=== PATIENT | female | born 1970 | race Caucasian/White ===

== ENCOUNTER 2016-08-25 15:19 | Inpatient (IN) ==
--- NOTE | 2016-08-25 16:01 | Emergency Department Note ---
Disposition Clinical Impression: Right hip pain Tear of acetabular labrum Qualifiers: Encounter type: initial encounter Laterality: right Qualified Code(s): S73.191A - Other sprain of right hip, initial encounter Hypertension Qualifiers: Hypertension type: essential hypertension Qualified Code(s): I10 - Essential ( primary) hypertension Disposition: Admitted As Inpatient Referrals: Chinmay Esqueda DO [Non-Partnered Physician] - Forms: ED Satisfaction Letter Time of Disposition: 18:59 Extremity Problem HPI - General Chief complaint: ED Extremity Problem,Nontraumatic Stated complaint: R hip injury, increased pain Time Seen by Provider: 08/25/16 15:54 Source: patient Mode of arrival: wheelchair Limitations: no limitations Nursing Notes Reviewed: Yes Vital Signs Reviewed: Yes - History of Present Illness HPI Narrative: 46-year-old who was getting out of the car and twisted her right hip. She has severe pain has progressed is unable to walk. She was seen here had x-rays which showed no acute findings. Patient is a renal dialysis patient. Pt Subjective Complaint: extremity pain Onset (ago): day(s) Consistency: constant (Several) Injury Location: right Pain Scale: 10 Quality: aching Radiation: none Improves with: nothing Worsens with: range of motion, weight bearing Associated symptoms: Reports: denies other symptoms - Related Data Home Medications Medication Instructions Recorded Confirmed Paroxetine [Paxil] 30 mg PO DAILY 07/19/16 07/20/16 Acetaminophen [Tylenol] 500 mg PO Q6HR PRN 07/20/16 07/20/16 Amlodipine [Norvasc] 5 mg PO BID 07/20/16 07/20/16 Previous Rx's Medication Instructions Recorded Amoxicillin/Clavulanate [Augmentin] 500 mg PO BIDWM #10 tablet 07/24/16 Budesonide/Formoterol 80/4.5 2 puff IH BIDR #30 inhaler 07/24/16 [Symbicort 80/4.5] GuaiFENesin ER [Mucinex] 600 mg PO BID #20 tbbp.12hr 07/24/16 Losartan [Cozaar] 100 mg PO DAILY #30 tablet 07/24/16 PredniSONE 10 mg PO DAILY #21 tablet 07/24/16 HYDROcodone/Acet 5/325 mg [Seeley 1 tab PO Q6H PRN #12 tab 08/23/16 5-325 mg] Allergies Allergy/AdvReac Type Severity Reaction Status Date / Time latex Allergy Hives Verified 07/19/16 21:44 moxifloxacin [From Avelox] Allergy Difficulty Verified 07/19/16 21:44 Breathing Constitutional: Denies: fever, chills, weakness, weight change Eyes: Denies: eye pain, eye discharge, vision change ENT ED: Denies: ear pain, throat pain, dental pain, hearing loss, epistaxis, congestion, dysphagia Cardiovascular: Denies: chest pain, palpitations, dyspnea on exertion, edema, syncope Respiratory: Denies: cough, dyspnea, wheezes, hemoptysis, stridor Gastrointestinal: Denies: abdominal pain, nausea, vomiting, diarrhea, constipation, hematemesis, melena, hematochezia Genitourinary: Denies: dysuria, frequency, hematuria, discharge Musculoskeletal: Reports: arthralgia. Denies: back pain, neck pain, myalgia Integumentary: Denies: rash, abrasion, lesions Neurological: Denies: headache, weakness, numbness, paresthesias, confusion, abnormal gait, vertigo Psychiatric: Denies: anxiety, depression, suicidal thoughts, homicidal thoughts , auditory hallucinations, visual hallucinations Endocrine: Denies: fatigue Hematological/Lymphatic: Denies: easy bleeding, easy bruising Allergic/Immunologic: Denies: facial swelling, urticaria Past Medical History - Past Medical History Medical history: Reports: dialysis, hypertension, renal disease Psychiatric history: Reports: anxiety, depression - Social History Smoking Status: Never smoker Smokeless Tobacco Status: No Alcohol use: Reports: none Drug use: Reports: none Physical Exam - General Limitations: no limitations General appearance: alert - Head Head exam: atraumatic, normocephalic, normal inspection - Eye Eye exam: Present: normal appearance, PERRL, EOMI - ENT ENT exam: normal exam - Neck Neck exam: Present: normal inspection, full ROM, trachea midline - Chest Chest inspection: Present: normal inspection, symmetric chest wall rise - Respiratory Respiratory exam: Present: normal lung sounds bilaterally - Cardiovascular Cardiovascular exam: Present: regular rate, normal rhythm, normal heart sounds - Abdominal Exam Abdominal exam: Present: soft - Expanded Lower Extremity Exam Hip/Pelvis exam: Present: tenderness (Laterally) Course - Consultations Consultation #1: Discussed with , the patient lives by herself and is normally ambulatory is not able to ambulate and has severe pain he would like her admitted to the hospital for MRI of her hip along with orthopedic consultation Time: 18:57 Time: 18:58 Vital Signs Temperature 98.0 F 08/25/16 15:21 Pulse Rate 61 08/25/16 15:21 Respiratory Rate 16 08/25/16 15:21 Blood Pressure 164/94 08/25/16 15:21 O2 Sat by Pulse Oximetry 97 08/25/16 15:21 Temperature 98.0 F 08/25/16 15:21 Pulse Rate 89 08/25/16 18:35 Respiratory Rate 16 08/25/16 18:35 Blood Pressure 178/106 08/25/16 18:35 O2 Sat by Pulse Oximetry 91 L 08/25/16 18:38 Oxygen Delivery Oxygen Delivery Room Air
[2016-08-25] MEDS ORDERED: *HR* HYDROmorphone 2 MG/ML SYRINGE IM ONE (17:11)
[2016-08-25] MEDS ORDERED: Ondansetron ODT 4 MG TAB.RAPDIS SL ONE (17:11)
--- NOTE | 2016-08-25 22:28 | Internal Med History&Physical ---
Date of Encounter: 08/25/16 Time of Encounter: 20:30 Assessment and Plan (1) Right hip pain Current visit: Yes Status: Acute X-rays negative for fracture. Patient has persisting pain - will obtain MRI of the right hip, the exclude hairline fracture versus muscular injury. If there is any evidence of fracture, will consider orthopedic consultation. If no fracture, consider PT, OT (2) Hypertension Current visit: Yes Status: Chronic Continue home antihypertensive medications. Qualifiers: Hypertension type: essential hypertension Qualified Code(s): I10 - Essential (primary) hypertension (3) End stage renal disease Current visit: No Status: Chronic On hemodialysis Thursday and Thursday. Consult Dr Esqueda (4) Chronic respiratory failure Current visit: Yes Status: Chronic Apparently she had post pneumonia resp failure and uses home oxygen - continue Qualifiers: Respiratory failure complication: hypoxia Qualified Code(s): J96.11 - Chronic respiratory failure with hypoxia (5) DVT prophylaxis Current visit: No Status: Acute Heparin Internal Medicine - H&P: HPI Chief complaint: Right hip pain Admitted From: Home Plans for Post Hospital Care: Home History of present illness: Ms. Darby is a 46 year old female with past medical history significant for dry answers noticed on hemodialysis M/ W/ F, hypertension, CAD, hypothyroidism and is expected to go for hyperthyroidism. She apparently Was getting out of the car earlier today and she felt pain and pop at the right hip. Apparently it was already painful, 10/10 in severity and was difficult to weight-bear and move. Pain is achy and nonradiating; better with rest. She denies chest pain, shortness of breath, cough, fever, abdominal pain, dysuria, hematuria, moderate problems. She was evaluated in the emergency department and the hip x-ray was negative for fracture. The ER provider discussed with foreign language instructor Dr. Esqueda, who recommends further w/u and admission. She reports that she was recently treated for pneumonia and using oxygen intermittently Past Med Surg Social Fam HX - Past Medical History Medical history: dialysis, hypertension, renal disease Psychiatric history: anxiety, depression - Social History Smoking Status: Never smoker Smokeless Tobacco Status: No Alcohol use: none Drug use: none - Family History Mother Living Status: Still Living Hx Family Cardiac Disorders: Yes (CAD) Hx Family Cancer: Yes (skin cancer) Hx Family Endocrine Disorder: Yes (DM) Father Adopted: [place]: Edwin Portillo Age: 65 Family Member Ethnicity: Non- Living Status: Still Living Hx Family Respiratory Disorders: Yes (MVA) Hx Family Cancer: No Hx Family GI Disorders: No Hx Family Genitourinary Disorders: No Hx Family Endocrine Disorder: No Hx Family Musculoskeletal Disorders: No Hx Family Neuromuscular Disorders: No Hx Family Neurologic Disorders: No Hx Family HEENT Disorders: No Hx Family Autoimmune Disorders: No Hx Family Reproductive Disorders: No Hx Family Psychosocial Disorders: Yes (depression) Hx Family Medical Disorders: No Internal Medicine - H&P: Meds Paroxetine [Paxil] 30 mg PO DAILY 07/19/16 [History] Acetaminophen [Tylenol] 500 mg PO Q6HR PRN 07/20/16 [History] Budesonide/Formoterol 80/4.5 [Symbicort 80/4.5] 2 puff IH BIDR #30 inhaler [Rx] Losartan [Cozaar] 100 mg PO DAILY #30 tablet 07/24/16 [Rx] Loperamide HCl [Imodium A-D] 2 mg PO 8XD PRN 08/25/16 [History] Tramadol HCl [Ultram] 50 - 100 mg PO Q6H PRN 08/25/16 [History] Allergies latex Allergy (Verified 07/19/16 21:44) Hives moxifloxacin [From Avelox] Allergy (Verified 07/19/16 21:44) Difficulty Breathing All Systems PM: A 10-system review of systems was performed and is negative for pertinent findings except as documented above in the HPI. - Constitutional Vitals: Temp Pulse Resp BP Pulse Ox 98.0 F 80 18 181/94 92 L 08/25/16 21:29 08/25/16 21:29 08/25/16 21:29 08/25/16 21:29 08/25/16 21:29 Exam: General: Not in acute distress at the time of my evaluation HEENT: Oral mucosa is moist. No scleral icterus Neck: No obvious neck swellings Lungs: Clear to auscultation Cardiac: Regular rate and rhythm. No significant murmurs Abdomen: Soft, non tender. Bowel sounds present Genitourinary: No crespo catheter Neurological: Alert and oriented. No gross localizing deficits Psych: Not aggressive or agitated Extremities: There is some tenderness over the lateral aspect of the right upper thigh. No tenderness over the right hip. Passive movements at the right hip present. Theres is right arm A-V fistula. Skin: No generalized rash Internal Med - H&P Results - Labs CBC & Chem 7: 08/25/16 22:53 08/25/16 22:53 - Impressions ITS Impressions Pelvis CT 08/25/16 15:56 IMPRESSION: No acute radiographic abnormality. Sacroiliitis. D/ / Napoleon Mcdonnell MD / Napoleon Mcdonnell MD Interpreting Provider: Napoleon Mcdonnell MD
[2016-08-25] MEDS ORDERED: traMADol 50 MG TABLET PO PRN (22:30)
[2016-08-25] MEDS ORDERED: Ondansetron 4 MG/2 ML VIAL IVP PRN (22:35)
[2016-08-25] MEDS ORDERED: *HR* HYDROmorphone (PF) 1 MG/ML SYRINGE IVP PRN (22:35)
[2016-08-25] MEDS ORDERED: Naloxone 0.4 MG/ML INJ IVP PRN (22:35)
[2016-08-25] MEDS: Budesonide/Formoterol 80/4.5 MDI IH SCH (22:55)
[2016-08-25 23:03] LABS: Basophils % 0.4 %; Eosinophils # 0.2 K/mcL (0.0-0.6); Eosinophils % 3.6 %; Hemoglobin 11.6 g/dL (11.5-15.4); Immature Granulocytes % 0.2 % (0-4); Lymphocytes # 1.2 K/mcL (0.6-4.6); Lymphocytes % 25.9 %; Mean Corpuscular HGB Conc 32.2 g/dL (31.6-35.5); Mean Corpuscular Hemoglobin 29.7 pg (28.0-33.3); Mean Corpuscular Volume 92.1 fL (83.0-100.0); Mean Platelet Volume 10.2 fL (9.4-12.4); Monocytes # 0.4 K/mcL (0.0-1.3); Monocytes % 9.2 %; Neutrophils # 2.7 K/mcL (1.6-8.9); Platelet Count 163 K/mcL (140-400); Red Blood Count 3.91 M/mcL (3.82-4.97); Red Cell Distribution Width 14.8 % (11.5-14.5); Segmented Neutrophils % 60.7 %
[2016-08-25 23:12] LABS: Calcium 10.2 mg/dL (8.6-10.8); Potassium 3.9 mEq/L (3.5-4.5)
[2016-08-26] MEDS: *HR* OxyCODONE Immed Rel 5 MG TABLET PO PRN ×3 (00:05→13:07)
[2016-08-26] MEDS: *HR* Heparin 5,000 UNIT/ML VIAL SQ SCH ×2 (06:17→18:34)
[2016-08-26] MEDS: Budesonide/Formoterol 80/4.5 MDI IH SCH ×2 (08:53→22:22)
--- NOTE | 2016-08-26 11:31 | Nephrology Consult Note ---
Date of Encounter: 08/26/16 Time of Encounter: 11:05 Assessment and Plan (1) End stage renal disease Current Visit: No Status: Chronic Right hip pain continues. Awaiting MRI, xray of right hip negative. HD tomorrow , keeping MWF schedule. History of Present Illness - Reason for Consult end stage renal disease - History of Present Illness Ms. Darby is a 46 year old female with ESRD who dialyzes at [facility] on MWF , last dialysis yesterday. Other PMH recent pneumonia with home oxygen use, HTN , CAD, hypothyroidism, anxiety and depression. Ms. Darby presented back to ER with right hip pain after getting out of car twisting and heard pop and pain . Had xray earlier and was negative for fracture. Today at cosult she states pain still prevalent, awaiting MRI. Past Med Surg Social Fam HX - Past Medical History Medical history: dialysis, hypertension, renal disease Psychiatric history: anxiety, depression - Social History Smoking Status: Never smoker Smokeless Tobacco Status: No Alcohol use: none Drug use: none - Family History Mother Living Status: Still Living Hx Family Cardiac Disorders: Yes (CAD) Hx Family Cancer: Yes (skin cancer) Hx Family Endocrine Disorder: Yes (DM) Father Adopted: [place]: Edwin Portillo Age: 65 Family Member Ethnicity: Non- Living Status: Still Living Hx Family Respiratory Disorders: Yes (MVA) Hx Family Cancer: No Hx Family GI Disorders: No Hx Family Genitourinary Disorders: No Hx Family Endocrine Disorder: No Hx Family Musculoskeletal Disorders: No Hx Family Neuromuscular Disorders: No Hx Family Neurologic Disorders: No Hx Family HEENT Disorders: No Hx Family Autoimmune Disorders: No Hx Family Reproductive Disorders: No Hx Family Psychosocial Disorders: Yes (depression) Hx Family Medical Disorders: No Medications and Allergies Paroxetine [Paxil] 30 mg PO DAILY 07/19/16 [History] Acetaminophen [Tylenol] 500 mg PO Q6HR PRN 07/20/16 [History] Budesonide/Formoterol 80/4.5 [Symbicort 80/4.5] 2 puff IH BIDR #30 inhaler [Rx] Losartan [Cozaar] 100 mg PO DAILY #30 tablet 07/24/16 [Rx] Loperamide HCl [Imodium A-D] 2 mg PO 8XD PRN 08/25/16 [History] Tramadol HCl [Ultram] 50 - 100 mg PO Q6H PRN 08/25/16 [History] Allergies latex Allergy (Verified 07/19/16 21:44) Hives moxifloxacin [From Avelox] Allergy (Verified 07/19/16 21:44) Difficulty Breathing Review of Systems All Systems: reviewed and no additional remarkable complaints except as stated Exam - Vital Signs Vital signs: Initial Vital Signs Temp Pulse Resp BP Pulse Ox 98.0 F 61 16 164/94 97 08/25/16 15:21 08/25/16 15:21 08/25/16 15:21 08/25/16 15:21 08/25/16 15:21 Vital Signs - Last 8 Hours Temp Pulse Resp BP Pulse Ox 08/26/16 10:53 98.4 F 71 16 138/85 98 08/26/16 08:53 16 98 08/26/16 08:10 100 08/26/16 07:08 97.9 F 75 17 155/94 100 08/26/16 03:56 98.3 F 75 18 129/78 100 Intake and Output 08/25/16 08/26/16 08/26/16 23:59 07:59 15:59 Intake Total 240 / 240 Balance 240 / 240 Intake: Oral 240 / 240 Other: Meal Breakfast Percent of Meal Consumed 100% Weight 56.7 kg 57 kg Patient Weight 08/26/16 23:59 Weight 57 kg - General Appearance General appearance: well-developed, well-nourished, appears started age EENT: mucous membranes moist Neck: no JVD Respiratory: clear Cardiology: no edema, regular rate, regular rhythm Gastrointestinal: normoactive bowel sounds, no tenderness Integumentary: warm and dry Neurologic: alert and oriented x3 Psychiatric: mood/affect appropriate, cooperative Results - Lab Results 08/25/16 22:53 08/25/16 22:53 Most recent lab results Calcium 10.2 mg/dL (8.6-10.8) 08/25/16 22:53 Consult Discharge Plan - Plan Referrals: Angela Bob, REFINING EQUIPMENT OPERATOR [Primary Care Provider] -
[2016-08-26] MEDS ORDERED: *HR* OxyCODONE Immed Rel 5 MG TABLET PO PRN (15:08)
--- NOTE | 2016-08-26 15:10 | Internal Med Progress Note ---
Date of Encounter: 08/26/16 Time of Encounter: 15:08 - Assessment and plan (1) Right hip pain Current Visit: Yes Status: Acute Assessment and plan: CT hip did not show any fracture, possible sacroiliitis control pain oxycodone, and tramadol Orthopedic surgery consult MRI can 't be done due to history of artificial bladder sphincter at [facility] Records to be obtained ( might take a couple of days they said as it was done 20 years ago) do not bear weight hold PT (2) Mitral valve prolapse Current Visit: Yes Status: Acute Assessment and plan: stable (3) Hypertension Current Visit: Yes Status: Chronic Qualifiers: Hypertension type: essential hypertension Qualified Code(s): I10 - Essential (primary) hypertension (4) Benign hypertension with ESRD (end-stage renal disease) Current Visit: No Status: Acute Assessment and plan: on HD m (5) Secondary hyperparathyroidism (of renal origin) Current Visit: No Status: Acute Assessment and plan: start Calcium and calcitriol high risk of fractures and falling - Time Spent With Patient Greater than 35 minutes - Subjective Interval history: severe right hip pain , heard a "pop" the other day. Denies CP or SOB, no fever , no sick contacts, no abdominal pain - Constitutional Vitals: Temp Pulse Resp BP Pulse Ox 98.4 F 71 16 138/85 98 08/26/16 10:53 08/26/16 10:53 08/26/16 10:53 08/26/16 10:53 08/26/16 10:53 General appearance: Present: A&O X 3 - Head Head exam: Present: atraumatic, normocephalic - Eye Eye exam: Present: PERRL, conjuntiva pink, sclera anicteric Pupils: Present: PERRL - Neck Neck exam general surgery: Present: supple, trachea midline. Absent: lymphadenopathy - Respiratory Respiratory exam: Present: decreased breath sounds, CTAB. Absent: accessory muscle use, rales, rhonchi, wheezes - Cardiovascular Cardiovascular exam: Present: RRR, +S1, +S2. Absent: diastolic murmur, gallop, rubs, systolic murmur - GI/Abdominal GI/Abdominal exam: Present: normal bowel sounds, soft, no peritoneal signs. Absent: distended, tenderness - Extremities Exam Extremities exam: Present: warm, radial pulses palpable and symetrical. Absent : calf tenderness, cyanotic, pedal edema Additional comments: RIght upper extremity fistula right hip decreased rOM/weakness due to pain. no tenderness - Neurological Exam Neurological exam: Present: CN II-XII intact, oriented X3, no focal deficits. Absent: pronater drift, facial droop, speech deficit - Skin Skin exam: Present: dry, intact Internal Medicine: Result - Labs CBC & Chem 7: 08/25/16 22:53 08/25/16 22:53 Labs: Short CBC 08/25/16 Range/Units 22:53 WBC 4.5 (4.3-11.1) K/mcL Hgb 11.6 (11.5-15.4) g/dL Hct 36.0 (35.3-44.9) % Plt Count 163 (140-400) K/mcL Neutrophils # 2.7 (1.6-8.9) K/mcL BMP 08/25/16 22:53 Sodium 139 Potassium 3.9 Chloride 93 L Carbon Dioxide 31 H BUN 17 Creatinine 5.55 H Glucose 116 H Calcium 10.2 Consult Discharge Plan - Plan Referrals: Angela Bob, CARBURETOR REBUILDER [Primary Care Provider] -
--- NOTE | 2016-08-26 17:41 | Orthopedic Consult Note ---
Date of Encounter: 08/26/16 Time of Encounter: 17:39 History of Present Illness Chief complaint: Right hip pain HPI: Ms. Darby is a 46 year old female who developed acute onset of right hip pain about 5 days ago. Patient states that she was getting out of a vehicle when she felt pain with an acute pop occur in the right hip. This occurred shortly with difficulty in ambulation but approximately every 2 hours ago the patient developed acute progressive unrelenting pain that precluded her from weightbearing on the leg. Patient states she has had some right knee pain. No history of previous right hip pain. For complete history and physical data please refer to the complete portion of the medical record. Of note is that the patient has a history of end-stage renal disease and is on Thursday dialysis. Examination reveals a pleasant 46-year-old woman in no acute distress well lying in a hospital bed. Patient does have tenderness to palpation over the right groin does have pain with attempts at internal or external rotation of the hip as well as hip flexion. I reviewed multiple imaging studies. I reviewed a knee x-ray from 08-15-16 that revealed revealed advanced arthritic changes especially involving the patellofemoral joint. There is marked osteopenia. The next x-rays I reviewed her of her pelvis and right femur from 08-15-16. The pelvic x-ray does reveal the patient has bilateral hip osteoarthritis and marked osteopenia. The right femoral neck show some irregularities especially along the superior subcapital region. The right femoral x-rays show both hip and knee arthritis with a marked femoral bow. I reviewed the recently completed CT of her pelvis from this does reveal marked bilateral femoral neck and overall osteopenia, irregularities in the right femoral neck, osteoarthritis of both hips, bilateral hip sacroiliac changes with the right side showing "vacuum phenomena" . In addition there is a bladder neck "object" with some density nearing bone. Additionally there is an anterior soft tissue structure that appears to be connected by tubing to the bladder neck object. This appears to have some metal objects probably related to tubing connectors in the control unit in her soft tissue. I also reviewed a CT of her pelvis from 05-17-12, this does not show any gross hip findings. Most concerning is a KUB from 03-12-16. Does not reveal any femoral neck anomalies. There are arthritic changes in her hip. Impression: I have a high index of suspicion that the patient does have a nondisplaced right femoral neck fracture. The ideal way to diagnosis would be an MRI of the hip, however, with the unknown metal in her urinary sphincter control unit and MRI is risky. Apparently there have been attempts to obtain the information regarding this unit which was put in many years ago and information may not be available for a while. The other option would be to proceed with a bone scan, I think that the process has been going on long enough that the bone scan should be positive if a fracture is present. Scuffs with the patient that I would recommend we have a more definitive fracture diagnosis before proceeding with any form of treatment. If a fracture is present this would be a surgical fracture with 2 options. The first would be to proceed with stabilization utilizing hip screws. I do not think this is a good option in light of the patient's poor bone quality with limited healing capacity and the difficulty in evaluating healing with plain x-rays. I think the second option, a cemented hemiarthroplasty of the hip, would be a more appropriate treatment for her. This would eliminate any need for fracture healing and provide her with a stable hip that she could begin weightbearing ambulation immediately. We discussed this a more involved surgical procedure but I feel that this is most appropriate if a fracture is present. We will go ahead and order the bone scan, if this is positive and the patient requires surgery would probably schedule for the end of the week after dialysis on Thursday. Thank you very much for allowing me to see care for Mrs. Darby. Sincerely, Montez Woody,DO Past Med Surg Social Fam HX - Past Medical History Medical history: dialysis, hypertension, renal disease Psychiatric history: anxiety, depression - Social History Smoking Status: Never smoker Smokeless Tobacco Status: No Alcohol use: none Drug use: none - Family History Mother Living Status: Still Living Hx Family Cardiac Disorders: Yes (CAD) Hx Family Cancer: Yes (skin cancer) Hx Family Endocrine Disorder: Yes (DM) Father Adopted: [place]: Edwin Portillo Age: 65 Family Member Ethnicity: Non- Living Status: Still Living Hx Family Respiratory Disorders: Yes (MVA) Hx Family Cancer: No Hx Family GI Disorders: No Hx Family Genitourinary Disorders: No Hx Family Endocrine Disorder: No Hx Family Musculoskeletal Disorders: No Hx Family Neuromuscular Disorders: No Hx Family Neurologic Disorders: No Hx Family HEENT Disorders: No Hx Family Autoimmune Disorders: No Hx Family Reproductive Disorders: No Hx Family Psychosocial Disorders: Yes (depression) Hx Family Medical Disorders: No Medications and Allergies Paroxetine [Paxil] 30 mg PO DAILY 07/19/16 [History] Acetaminophen [Tylenol] 500 mg PO Q6HR PRN 07/20/16 [History] Budesonide/Formoterol 80/4.5 [Symbicort 80/4.5] 2 puff IH BIDR #30 inhaler [Rx] Losartan [Cozaar] 100 mg PO DAILY #30 tablet 07/24/16 [Rx] Loperamide HCl [Imodium A-D] 2 mg PO 8XD PRN 08/25/16 [History] Tramadol HCl [Ultram] 50 - 100 mg PO Q6H PRN 08/25/16 [History] Allergies latex Allergy (Verified 07/19/16 21:44) Hives moxifloxacin [From Avelox] Allergy (Verified 07/19/16 21:44) Difficulty Breathing All Systems Reviewed: A 10-system review of systems was performed and is negative for pertinent findings except as documented above in the HPI. Physical Exam - Constitutional Vitals: Temp Pulse Resp BP Pulse Ox 98.2 F 74 18 115/75 94 L 08/26/16 15:35 08/26/16 15:35 08/26/16 15:35 08/26/16 15:35 08/26/16 15:35 Results - Labs Result Diagrams: 08/25/16 22:53 08/25/16 22:53 Labs: Abnormal lab results RDW 14.8 % (11.5-14.5) H 08/25/16 22:53 Chloride 93 mEq/L (98-109) L 08/25/16 22:53 Carbon Dioxide 31 mEq/L (19-29) H 08/25/16 22:53 Creatinine 5.55 mg/dL (0.57-1.11) H 08/25/16 22:53 Est GFR ( Amer) 10 (> 60) L 08/25/16 22:53 Est GFR (Non-Af Amer) 8 (> 60) L 08/25/16 22:53 BUN/Creatinine Ratio 3 (6-26) L 08/25/16 22:53 Glucose 116 mg/dL (70-99) H 08/25/16 22:53 H & H 08/25/16 Range/Units 22:53 Hgb 11.6 (11.5-15.4) g/dL Hct 36.0 (35.3-44.9) % All other labs normal. Consult Discharge Plan - Plan Referrals: Angela Bob CNP [Primary Care Provider] -
[2016-08-26] MEDS: *HR* HYDROmorphone (PF) 1 MG/ML SYRINGE IVP PRN (20:47)
[2016-08-27] MEDS: *HR* Heparin 5,000 UNIT/ML VIAL SQ SCH ×2 (05:05→20:31)
[2016-08-27 09:32] LABS: Basophils % 0.3 %; Eosinophils # 0.2 K/mcL (0.0-0.6); Eosinophils % 7.2 %; Hematocrit 34.7 % (35.3-44.9); Hemoglobin 10.8 g/dL (11.5-15.4); Lymphocytes # 0.8 K/mcL (0.6-4.6); Lymphocytes % 26.7 %; Mean Corpuscular HGB Conc 31.1 g/dL (31.6-35.5); Mean Corpuscular Hemoglobin 29.8 pg (28.0-33.3); Mean Corpuscular Volume 95.6 fL (83.0-100.0); Mean Platelet Volume 10.7 fL (9.4-12.4); Monocytes # 0.3 K/mcL (0.0-1.3); Monocytes % 9.9 %; Neutrophils # 1.6 K/mcL (1.6-8.9); Platelet Count 140 K/mcL (140-400); Red Blood Count 3.63 M/mcL (3.82-4.97); Red Cell Distribution Width 14.6 % (11.5-14.5); Segmented Neutrophils % 55.9 %
[2016-08-27 09:47] LABS: Albumin 3.3 g/dL (3.5-5.0); Bilirubin,Total 0.5 mg/dL (0.2-1.2); Calcium 10.3 mg/dL (8.6-10.8); Globulin 3.2 g/dL (2.4-3.5); Potassium 4.7 mEq/L (3.5-4.5); Total Protein 6.5 g/dL (6.0-8.3)
--- NOTE | 2016-08-27 09:53 | Nephrology Progress Note ---
Date of Encounter: 08/27/16 Time of Encounter: 09:40 - Assessment and Plan (1) End stage renal disease Current Visit: No Status: Chronic Bone scan findings consistent with incomplete fracture of right femoral head/ neck junction. Tentative surgery Thursday following HD. Will have HD today, keeping MWF schedule, orders given. Subjective Interval history: Sitting up in bed, states feeling better. States bone scan completed this AM. Objective - Vital Signs Vital signs: Vital Signs Temp Pulse Resp BP Pulse Ox 08/27/16 09:33 92 L 08/27/16 07:00 98.3 F 84 16 174/96 92 L 08/27/16 04:13 98.3 F 85 16 137/88 98 08/27/16 01:06 98 F 72 18 144/77 99 08/26/16 22:25 16 99 08/26/16 21:17 98.7 F 79 16 112/72 94 L 08/26/16 15:35 98.2 F 74 18 115/75 94 L 08/26/16 10:53 98.4 F 71 16 138/85 98 Intake and Output 08/26/16 08/27/16 08/27/16 23:59 07:59 15:59 Intake Total 240 / 240 Balance 240 / 240 Intake: Oral 240 / 240 Other: Meal Breakfast Percent of Meal Consumed 25% # Voids 1 - General Appearance General appearance: Present: well-developed, well-nourished, appears started age EENT: Present: mucous membranes moist Neck: Present: no JVD Respiratory: Present: clear Cardiology: Present: no edema, regular rate, regular rhythm Gastrointestinal: Present: normoactive bowel sounds, no tenderness Integumentary: Present: warm and dry Neurologic: Present: alert and oriented x3 Psychiatric: Present: mood/affect appropriate, cooperative - Lab 08/27/16 08:37 08/25/16 22:53 Most recent lab results Calcium 10.2 mg/dL (8.6-10.8) 08/25/16 22:53 Consult Discharge Plan - Plan Referrals: Angela Bob, [employer] [Primary Care Provider] -
[2016-08-27 10:30] LABS: Hepatitis B Surface Antigen Nonreactive (Nonreactive)
[2016-08-27 10:31] LABS: Hepatitis B Surface Antibody 41.73 mIU/mL
[2016-08-27] MEDS: Budesonide/Formoterol 80/4.5 MDI IH SCH ×2 (10:56→21:34)
[2016-08-27] MEDS: *HR* HYDROmorphone (PF) 1 MG/ML SYRINGE IVP PRN ×2 (12:19→20:31)
--- NOTE | 2016-08-27 12:22 | Internal Med Progress Note ---
Date of Encounter: 08/27/16 Time of Encounter: 12:19 - Assessment and plan (1) Right hip pain Current Visit: Yes Status: Acute Assessment and plan: Bone scan shows a right femoral head and neck junction incomplete fracture Nonweightbearing CT hip did not show any fracture, possible sacroiliitis control pain oxycodone, and Dilaudid Orthopedic surgery consulted, possible surgical procedure by the end of this week MRI could not be done due to history of artificial bladder sphincter at [place] Records to be obtained ( might take a couple of days they said as it was done 20 years ago) hold PT (2) Mitral valve prolapse Current Visit: Yes Status: Acute Assessment and plan: stable (3) Hypertension Current Visit: Yes Status: Chronic Qualifiers: Hypertension type: essential hypertension Qualified Code(s): I10 - Essential (primary) hypertension (4) Benign hypertension with ESRD (end-stage renal disease) Current Visit: No Status: Acute Assessment and plan: on HD m M W F (5) Secondary hyperparathyroidism (of renal origin) Current Visit: No Status: Acute Assessment and plan: Continue Calcium and calcitriol high risk of fractures and falling (6) Leukopenia Current Visit: Yes Status: Acute Assessment and plan: Unclear etiology Qualifiers: Neutropenia type: unspecified Qualified Code(s): D70.9 - Neutropenia, unspecified - Subjective Interval history: severe right hip pain 8 out of 10 in intensity when she moves , heard a "pop" the other day. Denies CP or SOB, no fever, no sick contacts, no abdominal pain - Constitutional Vitals: Temp Pulse Resp BP Pulse Ox 98.2 F 71 16 157/90 97 08/27/16 10:30 08/27/16 10:30 08/27/16 10:56 08/27/16 10:30 08/27/16 10:56 General appearance: Present: A&O X 3 - Head Head exam: Present: atraumatic, normocephalic - Eye Eye exam: Present: PERRL, conjuntiva pink, sclera anicteric Pupils: Present: PERRL - Neck Neck exam general surgery: Present: supple, trachea midline. Absent: lymphadenopathy - Respiratory Respiratory exam: Present: CTAB. Absent: accessory muscle use, rales, rhonchi, wheezes - Cardiovascular Cardiovascular exam: Present: RRR, +S1, +S2, systolic murmur (Systolic murmur radiating to the left axilla 2 out of 6). Absent: diastolic murmur, gallop, rubs - GI/Abdominal GI/Abdominal exam: Present: normal bowel sounds, soft, no peritoneal signs. Absent: distended, tenderness - Extremities Exam Extremities exam: Present: warm, radial pulses palpable and symetrical. Absent : calf tenderness, cyanotic, pedal edema Additional comments: Right upper extremity AV fistula with good thrill Right lower extremity with severe pain upon movement, pain is localized in the right hip - Neurological Exam Neurological exam: Present: CN II-XII intact, oriented X3, no focal deficits. Absent: pronater drift, facial droop, speech deficit - Skin Skin exam: Present: dry, intact Internal Medicine: Result - Labs CBC & Chem 7: 08/27/16 08:37 08/27/16 08:37 Labs: Short CBC 08/27/16 Range/Units 08:37 WBC 2.9 L (4.3-11.1) K/mcL Hgb 10.8 L (11.5-15.4) g/dL Hct 34.7 L (35.3-44.9) % Plt Count 140 (140-400) K/mcL Neutrophils # 1.6 (1.6-8.9) K/mcL BMP 08/27/16 08:37 Sodium 138 Potassium 4.7 H Chloride 94 L Carbon Dioxide 29 BUN 30 H D Creatinine 8.74 H D Glucose 75 Calcium 10.3 Liver Function 08/27/16 Range/Units 08:37 Total Bilirubin 0.5 (0.2-1.2) mg/dL AST 20 (5-34) Units/L ALT 12 (0-55) Units/L Alkaline Phosphatase 477 H (38-126) Units/L Albumin 3.3 L (3.5-5.0) g/dL - Impressions Impressions Bone/Joint Nuclear Medicine 08/26/16 18:03 IMPRESSION: In correlation with the recent CT examination, findings are consistent with an incomplete fracture at the right femoral head-neck junction, likely insufficiency in origin. Nonweightbearing is suggested. Abnormal femoral uptake with bowing deformities. Mild uptake at the sacroiliac joints. In correlation with the CT scan, the findings are most consistent with bony and resorptive changes related to secondary hyperparathyroidism. D/ / 08/27/2016 09:21:01 Regis Noonan MD / Jessica Rae Interpreting Provider: Regis Noonan MD Consult Discharge Plan - Plan Referrals: Angela Bob, [employer] [Primary Care Provider] - 09/02/16 9:30 am (Please follow up as schedule...)
[2016-08-27] MEDS ORDERED: 0.9 % Sodium Chloride 250 ML IV PRN (12:40)
[2016-08-27] MEDS ORDERED: 0.9 % Sodium Chloride 2,000 ML ONE (18:49)
--- NOTE | 2016-08-27 20:30 | Orthopedics Progress Note ---
Date of Encounter: 08/27/16 Time of Encounter: 20:26 Subjective Principal diagnosis: Right hip pain Interval history: Patient is seen in follow-up regarding her right hip. She persists in having significant right hip pain in the groin area. Vital signs are stable. She is afebrile. Hip exam remains unchanged. I have reviewed the bone scan. This does show some mild increased uptake in the region of the head and neck. In addition there appears to be some increased uptake in both of her sacroiliac joints as well as in both of her femurs. Most of these changes are consistent with some arthritis at the SI joints as well as some insufficiency changes due to her significant osteoporotic bone. The right femoral neck findings are certainly suggestive of fracture. This does not appear to be complete on the x-ray will be CT. This however is not a insufficiency fracture as the patient has had some degree of trauma. I do suspect that this is more of a pathologic type fracture due to significant osteoporosis present. Recommendation: I had a long discussion with the patient that I think her options are either to try a nonoperative course with strict nonweightbearing using a walker and observing the fracture was sequential x-rays. She is aware that if the fracture does not heal or displaces surgery may be indicated. She also understands that the weightbearing time is unknown pending x-rays. The other option will be proceed with a hemiarthroplasty of the hip. Patient understands that this is a rather significant surgery in light of her young age as well as the actual extent of the surgery itself. She currently is leaning towards surgery, we will make a final decision tomorrow. If surgery is anticipated like to proceed with it on Thursday after hemodialysis. Objective Vital signs: Vital Signs Temp Pulse Resp BP Pulse Ox 08/27/16 19:43 18 142/99 08/27/16 19:10 142/99 08/27/16 18:55 142/89 08/27/16 18:40 136/88 08/27/16 18:25 132/90 08/27/16 18:10 128/92 08/27/16 17:55 123/83 08/27/16 17:40 114/75 08/27/16 17:25 123/83 08/27/16 17:10 144/91 08/27/16 16:55 154/89 08/27/16 16:40 154/101 08/27/16 16:25 169/106 08/27/16 16:10 98.0 F 20 164/101 08/27/16 15:46 98.0 F 74 16 158/98 99 Intake and Output 08/27/16 08/27/16 08/27/16 07:59 15:59 23:59 Intake Total 600 / 600 Output Total 2600 / 2600 Balance -1999 / -1999 Intake: Intake, Rinseback and 600 / 600 Flushes Output: Total Dialysis Output 2600 / 2600 Other: Hemodialysis Net Fluid 2000 Removed (mL) - Labs CBC & BMP: 08/27/16 08:37 08/27/16 08:37 Labs: Abnormal lab results WBC 2.9 K/mcL (4.3-11.1) L 08/27/16 08:37 RBC 3.63 M/mcL (3.82-4.97) L 08/27/16 08:37 Hgb 10.8 g/dL (11.5-15.4) L 08/27/16 08:37 Hct 34.7 % (35.3-44.9) L 08/27/16 08:37 MCHC 31.1 g/dL (31.6-35.5) L 08/27/16 08:37 RDW 14.6 % (11.5-14.5) H 08/27/16 08:37 Potassium 4.7 mEq/L (3.5-4.5) H 08/27/16 08:37 Chloride 94 mEq/L (98-109) L 08/27/16 08:37 BUN 30 mg/dL (7-20) H D 08/27/16 08:37 Creatinine 8.74 mg/dL (0.57-1.11) H D 08/27/16 08:37 Est GFR ( Amer) 6 (> 60) L 08/27/16 08:37 Est GFR (Non-Af Amer) 5 (> 60) L 08/27/16 08:37 BUN/Creatinine Ratio 3 (6-26) L 08/27/16 08:37 Alkaline Phosphatase 477 Units/L (38-126) H 08/27/16 08:37 Albumin 3.3 g/dL (3.5-5.0) L 08/27/16 08:37 Albumin/Globulin Ratio 1.0 (1.1-2.2) L 08/27/16 08:37 Consult Discharge Plan - Plan Referrals: Angela Bob CNP [Primary Care Provider] - 09/02/16 9:30 am (Please follow up as schedule...)
[2016-08-28] MEDS: *HR* HYDROmorphone (PF) 1 MG/ML SYRINGE IVP PRN ×4 (01:58→20:29)
[2016-08-28 05:38] LABS: Basophils % 0.5 %; Eosinophils # 0.3 K/mcL (0.0-0.6); Eosinophils % 6.5 %; Hematocrit 34.1 % (35.3-44.9); Hemoglobin 10.8 g/dL (11.5-15.4); Immature Granulocytes % 0.2 % (0-4); Lymphocytes % 24.9 %; Mean Corpuscular HGB Conc 31.7 g/dL (31.6-35.5); Mean Corpuscular Hemoglobin 30.3 pg (28.0-33.3); Mean Corpuscular Volume 95.5 fL (83.0-100.0); Mean Platelet Volume 10.4 fL (9.4-12.4); Monocytes # 0.5 K/mcL (0.0-1.3); Monocytes % 11.2 %; Neutrophils # 2.4 K/mcL (1.6-8.9); Platelet Count 137 K/mcL (140-400); Red Blood Count 3.57 M/mcL (3.82-4.97); Red Cell Distribution Width 14.5 % (11.5-14.5); Segmented Neutrophils % 56.7 %
[2016-08-28 06:03] LABS: Calcium 10.1 mg/dL (8.6-10.8); Potassium 5.1 mEq/L (3.5-4.5)
[2016-08-28] MEDS: *HR* Heparin 5,000 UNIT/ML VIAL SQ SCH (06:59)
[2016-08-28] MEDS: Budesonide/Formoterol 80/4.5 MDI IH SCH ×2 (07:54→20:30)
--- NOTE | 2016-08-28 10:53 | Internal Med Progress Note ---
Date of Encounter: 08/28/16 Time of Encounter: 10:51 - Assessment and plan (1) Right hip pain Current Visit: Yes Status: Acute Assessment and plan: Bone scan shows a right femoral head and neck junction incomplete fracture Nonweightbearing CT hip did not show any fracture, possible sacroiliitis control pain oxycodone, and Dilaudid Orthopedic surgery consulted (Dr Woody , possible hemiarthroplasty in the morning MRI could not be done due to history of artificial bladder sphincter at [place] Records to be obtained ( might take a couple of days they said as it was done 20 years ago) hold PT (2) Mitral valve prolapse Current Visit: Yes Status: Acute Assessment and plan: stable, mild prolapse of anterior mitral valve leaflet Possible mild to moderate aortic regurgitation (3) Hypertension Current Visit: Yes Status: Chronic Qualifiers: Hypertension type: essential hypertension Qualified Code(s): I10 - Essential (primary) hypertension (4) Benign hypertension with ESRD (end-stage renal disease) Current Visit: No Status: Acute Assessment and plan: on HD m (5) Secondary hyperparathyroidism (of renal origin) Current Visit: No Status: Acute Assessment and plan: Continue Calcium and calcitriol high risk of fractures and falling (6) Leukopenia Current Visit: Yes Status: Acute Assessment and plan: Unclear etiology Qualifiers: Neutropenia type: unspecified Qualified Code(s): D70.9 - Neutropenia, unspecified - Time Spent With Patient Greater than 35 minutes - Subjective Interval history: No complaints at the moment other than right hip pain 6 out of 10 in intensity when she moves , heard a "pop" the other day. Denies CP or SOB, no fever, no sick contacts, no abdominal pain - Constitutional Vitals: Temp Pulse Resp BP Pulse Ox 97.7 F 64 16 150/91 93 L 08/28/16 07:24 08/28/16 07:24 08/28/16 07:55 08/28/16 07:24 08/28/16 07:55 General appearance: Present: A&O X 3 - Head Head exam: Present: atraumatic, normocephalic - Eye Eye exam: Present: PERRL, conjuntiva pink, sclera anicteric Pupils: Present: PERRL - Neck Neck exam general surgery: Present: supple, trachea midline. Absent: lymphadenopathy - Respiratory Respiratory exam: Present: CTAB. Absent: accessory muscle use, rales, rhonchi, wheezes - Cardiovascular Cardiovascular exam: Present: RRR, +S1, +S2, systolic murmur (Systolic murmur radiating to the left axilla 2 out of 6). Absent: diastolic murmur, gallop, rubs - GI/Abdominal GI/Abdominal exam: Present: normal bowel sounds, soft, no peritoneal signs. Absent: distended, tenderness - Extremities Exam Extremities exam: Present: warm, radial pulses palpable and symetrical. Absent : calf tenderness, cyanotic, pedal edema Additional comments: Right upper extremity AV fistula with good thrill Right lower extremity with severe pain upon movement, pain is localized in the right hip - Neurological Exam Neurological exam: Present: CN II-XII intact, oriented X3, no focal deficits. Absent: pronater drift, facial droop, speech deficit - Skin Skin exam: Present: dry, intact Internal Medicine: Result - Labs CBC & Chem 7: 08/28/16 05:03 08/28/16 05:03 Labs: Short CBC 08/28/16 Range/Units 05:03 WBC 4.2 L (4.3-11.1) K/mcL Hgb 10.8 L (11.5-15.4) g/dL Hct 34.1 L (35.3-44.9) % Plt Count 137 L (140-400) K/mcL Neutrophils # 2.4 (1.6-8.9) K/mcL BMP 08/28/16 05:03 Sodium 137 Potassium 5.1 H Chloride 95 L Carbon Dioxide 31 H BUN 15 D Creatinine 5.03 H Glucose 95 Calcium 10.1 Consult Discharge Plan - Plan Referrals: Angela Bob CNP [Primary Care Provider] - 09/02/16 9:30 am (Please follow up as schedule...)
--- NOTE | 2016-08-28 11:47 | Nephrology Progress Note ---
Date of Encounter: 08/28/16 Time of Encounter: 11:15 - Assessment and Plan (1) End stage renal disease Current Visit: No Status: Chronic Bone scan findings consistent with incomplete fracture of right femoral head/ neck junction. Tentative surgery Thursday following HD. Subjective Principal diagnosis: Right hip pain Interval history: Laying in bed, states feeling better, pain under good control. States having surgery tomorrow after HD. Objective - Vital Signs Vital signs: Vital Signs Temp Pulse Resp BP Pulse Ox 08/28/16 11:27 98.2 F 67 16 120/71 100 08/28/16 07:55 16 93 L 08/28/16 07:24 97.7 F 64 16 150/91 100 08/28/16 04:49 98 F 69 16 150/76 95 08/28/16 00:27 98.4 F 72 16 117/77 97 08/27/16 21:36 18 98 08/27/16 20:54 98.2 F 70 15 102/68 95 08/27/16 19:43 18 142/99 08/27/16 19:10 142/99 08/27/16 18:55 142/89 08/27/16 18:40 136/88 08/27/16 18:25 132/90 08/27/16 18:10 128/92 08/27/16 17:55 123/83 08/27/16 17:40 114/75 08/27/16 17:25 123/83 08/27/16 17:10 144/91 08/27/16 16:55 154/89 08/27/16 16:40 154/101 08/27/16 16:25 169/106 08/27/16 16:10 98.0 F 20 164/101 08/27/16 15:46 98.0 F 74 16 158/98 99 Intake and Output 08/27/16 08/28/16 08/28/16 23:59 07:59 15:59 Intake Total 600 / 600 0 / 0 Output Total 2600 / 2600 Balance -1999 / -1999 0 / 0 Intake: Oral 0 / 0 Intake, Rinseback and 600 / 600 Flushes Output: Total Dialysis Output 2600 / 2600 Other: Weight 56.7 kg Hemodialysis Net Fluid 2000 Removed (mL) Patient Weight 08/28/16 23:59 Weight 56.7 kg - General Appearance General appearance: Present: well-developed, well-nourished, appears started age EENT: Present: mucous membranes moist Neck: Present: no JVD Respiratory: Present: clear Cardiology: Present: no edema, regular rate, regular rhythm Gastrointestinal: Present: normoactive bowel sounds, no tenderness Integumentary: Present: warm and dry Neurologic: Present: alert and oriented x3 Psychiatric: Present: mood/affect appropriate, cooperative - Lab 08/28/16 05:03 08/28/16 05:03 Most recent lab results Calcium 10.1 mg/dL (8.6-10.8) 08/28/16 05:03 Consult Discharge Plan - Plan Referrals: Angela Bob [employer] [Primary Care Provider] - 09/02/16 9:30 am (Please follow up as schedule...)
--- NOTE | 2016-08-28 17:50 | Orthopedics Progress Note ---
Date of Encounter: 08/28/16 Time of Encounter: 17:47 Subjective Principal diagnosis: Right hip pain Interval history: Patient is seen in follow-up regarding her right hip. She persists in having significant right hip pain in the groin area. Vital signs are stable. She is afebrile. Hip exam remains unchanged. I have reviewed the bone scan. This does show some mild increased uptake in the region of the head and neck. In addition there appears to be some increased uptake in both of her sacroiliac joints as well as in both of her femurs. Most of these changes are consistent with some arthritis at the SI joints as well as some insufficiency changes due to her significant osteoporotic bone. The right femoral neck findings are certainly suggestive of fracture. This does not appear to be complete on the x-ray will be CT. This however is not a insufficiency fracture as the patient has had some degree of trauma. I do suspect that this is more of a pathologic type fracture due to significant osteoporosis present. Recommendation: I had a long discussion with the patient that I think her options are either to try a nonoperative course with strict nonweightbearing using a walker and observing the fracture was sequential x-rays. She is aware that if the fracture does not heal or displaces surgery may be indicated. She also understands that the weightbearing time is unknown pending x-rays. The other option will be proceed with a hemiarthroplasty of the hip. Patient understands that this is a rather significant surgery in light of her young age as well as the actual extent of the surgery itself. She currently is leaning towards surgery, we will make a final decision tomorrow. If surgery is anticipated like to proceed with it on Thursday after hemodialysis. 08/28/2016. Patient is seen in follow-up regarding her right hip fracture. We again had a discussion regarding the treatment options and she is requesting proceed with surgery. Vital signs are stable. She is afebrile. Hemoglobin is 10.8. Platelet count is slightly low at 137. Calcium is 5.1. BUN is 15 with a creatinine of 5.03. She was dialyzed yesterday and will be dialyzed tomorrow prior to surgery. Impression: Right femoral neck fracture Plan: Patient has signed informed consent for sheeting with a hemiarthroplasty of her hip tomorrow. We discussed the surgical procedure as well as potential risks and complications including but not limited to bleeding infection blood clots nerve injury stiffness and rotational or leg length deformities as well as the rare occurrence of a dislocation. We will proceed with surgery tomorrow. Plan for dialysis prior to surgery. Objective Vital signs: Vital Signs Temp Pulse Resp BP Pulse Ox 08/28/16 16:22 98.5 F 74 16 171/99 97 08/28/16 11:27 98.2 F 67 16 120/71 100 08/28/16 07:55 16 93 L 08/28/16 07:24 97.7 F 64 16 150/91 100 08/28/16 04:49 98 F 69 16 150/76 95 08/28/16 00:27 98.4 F 72 16 117/77 97 08/27/16 21:36 18 98 08/27/16 20:54 98.2 F 70 15 102/68 95 08/27/16 19:43 18 142/99 08/27/16 19:10 142/99 08/27/16 18:55 142/89 08/27/16 18:40 136/88 08/27/16 18:25 132/90 08/27/16 18:10 128/92 08/27/16 17:55 123/83 Intake and Output 08/28/16 08/28/16 08/28/16 07:59 15:59 23:59 Intake Total 0 / 0 Balance 0 / 0 Intake: Oral 0 / 0 Other: Weight 56.7 kg Patient Weight 08/28/16 23:59 Weight 56.7 kg - Labs CBC & BMP: 08/28/16 05:03 08/28/16 05:03 Labs: Abnormal lab results WBC 4.2 K/mcL (4.3-11.1) L 08/28/16 05:03 RBC 3.57 M/mcL (3.82-4.97) L 08/28/16 05:03 Hgb 10.8 g/dL (11.5-15.4) L 08/28/16 05:03 Hct 34.1 % (35.3-44.9) L 08/28/16 05:03 Plt Count 137 K/mcL (140-400) L 08/28/16 05:03 Potassium 5.1 mEq/L (3.5-4.5) H 08/28/16 05:03 Chloride 95 mEq/L (98-109) L 08/28/16 05:03 Carbon Dioxide 31 mEq/L (19-29) H 08/28/16 05:03 Creatinine 5.03 mg/dL (0.57-1.11) H 08/28/16 05:03 Est GFR ( Amer) 11 (> 60) L 08/28/16 05:03 Est GFR (Non-Af Amer) 9 (> 60) L 08/28/16 05:03 BUN/Creatinine Ratio 3 (6-26) L 08/28/16 05:03 Alkaline Phosphatase 477 Units/L (38-126) H 08/27/16 08:37 Albumin 3.3 g/dL (3.5-5.0) L 08/27/16 08:37 Albumin/Globulin Ratio 1.0 (1.1-2.2) L 08/27/16 08:37 Consult Discharge Plan - Plan Referrals: Angela Bob CNP [Primary Care Provider] - 09/02/16 9:30 am (Please follow up as schedule...)
[2016-08-29] MEDS: *HR* HYDROmorphone (PF) 1 MG/ML SYRINGE IVP PRN ×7 (04:10→23:59)
[2016-08-29 06:50] LABS: Hematocrit 34.2 % (35.3-44.9); Hemoglobin 10.7 g/dL (11.5-15.4); Mean Corpuscular HGB Conc 31.3 g/dL (31.6-35.5); Mean Corpuscular Hemoglobin 29.9 pg (28.0-33.3); Mean Corpuscular Volume 95.5 fL (83.0-100.0); Mean Platelet Volume 10.7 fL (9.4-12.4); Platelet Count 137 K/mcL (140-400); Red Blood Count 3.58 M/mcL (3.82-4.97); Red Cell Distribution Width 14.5 % (11.5-14.5)
[2016-08-29 07:03] LABS: Calcium 9.9 mg/dL (8.6-10.8); Potassium 4.2 mEq/L (3.5-4.5)
[2016-08-29] MEDS ORDERED: 0.9 % Sodium Chloride 2,000 ML ONE (07:29)
[2016-08-29] MEDS: Budesonide/Formoterol 80/4.5 MDI IH SCH ×2 (08:10→20:17)
[2016-08-29] MEDS ORDERED: 0.9 % Sodium Chloride 250 ML IV PRN ×3 (08:57→22:39)
--- NOTE | 2016-08-29 09:41 | Internal Med Progress Note ---
Date of Encounter: 08/29/16 Time of Encounter: 09:39 - Assessment and plan (1) Right hip pain Current Visit: Yes Status: Acute Assessment and plan: Bone scan showed a right femoral head and neck junction incomplete fracture Nonweightbearing CT hip did not show any fracture, possible sacroiliitis control pain with oxycodone, and Dilaudid Orthopedic surgery consulted (Dr Woody , hemiarthroplasty today MRI could not be done due to history of artificial bladder sphincter at [place] Records to be obtained ( might take a couple of days they said as it was done 20 years ago) hold PT (2) Mitral valve prolapse Current Visit: Yes Status: Acute Assessment and plan: stable, mild prolapse of anterior mitral valve leaflet Possible mild to moderate aortic regurgitation (3) Hypertension Current Visit: Yes Status: Chronic Qualifiers: Hypertension type: essential hypertension Qualified Code(s): I10 - Essential (primary) hypertension (4) Benign hypertension with ESRD (end-stage renal disease) Current Visit: No Status: Acute Assessment and plan: on HD m M W (5) Secondary hyperparathyroidism (of renal origin) Current Visit: No Status: Acute Assessment and plan: Continue Calcium and calcitriol high risk of fractures and falling (6) Leukopenia Current Visit: Yes Status: Acute Assessment and plan: Unclear etiology Qualifiers: Neutropenia type: unspecified Qualified Code(s): D70.9 - Neutropenia, unspecified - Time Spent With Patient Greater than 35 minutes - Subjective Interval history: No issues overnight. No complaints at the moment other than right hip pain 5 out of 10 in intensity when she moves , heard a "pop" the other day. Denies CP or SOB, no fever, no sick contacts, no abdominal pain. - Constitutional Vitals: Temp Pulse Resp BP Pulse Ox 98.1 F 69 16 164/94 96 08/29/16 06:21 08/29/16 06:21 08/29/16 06:21 08/29/16 06:21 08/29/16 09:00 General appearance: Present: A&O X 3 - Head Head exam: Present: atraumatic, normocephalic - Eye Eye exam: Present: PERRL, conjuntiva pink, sclera anicteric Pupils: Present: PERRL - Neck Neck exam general surgery: Present: supple, trachea midline. Absent: lymphadenopathy - Respiratory Respiratory exam: Present: CTAB. Absent: accessory muscle use, rales, rhonchi, wheezes - Cardiovascular Cardiovascular exam: Present: RRR, +S1, +S2. Absent: diastolic murmur, gallop, rubs, systolic murmur - GI/Abdominal GI/Abdominal exam: Present: normal bowel sounds, soft, no peritoneal signs. Absent: distended, tenderness - Extremities Exam Extremities exam: Present: warm, radial pulses palpable and symetrical. Absent : calf tenderness, cyanotic, full ROM, pedal edema Additional comments: Right upper extremity AV fistula with good thrill Right hip swelling with decreased range of motion secondary to severe pain, no ecchymosis - Neurological Exam Neurological exam: Present: CN II-XII intact, oriented X3, no focal deficits. Absent: pronater drift, facial droop, speech deficit - Skin Skin exam: Present: dry, intact Internal Medicine: Result - Labs CBC & Chem 7: 08/29/16 05:15 08/29/16 05:15 Labs: Short CBC 08/29/16 Range/Units 05:15 WBC 3.4 L (4.3-11.1) K/mcL Hgb 10.7 L (11.5-15.4) g/dL Hct 34.2 L (35.3-44.9) % Plt Count 137 L (140-400) K/mcL BMP 08/29/16 05:15 Sodium 137 Potassium 4.2 Chloride 97 L Carbon Dioxide 26 BUN 29 H D Creatinine 6.94 H Glucose 72 Calcium 9.9 Consult Discharge Plan - Plan Referrals: Angela Bob CNP [Primary Care Provider] - 09/02/16 9:30 am (Please follow up as schedule...)
--- NOTE | 2016-08-29 10:16 | Nephrology Progress Note ---
Date of Encounter: 08/29/16 Time of Encounter: 10:00 - Assessment and Plan (1) End stage renal disease Current Visit: No Status: Chronic Bone scan findings consistent with incomplete fracture of right femoral head/ neck junction. Tentative surgery today following HD. Subjective Principal diagnosis: Right hip pain Interval history: Seen on HD. States having surgery today after HD. Objective - Vital Signs Vital signs: Vital Signs Temp Pulse Resp BP Pulse Ox 08/29/16 09:00 96 08/29/16 06:21 98.1 F 69 16 164/94 96 08/29/16 04:39 97.6 F 70 16 185/103 97 08/29/16 00:33 98.6 F 71 16 157/77 96 08/28/16 21:11 98.5 F 65 16 156/82 94 L 08/28/16 20:32 18 96 08/28/16 16:22 98.5 F 74 16 171/99 97 08/28/16 11:27 98.2 F 67 16 120/71 100 Intake and Output 08/28/16 08/29/16 08/29/16 23:59 07:59 15:59 Output Total 0 / 0 Balance 0 / 0 Output: Urine 0 / 0 Other: Meal NPO Weight 56 kg Patient Weight 08/29/16 23:59 Weight 56 kg - General Appearance General appearance: Present: well-developed, well-nourished, appears started age EENT: Present: mucous membranes moist Neck: Present: no JVD Respiratory: Present: clear Cardiology: Present: no edema, regular rate, regular rhythm Gastrointestinal: Present: normoactive bowel sounds, no tenderness Integumentary: Present: warm and dry Neurologic: Present: alert and oriented x3 Psychiatric: Present: mood/affect appropriate, cooperative - Lab 08/29/16 05:15 08/29/16 05:15 Most recent lab results Calcium 9.9 mg/dL (8.6-10.8) 08/29/16 05:15 Consult Discharge Plan - Plan Referrals: Angela Bob CNP [Primary Care Provider] - 09/02/16 9:30 am (Please follow up as schedule...)
[2016-08-29] MEDS ORDERED: ceFAZolin 2,000 MG in D5% in Water 100 ML IVPB ONE ×4 (17:00→22:39)
[2016-08-29] MEDS ORDERED: Ringers Solution, Lactated 1,000 ML IVC SCH (17:00)
--- NOTE | 2016-08-29 17:06 | Anesthesia Evaluation PreOp ---
Date of Encounter: 08/29/16 Time of Encounter: 17:00 - Past History Planned Operation: Rt Hip Hemiarthroplasty Cardiac History: HTN, Hyperlipidemia Pulmonary History: Former smoker, COPD (Hx Respiratory failure) FORECAST ANALYST History: Denies Any Significant HX Other Medical History: Renal (ESRD dialyzed today) : No (No Menses sincestarted Dialysis 12 years ago) Alcohol Use: none Drug use: none Medications and Allergies Paroxetine [Paxil] 30 mg PO DAILY 07/19/16 [History] Acetaminophen [Tylenol] 500 mg PO Q6HR PRN 07/20/16 [History] Budesonide/Formoterol 80/4.5 [Symbicort 80/4.5] 2 puff IH BIDR #30 inhaler [Rx] Losartan [Cozaar] 100 mg PO DAILY #30 tablet 07/24/16 [Rx] Loperamide HCl [Imodium A-D] 2 mg PO 8XD PRN 08/25/16 [History] Tramadol HCl [Ultram] 50 - 100 mg PO Q6H PRN 08/25/16 [History] Allergies latex Allergy (Verified 07/19/16 21:44) Hives moxifloxacin [From Avelox] Allergy (Verified 07/19/16 21:44) Difficulty Breathing - Meds/Allergy Pre-op Review Medications Reviewed: Yes Allergies Reviewed: Yes Beta Blockers on Current Med List: No Anesthesia Results - Labs 08/29/16 05:15 08/29/16 05:15 - Imaging EKG: report reviewed (ST) Additional studies: LVEF 55% MV prolapse Anesthesia Exam O2 Sat Weight 56 kg O2 Sat by Pulse Oximetry 96 O2 Sat by Pulse Oximetry 96 O2 Sat by Pulse Oximetry 93 O2 Sat by Pulse Oximetry 96 O2 Sat by Pulse Oximetry 97 O2 Sat by Pulse Oximetry 96 O2 Sat by Pulse Oximetry 94 O2 Sat by Pulse Oximetry 96 Vital Signs Temp Pulse Resp BP Pulse Ox 98.0 F 61 16 164/94 97 08/25/16 15:21 08/25/16 15:21 08/25/16 15:21 08/25/16 15:21 08/25/16 15:21 Height: 4'11 Weight: 123 lbs NPO (# of Hours): MN - HEENT Pupil (Motor): Pupils equal, EOMI Mallampati: III Teeth: Normal Oral Opening: Less than or equal to 3 - FORECAST ANALYST LOC: Oriented FORECAST ANALYST Motor: Normal RUE, Normal LUE, Normal RLE, Normal LLE, Normal Face FORECAST ANALYST Sensory: Normal: RUE, LUE, RLE, LLE, Face - Cardiac Rhythm: Regular Murmur: None JVD: No Carotid Bruit: No - Pulmonary Breath Sounds: bilateral Clear Respiratory Effort: Symmetrical Anesthesia Assess/Plan ASA Score: 3 (ESRD HTN COPD) Modified [place] Scale for Level of Consciousness: Cooperative, oriented, and tranquil Anesthetic Plan: General Monitoring Plan: Standard Monitors Recovery Plan: PACU (Discussed GA, agrees to proceed)
[2016-08-29] MEDS ORDERED: *HR* Succinylcholine 200 MG/10 ML VIAL IVP ONE (18:34)
[2016-08-29] MEDS ORDERED: *HR* FentaNYL (PF) 100 MCG/2 ML VIAL ONE (18:34)
[2016-08-29] MEDS ORDERED: Lidocaine -MPF 2% 2 ML VIAL ONE (18:34)
[2016-08-29] MEDS ORDERED: *HR* Propofol 200 MG/20 ML VIAL IVP ONE (18:34)
[2016-08-29] MEDS ORDERED: *HR* Labetalol 100 MG/20 ML MDV IVP PRN ×2 (18:42→22:39)
[2016-08-29] MEDS ORDERED: Ondansetron 4 MG/2 ML VIAL IVP PRN ×3 (18:42→22:39)
[2016-08-29] MEDS ORDERED: *HR* HYDROmorphone (PF) 1 MG/ML SYRINGE IVP PRN ×3 (18:42→22:39)
[2016-08-29] MEDS ORDERED: Ondansetron 4 MG/2 ML VIAL ONE (19:19)
[2016-08-29] MEDS ORDERED: Acetaminophen IV 1,000 MG/100 ML INFUS..BTL ONE (19:29)
[2016-08-29] MEDS ORDERED: Dexamethasone 4 MG/ML VIAL ONE (19:31)
[2016-08-29] MEDS ORDERED: *HR* Labetalol 20 MG/4 ML SYRINGE IVP ONE (19:39)
[2016-08-29] MEDS ORDERED: Ketamine *HR* 500 MG/10 ML MDV ONE (20:27)
--- NOTE | 2016-08-29 20:38 | Operative Note ---
Date of procedure: 08/29/16 Pre-op diagnosis: Right femoral neck fracture Post-op diagnosis: same Procedure: #1. Hemiarthroplasty right hip #2. Application of platelet rich plasma right hip Implants: Cemented Nikki size 11 LD/Fx femoral component with a 10 mm distal centralizer , a -4 mm adapter and a 42 mm unipolar endoprosthesis Complications: None Anesthesia: LINDAA Surgeon: Montez Woody Estimated blood loss (cc): 150 Specimen: Femoral head Condition: stable Disposition: PACU Procedure in Detail: Gross findings: Preoperative x-rays revealed marked osteopenia in this 47-year- old woman with a history of chronic renal failure on dialysis. Femoral neck showed some irregularities on the superior subcapital region. CT scan revealed irregularities as well though a discrete fracture was not verified. Preoperative bone scan revealed increased uptake in the femoral neck. Intraoperative findings revealed a right femoral neck fracture. This was subcapital and had just about a 1-2 mm offset. Bone quality was extremely poor. A cemented hemiarthroplasty of the hip was performed without complications. Overall tissue quality was likewise poor. Procedure: Patient was taken the operating room and while in the hospital bed was administered general anesthesia. Patient was then transferred to the operating table and then placed in the lateral recumbent position with the right side up. All pressure points were well padded. Right hip was now prepped and draped in normal standard fashion for surgery. A right lateral hip incision was created. Dissection was carried through the subcutaneous adipose tissue down the level of fascia rosalba which was cleared and split the length of the incision. Poor tissue quality was noted. Charnley retractor was placed maintaining exposure of the trochanter. Marked amount of fatty atrophy of the abductors was noted. At this time the anterior abductors were taken down off the trochanter with the electrocautery device and tagged with #2 FiberWire for retraction and later repair. Capsule was taken down to the level of the neck and superior capsulotomy was made at the level of the acetabulum. Apparent was the femoral neck fracture which was in the subcapital region and showed slight offset with subperiosteal hemorrhage in this area. When the hip was externally rotated the fracture was easily shifted out of position. At this time the femoral neck osteotomy was made and the head was removed from the acetabulum. It was sized and appeared to be a 42. The acetabulum was trialed with a 42 gave excellent fit. At this time a sponge was packed in the acetabulum and attention was paid to the femur. Box osteotome was utilized to open up the medial trochanter. T-handled reamer was passed on the femoral canal. The canal was then rasped up to and including a size 11. This gave good proximal fill. The calcar was taken down to the level of the rasped with a rongeur initially and then with a calcar reamer. Bone was extremely soft. At this time trialing was performed and a -4 mm neck adapter was selected. Trial components were removed. A cement restrictor was placed distally. The femoral canal was then irrigated with pulsatile lavage and then dried with a combination of suction and a femoral sponge. At this time the cement was mixed and at the appropriate time the cement was instilled into the femur which was filled in a retrograde manner and then pressurized proximally for about 10 seconds. The assembled prosthesis and centralizer was then passed down into the cement and placed in a neutral position and impacted until the collar sat firmly on the medial femoral calcar. Excess cement was trimmed away. Compression was maintained upon the implantable cement had fully hardened. Final cement cleanup was performed. Krishna taper on the femoral stem was then cleaned and dried and then the adapter and head were placed and impacted with 3 sharp blows of the mallet. Final washout of the hip was performed followed by reduction of the hip with excellent fit and stability. At this time platelet rich plasma was applied throughout the hip. Attention was now paid to closure. Capsulotomy was closed with #2 FiberWire. Abductors were then repaired to the trochanter with the previously placed #2 FiberWire and reinforced with #2 Quill. Fascia rosalba was closed with multiple #2 FiberWire followed by running # 2 Quill. Deep subtendinous tissue was closed with running #20 Quill followed by several inverted interrupted 4-0 undyed Vicryl placed in medius obtained his tissue. Skin was then closed with a running septic stitch of 20 Quill followed by skin glue once the glue had hardened operative foam was applied and secured. Patient was now placed into an abduction pillow on the operating table. Patient was then transferred from the operating table to hospital bed. Patient was extubated. Patient was then transported to the postanesthesia care unit in stable and satisfactory condition. All sponge and needle evidence for counts are correct. Specimen for pathology was the femoral head.
[2016-08-29] MEDS ORDERED: 0.9 % Sodium Chloride 500 ML ONE (21:20)
--- NOTE | 2016-08-29 21:30 | Anesthesia Evaluation Post Op ---
Date of Encounter: 08/29/16 Time of Encounter: 21:29 - Vital Signs Vital Signs: Vital Signs/O2 Sat/Glucose, Most Current Temp Pulse Resp BP Pulse Ox 08/29/16 21:08 66 24 83/54 96 08/29/16 20:58 100.0 F H 69 24 104/67 96 08/29/16 20:48 69 24 98/64 96 08/29/16 20:38 68 24 81/51 96 08/29/16 20:28 99.0 F 67 24 86/51 97 08/29/16 20:18 74 24 86/54 97 08/29/16 20:08 74 22 92/57 97 08/29/16 19:58 99.7 F H 73 22 102/77 99 - Lungs Lungs: Clear Ascult./Percussion - Airway Airway: Non-obstructed - Cardiovascular Regular Rate - Mental Status Mental Status: Asleep with brisk response to light stimulation - Pain Pain Scale: 2 Pain Scale used: CavazosHernan (Faces) (2) - Nausea Vomiting Nausea Vomiting: Not Present - Hydration Hydration: NPO, Has not voided - Discharge PostOp Status: Transfer Patient to floor Anes Supervising Prov Stmt: Pt seen/evaluated, VSS and pt has met criteria for discharge to floor. - MD Willow
[2016-08-29] MEDS ORDERED: Naloxone 0.4 MG/ML INJ IVP PRN (22:39)
[2016-08-29] MEDS: Ringers Solution, Lactated 1,000 ML IVC SCH (23:19)
[2016-08-30] MEDS ORDERED: *HR* HYDROmorphone 2 MG/ML SYRINGE IVP PRN (01:22)
[2016-08-30] MEDS: *HR* OxyCODONE Immed Rel 5 MG TABLET PO PRN ×2 (05:22→23:36)
[2016-08-30 06:33] LABS: Hematocrit 38.3 % (35.3-44.9); Mean Corpuscular HGB Conc 31.3 g/dL (31.6-35.5); Mean Corpuscular Hemoglobin 30.5 pg (28.0-33.3); Mean Corpuscular Volume 97.2 fL (83.0-100.0); Mean Platelet Volume 10.7 fL (9.4-12.4); Platelet Count 164 K/mcL (140-400); Red Blood Count 3.94 M/mcL (3.82-4.97); Red Cell Distribution Width 14.8 % (11.5-14.5)
[2016-08-30 06:52] LABS: Calcium 10.3 mg/dL (8.6-10.8)
[2016-08-30 06:54] LABS: Potassium 5.6 mEq/L (3.5-4.5)
[2016-08-30] MEDS ORDERED: ceFAZolin 1,000 MG in D5% in Water (Mini-Bag+) 100 ML IVPB ONE ×2 (08:00→12:00)
[2016-08-30] MEDS: *HR* Heparin 5,000 UNIT/ML VIAL SQ SCH ×2 (08:16→18:32)
--- NOTE | 2016-08-30 09:01 | Nephrology Progress Note ---
Date of Encounter: 08/30/16 Time of Encounter: 08:55 - Assessment and Plan (1) End stage renal disease Current Visit: No Status: Chronic S/P right hip arthroplasty. BP low, decreased Losartan. Subjective Principal diagnosis: Right hip pain Interval history: Sitting up in chair, s/p right hip arthroplasty. No new complaints. Objective - Vital Signs Vital signs: Vital Signs Temp Pulse Resp BP Pulse Ox 08/30/16 08:05 98.7 F 73 18 82/58 96 08/30/16 04:34 98.2 F 93 18 88/53 97 08/29/16 23:02 98.4 F 70 17 105/57 99 08/29/16 22:34 97.7 F 63 17 89/58 97 08/29/16 22:00 97.6 F 69 16 102/62 94 L 08/29/16 21:28 63 20 88/58 97 08/29/16 21:18 66 22 80/53 96 08/29/16 21:08 66 24 83/54 96 08/29/16 20:58 100.0 F H 69 24 104/67 96 08/29/16 20:48 69 24 98/64 96 08/29/16 20:38 68 24 81/51 96 08/29/16 20:28 99.0 F 67 24 86/51 97 08/29/16 20:18 74 24 86/54 97 08/29/16 20:08 74 22 92/57 97 08/29/16 19:58 99.7 F H 73 22 102/77 99 08/29/16 16:32 98.5 F 77 14 135/83 96 08/29/16 16:30 22 128/78 08/29/16 12:30 128/78 08/29/16 12:15 130/62 08/29/16 12:00 122/61 08/29/16 11:45 118/54 08/29/16 11:30 99/54 08/29/16 11:15 115/58 08/29/16 11:00 109/57 08/29/16 10:45 109/57 08/29/16 10:30 133/76 08/29/16 10:15 166/77 08/29/16 10:00 164/97 08/29/16 09:45 204/104 02/03/17 09:30 194/97 08/29/16 09:00 96 Intake and Output 08/29/16 08/30/16 08/30/16 23:59 07:59 15:59 Intake Total 150 / 150 Output Total 2750 / 2750 Balance -2750 / -2750 150 / 150 Intake: IV Fluids 150 / 150 Lactated Ringers 1,000 ML 150 / 150 @ 25 mls/hr IVC .Q24H [facility] Rx#:[id number] Output: Total Dialysis Output 2600 / 2600 Estimated Blood Loss 150 / 150 Other: Weight 56.5 kg Hemodialysis Net Fluid 2000 Removed (mL) Patient Weight 08/30/16 23:59 Weight 56.5 kg - General Appearance General appearance: Present: well-developed, well-nourished, appears started age EENT: Present: mucous membranes moist Neck: Present: no JVD Respiratory: Present: clear Cardiology: Present: no edema, regular rate, regular rhythm Gastrointestinal: Present: hypoactive bowel sounds, no tenderness Integumentary: Present: warm and dry Neurologic: Present: alert and oriented x3 Psychiatric: Present: mood/affect appropriate, cooperative - Lab 08/30/16 06:04 08/30/16 06:04 Most recent lab results Calcium 10.3 mg/dL (8.6-10.8) 08/30/16 06:04 - VTE Documentation of Mechanical Device: Intermittent pneumatic compression device Consult Discharge Plan - Plan Referrals: Angela Bob RETAIL BRANCH MANAGER [Primary Care Provider] - 09/02/16 9:30 am (Please follow up as schedule...)
[2016-08-30] MEDS: *HR* HYDROmorphone (PF) 1 MG/ML SYRINGE IVP PRN ×4 (10:33→21:38)
[2016-08-30] MEDS: Budesonide/Formoterol 80/4.5 MDI IH SCH ×2 (11:56→20:14)
--- NOTE | 2016-08-30 12:04 | Internal Med Progress Note ---
Date of Encounter: 08/30/16 Time of Encounter: 12:02 - Assessment and plan (1) Right hip pain Current Visit: Yes Status: Acute Assessment and plan: Bone scan showed a right femoral head and neck junction incomplete fracture status post right hemiarthroplasty Nonweightbearing CT hip did not show any fracture, possible sacroiliitis control pain with oxycodone, and Dilaudid Orthopedic surgery consulted (Dr Woody) hemiarthroplasty done on 08/29/2016 Discharge planning the rehabilitation when possible MRI could not be done due to history of artificial bladder sphincter at [facility] Records to be obtained ( might take a couple of days they said as it was done 20 years ago) hold P (2) Mitral valve prolapse Current Visit: Yes Status: Acute Assessment and plan: stable, mild prolapse of anterior mitral valve leaflet Possible mild to moderate aortic regurgitation (3) Hypertension Current Visit: Yes Status: Chronic Assessment and plan: Now hypotensive Give IV fluids Qualifiers: Hypertension type: essential hypertension Qualified Code(s): I10 - Essential (primary) hypertension (4) Benign hypertension with ESRD (end-stage renal disease) Current Visit: No Status: Acute Assessment and plan: on HD m W (5) Secondary hyperparathyroidism (of renal origin) Current Visit: No Status: Acute Assessment and plan: Continue Calcium and calcitriol high risk of fractures and falling (6) Leukopenia Current Visit: Yes Status: Acute Assessment and plan: Unclear etiology Qualifiers: Neutropenia type: unspecified Qualified Code(s): D70.9 - Neutropenia, unspecified (7) Hyperkalemia Current Visit: Yes Status: Acute Assessment and plan: Likely related to end-stage renal disease Recheck potassium later today and consider Kayexalate (8) Hypotension Current Visit: Yes Status: Acute Assessment and plan: Likely dehydration Qualifiers: Hypotension type: other hypotension type Qualified Code(s): I95.89 - Other hypotension - Time Spent With Patient Greater than 35 minutes - Subjective Interval history: Blood pressure has been low, in the 80s and low 90s. Complains of severe right hip pain after the surgery. Denies CP or SOB, no fever, no sick contacts, no abdominal pain. - Constitutional Vitals: Temp Pulse Resp BP Pulse Ox 98.7 F 73 14 99/57 91 L 08/30/16 08:05 08/30/16 08:05 08/30/16 11:57 08/30/16 10:02 08/30/16 11:57 General appearance: Present: A&O X 3 - Head Head exam: Present: atraumatic, normocephalic - Eye Eye exam: Present: PERRL, conjuntiva pink, sclera anicteric Pupils: Present: PERRL - Neck Neck exam general surgery: Present: supple, trachea midline. Absent: lymphadenopathy - Respiratory Respiratory exam: Present: CTAB. Absent: accessory muscle use, rales, rhonchi, wheezes - Cardiovascular Cardiovascular exam: Present: RRR, +S1, +S2, systolic murmur (Loud 2/6 systolic murmur radiating to the left axilla). Absent: diastolic murmur, gallop, rubs - GI/Abdominal GI/Abdominal exam: Present: normal bowel sounds, soft, no peritoneal signs. Absent: distended, tenderness - Extremities Exam Extremities exam: Present: warm, radial pulses palpable and symetrical. Absent : calf tenderness, cyanotic, pedal edema Additional comments: Left hip wound appears without signs of hematoma or signs of infection - Neurological Exam Neurological exam: Present: CN II-XII intact, oriented X3, no focal deficits. Absent: pronater drift, facial droop, speech deficit - Skin Skin exam: Present: dry, intact Internal Medicine: Result - Labs CBC & Chem 7: 08/30/16 06:04 08/30/16 06:04 Labs: Short CBC 08/30/16 Range/Units 06:04 WBC 7.8 D (4.3-11.1) K/mcL Hgb 12.0 (11.5-15.4) g/dL Hct 38.3 (35.3-44.9) % Plt Count 164 (140-400) K/mcL BMP 08/30/16 06:04 Sodium 137 Potassium 5.6 H D Chloride 98 Carbon Dioxide 25 BUN 20 Creatinine 5.22 H Glucose 115 H Calcium 10.3 - Impressions Impressions Hip X-Ray 08/29/16 20:57 IMPRESSION: Status post hemiarthroplasty of the right hip without evidence for immediate postoperative complication. D/ / Rashard Nash MD / Rashard Nash MD Interpreting Provider: Rashard Nash MD - VTE Documentation of Mechanical Device: Intermittent pneumatic compression device Consult Discharge Plan - Plan Referrals: Angela Bob CNP [Primary Care Provider] - 09/02/16 9:30 am (Please follow up as schedule...)
[2016-08-30] MEDS: Ringers Solution, Lactated 1,000 ML IVC SCH (14:03)
--- NOTE | 2016-08-30 15:04 | Orthopedics Progress Note ---
Date of Encounter: 08/30/16 Time of Encounter: 14:55 Subjective Principal diagnosis: Right hip pain Interval history: Patient is seen in follow-up regarding her right hip. She persists in having significant right hip pain in the groin area. Vital signs are stable. She is afebrile. Hip exam remains unchanged. I have reviewed the bone scan. This does show some mild increased uptake in the region of the head and neck. In addition there appears to be some increased uptake in both of her sacroiliac joints as well as in both of her femurs. Most of these changes are consistent with some arthritis at the SI joints as well as some insufficiency changes due to her significant osteoporotic bone. The right femoral neck findings are certainly suggestive of fracture. This does not appear to be complete on the x-ray will be CT. This however is not a insufficiency fracture as the patient has had some degree of trauma. I do suspect that this is more of a pathologic type fracture due to significant osteoporosis present. Recommendation: I had a long discussion with the patient that I think her options are either to try a nonoperative course with strict nonweightbearing using a walker and observing the fracture was sequential x-rays. She is aware that if the fracture does not heal or displaces surgery may be indicated. She also understands that the weightbearing time is unknown pending x-rays. The other option will be proceed with a hemiarthroplasty of the hip. Patient understands that this is a rather significant surgery in light of her young age as well as the actual extent of the surgery itself. She currently is leaning towards surgery, we will make a final decision tomorrow. If surgery is anticipated like to proceed with it on Thursday after hemodialysis. 08/28/2016. Patient is seen in follow-up regarding her right hip fracture. We again had a discussion regarding the treatment options and she is requesting proceed with surgery. Vital signs are stable. She is afebrile. Hemoglobin is 10.8. Platelet count is slightly low at 137. Calcium is 5.1. BUN is 15 with a creatinine of 5.03. She was dialyzed yesterday and will be dialyzed tomorrow prior to surgery. Impression: Right femoral neck fracture Plan: Patient has signed informed consent for sheeting with a hemiarthroplasty of her hip tomorrow. We discussed the surgical procedure as well as potential risks and complications including but not limited to bleeding infection blood clots nerve injury stiffness and rotational or leg length deformities as well as the rare occurrence of a dislocation. We will proceed with surgery tomorrow. Plan for dialysis prior to surgery. 08/30/2016. The patient is postop day #1 from cemented hemiarthroplasty of her right hip. She is having anticipated soreness and pain. She states that she has less pain than preop. Blood pressure is somewhat low. Patient is asymptomatic. She is afebrile. Dressing is dry. Postop x-rays show a well placed prosthesis with a cement mantle. Impression: POD #1 cemented hemiarthroplasty right hip Recommendation: Patient can be ambulatory with weightbearing as tolerated while maintaining total hip arthroplasty precautions. Incision does not require any care, patient can shower with an intact Bioclusive dressing. Discussed with patient and family that she has significantly osteoporotic bone in that she is at high risk for further fractures with any falls. Urged her to be extremely cautious and always use assistive devices. Her orthopedic status is stable. Objective Vital signs: Vital Signs Temp Pulse Resp BP Pulse Ox 08/30/16 12:05 98.3 F 62 16 95/62 97 08/30/16 11:57 14 91 L 08/30/16 10:02 99/57 08/30/16 08:05 98.7 F 73 18 82/58 96 08/30/16 04:34 98.2 F 93 18 88/53 97 08/29/16 23:02 98.4 F 70 17 105/57 99 08/29/16 22:34 97.7 F 63 17 89/58 97 08/29/16 22:00 97.6 F 69 16 102/62 94 L 08/29/16 21:28 63 20 88/58 97 08/29/16 21:18 66 22 80/53 96 08/29/16 21:08 66 24 83/54 96 08/29/16 20:58 100.0 F H 69 24 104/67 96 08/29/16 20:48 69 24 98/64 96 08/29/16 20:38 68 24 81/51 96 08/29/16 20:28 99.0 F 67 24 86/51 97 08/29/16 20:18 74 24 86/54 97 08/29/16 20:08 74 22 92/57 97 08/29/16 19:58 99.7 F H 73 22 102/77 99 08/29/16 16:32 98.5 F 77 14 135/83 96 08/29/16 16:30 22 128/78 Intake and Output 08/29/16 08/30/16 08/30/16 23:59 07:59 15:59 Intake Total 1220 / 1220 Output Total 2750 / 2750 Balance -2750 / -2750 1220 / 1220 Intake: IV Fluids 1100 / 1100 Lactated Ringers 1,000 ML 1000 / 1000 @ 25 mls/hr IVC .Q24H [facility] Rx#:[id number] Ancef 1,000 MG In 100 / 100 Dextrose 5% (Minibag+) 100 ML 100 ML @ 200 mls/ hr IVPB ONCE ONE Rx#: [id number] Oral 120 / 120 Output: Total Dialysis Output 2600 / 2600 Estimated Blood Loss 150 / 150 Other: Meal Lunch Percent of Meal Consumed 0% Weight 56.5 kg Hemodialysis Net Fluid 2000 Removed (mL) Patient Weight 08/30/16 23:59 Weight 56.5 kg - Labs CBC & BMP: 08/30/16 06:04 08/30/16 06:04 Labs: Abnormal lab results MCHC 31.3 g/dL (31.6-35.5) L 08/30/16 06:04 RDW 14.8 % (11.5-14.5) H 08/30/16 06:04 Potassium 5.6 mEq/L (3.5-4.5) H D 08/30/16 06:04 Creatinine 5.22 mg/dL (0.57-1.11) H 08/30/16 06:04 Est GFR ( Amer) 11 (> 60) L 08/30/16 06:04 Est GFR (Non-Af Amer) 9 (> 60) L 08/30/16 06:04 BUN/Creatinine Ratio 4 (6-26) L 08/30/16 06:04 Glucose 115 mg/dL (70-99) H 08/30/16 06:04 Alkaline Phosphatase 477 Units/L (38-126) H 08/27/16 08:37 Albumin 3.3 g/dL (3.5-5.0) L 08/27/16 08:37 Albumin/Globulin Ratio 1.0 (1.1-2.2) L 08/27/16 08:37 - VTE Documentation of Mechanical Device: Intermittent pneumatic compression device Consult Discharge Plan - Plan Referrals: Angela Bob CNP [Primary Care Provider] - 09/02/16 9:30 am (Please follow up as schedule...)
[2016-08-31] MEDS: *HR* HYDROmorphone (PF) 1 MG/ML SYRINGE IVP PRN ×4 (04:01→21:25)
[2016-08-31 05:56] LABS: Hematocrit 34.7 % (35.3-44.9); Hemoglobin 10.9 g/dL (11.5-15.4); Mean Corpuscular HGB Conc 31.4 g/dL (31.6-35.5); Mean Corpuscular Hemoglobin 29.7 pg (28.0-33.3); Mean Corpuscular Volume 94.6 fL (83.0-100.0); Mean Platelet Volume 10.2 fL (9.4-12.4); Platelet Count 147 K/mcL (140-400); Red Blood Count 3.67 M/mcL (3.82-4.97); Red Cell Distribution Width 14.8 % (11.5-14.5)
[2016-08-31 06:09] LABS: Calcium 9.4 mg/dL (8.6-10.8); Potassium 5.4 mEq/L (3.5-4.5)
[2016-08-31] MEDS: *HR* Heparin 5,000 UNIT/ML VIAL SQ SCH ×2 (06:14→21:33)
[2016-08-31] MEDS: *HR* OxyCODONE Immed Rel 5 MG TABLET PO PRN ×2 (06:14→13:00)
[2016-08-31] MEDS: Budesonide/Formoterol 80/4.5 MDI IH SCH ×2 (07:48→23:46)
--- NOTE | 2016-08-31 10:08 | Nephrology Progress Note ---
Date of Encounter: 08/31/16 Time of Encounter: 10:00 - Assessment and Plan (1) End stage renal disease Current Visit: No Status: Chronic S/P right hip arthroplasty. BP improved since decreasing Losartan. Will stop IV fluids. Subjective Principal diagnosis: Right hip pain Interval history: Laying in bed. Ate breakfast. States more discomfort today, "may have overdone it yesterday." Objective - Vital Signs Vital signs: Vital Signs Temp Pulse Resp BP Pulse Ox 08/31/16 07:50 16 92 L 08/31/16 07:36 98.2 F 71 16 123/78 97 08/31/16 05:59 98.2 F 76 16 158/98 08/31/16 00:32 98.3 F 76 16 123/80 92 L 08/30/16 20:15 16 95 08/30/16 20:14 98.7 F 78 16 110/70 92 L 08/30/16 15:50 98.3 F 84 16 108/67 98 08/30/16 12:05 98.3 F 62 16 95/62 97 08/30/16 11:57 14 91 L Intake and Output 08/30/16 08/31/16 08/31/16 23:59 07:59 15:59 Intake Total 90 / 90 0 / 0 600 / 600 Output Total 0 / 0 Balance 90 / 90 0 / 0 600 / 600 Intake: Oral 90 / 90 0 / 0 600 / 600 Output: Urine 0 / 0 Other: Weight 59.2 kg Patient Weight 08/31/16 23:59 Weight 59.2 kg - General Appearance General appearance: Present: well-developed, well-nourished, appears started age EENT: Present: mucous membranes moist Neck: Present: no JVD Respiratory: Present: clear Cardiology: Present: no edema, regular rate, regular rhythm Gastrointestinal: Present: normoactive bowel sounds, no tenderness Integumentary: Present: warm and dry Neurologic: Present: alert and oriented x3 Psychiatric: Present: mood/affect appropriate, cooperative - Lab 08/31/16 05:47 08/31/16 05:47 Most recent lab results Calcium 9.4 mg/dL (8.6-10.8) 08/31/16 05:47 - VTE Documentation of Mechanical Device: Intermittent pneumatic compression device Consult Discharge Plan - Plan Referrals: Angela Bob, BROTHEL KEEPER [Primary Care Provider] - 09/02/16 9:30 am (Please follow up as schedule...)
--- NOTE | 2016-08-31 13:58 | Internal Med Progress Note ---
Date of Encounter: 08/31/16 Time of Encounter: 13:58 - Assessment and plan (1) Right hip pain Current Visit: Yes Status: Acute Assessment and plan: Bone scan showed a right femoral head and neck junction incomplete fracture status post right hemiarthroplasty Nonweightbearing CT hip did not show any fracture, possible sacroiliitis control pain with oxycodone, and Dilaudid Orthopedic surgery consulted (Dr Woody) hemiarthroplasty done on 08/29/2016 Discharge planning the rehabilitation when possible MRI could not be done due to history of artificial bladder sphincter at [facility] Records to be obtained ( might take a couple of days they said as it was done 20 years ago) (2) Mitral valve prolapse Current Visit: Yes Status: Acute Assessment and plan: stable, mild prolapse of anterior mitral valve leaflet Possible mild to moderate aortic regurgitation (3) Hypertension Current Visit: Yes Status: Chronic Assessment and plan: Now hypotensive Give IV fluids Qualifiers: Hypertension type: essential hypertension Qualified Code(s): I10 - Essential (primary) hypertension (4) Benign hypertension with ESRD (end-stage renal disease) Current Visit: No Status: Inactive Assessment and plan: on HD (5) Secondary hyperparathyroidism (of renal origin) Current Visit: No Status: Acute Assessment and plan: Continue Calcium and calcitriol high risk of fractures and falling (6) Leukopenia Current Visit: Yes Status: Acute Assessment and plan: Unclear etiology Qualifiers: Neutropenia type: unspecified Qualified Code(s): D70.9 - Neutropenia, unspecified (7) Hyperkalemia Current Visit: Yes Status: Acute Assessment and plan: Likely related to end-stage renal disease The patient will have hemodialysis in the morning Recheck potassium prior to discharge and consider Kayexalate (8) Hypotension Current Visit: Yes Status: Acute Assessment and plan: Likely dehydration Give mild hydration with 60 mL/h for 500 mL only Qualifiers: Hypotension type: other hypotension type Qualified Code(s): I95.89 - Other hypotension - Time Spent With Patient Greater than 35 minutes - Subjective Interval history: Blood pressure has been low again although she is asymptomatic, was in the 80s and low 90s. Complains of right hip pain after the surgery. Denies CP or SOB, no fever, no sick contacts, no abdominal pain. - Constitutional Vitals: Temp Pulse Resp BP Pulse Ox 98.2 F 75 16 88/55 96 08/31/16 11:14 08/31/16 11:14 08/31/16 11:14 08/31/16 11:14 08/31/16 11:14 General appearance: Present: A&O X 3 - Head Head exam: Present: atraumatic, normocephalic - Eye Eye exam: Present: PERRL, conjuntiva pink, sclera anicteric Pupils: Present: PERRL - Neck Neck exam general surgery: Present: supple, trachea midline. Absent: lymphadenopathy - Respiratory Respiratory exam: Present: CTAB. Absent: accessory muscle use, rales, rhonchi, wheezes - Cardiovascular Cardiovascular exam: Present: RRR, +S1, +S2, systolic murmur (Systolic murmur radiating to the left axilla 3 out of 6). Absent: diastolic murmur, gallop, rubs - GI/Abdominal GI/Abdominal exam: Present: normal bowel sounds, soft, no peritoneal signs. Absent: distended, tenderness - Extremities Exam Extremities exam: Present: warm, radial pulses palpable and symetrical. Absent : calf tenderness, cyanotic, pedal edema Additional comments: Right hip surgical wound without signs of infection, no hematoma or ecchymosis - Neurological Exam Neurological exam: Present: CN II-XII intact, oriented X3, no focal deficits. Absent: pronater drift, facial droop, speech deficit - Skin Skin exam: Present: dry, intact Internal Medicine: Result - Labs CBC & Chem 7: 08/31/16 05:47 08/31/16 05:47 Labs: Short CBC 08/31/16 Range/Units 05:47 WBC 8.0 (4.3-11.1) K/mcL Hgb 10.9 L (11.5-15.4) g/dL Hct 34.7 L (35.3-44.9) % Plt Count 147 (140-400) K/mcL BMP 08/30/16 08/31/16 16:17 05:47 Sodium 128 L D Potassium 5.2 H 5.4 H Chloride 89 L Carbon Dioxide 26 BUN 26 H Creatinine 6.67 H Glucose 106 H Calcium 9.4 - VTE Documentation of Mechanical Device: Intermittent pneumatic compression device Consult Discharge Plan - Plan Referrals: Angela Bob CNP [Primary Care Provider] - 09/02/16 9:30 am (Please follow up as schedule...)
[2016-08-31] MEDS ORDERED: 0.9 % Sodium Chloride 1,000 ML IVC SCH (14:00)
--- NOTE | 2016-08-31 16:17 | Orthopedics Progress Note ---
Date of Encounter: 08/31/16 Time of Encounter: 16:11 Subjective Principal diagnosis: Right hip pain Interval history: Patient is seen in follow-up regarding her right hip. She persists in having significant right hip pain in the groin area. Vital signs are stable. She is afebrile. Hip exam remains unchanged. I have reviewed the bone scan. This does show some mild increased uptake in the region of the head and neck. In addition there appears to be some increased uptake in both of her sacroiliac joints as well as in both of her femurs. Most of these changes are consistent with some arthritis at the SI joints as well as some insufficiency changes due to her significant osteoporotic bone. The right femoral neck findings are certainly suggestive of fracture. This does not appear to be complete on the x-ray will be CT. This however is not a insufficiency fracture as the patient has had some degree of trauma. I do suspect that this is more of a pathologic type fracture due to significant osteoporosis present. Recommendation: I had a long discussion with the patient that I think her options are either to try a nonoperative course with strict nonweightbearing using a walker and observing the fracture was sequential x-rays. She is aware that if the fracture does not heal or displaces surgery may be indicated. She also understands that the weightbearing time is unknown pending x-rays. The other option will be proceed with a hemiarthroplasty of the hip. Patient understands that this is a rather significant surgery in light of her young age as well as the actual extent of the surgery itself. She currently is leaning towards surgery, we will make a final decision tomorrow. If surgery is anticipated like to proceed with it on Thursday after hemodialysis. 08/28/2016. Patient is seen in follow-up regarding her right hip fracture. We again had a discussion regarding the treatment options and she is requesting proceed with surgery. Vital signs are stable. She is afebrile. Hemoglobin is 10.8. Platelet count is slightly low at 137. Calcium is 5.1. BUN is 15 with a creatinine of 5.03. She was dialyzed yesterday and will be dialyzed tomorrow prior to surgery. Impression: Right femoral neck fracture Plan: Patient has signed informed consent for sheeting with a hemiarthroplasty of her hip tomorrow. We discussed the surgical procedure as well as potential risks and complications including but not limited to bleeding infection blood clots nerve injury stiffness and rotational or leg length deformities as well as the rare occurrence of a dislocation. We will proceed with surgery tomorrow. Plan for dialysis prior to surgery. 08/30/2016. The patient is postop day #1 from cemented hemiarthroplasty of her right hip. She is having anticipated soreness and pain. She states that she has less pain than preop. Blood pressure is somewhat low. Patient is asymptomatic. She is afebrile. Dressing is dry. Postop x-rays show a well placed prosthesis with a cement mantle. Impression: POD #1 cemented hemiarthroplasty right hip Recommendation: Patient can be ambulatory with weightbearing as tolerated while maintaining total hip arthroplasty precautions. Incision does not require any care, patient can shower with an intact Bioclusive dressing. Discussed with patient and family that she has significantly osteoporotic bone in that she is at high risk for further fractures with any falls. Urged her to be extremely cautious and always use assistive devices. Her orthopedic status is stable. 08/31/2016. Patient postop day #2 from cemented hemiarthroplasty of her right hip. She is doing well. Pain is improved. Vital signs are currently stable, blood pressure has been somewhat variable. She is afebrile. Hip dressing is clean and dry. Hgb 10.9, white blood cell count normal & platelet count normal. Impression: POD #2 hemiarthroplasty right hip Recommendation: As noted previously patient can be weightbearing as tolerated with maintenance of the hip precautions. Incision has Bioclusive dressing and as long as its intact can shower. Patient will need follow-up with me in about 3 weeks' time. Objective Vital signs: Vital Signs Temp Pulse Resp BP Pulse Ox 08/31/16 16:01 98.1 F 85 14 140/83 92 L 08/31/16 11:14 98.2 F 75 16 88/55 96 08/31/16 07:50 16 92 L 08/31/16 07:36 98.2 F 71 16 123/78 97 08/31/16 05:59 98.2 F 76 16 158/98 08/31/16 00:32 98.3 F 76 16 123/80 92 L 08/30/16 20:15 16 95 08/30/16 20:14 98.7 F 78 16 110/70 92 L Intake and Output 08/31/16 08/31/16 08/31/16 07:59 15:59 23:59 Intake Total 0 / 0 840 / 840 Output Total 0 / 0 Balance 0 / 0 840 / 840 Intake: Oral 0 / 0 840 / 840 Output: Urine 0 / 0 Other: Meal Lunch Percent of Meal Consumed 10% Weight 59.2 kg Patient Weight 08/31/16 23:59 Weight 59.2 kg - Labs CBC & BMP: 08/31/16 05:47 08/31/16 05:47 Labs: Abnormal lab results RBC 3.67 M/mcL (3.82-4.97) L 08/31/16 05:47 Hgb 10.9 g/dL (11.5-15.4) L 08/31/16 05:47 Hct 34.7 % (35.3-44.9) L 08/31/16 05:47 MCHC 31.4 g/dL (31.6-35.5) L 08/31/16 05:47 RDW 14.8 % (11.5-14.5) H 08/31/16 05:47 Sodium 128 mEq/L (136-145) L D 08/31/16 05:47 Potassium 5.4 mEq/L (3.5-4.5) H 08/31/16 05:47 Chloride 89 mEq/L (98-109) L 08/31/16 05:47 BUN 26 mg/dL (7-20) H 08/31/16 05:47 Creatinine 6.67 mg/dL (0.57-1.11) H 08/31/16 05:47 Est GFR ( Amer) 8 (> 60) L 08/31/16 05:47 Est GFR (Non-Af Amer) 7 (> 60) L 08/31/16 05:47 BUN/Creatinine Ratio 4 (6-26) L 08/31/16 05:47 Glucose 106 mg/dL (70-99) H 08/31/16 05:47 Calculated Osmolality 271 (280-300) L 08/31/16 05:47 Alkaline Phosphatase 477 Units/L (38-126) H 08/27/16 08:37 Albumin 3.3 g/dL (3.5-5.0) L 08/27/16 08:37 Albumin/Globulin Ratio 1.0 (1.1-2.2) L 08/27/16 08:37 - VTE Documentation of Mechanical Device: Intermittent pneumatic compression device Consult Discharge Plan - Plan Referrals: Angela Bob CNP [Primary Care Provider] - 09/02/16 9:30 am (Please follow up as schedule...)
[2016-09-01] MEDS: *HR* OxyCODONE Immed Rel 5 MG TABLET PO PRN ×3 (00:17→14:03)
[2016-09-01] MEDS: *HR* HYDROmorphone (PF) 1 MG/ML SYRINGE IVP PRN ×3 (00:24→09:17)
[2016-09-01] MEDS: *HR* Heparin 5,000 UNIT/ML VIAL SQ SCH (04:51)
[2016-09-01 05:01] LABS: Hematocrit 27.9 % (35.3-44.9); Mean Corpuscular HGB Conc 31.5 g/dL (31.6-35.5); Mean Corpuscular Hemoglobin 29.9 pg (28.0-33.3); Mean Corpuscular Volume 94.9 fL (83.0-100.0); Mean Platelet Volume 10.7 fL (9.4-12.4); Platelet Count 136 K/mcL (140-400); Red Blood Count 2.94 M/mcL (3.82-4.97); Red Cell Distribution Width 14.7 % (11.5-14.5)
[2016-09-01 05:13] LABS: Hemoglobin 8.8 g/dL (11.5-15.4)
[2016-09-01 05:19] LABS: Potassium 5.4 mEq/L (3.5-4.5)
[2016-09-01] MEDS: Budesonide/Formoterol 80/4.5 MDI IH SCH (07:59)
--- NOTE | 2016-09-01 08:29 | Discharge Summary ---
Date of Encounter: 09/01/16 Time of Encounter: 08:27 - Discharge Diagnosis (1) Right hip pain Priority: Primary Status: Acute Comments: Bone scan showed a right femoral head and neck junction incomplete fracture, status post right hemiarthroplasty (2) Mitral valve prolapse Priority: Secondary Status: Acute Comments: stable, mild prolapse of anterior mitral valve leaflet Possible mild to moderate aortic regurgitation (3) Hypertension Priority: Secondary Status: Chronic Qualifiers: Hypertension type: essential hypertension Qualified Code(s): I10 - Essential (primary) hypertension (4) Benign hypertension with ESRD (end-stage renal disease) Priority: Secondary Status: Inactive (5) Secondary hyperparathyroidism (of renal origin) Priority: Secondary Status: Acute (6) Leukopenia Priority: Secondary Status: Acute Qualifiers: Neutropenia type: unspecified Qualified Code(s): D70.9 - Neutropenia, unspecified (7) Hyperkalemia Priority: Secondary Status: Acute (8) Hypotension Priority: Secondary Status: Acute Qualifiers: Hypotension type: other hypotension type Qualified Code(s): I95.89 - Other hypotension - Discharge Medications Prescriptions: OxyCODONE Immed Rel [Roxicodone 5 MG] 5 mg PO Q6HR PRN #25 tablet PRN Reason: Moderate Pain (4-6) Calcitriol [Rocaltrol] 0.25 mcg PO DAILY 30 Days Calcium Carbonate [Tums] 1,000 mg PO BID #60 tab.chew Ferrous Sulfate [Iron] 325 mg PO BID 30 Days Omeprazole [PriLOSEC] 40 mg PO DAILY #30 cap Home Medications: Paroxetine [Paxil] 30 mg PO DAILY 07/19/16 [History] Acetaminophen [Tylenol] 500 mg PO Q6HR PRN 07/20/16 [History] Budesonide/Formoterol 80/4.5 [Symbicort 80/4.5] 2 puff IH BIDR #30 inhaler [Rx] Losartan [Cozaar] 100 mg PO DAILY #30 tablet 07/24/16 [Rx] Loperamide HCl [Imodium A-D] 2 mg PO 8XD PRN 08/25/16 [History] Tramadol HCl [Ultram] 50 - 100 mg PO Q6H PRN 08/25/16 [History] Calcitriol [Rocaltrol] 0.25 mcg PO DAILY 30 Days 09/01/16 [Rx] Calcium Carbonate [Tums] 1,000 mg PO BID #60 tab.chew 09/01/16 [Rx] Ferrous Sulfate [Iron] 325 mg PO BID 30 Days 09/01/16 [Rx] Omeprazole [PriLOSEC] 40 mg PO DAILY #30 cap 09/01/16 [Rx] OxyCODONE Immed Rel [Roxicodone 5 MG] 5 mg PO Q6HR PRN #25 tablet 09/01/16 [Rx] Allergies/Adverse Reactions: Allergies latex Allergy (Verified 07/19/16 21:44) Hives moxifloxacin [From Avelox] Allergy (Verified 07/19/16 21:44) Difficulty Breathing Procedures/tests Complete & Pending: Procedures Performed prior 72 hours Category Date Time Status ECG 12 lead ECG [ECG] Routine Y 08/30/16 12:06 Completed ECG 12 lead ECG [ECG] Stat Y 08/29/16 17:01 Stop Req Date of admission: 08/27/16 13:35 Primary care physician: Angela Bob, Consults: 08/29/16 09:00 Consult to Dialysis [CONS] ONCE 08/29/16 17:08 Consult to Occupational Therapy [CONS] Routine Comment: Evaluate, develop and implement POC Consult to Physical Therapy [CONS] Routine Comment: Evaluate, develop and implement POC 08/30/16 19:06 Consult to Pneumatic Tube Fitter [CONS] Routine Reason for SW Consult: discharge planning, pt rec swingbed-inpatient rehab - Patient Status Disposition: Transfer SNF Condition: Good Overall status at discharge: patient is progressing back to baseline - Discharge Instructions Follow Up With: Angela Bob CNP [Primary Care Provider] - 09/02/16 9:30 am (Please follow up as schedule...) Additional Instructions: Follow with primary care physician within the next 7 days. Continue omeprazole and ferrous sulfate. Continue dialysis. Monitor CBC within the next week. - Diet and Activity Activity: as per physical therapy, increase activity as tolerated Diet: low fat, low cholesterol (Renal diet) Hospital course: Ms. Darby is a 46 year old female with a past medical history significant for ESRD on hemodialysis M/ W/ F, hypertension, CAD, hypothyroidism and Mitral regurgitation. She apparently was getting out of the car earlier on the day of her admission and she felt pain and heard a "pop" at the right hip. Apparently it was already painful, 10/10 in severity and was difficult to weight -bear and move. Pain is achy and nonradiating; better with rest. She denies chest pain, shortness of breath, cough, fever, abdominal pain, dysuria, hematuria, moderate problems. She was evaluated in the emergency department and the hip x-ray was negative for fracture. The ER provider discussed with process control specialist Dr. Esqueda, who recommends further w/u and admission. CT hip did not show any fracture, and showed only possible sacroiliitis MRI could not be done due to history of artificial bladder sphincter at [facility] Records to be obtained ( might take a couple of days they said as it was done 20 years ago) Bone scan was ordered showing a hip fracture for which she had surgery. Orthopedic surgery consulted (Dr Woody) hemiarthroplasty done on 08/29/2016 control pain with oxycodone A hemoglobin drop to 8.8 from 10.8 upon admission but has not shown any bleeding at all, she has not had any bowel movements, is asymptomatic. Her sodium dropped to 126 from 137 and may require fluid restriction, potassium is 5.4 but the patient will have dialysis later today. Consider Kayexalate if not improving. Patient is stable to be discharged home she will be given omeprazole and ferrous sulfate. - Time Spent with Patient Total time spent providing and/or coordinating discharge services: Greater than 30 minutes (40 minutes) - Constitutional Vitals: Temp Pulse Resp BP Pulse Ox 98 F 68 16 100/59 100 09/01/16 07:56 09/01/16 07:56 09/01/16 08:00 09/01/16 07:56 09/01/16 08:00 General appearance: Present: A&O X 3 - Head Head exam: Present: atraumatic, normocephalic - Eye Eye exam: Present: PERRL, conjuntiva pink, sclera anicteric Pupils: Present: PERRL - Neck Neck exam general surgery: Present: supple, trachea midline. Absent: lymphadenopathy - Respiratory Respiratory exam: Present: CTAB. Absent: accessory muscle use, rales, rhonchi, wheezes - Cardiovascular Cardiovascular exam: Present: RRR, +S1, +S2, systolic murmur (Loud systolic murmur radiating to the left axilla 2 out of 6). Absent: diastolic murmur, gallop, rubs - GI/Abdominal GI/Abdominal exam: Present: normal bowel sounds, soft, no peritoneal signs. Absent: distended, tenderness - Extremities Exam Extremities exam: Present: warm, radial pulses palpable and symetrical. Absent : calf tenderness, cyanotic, pedal edema Additional comments: Right hip wound of 15 cm does not show any ecchymoses or hematoma. Mild decreased range of motion secondary to pain - Neurological Exam Neurological exam: Present: CN II-XII intact, oriented X3, no focal deficits. Absent: pronater drift, facial droop, speech deficit - Skin Skin exam: Present: dry, intact - VTE Documentation of Mechanical Device: Intermittent pneumatic compression device
--- NOTE | 2016-09-01 08:38 | Nephrology Progress Note ---
Date of Encounter: 09/01/16 Time of Encounter: 08:36 Subjective Principal diagnosis: Right hip pain Interval history: Patient voices no new complaints. She says her pain is controlled. She was able to ambulate yesterday. She is scheduled for her usual dialysis today. Blood pressures on the low side so we will make some adjustments to her antihypertensive medications. Patient has severe secondary hyperparathyroidism due to chronic poor compliance with phosphorous control diet and has refused to take Sensipar for several years. She has recently seen an ENT physician for possible partial parathyroidectomy. She currently is back on Sensipar. Once she has recovered from her fracture if her PTH remains elevated we will proceed with an outpatient subtotal parathyroidectomy. Objective - Vital Signs Vital signs: Vital Signs Temp Pulse Resp BP Pulse Ox 09/01/16 08:00 16 100 09/01/16 07:56 98 F 68 16 100/59 100 09/01/16 05:54 98.4 F 77 16 100/61 100 09/01/16 01:08 98.4 F 87 16 93/58 96 08/31/16 23:46 18 91 L 08/31/16 19:48 98.7 F 73 16 128/80 100 08/31/16 16:01 98.1 F 85 14 140/83 92 L 08/31/16 11:14 98.2 F 75 16 88/55 96 Intake and Output 08/31/16 09/01/16 09/01/16 23:59 07:59 15:59 Intake Total 560 / 560 560 / 560 Output Total 0 / 0 0 / 0 Balance 560 / 560 560 / 560 Intake: IV Fluids 500 / 500 0.9 % Sodium Chloride 1, 500 / 500 000 ML @ 60 mls/hr IVC . [id number] [facility] Rx#: [id number] Oral 560 / 560 60 / 60 Output: Urine 0 / 0 0 / 0 Other: Meal Dinner Percent of Meal Consumed 0% Weight 60.6 kg Patient Weight 09/01/16 23:59 Weight 60.6 kg - General Appearance Exam: Patient is alert and oriented. She is in no acute distress. Lungs clear to auscultation. Heart regular rhythm with a 2/6 ejection murmur. Abdomen is benign. There is no lower extremity swelling. There is a functioning AV fistula in the right arm. - Lab 09/01/16 04:35 09/01/16 04:35 Most recent lab results Calcium 8.0 mg/dL (8.6-10.8) L 09/01/16 04:35 - VTE Documentation of Mechanical Device: Intermittent pneumatic compression device Consult Discharge Plan - Plan Referrals: Angela Bob CNP [Primary Care Provider] - 09/02/16 9:30 am (Please follow up as schedule...) Prescriptions: OxyCODONE Immed Rel [Roxicodone 5 MG] 5 mg PO Q6HR PRN #25 tablet PRN Reason: Moderate Pain (4-6) Calcitriol [Rocaltrol] 0.25 mcg PO DAILY 30 Days Calcium Carbonate [Tums] 1,000 mg PO BID #60 tab.chew Ferrous Sulfate [Iron] 325 mg PO BID 30 Days Omeprazole [PriLOSEC] 40 mg PO DAILY #30 cap
[2016-09-01] MEDS ORDERED: 0.9 % Sodium Chloride 250 ML IV PRN (08:39)
--- NOTE | 2016-09-01 08:41 | Physician Discharge Referral ---
ExtendedCare Referral Info Provider in Charge after Transfer: PCP Institutional Level of Care: Skilled - Diagnosis (1) Right hip pain Status: Acute (2) Mitral valve prolapse Status: Acute (3) Hypertension Status: Chronic (4) Benign hypertension with ESRD (end-stage renal disease) Status: Inactive (5) Secondary hyperparathyroidism (of renal origin) Status: Acute (6) Leukopenia Status: Acute (7) Hyperkalemia Status: Acute (8) Hypotension Status: Acute - Transfer Medications Prescriptions: OxyCODONE Immed Rel [Roxicodone 5 MG] 5 mg PO Q6HR PRN #25 tablet PRN Reason: Moderate Pain (4-6) Calcitriol [Rocaltrol] 0.25 mcg PO DAILY 30 Days Calcium Carbonate [Tums] 1,000 mg PO BID #60 tab.chew Ferrous Sulfate [Iron] 325 mg PO BID 30 Days Omeprazole [PriLOSEC] 40 mg PO DAILY #30 cap Home Medications: Paroxetine [Paxil] 30 mg PO DAILY 07/19/16 [History] Acetaminophen [Tylenol] 500 mg PO Q6HR PRN 07/20/16 [History] Budesonide/Formoterol 80/4.5 [Symbicort 80/4.5] 2 puff IH BIDR #30 inhaler [Rx] Losartan [Cozaar] 100 mg PO DAILY #30 tablet 07/24/16 [Rx] Loperamide HCl [Imodium A-D] 2 mg PO 8XD PRN 08/25/16 [History] Tramadol HCl [Ultram] 50 - 100 mg PO Q6H PRN 08/25/16 [History] Calcitriol [Rocaltrol] 0.25 mcg PO DAILY 30 Days 09/01/16 [Rx] Calcium Carbonate [Tums] 1,000 mg PO BID #60 tab.chew 09/01/16 [Rx] Ferrous Sulfate [Iron] 325 mg PO BID 30 Days 09/01/16 [Rx] Omeprazole [PriLOSEC] 40 mg PO DAILY #30 cap 09/01/16 [Rx] OxyCODONE Immed Rel [Roxicodone 5 MG] 5 mg PO Q6HR PRN #25 tablet 09/01/16 [Rx] Allergies/Adverse Reactions: Allergies latex Allergy (Verified 07/19/16 21:44) Hives moxifloxacin [From Avelox] Allergy (Verified 07/19/16 21:44) Difficulty Breathing - Respiratory Orders Smoking Cessation: Smoking cessation has been advised. For more information, call the [place] Tobacco Quit Line at 6-519-XSNH-NOW. - Advance Directives Code Status: Full Code - Rehabiliation Orders Rehab Orders: ROM Exercises, Evaluation for Physical Therapy Other: Follow with primary care physician within the next 7 days. Continue omeprazole and ferrous sulfate. Continue dialysis. Monitor CBC within the next week. - Diet Orders Renal CERTIFICATION: I certify that the transfer of the above named patient to an Extended Care Facility is necessary for the continuing treatment of the diagnosis listed. The above information is true and accurate reflection of patient's current condition. Confidential - Redisclosure prohibited without a patient's written consent.
[2016-09-01 09:13] LABS: Phosphorous 5.9 mg/dL (2.3-4.7)
--- NOTE | 2016-09-01 13:20 | Electrocardiograph Report ---
[place] [id number] Test Date: 2016-08-30 Pat Name: Daisy Darby Department: 112 Room: 2A42 Gender: F Directional Driller: : 1970 Requested By: Luis Brink Order Number: [id number] Reading MD: Logan Britton Measurements Intervals [place] Rate: 65 P: 61 MA: 157 QRS: 13 QRSD: 93 T: 50 QT: 430 QTc: 442 Interpretive Statements SINUS RHYTHM MODERATE VOLTAGE CRITERIA FOR LVH, CONSIDER NORMAL VARIANT INFEROLATERAL ST CHANGES Electronically Signed On 09-01-2016 13:18:26 EST by Logan Britton
[2016-09-01 17:19] VITALS: BP 111/71
== END 2016-09-01 17:19 | DRG 469 ==
LOC: 2ANU 15:19 → EMEROO 15:19 → SUATTDRO 19:33 → 2ANU 20:11
PROVIDERS: ADMIT Internal Medicine; ATTEND Internal Medicine

== ENCOUNTER 2018-07-12 10:26 | Inpatient (IN) ==
[2018-07-12] MEDS ORDERED: Ipratropium/Albuterol Neb 3 ML IH ONE (10:52)
[2018-07-12] MEDS ORDERED: Nitroglycerin 0.4 MG TAB.SUBL SL PRN (10:53)
--- NOTE | 2018-07-12 10:56 | Emergency Department Note ---
Disposition Clinical Impression: Missed dialysis Chest pain Qualifiers: Chest pain type: unspecified Qualified Code(s): R07.9 - Chest pain, unspecified Fluid overload Qualifiers: Hypervolemia type: unspecified Qualified Code(s): E87.70 - Fluid overload, unspecified Disposition: Admitted As Inpatient Condition: Good Referrals: Angela Bob CAKE PRESS OPERATOR HELPER [Primary Care Provider] - Forms: ED Satisfaction Letter SOB HPI - General Chief Complaint: ED Shortness of Breath/Dyspnea Stated Complaint: SOB Time Seen by Provider: 07/12/18 10:52 Source: patient, EMS Limitations: no limitations Nursing Notes Reviewed: Yes Vital Signs Reviewed: Yes - History of Present Illness Patient with history of dialysis on Thursday previous patient of Dr. Cortez'prabhakar who presents to the emergency department for chest pain and shortness of breath that started just after dialysis was started. They left the dialysis line in place secondary to their concern of her chest pain and her known propensity to bleed as well as knowing that she will need dialysis later. Patient describes chest pain as a heaviness and a tightness around her chest causing her to be short of breath with associated pulse ox of 90% no previous oxygen requirement. Patient has not had any history of heart disease. She has required nitroglycerin in the past but was approximately 10 years ago and has no known history of heart disease. Initial blood pressure systolically to 24. Patient will receive nitroglycerin as well as a chest x-ray. She has required breathing treatments for bronchitis which she has had in the past. She will get a breathing treatment to help further delineate as her lung sounds have more of a prolonged expiratory phase and no specific Rales. - Related Data Home Medications Medication Instructions Recorded Confirmed Paroxetine [Paxil] 30 mg PO DAILY 07/19/16 08/25/16 Acetaminophen [Tylenol] 500 mg PO Q6HR PRN 07/20/16 08/25/16 Loperamide HCl [Imodium A-D] 2 mg PO 8XD PRN 08/25/16 08/25/16 Tramadol HCl [Ultram] 50 - 100 mg PO Q6H PRN 08/25/16 08/25/16 Previous Rx's Medication Instructions Recorded Budesonide/Formoterol 80/4.5 2 puff IH BIDR #30 inhaler 07/24/16 [Symbicort 80/4.5] Losartan [Cozaar] 100 mg PO DAILY #30 tablet 07/24/16 Calcitriol [Rocaltrol] 0.25 mcg PO DAILY 30 Days capsule 09/01/16 Calcium Carbonate [Tums] 1,000 mg PO BID #60 tab.chew 09/01/16 Ferrous Sulfate [Iron] 325 mg PO BID 30 Days capsule.er 09/01/16 Omeprazole [PriLOSEC] 40 mg PO DAILY #30 cap 09/01/16 OxyCODONE Immed Rel [Roxicodone 5 5 mg PO Q6HR PRN #25 tablet 09/01/16 MG] Allergies Allergy/AdvReac Type Severity Reaction Status Date / Time latex Allergy Hives Verified 07/12/18 10:36 moxifloxacin [From Avelox] Allergy Difficulty Verified 07/12/18 10:36 Breathing All systems ED: reviewed and negative except as stated. Review of Systems: As Per HPI Constitutional: Denies: fever, chills ENT ED: Denies: congestion Cardiovascular: Reports: chest pain, dyspnea on exertion Respiratory: Reports: cough, dyspnea Gastrointestinal: Denies: abdominal pain, nausea Genitourinary: Denies: urgency, dysuria Musculoskeletal: Denies: back pain, neck pain Integumentary: Denies: rash, abrasion Neurological: Denies: headache Psychiatric: Denies: anxiety, depression Endocrine: Denies: fatigue Past Medical History - Past Medical History Medical history: Reports: dialysis, hypertension, renal disease Psychiatric history: Reports: anxiety, depression - Social History Smoking Status: Never smoker Smokeless Tobacco Status: No Alcohol use: Reports: none Drug use: Reports: none Physical Exam General: Well appearing, nontoxic, no acute distress Head: Normocephalic Atraumatic Eyes: PERRL, EOMI ENT: Airway patent, no stridor Neck: supple, no meningismus Chest: Prolonged expiratory phase Cardiac: Regular rate and rhythm, no murmurs, rubs or gallops Abdomen: soft, nontender, nondistended; no guarding, rebound, or tenderness to percussion Musculoskeletal: Calves symmetric, nontender, no significant peripheral edema Skin: No rash, normal skin tone Neuro: Awake alert and answers all questions appropriately. No focal deficit, CN 2-12 symmetric and intact - General Limitations: no limitations General appearance: alert, in no apparent distress Course - Reevaluation(s) Reevaluation #1: We tried to clear the patient to get her back to dialysis today. Patient is unable to get to dialysis by the 1:00pm cutoff. Patient will require admission for dialysis and further evaluation of chest pain. - Consultations Consultation #1: Discussed with nephrology. Will evaluate patient and get her set up with dialysis. Consultation #2: Discussed with hospitalist. Patient accepted for admission. Vital Signs Temperature 98 F 07/12/18 10:29 Pulse Rate 104 07/12/18 10:29 Respiratory Rate 28 07/12/18 10:29 Blood Pressure 224/142 07/12/18 10:29 O2 Sat by Pulse Oximetry 99 07/12/18 10:29 Temperature 98 F 07/12/18 10:29 Pulse Rate 79 07/12/18 12:17 Respiratory Rate 18 07/12/18 12:17 Blood Pressure 170/99 07/12/18 12:17 O2 Sat by Pulse Oximetry 99 07/12/18 12:17 Oxygen Delivery Oxygen Delivery Nasal Cannula Shortness of Breath/Dyspnea - Medical Records Medical records reviewed: Yes I reviewed the patient's medical records. - Lab Data Lab results reviewed: Yes I reviewed the patient's lab results. Result diagrams: 07/12/18 11:00 07/12/18 11:00 Lab Results 07/12/18 07/12/18 Range/Units 11:00 11:00 WBC 4.2 L (4.3-11.1) K/mcL RBC 3.67 L (3.82-4.97) M/mcL Hgb 10.9 L (11.5-15.4) g/dL Hct 34.4 L (35.3-44.9) % MCV 93.7 (83.0-100.0) fL MCH 29.7 (28.0-33.3) pg MCHC 31.7 (31.6-35.5) g/dL RDW 13.3 (11.5-14.5) % Plt Count 138 L (140-400) K/mcL MPV 10.1 (9.4-12.4) fL Immature Gran % 0.5 (0-4) % Seg Neutrophils % 63.7 % Lymphocytes % 22.1 % Monocytes % 5.3 % Eosinophils % 8.2 % Basophils % 0.2 % Neutrophils # 2.7 (1.6-8.9) K/mcL Lymphocytes # 0.9 (0.6-4.6) K/mcL Monocytes # 0.2 (0.0-1.3) K/mcL Eosinophils # 0.3 (0.0-0.6) K/mcL Basophils # 0.0 (0.0-0.2) K/mcL Sodium 138 (136-145) mEq/L Potassium 4.6 (3.5-5.1) mEq/L Chloride 97 L (98-107) mEq/L Carbon Dioxide 28 (23-29) mEq/L BUN 43 H (6-20) mg/dL Creatinine 6.53 H (0.60-1.20) mg/dL Est GFR ( Amer) 8 L (> 60) Est GFR (Non-Af Amer) 7 L (> 60) BUN/Creatinine Ratio 7 (6-26) Glucose 101 (70-105) mg/dL Calculated Osmolality 297 (280-300) Calcium 9.9 (8.6-10.3) mg/dL Troponin I 0.04 H* (< 0.04) ng/mL - Radiology Data Radiology results reviewed: Yes I reviewed the patient's radiology results. - EKG Data EKG attestation: Yes I reviewed and interpreted this EKG. EKG results narrative: CRIS EKG shows sinus rhythm with a heart rate of 94 QRS 91 QTC 448 patient has no significant ST elevations or depressions but does have a poor baseline. EKG compared to previous of 02/23/17.
[2018-07-12 11:15] LABS: Basophils % 0.2 %; Eosinophils # 0.3 K/mcL (0.0-0.6); Eosinophils % 8.2 %; Hematocrit 34.4 % (35.3-44.9); Hemoglobin 10.9 g/dL (11.5-15.4); Immature Granulocytes % 0.5 % (0-4); Lymphocytes # 0.9 K/mcL (0.6-4.6); Lymphocytes % 22.1 %; Mean Corpuscular HGB Conc 31.7 g/dL (31.6-35.5); Mean Corpuscular Hemoglobin 29.7 pg (28.0-33.3); Mean Corpuscular Volume 93.7 fL (83.0-100.0); Mean Platelet Volume 10.1 fL (9.4-12.4); Monocytes # 0.2 K/mcL (0.0-1.3); Monocytes % 5.3 %; Neutrophils # 2.7 K/mcL (1.6-8.9); Platelet Count 138 K/mcL (140-400); Red Blood Count 3.67 M/mcL (3.82-4.97); Red Cell Distribution Width 13.3 % (11.5-14.5); Segmented Neutrophils % 63.7 %
[2018-07-12 11:36] LABS: Calcium 9.9 mg/dL (8.6-10.3); Potassium 4.6 mEq/L (3.5-5.1)
[2018-07-12 11:38] LABS: Troponin I 0.04 ng/mL (< 0.04)
[2018-07-12] MEDS ORDERED: 0.9 % Sodium Chloride 250 ML IVC PRN (13:23)
[2018-07-12] MEDS ORDERED: 0.9 % Sodium Chloride 1,000 ML PRIME SCH (13:30)
[2018-07-12] MEDS ORDERED: Aspirin 325 MG TABLET PO ONE (14:12)
[2018-07-12 15:37] LABS: Hepatitis B Surface Antigen Nonreactive (Nonreactive)
[2018-07-12 15:39] LABS: Hepatitis B Surface Antibody 44.99 mIU/mL
[2018-07-12] MEDS ORDERED: *HR* HYDROcodone/Acet 5/325 mg TABLET PO PRN (16:29)
[2018-07-12] MEDS ORDERED: Acetaminophen 325 MG TABLET PO PRN (16:29)
[2018-07-12] MEDS ORDERED: Naloxone 0.4 MG/ML INJ IVP PRN (16:29)
--- NOTE | 2018-07-12 16:58 | Internal Med History&Physical ---
Date of Encounter: 07/12/18 Time of Encounter: 16:50 Internal Medicine - H&P: HPI Chief complaint: Chest pressure Admitted From: Emergency Dept Plans for Post Hospital Care: Home History of present illness: Ms. Darby is a 48 year old female with known past medical history of hypertension, anxiety and ESRD on hemodialysis M/W/F pt was sent our ER from HD center while pt was getting active hemodialysis today she complaining about chest pressure and her blood pressure was significantly elevated. She denied to chest pain. She never complained about chest pain all she had chest pressure, and non-radiating. Not associated with any nausea, vomiting. She is getting HD now here at [facility]. She denied any previous history of [place]. Past Med Surg Social Fam HX - Past Medical History Medical history: dialysis, hypertension, renal disease Psychiatric history: anxiety, depression - Past Surgical History Additional surgical history: rectal prolapse. kidney/bladder surgeries. graft R arm - Social History Smoking Status: Never smoker Smokeless Tobacco Status: No Alcohol use: none Drug use: none - Family History Mother Living Status: Still Living Hx Family Cardiac Disorders: Yes (CAD) Hx Family Cancer: Yes (skin cancer) Hx Family Endocrine Disorder: Yes (DM) Father Adopted: No Family Member Ethnicity: Non- Living Status: Still Living Hx Family Respiratory Disorders: Yes (MVA) Hx Family Cancer: No Hx Family GI Disorders: No Hx Family Endocrine Disorder: No Hx Family Neuromuscular Disorders: No Hx Family Neurologic Disorders: No Hx Family HEENT Disorders: No Hx Family Autoimmune Disorders: No Internal Medicine - H&P: Meds Paroxetine [Paxil] 30 mg PO DAILY 07/19/16 [History] Losartan [Cozaar] 100 mg PO DAILY #30 tablet 07/24/16 [Rx] Allergy/AdvReac Type Severity Reaction Status Date / Time latex Allergy Hives Verified 07/12/18 10:36 moxifloxacin [From Avelox] Allergy Difficulty Verified 07/12/18 10:36 Breathing All Systems PM: A 10-system review of systems was performed and is negative for pertinent findings except as documented above in the HPI. Review of systems: All the systems are reviewed everything is benign except the systems and symptoms I mentioned in the history of present illness - Constitutional Vitals: Temp Pulse Resp BP Pulse Ox 97.8 F 82 18 137/88 100 07/12/18 15:15 07/12/18 13:14 07/12/18 15:15 07/12/18 16:45 07/12/18 13:14 General appearance: Present: cooperative, A&O X 3, no acute distress, answers questions appropriately Exam: See below - Head Head exam: Present: atraumatic, normal inspection - Neck Neck exam general surgery: Present: supple - Respiratory Respiratory exam: Present: decreased breath sounds. Absent: rales, respiratory distress, rhonchi, wheezes - Cardiovascular Cardiovascular exam: Present: RRR, +S1, +S2. Absent: tachycardia - GI/Abdominal GI/Abdominal exam: Present: normal bowel sounds, soft, tenderness. Absent: rebound, rigid - Extremities Exam Extremities exam: Absent: calf tenderness, pedal edema, tenderness - Back Exam Back exam: Absent: CVA tenderness (L), CVA tenderness (R) - Neurological Exam Neurological exam: Present: alert, oriented X3 - Psychiatric Psychiatric exam: Present: normal affect, normal mood Internal Med - H&P Results - Labs CBC & Chem 7: 07/12/18 11:00 07/12/18 11:00 Labs: Short CBC 07/12/18 Range/Units 11:00 WBC 4.2 L (4.3-11.1) K/mcL Hgb 10.9 L (11.5-15.4) g/dL Hct 34.4 L (35.3-44.9) % Plt Count 138 L (140-400) K/mcL Neutrophils # 2.7 (1.6-8.9) K/mcL BMP 07/12/18 11:00 Sodium 138 Potassium 4.6 Chloride 97 L Carbon Dioxide 28 BUN 43 H Creatinine 6.53 H Glucose 101 Calcium 9.9 Cardiac Enzymes 07/12/18 07/12/18 Range/Units 11:00 13:13 Troponin I 0.04 H* 0.05 H* (< 0.04) ng/mL - Impressions ITS Impressions Chest X-Ray 07/12/18 10:52 IMPRESSION: Mild pulmonary vascular congestion. Prominent hilar structures bilaterally, may be related to lymphadenopathy or pulmonary hypertension, stable. Stable cardiomegaly. D/ / Cong Choudhury MD / Cong Choudhury MD Interpreting Provider: Cong Choudhury MD - Assessment and plan (1) Chest pain Current Visit: Yes Status: Acute Assessment and plan: Will admit the pt into Tele for observation Will place pt on product accountant check serial troponin so far negative troponin EKG reviewed showed sinus rythm and non nonspecific ST changes will start pt on ASA, Nitro PRN for pain Will check FLP in AM Will get stress test in AM since pt is high risk for ACS Qualifiers: Chest pain type: unspecified Qualified Code(s): R07.9 - Chest pain, unspecified (2) Hypertensive urgency Current Visit: Yes Status: Acute Assessment and plan: Probably due to missing hemodialysis resumed home medication losartan and added metoprolol also place on IV hydralazine PRN (3) Elevated troponin Current Visit: No Status: Acute Assessment and plan: Mostly due to demand ischemia and ESRD continue close monitoring for now if troponin keep trending up will consider starting on heparin drip might (4) End stage renal disease Current Visit: No Status: Chronic Assessment and plan: Nephro consulted Getting HD now patient is not on any dialysis medications.. Talked to Nephro to address this medications - Time Spent With Patient Total time spent is greater than 50% in coordination of care (as documented) at patient's floor/unit and/or counseling patient:
[2018-07-13 05:49] LABS: Calcium 9.8 mg/dL (8.6-10.3); Chol/HDL Ratio 2.7 (0-4.9); Magnesium 2.3 mg/dL (1.6-2.6); Potassium 4.2 mEq/L (3.5-5.1)
--- NOTE | 2018-07-13 06:05 | Event Note ---
Date of Encounter: 07/13/18 Time of Encounter: 04:55 Notified by nurse that patient is now not wanting to have stress test. Discussed with patient at bedside, states she had previous bad experience with a stress test and her and her discussed last night and elected to not have it done today. Informed of risks of not having performed and ensured all questions regarding stress test were answered. Still choosing not to have completed today. Order cancelled.
--- NOTE | 2018-07-13 08:45 | Electrocardiograph Report ---
[facility] Test Date: 2018-07-12 Pat Name: Daisy Darby Department: EXAM1 Room: 2A37 Gender: F Medical Information Officer: : 1970 Requested By: Regis Cooper Order Number: [id number] Reading MD: Prashant Rogers Measurements Intervals [place] Rate: 94 P: MO: QRS: 43 QRSD: 91 T: 49 QT: 358 QTc: 448 Interpretive Statements Atrial fibrillation with controlled ventricular response ST elev, probable normal early repol pattern Electronically Signed On 07-13-2018 8:43:59 EST by Prashant Rogers
--- NOTE | 2018-07-13 09:39 | Nephrology Consult Note ---
Date of Encounter: 07/12/18 Time of Encounter: 16:59 Assessment and Plan (1) End stage renal disease Current Visit: No Status: Chronic Patient seen 07/12/2018 on dialysis. HD MWF. Renal vitamins. Renal dose medications. Renal diet. Additional dialysis and ultrafiltration as needed. Okay for discharge from renal standpoint. History of Present Illness - Reason for Consult Consult date: 07/12/18 end stage renal disease - Chief Complaint ESRD - History of Present Illness Miss sheikh is a 48-year-old lady with end-stage renal disease and receives dialysis Thursday. She presents secondary to chest pressure and dyspnea. [facility] was consulted for ongoing dialysis man agement. Patient was seen on 07/12/2018. Patient was seen on dialysis. At the time of evaluation she was feeling better. Past Med Surg Social Fam HX - Past Medical History Medical history: dialysis, hypertension, renal disease Psychiatric history: anxiety, depression - Past Surgical History Additional surgical history: rectal prolapse. kidney/bladder surgeries. graft R arm - Social History Smoking Status: Never smoker Smokeless Tobacco Status: No Alcohol use: none Drug use: none - Family History Mother Living Status: Still Living Hx Family Cardiac Disorders: Yes (CAD) Hx Family Cancer: Yes (skin cancer) Hx Family Endocrine Disorder: Yes (DM) Father Adopted: No Family Member Ethnicity: Non- Living Status: Still Living Hx Family Respiratory Disorders: Yes (MVA) Hx Family Cancer: No Hx Family GI Disorders: No Hx Family Endocrine Disorder: No Hx Family Neuromuscular Disorders: No Hx Family Neurologic Disorders: No Hx Family HEENT Disorders: No Hx Family Autoimmune Disorders: No Medications and Allergies Paroxetine [Paxil] 30 mg PO DAILY 07/19/16 [History] Allergy/AdvReac Type Severity Reaction Status Date / Time latex Allergy Hives Verified 07/12/18 10:36 moxifloxacin [From Avelox] Allergy Difficulty Verified 07/12/18 10:36 Breathing Review of Systems All Systems: reviewed and no additional remarkable complaints except as stated (as documented in the hpi) Exam - Vital Signs Vital signs: Initial Vital Signs Temp Pulse Resp BP Pulse Ox 98 F 104 28 224/142 99 07/12/18 10:29 07/12/18 10:29 07/12/18 10:29 07/12/18 10:29 07/12/18 10:29 Vital Signs - Last 8 Hours Temp Pulse Resp BP Pulse Ox 07/13/18 07:16 97.5 F L 81 20 115/70 91 07/13/18 04:56 98.0 F 87 14 92/55 94 Intake and Output 07/12/18 07/13/18 07/13/18 23:59 07:59 15:59 Output Total 2605 / 2605 Balance -2605 / -2605 Output: Total Dialysis (HD) Output 2605 / 2605 Other: Weight 53.7 kg Hemodialysis Net Fluid Removed 2004 (mL) - General Appearance General appearance: well-developed, well-nourished EENT: ATNC Neck: supple Respiratory: course breath sounds Cardiology: edema, regular rate - Dialysis Access Dialysis Vascular Access: Arteriovenous Graft Integumentary: warm and dry Neurologic: alert and oriented x3 Musculoskeletal: no cyanosis Psychiatric: mood/affect appropriate Results - Lab Results 07/12/18 11:00 07/13/18 04:51 Most recent lab results Calcium 9.8 mg/dL (8.6-10.3) 07/13/18 04:51 Magnesium 2.3 mg/dL (1.6-2.6) 07/13/18 04:51 Consult Discharge Plan - Plan Referrals: Angela Bob CNP [Primary Care Provider] -
--- NOTE | 2018-07-13 10:26 | Discharge Summary ---
- NOTES TO OUTPATIENT PROVIDER Notes to Outpatient Provider: Follow up with PCP in one week. Follow-up with nephrology as scheduled before. Follow-up with cardiology in 2 weeks. Please start taking aspirin, metoprolol and Losartan. Orders not resulted at time of discharge: Pending orders 07/12/18 16:48 EKG [ECG 12 lead ECG] [ECG] Routine Date of Encounter: 07/13/18 Time of Encounter: 10:22 - Discharge Diagnosis (1) Chest pain Priority: Primary Status: Acute Qualifiers: Chest pain type: unspecified Qualified Code(s): R07.9 - Chest pain, unspecified (2) Hypertensive urgency Priority: Primary Status: Acute (3) Elevated troponin Priority: Secondary Status: Acute (4) End stage renal disease Priority: Secondary Status: Chronic Hospital course: Ms. Darby is a 48 year old female with known past medical history of hypertension, anxiety and ESRD on hemodialysis M/W/F pt was sent our ER from HD center while pt was getting active hemodialysis today she complaining about chest pressure and her blood pressure was significantly elevated. She denied to chest pain. She never complained about chest pain all she had chest pressure, and non-radiating. Not associated with any nausea, vomiting. She denied any previous history of [place]. Patient was admitted in the hospital and placed on cardiac exercise physiologist. Her serial troponin came back is negative. She denied any active chest pain. Her troponin slightly elevated at @ 0.06 and a dynamic. Since patient is high risk for ACS with all her other comorbidities, I requested the patient to go for nuclear stress test. However patient refused to go for stress test. She had Echo done today. Will d/c her home in stable condition today. Recommend to start taking ASA, BB and ARB. Also recommend to f/u with Nephro to discuss about her ESRD medications. - Time Spent with Patient Total time spent providing and/or coordinating discharge services: - Discharge Medications Prescriptions: Aspirin Enteric Coated [Aspirin EC] 81 mg PO DAILY #30 tablet. Losartan [Cozaar] 25 mg PO DAILY #30 tablet Metoprolol [Lopressor] 12.5 mg PO BID #30 tablet Home Medications: Paroxetine [Paxil] 30 mg PO DAILY 07/19/16 [History] Aspirin Enteric Coated [Aspirin EC] 81 mg PO DAILY #30 tablet. 07/13/18 [Rx] Losartan [Cozaar] 25 mg PO DAILY #30 tablet 07/13/18 [Rx] Metoprolol [Lopressor] 12.5 mg PO BID #30 tablet 07/13/18 [Rx] Allergies/Adverse Reactions: Allergy/AdvReac Type Severity Reaction Status Date / Time latex Allergy Hives Verified 07/12/18 10:36 moxifloxacin [From Avelox] Allergy Difficulty Verified 07/12/18 10:36 Breathing Date of admission: 07/12/18 13:46 Primary care physician: Angela Bob CNP Consults: 07/12/18 13:30 Consult to Dialysis [CONS] ONCE - Constitutional Vitals: Temp Pulse Resp BP Pulse Ox 97.5 F L 81 20 115/70 91 07/13/18 07:16 07/13/18 07:16 07/13/18 07:16 07/13/18 07:16 07/13/18 07:16 General appearance: Present: cooperative, A&O X 3, no acute distress, answers questions appropriately Exam: Gen: Alert, awake, Oriented to time,place and person Chest: Diminished breath sounds B/L, No wheezing, No crackles, No rales Heart: S1S2+ RRR No murmurs Abd: Soft, NT, BS +, No organomegaly Ext: No edema, pulses are palpable, No calf tenderness Neuro : Benign findings Skin: No rash. - Patient Status Disposition: Home, Self-Care Condition: Good Overall status at discharge: patient is back to baseline - Discharge Instructions Follow Up With: Angela Bob CNP [Primary Care Provider] - - Diet and Activity Activity: increase activity as tolerated Diet: low salt diet
[2018-07-13] MEDS: Aspirin Enteric Coated 81 MG Tablet PO SCH (10:39)
--- NOTE | 2018-07-13 12:19 | Cardiology Consult Note ---
<Suman Horan R - Last Filed: 07/13/18 14:01> Date of Encounter: 07/13/18 Time of Encounter: 12:17 Assessment and Plan (1) Aortic stenosis Current Visit: Yes Status: Acute Presented with chest pain and dyspnea during dialysis. TTE showed severely calcified aortic valve leaflets. Moderate-severe . IRMA was approximately 1.02 cm2. Peak aortic velocity is 3.92m/s, MG 33 mmHg. Mild AR. Mild-moderate MS. MG is 6 mmHg. Consider MELINA to further evaluate severity of and MS. R/B/A discussed. Pt would like to discuss with family. Also discussed possible stress test vs [facility] for ischemic eval. Pt considering. R/B/A discussed. Pt denies dizziness, lightheadedness or syncope. Will discuss and review with Dr. Arriaga. NPO after midnight for further testing in AM. Qualifiers: Cardiac valve disease etiology: etiology unspecified Qualified Code(s): I35.0 - Nonrheumatic aortic (valve) stenosis (2) Chest pain Current Visit: Yes Status: Acute As HPI, episode of chest pain/pressure during dialysis. Troponins 0.04, 0.05, 0.07, 0.07, 0.06 in setting of ESRD on dialysis and hypertensive urgency. Demand ischemia, nondiagnostic for ACS. TTE EF preserved. Moderate-severe as above. Considering stress test vs LHC. Qualifiers: Chest pain type: unspecified Qualified Code(s): R07.9 - Chest pain, unspecified (3) Elevated troponin Current Visit: No Status: Acute Troponins 0.04, 0.05, 0.07, 0.07, 0.06 in setting of ESRD on dialysis and hypertensive urgency. Demand ischemia. Nondiagnostic for ACS. Cardiac rehab not warranted. above. Discussion w patient/family: The assessment and plan as outlined above was discussed with the patient and/or family members who expressed understanding and agreement. All questions were answered. Thank you for involving us in the care of your patient. Please call with any questions. I will discuss all the above with Dr. Arriaga and make changes as necessary. History of Present Illness Consult date: 07/13/18 Requesting physician: Sharon Miles Consult reason: Severe Chief complaint: chest pressure History of present illness: Ms. Darby is a 48 year old female with PMH of HTN, anxiety and ESRD on hemodialysis M/W/. Pt was sent to ER from HD center for complaint of chest pressure and elevated BP. Chest pain was non-radiating, associated with dyspnea. BP was 224/142. Troponins 0.04, 0.05, 0.07, 0.07, 0.06. TTE was ordered. LVEF 60-65%. Severe cLVH. Moderate LVDD. Severely calcified aortic valve leaflets. Moderate-severe .The estimated aortic valve area was approximately 1.02 cm2. Peak aortic velocity is 3.92m/s, mean gradient 33 mmHg. Mild aortic regurgi tation. Mild-moderate mitral stenosis. Mean gradient is 6 mmHg Moderate pulmonary hypertension. Mild-moderate pulmonic regurgitation. Cardiology consulted for further recs. Pt denies dizziness or lightheadedness. Denies syncope or lower extremity edema. Past Med Surg Social Fam HX - Past Medical History Medical history: dialysis, hypertension, renal disease Psychiatric history: anxiety, depression - Past Surgical History Additional surgical history: rectal prolapse. kidney/bladder surgeries. graft R arm - Social History Smoking Status: Never smoker Smokeless Tobacco Status: No Alcohol use: none Drug use: none - Family History Father Adopted: No Family Member Ethnicity: Non- Living Status: Still Living Hx Family Respiratory Disorders: Yes (MVA) Hx Family Cancer: No Hx Family GI Disorders: No Hx Family Endocrine Disorder: No Hx Family Neuromuscular Disorders: No Hx Family Neurologic Disorders: No Hx Family HEENT Disorders: No Hx Family Autoimmune Disorders: No Mother Living Status: Still Living Hx Family Cardiac Disorders: Yes (CAD) Hx Family Cancer: Yes (skin cancer) Hx Family Endocrine Disorder: Yes (DM) Medications and Allergies RX: Paroxetine [Paxil] 30 mg PO DAILY 07/19/16 [History] RX: Aspirin Enteric Coated [Aspirin EC] 81 mg PO DAILY #30 tablet. 07/13/18 [Rx] RX: Losartan [Cozaar] 25 mg PO DAILY #30 tablet 07/13/18 [Rx] RX: Metoprolol [Lopressor] 12.5 mg PO BID #30 tablet 07/13/18 [Rx] Allergy/AdvReac Type Severity Reaction Status Date / Time latex Allergy Hives Verified 07/12/18 10:36 moxifloxacin [From Avelox] Allergy Difficulty Verified 07/12/18 10:36 Breathing All Systems Review: The remainder of the systems were reviewed and are negative - Cardiovascular Cardiovascular: as per HPI, chest pain at rest, dyspnea at rest, dyspnea on exertion Physical Examination Vital Signs, Last 4 Hours Temp Pulse Resp BP Pulse Ox 07/13/18 10:30 98.6 F 74 20 111/65 97 Vital Signs Temp Pulse Resp BP Pulse Ox 07/13/18 10:30 98.6 F 74 20 111/65 97 07/13/18 07:16 97.5 F L 81 20 115/70 91 07/13/18 04:56 98.0 F 87 14 92/55 94 07/12/18 23:38 98.6 F 86 14 110/71 90 07/12/18 22:30 79 100/55 07/12/18 19:26 98.7 F 15 165/97 95 07/12/18 18:47 97.2 F L 18 128/81 07/12/18 18:15 102/81 07/12/18 18:00 106/64 07/12/18 17:45 100/68 07/12/18 17:30 102/62 07/12/18 17:15 112/71 07/12/18 17:00 126/84 07/12/18 16:45 137/88 07/12/18 16:30 153/97 07/12/18 16:15 141/92 07/12/18 16:00 136/91 07/12/18 15:45 153/90 07/12/18 15:30 155/91 07/12/18 15:15 97.8 F 18 137/97 07/12/18 14:17 18 179/93 07/12/18 13:14 82 22 183/102 100 Intake and Output 07/12/18 07/13/18 07/13/18 23:59 07:59 15:59 Output Total 2605 / 2605 Balance -2605 / -2605 Output: Total Dialysis (HD) Output 2605 / 2605 Other: Weight 53.7 kg Hemodialysis Net Fluid Removed 2004 (mL) General: Conversant, No Apparent Distress HEENT: Atraumatic, Normocephaly, Mucus Membranes Moist Neck: No JVD, Normal carotid pulses Cardiac: Other (2/6 STEVE noted) Lungs: Normal Breath Sounds, No Wheeze, Rales, Rhonchi Neuro: Alert and responsive, No focal deficits noted Abdomen: Soft, Non-Tender Skin: No rashes noted on visualized skin Musculoskeletal: No Chest Wall Tenderness Extremities: No Clubbing, No Cyanosis, No Edema, Normal Pulses Results 07/12/18 11:00 07/13/18 04:51 Lab Results 07/12/18 07/12/18 07/12/18 13:13 17:00 22:30 Sodium Potassium Chloride Carbon Dioxide BUN Creatinine Glucose Calcium Magnesium Troponin I 0.05 H* 0.07 H* 0.07 H* 07/13/18 07/13/18 04:51 04:51 Sodium 136 Potassium 4.2 Chloride 97 L Carbon Dioxide 26 BUN 15 Creatinine 3.63 H Glucose 101 Calcium 9.8 Magnesium 2.3 Troponin I 0.06 H* [facility] 07/13/18 Range/Units 04:51 Sodium 136 (136-145) mEq/L Potassium 4.2 (3.5-5.1) mEq/L Chloride 97 L (98-107) mEq/L Carbon Dioxide 26 (23-29) mEq/L BUN 15 (6-20) mg/dL Creatinine 3.63 H (0.60-1.20) mg/dL Glucose 101 (70-105) mg/dL Calcium 9.8 (8.6-10.3) mg/dL Cardiac Enzymes 07/13/18 07/12/18 07/12/18 Range/Units 04:51 22:30 17:00 Troponin I 0.06 H* 0.07 H* 0.07 H* (< 0.04) ng/mL 07/12/18 Range/Units 13:13 Troponin I 0.05 H* (< 0.04) ng/mL Impressions Echocardiogram 07/13/18 09:01 Impressions: LVEF 60-65%. Severe concentric left ventricular hypertrophy. Moderate left ventricular diastolic dysfunction. Normal right ventricular structure and function. Severely calcified aortic valve leaflets. Moderate-severe aortic stenosis. The estimated aortic valve area was approximately 1.02 cm2. Peak aortic velocity is 3.92m/s, mean gradient 33 mmHg. Mild aortic regurgitation. Mild-moderate mitral stenosis. Mean gradient is 6 mmHg Moderate pulmonary hypertension. Mild-moderate pulmonic regurgitation. Findings communicated with ordering physician Left Ventricular Wall Motion: Rest Echo Findings All wall segments showed normal motion. Findings: Study Quality * Technically adequate exam. ECG Findings * Normal sinus rhythm. Left Ventricle * LVEF 60-65%. * Severe concentric left ventricular hypertrophy. * Moderate left ventricular diastolic dysfunction. Right Ventricle * Normal right ventricular structure and function. Left Atrium * Normal left atrial size. Right Atrium * Normal right atrial size. Interatrial Septum * No evidence of PFO by color Doppler. Aortic Valve * Trileaflet aortic valve. * Severely calcified aortic valve leaflets. * Moderate-severe aortic stenosis. * The estimated aortic valve area was approximately 1.02 cm2. Peak aortic velocity is 3.92m/s, mean gradient 33 mmHg. * Mild aortic regurgitation. Mitral Valve * Moderately calcified posterior mitral valve leaflet. * Moderate mitral annular calcification * Mild-moderate mitral stenosis. * No mitral regurgitation. Tricuspid Valve * Normal tricuspid valve structure. * No tricuspid regurgitation. * No tricuspid stenosis. * Moderate pulmonary hypertension. * Estimated RVSP is 44 mmHg. * Estimated RA pressure is 5 mmHg. Pulmonic Valve * Mild-moderate pulmonic regurgitation. Aorta * Normally sized aortic root. Pericardium * The pericardium appears normal. IVC * Normal IVC dimensions and inspiratory collapse. Active Medications Acetaminophen (Tylenol) 650 mg PO Q6HR PRN PRN Reason: Mild Pain/Fever Stop: 01/11/19 16:30 Hydrocodone Bitart/Acetaminophen (Woodman 5-325 Mg) 1 tab PO Q6HR PRN PRN Reason: Moderate Pain Stop: 01/11/19 16:30 Aspirin (Aspirin Ec) 81 mg PO DAILY ELAINE Stop: 01/12/19 09:01 Last Admin: 07/13/18 10:39 Dose: 81 mg Hydralazine HCl (Hydralazine) 10 mg IVP Q6HR PRN PRN Reason: Hypertension Stop: 01/11/19 16:32 Sodium Chloride (0.9 % Sodium Chloride) 250 mls @ 937.5 mls/hr IVC .Q16M PRN PRN Reason: Hypotension Stop: 01/11/19 13:24 Sodium Chloride (0.9 % Sodium Chloride) 1,000 mls @ 0 mls/hr PRIME .Q0M ELAINE Stop: 01/11/19 13:31 Losartan Potassium (Cozaar) 100 mg PO DAILY ELAINE; Protocol Stop: 01/11/19 16:46 Last Admin: 07/13/18 10:39 Dose: 100 mg Metoprolol Tartrate (Lopressor) 25 mg PO BID ELAINE Stop: 01/11/19 21:01 Last Admin: 07/13/18 10:39 Dose: 25 mg Naloxone HCl (Narcan) 0.4 mg IVP Q2MIN PRN PRN Reason: SEE COMMENTS Stop: 01/11/19 16:30 Nitroglycerin (Nitroglycerin) 0.4 mg SL Q5MIN PRN PRN Reason: Chest Pain Stop: 01/11/19 10:54 Last Admin: 07/12/18 11:31 Dose: 0.4 mg Paroxetine HCl (Paxil) 30 mg PO DAILY ELAINE; Protocol Stop: 01/12/19 09:01 Last Admin: 07/13/18 10:39 Dose: 30 mg - Imaging and Cardiology Echo: report reviewed - EKG Interpretation EKG results cardiology: other (12 hr tele AVG HR 82, SR) Consult Discharge Plan - Plan Instructions: Chest Pain (DC) Referrals: Angela Bob, OUTREACH LIBRARIAN [Primary Care Provider] - Prescriptions: RX: Aspirin Enteric Coated [Aspirin EC] 81 mg PO DAILY #30 tablet. RX: Losartan [Cozaar] 25 mg PO DAILY #30 tablet RX: Metoprolol [Lopressor] 12.5 mg PO BID #30 tablet <Adeel Arriaga - Last Filed: 07/13/18 16:06> Date of Encounter: 07/13/18 - Attending Attestation I have personally performed a face to face evaluation on this patient. I have reviewed and agree with the care plan. History and Exam by me shows: 48 YOF with moderate to severe and mod MS here with chest pressure started during HD. Discussed need to evaluate and MS with MELINA and possible LHC if severe noted. R/B/A d/w patient and she agrees to proceed. Assessment and Plan Discussion w patient/family: The assessment and plan as outlined above was discussed with the patient and/or family members who expressed understanding and agreement. All questions were an swered. Thank you for involving us in the care of your patient. Please call with any questions. History of Present Illness History of present illness: Ms. Darby is a 48 year old female All Systems Review: The remainder of the systems were reviewed and are negative Results 07/12/18 11:00 07/13/18 04:51 Lab Results 07/12/18 07/12/18 07/13/18 17:00 22:30 04:51 Sodium 136 Potassium 4.2 Chloride 97 L Carbon Dioxide 26 BUN 15 Creatinine 3.63 H Glucose 101 Calcium 9.8 Magnesium 2.3 Troponin I 0.07 H* 0.07 H* 07/13/18 04:51 Sodium Potassium Chloride Carbon Dioxide BUN Creatinine Glucose Calcium Magnesium Troponin I 0.06 H*
--- NOTE | 2018-07-13 13:25 | Internal Med Progress Note ---
Hospitalist Progress Note - Encounter Date of Encounter: 07/13/18 Time of Encounter: 13:27 - Subjective Interval History: Ms. Darby is a 48 year old female with known past medical history of hypertension, anxiety and ESRD on hemodialysis // pt was sent our ER from HD center while pt was getting active hemodialysis today she complaining about chest pressure and her blood pressure was significantly elevated. She denied to chest pain. She never complained about chest pain all she had chest pressure, and non-radiating. Not associated with any nausea, vomiting. She denied any previous history of OR. Patient was admitted in the hospital and placed on radiation monitor. She denied any active chest pain. Her troponin slightly elevated at @ 0.06 and a dynamic. Pt refused to go for stress test. So ordered 2 D Echo. - Exam Vitals: Temp Pulse Resp BP Pulse Ox 98.6 F 74 20 111/65 97 07/13/18 10:30 07/13/18 10:30 07/13/18 10:30 07/13/18 10:30 07/13/18 10:30 Exam: Gen: Alert, awake, Oriented to time,place and person Chest: Diminished breath sounds B/L, No wheezing, No crackles, No rales Heart: S1S2+ RRR 2/6 ESM Abd: Soft, NT, BS +, No organomegaly Ext: No edema, pulses are palpable, No calf tenderness Neuro : Benign findings Skin: No rash. - Assessment and Plan (1) Chest pain Current Visit: Yes Status: Acute Assessment and Plan: Her troponin slightly elevated and adynamic @ 0.06 She denied any active CP now Her 2 D Echo showed severely calcified aortic valve leaflets. Moderate-severe . Mild AR. Mild-moderate MA consulted cardiology for further eval scheduled for MELINA and LHC in AM (2) Aortic stenosis Current Visit: Yes Status: Acute Assessment and Plan: Appreciate cardiology recommendations Scheduled for MELINA and LHC for further eval on BB and ARB (3) Hypertensive urgency Current Visit: Yes Status: Acute Assessment and Plan: Probably due to missing hemodialysis Improved with Losartan 25mg and Metoprolol 12.5mg BID (4) Elevated troponin Current Visit: No Status: Acute Assessment and Plan: Mostly due to demand ischemia and ESRD continue close monitoring for now (5) End stage renal disease Current Visit: No Status: Chronic Assessment and Plan: Nephro consulted HD on // patient is not on any dialysis medications.. Talked to Nephro to address this medications - Time Spent with Patient Total time spent is greater than 50% in coordination of care (as documented) at patient's floor/unit and/or counseling patient: Internal Medicine: Result - Labs CBC & Chem 7: 07/12/18 11:00 07/13/18 04:51 Labs: BMP 07/13/18 04:51 Sodium 136 Potassium 4.2 Chloride 97 L Carbon Dioxide 26 BUN 15 Creatinine 3.63 H Glucose 101 Calcium 9.8 Cardiac Enzymes 07/12/18 07/12/18 07/12/18 Range/Units 13:13 17:00 22:30 Troponin I 0.05 H* 0.07 H* 0.07 H* (< 0.04) ng/mL 07/13/18 Range/Units 04:51 Troponin I 0.06 H* (< 0.04) ng/mL - Impressions Impressions Echocardiogram 07/13/18 09:01 Impressions: LVEF 60-65%. Severe concentric left ventricular hypertrophy. Moderate left ventricular diastolic dysfunction. Normal right ventricular structure and function. Severely calcified aortic valve leaflets. Moderate-severe aortic stenosis. The estimated aortic valve area was approximately 1.02 cm2. Peak aortic velocity is 3.92m/s, mean gradient 33 mmHg. Mild aortic regurgitation. Mild-moderate mitral stenosis. Mean gradient is 6 mmHg Moderate pulmonary hypertension. Mild-moderate pulmonic regurgitation. Findings communicated with ordering physician Left Ventricular Wall Motion: Rest Echo Findings All wall segments showed normal motion. Findings: Study Quality * Technically adequate exam. ECG Findings * Normal sinus rhythm. Left Ventricle * LVEF 60-65%. * Severe concentric left ventricular hypertrophy. * Moderate left ventricular diastolic dysfunction. Right Ventricle * Normal right ventricular structure and function. Left Atrium * Normal left atrial size. Right Atrium * Normal right atrial size. Interatrial Septum * No evidence of PFO by color Doppler. Aortic Valve * Trileaflet aortic valve. * Severely calcified aortic valve leaflets. * Moderate-severe aortic stenosis. * The estimated aortic valve area was approximately 1.02 cm2. Peak aortic velocity is 3.92m/s, mean gradient 33 mmHg. * Mild aortic regurgitation. Mitral Valve * Moderately calcified posterior mitral valve leaflet. * Moderate mitral annular calcification * Mild-moderate mitral stenosis. * No mitral regurgitation. Tricuspid Valve * Normal tricuspid valve structure. * No tricuspid regurgitation. * No tricuspid stenosis. * Moderate pulmonary hypertension. * Estimated RVSP is 44 mmHg. * Estimated RA pressure is 5 mmHg. Pulmonic Valve * Mild-moderate pulmonic regurgitation. Aorta * Normally sized aortic root. Pericardium * The pericardium appears normal. IVC * Normal IVC dimensions and inspiratory collapse. Consult Discharge Plan - Plan Instructions: Chest Pain (DC) Referrals: Angela Bob, BRIQUETTE MOLDER [Primary Care Provider] - Prescriptions: Aspirin Enteric Coated [Aspirin EC] 81 mg PO DAILY #30 tablet.dr Losartan [Cozaar] 25 mg PO DAILY #30 tablet Metoprolol [Lopressor] 12.5 mg PO BID #30 tablet (1) Chest pain Qualifiers: Chest pain type: unspecified Qualified Code(s): R07.9 - Chest pain, unspecified (2) Aortic stenosis Qualifiers: Cardiac valve disease etiology: etiology unspecified Qualified Code(s): I35.0 - Nonrheumatic aortic (valve) stenosis
[2018-07-14 04:20] LABS: Hematocrit 32.1 % (35.3-44.9); Hemoglobin 10.3 g/dL (11.5-15.4); Mean Corpuscular HGB Conc 32.1 g/dL (31.6-35.5); Mean Corpuscular Hemoglobin 30.1 pg (28.0-33.3); Mean Corpuscular Volume 93.9 fL (83.0-100.0); Mean Platelet Volume 10.4 fL (9.4-12.4); Platelet Count 134 K/mcL (140-400); Red Blood Count 3.42 M/mcL (3.82-4.97); Red Cell Distribution Width 13.6 % (11.5-14.5)
[2018-07-14] MEDS: Aspirin Enteric Coated 81 MG Tablet PO SCH (07:15)
[2018-07-14] MEDS ORDERED: 0.9 % Sodium Chloride 250 ML IVC PRN (07:55)
[2018-07-14] MEDS ORDERED: 0.9 % Sodium Chloride 1,000 ML PRIME SCH (08:00)
--- NOTE | 2018-07-14 08:45 | Event Note ---
Date of Encounter: 07/14/18 Time of Encounter: 08:44 - Cardiology Event Note Pt seen and examined. Agreeable to MELINA this AM to further evaluate and MS severity. R/B/A discussed. Based on severity, will consider LHC after. Pt agreeable. Consents obtained for MELINA and LHC. Further recs pending MELINA findings.
--- NOTE | 2018-07-14 10:00 | Nephrology Progress Note ---
Date of Encounter: 07/14/18 Time of Encounter: 10:00 - Assessment and Plan (1) End stage renal disease Current Visit: No Status: Chronic Patient seen on dialysis. HD MWF. Renal vitamins. Renal dose medications. Renal diet. Additional dialysis and ultrafiltration as needed. Subjective Principal diagnosis: ESRD Interval history: Patient was seen while she is on dialysis. She reports she has not been taking her antihypertensive medications on an outpatient basis. Objective - Vital Signs Vital signs: Vital Signs Temp Pulse Resp BP Pulse Ox 07/14/18 07:20 97.9 F 64 20 115/76 92 07/14/18 04:34 98.0 F 63 18 113/69 92 07/14/18 00:42 98.4 F 67 17 94/57 90 07/13/18 20:01 97.8 F 68 16 144/72 92 07/13/18 16:35 98.6 F 69 20 98/66 92 07/13/18 10:30 98.6 F 74 20 111/65 97 Intake and Output 07/13/18 07/14/18 07/14/18 23:59 07:59 15:59 Other: Weight 51 kg Patient Weight 07/14/18 23:59 Weight 51 kg - General Appearance General appearance: Present: well-developed, well-nourished EENT: Present: ATNC Neck: Present: supple - Lab 07/14/18 03:55 07/14/18 03:55 Most recent lab results Calcium 10.0 mg/dL (8.6-10.3) 07/14/18 03:55 Magnesium 2.3 mg/dL (1.6-2.6) 07/13/18 04:51 Consult Discharge Plan - Plan Instructions: Chest Pain (DC) Referrals: Angela Bob, MAINTENANCE MECHANIC HELPER [Primary Care Provider] -
[2018-07-14] MEDS ORDERED: *HR* FentaNYL (PF) 100 MCG/2 ML VIAL IVP PRN (11:09)
[2018-07-14] MEDS ORDERED: Lidocaine Viscous Oral Soln 15 ML SOLUTION MM PRN (11:09)
[2018-07-14] MEDS ORDERED: 0.9 % Sodium Chloride 500 ML IVC ONE (11:10)
[2018-07-14] MEDS ORDERED: Tetracaine/Benzocaine/Butamben 1 SPRAY AEROSOL MM ONE (11:10)
[2018-07-14] MEDS ORDERED: *HR* Midazolam HCl 5 MG/5 ML VIAL IVP PRN (11:10)
--- NOTE | 2018-07-14 12:57 | Event Note ---
Date of Encounter: 07/14/18 Time of Encounter: 12:55 - Cardiology Event Note TTE completed. Per Dr. Rodriguez is mild. There is moderate to severe MS more in moderate range (full report pending). No C indicated at this time. Stress test is recommended tomorrow for ischemic evaluation.
--- NOTE | 2018-07-14 14:12 | Internal Med Progress Note ---
Hospitalist Progress Note - Encounter Date of Encounter: 07/14/18 Time of Encounter: 14:10 - Subjective Interval History: Ms. Darby is a 48 year old female with known past medical history of hypertension, anxiety and ESRD on hemodialysis M/W/F pt was sent our ER from HD center while pt was getting active hemodialysis today she complaining about chest pressure and her blood pressure was significantly elevated. She denied to chest pain. She never complained about chest pain all she had chest pressure, and non-radiating. Not associated with any nausea, vomiting. She denied any previous history of ID. Patient was admitted in the hospital and placed on recreation superintendent. She denied any active chest pain. Her troponin slightly elevated at @ 0.06 and a dynamic. Pt just came back from MELINA. No events over night. - Exam Vitals: Temp Pulse Resp BP Pulse Ox 97.8 F 56 12 135/87 94 07/14/18 11:13 07/14/18 11:13 07/14/18 11:13 07/14/18 11:13 07/14/18 11:13 Exam: Gen: Alert, awake, Oriented to time,place and person Chest: Diminished breath sounds B/L, No wheezing, No crackles, No rales Heart: S1S2+ RRR 2/6 ESM Abd: Soft, NT, BS +, No organomegaly Ext: No edema, pulses are palpable, No calf tenderness Neuro : Benign findings Skin: No rash. - Assessment and Plan (1) Chest pain Current Visit: Yes Status: Acute Assessment and Plan: Her troponin slightly elevated and adynamic @ 0.06 She denied any active CP now Her 2 D Echo showed severely calcified aortic valve leaflets. Moderate-severe . Mild AR. Mild-moderate MA consulted cardiology for further eval Had MELINA today which showed - LVEF 65-70%, Mild , Moderate to severe MS, trace MR, mild pulm HTN Scheduled for stress test in AM, depending on stress she may go for [facility] appreciate cardiology recommendations Cont ASA, BB, ARB LDL - 99 Patient does need to stay in the hospital more than 2 midnights due to her complex medical problems. So we will change her to full admission today. I did review my H & P including HPI, PMH, PSH, FH, SH, and ROS no changes noticed (2) Aortic stenosis Current Visit: Yes Status: Acute Assessment and Plan: MELINA showed mild (3) Hypertensive urgency Current Visit: Yes Status: Acute Assessment and Plan: Probably due to missing hemodialysis Improved with Losartan 25mg and Metoprolol 12.5mg BID (4) Elevated troponin Current Visit: No Status: Acute Assessment and Plan: Mostly due to demand ischemia and ESRD continue close monitoring for now (5) End stage renal disease Current Visit: No Status: Chronic Assessment and Plan: Nephro consulted HD on M/W/ patient is not on any dialysis medications.. Talked to Nephro to address this medications - Time Spent with Patient Total time spent is greater than 50% in coordination of care (as documented) at patient's floor/unit and/or counseling patient: Internal Medicine: Result - Labs CBC & Chem 7: 07/14/18 03:55 07/14/18 03:55 Labs: Short CBC 07/14/18 Range/Units 03:55 WBC 3.6 L (4.3-11.1) K/mcL Hgb 10.3 L (11.5-15.4) g/dL Hct 32.1 L (35.3-44.9) % Plt Count 134 L (140-400) K/mcL [facility] 07/14/18 03:55 Sodium 136 Potassium 5.0 Chloride 97 L Carbon Dioxide 30 H BUN 32 H Creatinine 5.82 H Glucose 93 Calcium 10.0 Consult Discharge Plan - Plan Instructions: Chest Pain (DC) Referrals: Angela Bob, BRAKESHOE REPAIRER [Primary Care Provider] - Prescriptions: Aspirin Enteric Coated [Aspirin EC] 81 mg PO DAILY #30 tablet. Losartan [Cozaar] 25 mg PO DAILY #30 tablet Metoprolol [Lopressor] 12.5 mg PO BID #30 tablet (1) Chest pain Qualifiers: Chest pain type: unspecified Qualified Code(s): R07.9 - Chest pain, unspecified (2) Aortic stenosis Qualifiers: Cardiac valve disease etiology: etiology unspecified Qualified Code(s): I35.0 - Nonrheumatic aortic (valve) stenosis
[2018-07-14] MEDS ORDERED: Albumin 25% 25gram/100mL 25 GM/100 ML IV.SOLN IVPB ONE (15:00)
[2018-07-14] MEDS ORDERED: Albumin 25% 12.5gm/50mL 25.0 GM/100 ML IV.SOLN ONE (15:02)
[2018-07-14] MEDS: *HR* Heparin 5,000 UNIT/ML VIAL SQ SCH (17:51)
[2018-07-15 04:28] LABS: Hematocrit 31.5 % (35.3-44.9); Hemoglobin 9.8 g/dL (11.5-15.4); Mean Corpuscular HGB Conc 31.1 g/dL (31.6-35.5); Mean Corpuscular Hemoglobin 29.8 pg (28.0-33.3); Mean Corpuscular Volume 95.7 fL (83.0-100.0); Mean Platelet Volume 10.4 fL (9.4-12.4); Platelet Count 130 K/mcL (140-400); Red Blood Count 3.29 M/mcL (3.82-4.97); Red Cell Distribution Width 13.6 % (11.5-14.5)
[2018-07-15 04:51] LABS: Calcium 9.9 mg/dL (8.6-10.3); Potassium 4.7 mEq/L (3.5-5.1)
[2018-07-15] MEDS ORDERED: Regadenoson 0.4 MG/5 ML SYRINGE IVP ONE (06:08)
[2018-07-15] MEDS: *HR* Heparin 5,000 UNIT/ML VIAL SQ SCH (06:10)
[2018-07-15] MEDS: Aspirin Enteric Coated 81 MG Tablet PO SCH (08:54)
--- NOTE | 2018-07-15 09:45 | Nephrology Progress Note ---
Date of Encounter: 07/15/18 Time of Encounter: 09:45 - Assessment and Plan (1) End stage renal disease Current Visit: No Status: Chronic Subjective Principal diagnosis: ESRD Interval history: Patient was seen while she is on dialysis. She reports she has not been taking her antihypertensive medications on an outpatient basis. Objective - Vital Signs Vital signs: Vital Signs Temp Pulse Resp BP Pulse Ox 07/15/18 08:45 98 F 66 18 156/87 96 07/15/18 00:13 98.5 F 67 18 108/68 92 07/14/18 20:10 98.4 F 67 18 116/68 92 07/14/18 17:30 97.0 F L 15 102/70 07/14/18 16:55 111/72 07/14/18 16:40 109/61 07/14/18 16:25 100/66 07/14/18 16:10 114/70 07/14/18 15:55 109/66 07/14/18 15:40 101/66 07/14/18 15:25 101/75 07/14/18 15:10 96/63 07/14/18 14:55 84/56 07/14/18 14:40 97.8 F 14 86/55 07/14/18 11:13 97.8 F 56 12 135/87 94 07/14/18 10:41 97.5 F L 59 20 120/75 94 Intake and Output 07/14/18 07/15/18 07/15/18 23:59 07:59 15:59 Intake Total 0 / 0 0 / 0 Output Total 153 / 153 0 / 0 Balance -153 / -153 0 / 0 Intake: Oral 0 / 0 0 / 0 Output: Urine 0 / 0 0 / 0 Total Dialysis (HD) Output 153 / 153 Other: Stool Size Large Stool Consistency loose # Voids 1 Weight 51.7 kg Hemodialysis Net Fluid Removed 0 (mL) Patient Weight 07/15/18 23:59 Weight 51.7 kg - Lab 07/15/18 04:06 07/15/18 04:06 Most recent lab results Calcium 9.9 mg/dL (8.6-10.3) 07/15/18 04:06 Magnesium 2.5 mg/dL (1.6-2.6) 07/15/18 04:06 Consult Discharge Plan - Plan Instructions: Chest Pain (DC) Referrals: Angela Bob, REGIONAL MAINTENANCE MANAGER [Primary Care Provider] -
[2018-07-15] MEDS ORDERED: Renal Vitamin 1 CAP CAPSULE PO SCH (10:30)
[2018-07-15 11:07] LABS: Phosphorous 5.5 mg/dL (2.7-4.5)
[2018-07-15 11:23] VITALS: BP 134/84
--- NOTE | 2018-07-15 13:12 | Cardiology Progress Note ---
Date of Encounter: 07/15/18 Time of Encounter: 13:09 Assessment and Plan (1) Chest pain Current Visit: Yes Status: Acute Episode of chest pain/pressure during dialysis. BP was 224/142 on presentation. Troponins 0.04, 0.05, 0.07, 0.07, 0.06 in setting of ESRD on dialysis and hypertensive urgency. Demand ischemia, nondiagnostic for ACS. MELINA to evaluate valvular dysfunction showed mild and moderate-severe MS (more toward moderate range). EF preserved. Pharmacologic nuclear stress test completed this AM negative for ischemia or infarct. No recurrent chest pain since admission. Cardiology signing off. Reconsult PRN. Will coordinate outpt follow-up in 3-4 weeks. Qualifiers: Chest pain type: unspecified Qualified Code(s): R07.9 - Chest pain, unspecified (2) Aortic stenosis Current Visit: Yes Status: Acute Presented with chest pain and dyspnea during dialysis. TTE severely calcified aortic valve leaflets. Moderate-severe . IRMA was approximately 1.02 cm2. Peak aortic velocity is 3.92m/s, MG 33 mmHg. Mild AR. Mild-moderate MS. MG is 6 mmHg. MELINA completed--Mild aortic stenosis. Estimated IRMA 1.7 cm2 by planimetry. (V1/V2 2/3.1, PG/MG 22/11, LVOT 1.6). Trace/trivial aortic regurgitation. Mild calcified aortic valve. Continue to monitor in outpt setting. No intervention currently warranted. Qualifiers: Cardiac valve disease etiology: etiology unspecified Qualified Code(s): I35.0 - Nonrheumatic aortic (valve) stenosis (3) Elevated troponin Current Visit: No Status: Acute Troponins 0.04, 0.05, 0.07, 0.07, 0.06 in setting of ESRD on dialysis and hypertensive urgency. Demand ischemia. Nondiagnostic for ACS. Cardiac rehab not warranted. Stress test negative for ischemia or infarct. (4) Mitral stenosis Current Visit: Yes Status: Acute MELINA completed. Moderate-severe mitral stenosis. Estimated MVA 1.5 cm2, mean gradient 3 mmHg at HR 60 bpm. Trace/trivial mitral regurgitation. The anterior leaflet moderately calcified, posterior leaflet severely calcified. MS thought to be more toward moderate range of MS. Will closely follow as outpt. Qualifiers: Cardiac valve disease etiology: etiology unspecified Qualified Code(s): I05.0 - Rheumatic mitral stenosis Discussion w patient/family: The assessment and plan as outlined above was discussed with the patient and/or family members who expressed understanding and agreement. All questions were answered. Thank you for involving us in the care of your patient. Please call with any questions. I will discuss all the above with Dr. Arriaga and make changes as necessary. Subjective Principal diagnosis: ESRD Interval history: S/P MELINA yesterday, mild , moderate-severe MS (thought to be more moderate rang e). Underwent nuclear stress test today, negative for ischemia or infarct. Pt denies recurrent chest pain. No acute complaints. Objective Vital Signs, Last 4 Hours Temp Pulse Resp BP Pulse Ox 07/15/18 11:22 98.5 F 62 18 134/84 94 Vital Signs Temp Pulse Resp BP Pulse Ox 07/15/18 11:22 98.5 F 62 18 134/84 94 07/15/18 08:45 98 F 66 18 156/87 96 07/15/18 00:13 98.5 F 67 18 108/68 92 07/14/18 20:10 98.4 F 67 18 116/68 92 07/14/18 17:30 97.0 F L 15 102/70 07/14/18 16:55 111/72 07/14/18 16:40 109/61 07/14/18 16:25 100/66 07/14/18 16:10 114/70 07/14/18 15:55 109/66 07/14/18 15:40 101/66 07/14/18 15:25 101/75 07/14/18 15:10 96/63 07/14/18 14:55 84/56 07/14/18 14:40 97.8 F 14 86/55 Intake and Output 07/14/18 07/15/18 07/15/18 23:59 07:59 15:59 Intake Total 0 / 0 0 / 0 Output Total 153 / 153 0 / 0 Balance -153 / -153 0 / 0 Intake: Oral 0 / 0 0 / 0 Output: Urine 0 / 0 0 / 0 Total Dialysis (HD) Output 153 / 153 Other: Stool Size Large Stool Consistency loose # Voids 1 Weight 51.7 kg Hemodialysis Net Fluid Removed 0 (mL) Patient Weight 07/15/18 23:59 Weight 51.7 kg General: Conversant, No Apparent Distress HEENT: Atraumatic, Normocephaly, Mucus Membranes Moist Neck: No JVD, Normal carotid pulses Cardiac: Reg Rate and Rhythm, Normal S1 and S2, No Murmur Lungs: Normal Breath Sounds, No Wheeze, Rales, Rhonchi Neuro: Alert and responsive, No focal deficits noted Abdomen: Soft, Non-Tender Skin: No rashes noted on visualized skin Musculoskeletal: No Chest Wall Tenderness Extremities: No Clubbing, No Cyanosis, No Edema, Normal Pulses Results 07/15/18 04:06 07/15/18 04:06 Lab Results 07/15/18 07/15/18 07/15/18 04:06 04:06 04:06 WBC 3.5 L Hgb 9.8 L Hct 31.5 L Plt Count 130 L Sodium 138 Potassium 4.7 Chloride 102 Carbon Dioxide 27 BUN 21 H Creatinine 4.13 H Glucose 99 Calcium 9.9 Magnesium 2.5 Short CBC 07/15/18 Range/Units 04:06 WBC 3.5 L (4.3-11.1) K/mcL Hgb 9.8 L (11.5-15.4) g/dL Hct 31.5 L (35.3-44.9) % Plt Count 130 L (140-400) K/mcL BMP 07/15/18 Range/Units 04:06 Sodium 138 (136-145) mEq/L Potassium 4.7 (3.5-5.1) mEq/L Chloride 102 (98-107) mEq/L Carbon Dioxide 27 (23-29) mEq/L BUN 21 H (6-20) mg/dL Creatinine 4.13 H (0.60-1.20) mg/dL Glucose 99 (70-105) mg/dL Calcium 9.9 (8.6-10.3) mg/dL Active Medications Acetaminophen (Tylenol) 650 mg PO Q6HR PRN PRN Reason: Mild Pain/Fever Stop: 01/11/19 16:30 Hydrocodone Bitart/Acetaminophen ([place] 5-325 Mg) 1 tab PO Q6HR PRN PRN Reason: Moderate Pain Stop: 01/11/19 16:30 Aspirin (Aspirin Ec) 81 mg PO DAILY ELAINE Stop: 01/12/19 09:01 Last Admin: 07/15/18 08:54 Dose: 81 mg Heparin Sodium (Porcine) (Heparin) 5,000 unit SQ Q12HCO ELAINE Stop: 01/13/19 18:01 Last Admin: 07/15/18 06:10 Dose: 5,000 unit Hydralazine HCl (Hydralazine) 10 mg IVP Q6HR PRN PRN Reason: Hypertension Stop: 01/11/19 16:32 Sodium Chloride (0.9 % Sodium Chloride) 250 mls @ 937.5 mls/hr IVC .Q16M PRN PRN Reason: Hypotension Stop: 01/13/19 07:56 Sodium Chloride (0.9 % Sodium Chloride) 1,000 mls @ 0 mls/hr PRIME .Q0M ELAINE Stop: 01/13/19 08:01 Losartan Potassium (Cozaar) 25 mg PO DAILY [facility]; Protocol Stop: 01/13/19 09:01 Last Admin: 07/15/18 08:54 Dose: 25 mg Metoprolol Tartrate (Lopressor) 12.5 mg PO BID ELAINE Stop: 01/12/19 21:01 Last Admin: 07/15/18 08:54 Dose: 12.5 mg Naloxone HCl (Narcan) 0.4 mg IVP Q2MIN PRN PRN Reason: SEE COMMENTS Stop: 01/11/19 16:30 Nitroglycerin (Nitroglycerin) 0.4 mg SL Q5MIN PRN PRN Reason: Chest Pain Stop: 01/11/19 10:54 Last Admin: 07/12/18 11:31 Dose: 0.4 mg Paroxetine HCl (Paxil) 30 mg PO DAILY [facility]; Protocol Stop: 01/12/19 09:01 Last Admin: 07/15/18 08:53 Dose: 30 mg Vitamin B Complex/Vit C/Folic Acid (Renal Caps Softgel) 1 cap PO DAILY ELAINE Stop: 01/14/19 10:31 Last Admin: 07/15/18 11:33 Dose: 1 cap - Imaging and Cardiology Stress Test: report reviewed Echo: report reviewed - EKG Interpretation EKG results cardiology: other (12 hr tele AVG HR 64, SR, no significant pauses or arrhythmias) Consult Discharge Plan - Plan Instructions: Chest Pain (DC) Referrals: Angela Bob, SOAP WORKER [Primary Care Provider] -
--- NOTE | 2018-07-15 13:48 | Discharge Summary ---
- NOTES TO OUTPATIENT PROVIDER Notes to Outpatient Provider: f/u with PCP in one week. f/u with Nephrology in 1-2 weeks Orders not resulted at time of discharge: Pending orders 07/15/18 00:01 NM kyaw perf SPECT multi [NM] Routine 07/16/18 04:00 BMP [Basic Metabolic Panel] AM 0400 Complete Blood Count w/o Diff [HEME] AM 04007/17/18 04:00 BMP [Basic Metabolic Panel] AM 0400 Complete Blood Count w/o Diff [HEME] AM 04007/18/18 04:00 BMP [Basic Metabolic Panel] AM 0400 Complete Blood Count w/o Diff [HEME] AM 0400 07/19/18 04:00 BMP [Basic Metabolic Panel] AM 0400 Complete Blood Count w/o Diff [HEME] AM 0400 Date of Encounter: 07/15/18 Time of Encounter: 13:44 - Discharge Diagnosis (1) Chest pain Priority: Primary Status: Acute Qualifiers: Chest pain type: unspecified Qualified Code(s): R07.9 - Chest pain, unspecified (2) Aortic stenosis Priority: Secondary Status: Acute Qualifiers: Cardiac valve disease etiology: etiology unspecified Qualified Code(s): I35.0 - Nonrheumatic aortic (valve) stenosis (3) Hypertensive urgency Priority: Secondary Status: Acute (4) Elevated troponin Priority: Secondary Status: Acute (5) End stage renal disease Priority: Secondary Status: Chronic Hospital course: Ms. Darby is a 48 year old female with known past medical history of hypertension, anxiety and ESRD on hemodialysis M/W/F pt was sent our ER from HD center while pt was getting active hemodialysis today she complaining about chest pressure and her blood pressure was significantly elevated. She denied to chest pain. She never complained about chest pain all she had chest pressure, and non-radiating. Not associated with any nausea, vomiting. She denied any previous history of MN. Patient was admitted in the hospital and placed on director of cardiac rehabilitation. Her serial troponin came back is negative. She denied any active chest pain. Her troponin slightly elevated at @ 0.06 and a dynamic. Since patient is high risk for ACS with all her other comorbidities, I requested the patient to go for nuclear stress test. Initially she refused to go for stress test.However her Echo showed severely calcified aortic valve leaflets. Moderate-severe . Mild AR. Mild- moderate MA. So pt did got for MELINA which showed LVEF 65-70%, Mild , Moderate to severe MS, trace MR, mild pulm HTN . She did for nuclear stress test today which came back as negative for ischemia / infarction. Recommend to start taking ASA, BB and ARB. Also recommend to f/u with Nephro to discuss about her ESRD medications. - Time Spent with Patient Total time spent providing and/or coordinating discharge services: - Discharge Medications Prescriptions: Renal Vitamin [Renal Caps Softgel] 1 cap PO DAILY #30 capsule Home Medications: Paroxetine [Paxil] 30 mg PO DAILY 07/19/16 [History] Aspirin Enteric Coated [Aspirin EC] 81 mg PO DAILY #30 tablet. 07/13/18 [Rx] Losartan [Cozaar] 25 mg PO DAILY #30 tablet 07/13/18 [Rx] Metoprolol [Lopressor] 12.5 mg PO BID #30 tablet 07/13/18 [Rx] Renal Vitamin [Renal Caps Softgel] 1 cap PO DAILY #30 capsule 07/15/18 [Rx] Allergies/Adverse Reactions: Allergy/AdvReac Type Severity Reaction Status Date / Time latex Allergy Hives Verified 07/12/18 10:36 moxifloxacin [From Avelox] Allergy Difficulty Verified 07/12/18 10:36 Breathing Date of admission: 07/14/18 15:40 Primary care physician: Angela Bob CNP Consults: 07/12/18 13:30 Consult to Dialysis [CONS] ONCE 07/13/18 10:40 Consult to Cardiology [CONS] Routine Comment: Consulting Provider: Cardiology Radha Reason for Consult: Severe valvular disease Time Notified: 10:41 Call Completed: Yes 07/13/18 13:38 Consult to Nephrology [CONS] Routine Consulting Provider: Kidney Radha/CHING/LORNE/DEBORA Reason for Consult: known ESRD .. Scheduled for [facility] in AM Time Notified: 13:39 Call Completed: Yes 07/14/18 08:00 Consult to Dialysis [CONS] ONCE - Constitutional Vitals: Temp Pulse Resp BP Pulse Ox 98.5 F 62 18 134/84 94 07/15/18 11:22 07/15/18 11:22 07/15/18 11:22 07/15/18 11:22 07/15/18 11:22 General appearance: Present: cooperative, A&O X 3, no acute distress, answers questions appropriately Exam: Gen: Alert, awake, Oriented to time,place and person Chest: Diminished breath sounds B/L, No wheezing, No crackles, No rales Heart: S1S2+ RRR 2/6 ESM Abd: Soft, NT, BS +, No organomegaly Ext: No edema, pulses are palpable, No calf tenderness Neuro : Benign findings Skin: No rash. - Patient Status Disposition: Home, Self-Care Condition: Good Overall status at discharge: patient is back to baseline - Discharge Instructions Instructions: Chest Pain (DC) Follow Up With: Angela Bob RIGGING UP WORKER [Primary Care Provider] - - Diet and Activity Diet: low salt diet
== END 2018-07-15 15:41 | disposition home or self-care (01) | DRG 304 ==
LOC: 2ANU 10:26 → EMEROOARM 10:26 → SUATTDRO 13:46 → 2ANU 15:09
PROVIDERS: ADMIT Internal Medicine; ATTEND Family Medicine

== ENCOUNTER 2018-11-28 17:46 | Inpatient (IN) ==
[2018-11-28] MEDS ORDERED: *HR* Morphine 2 MG/ML SYRINGE IVP ONE (17:53)
[2018-11-28] MEDS ORDERED: Ondansetron 4 MG/2 ML VIAL IVP ONE (17:54)
--- NOTE | 2018-11-28 17:59 | Emergency Department Note ---
Disposition Clinical Impression: Left hip pain Disposition: Still a Patient Forms: ED Satisfaction Letter Time of Disposition: 19:06 Extremity Problem HPI - General Chief complaint: ED Extremity Problem,Nontraumatic Stated complaint: L hip pain Time Seen by Provider: 11/28/18 17:53 Source: patient, EMS Mode of arrival: EMS Limitations: no limitations Nursing Notes Reviewed: Yes Vital Signs Reviewed: Yes - History of Present Illness HPI Narrative: Patient is a 48-year-old female who is on dialysis and has brittle bone syndrome who is complaining of a couple of weeks of left hip pain with exacerbation over the last 2 days until today she could not longer walk due to the pain. Patient states that she has a history of breaking the right hip a few years ago, and states that there was a number of times she had to visit the emergency department until they discovered that she had broken her hip. She states that she required a pet scan in order to determine that there was a broken bone. Patient states that her pain is sharp in nature, radiating down her leg and into her hip a little bit she says it is an 8 out of 10 in severity. She is on a Thursday dialysis schedule so she states that some days are bad days, and she is reporting some shortness of breath and weakness. Pain Scale: 6 - Related Data Home Medications Medication Instructions Recorded Confirmed Paroxetine [Paxil] 30 mg PO DAILY 07/19/16 07/12/18 Previous Rx's Medication Instructions Recorded Aspirin Enteric Coated [Aspirin EC] 81 mg PO DAILY #30 tablet. 07/13/18 Losartan [Cozaar] 25 mg PO DAILY #30 tablet 07/13/18 Metoprolol [Lopressor] 12.5 mg PO BID #30 tablet 07/13/18 Renal Vitamin [Renal Caps Softgel] 1 cap PO DAILY #30 capsule 07/15/18 Sevelamer [Renvela] 800 mg PO BID #60 tablet 07/15/18 Albuterol Sulfate [Albuterol 4 puff IH Q4HR PRN #1 puff 07/23/18 Inhaler] Allergies Allergy/AdvReac Type Severity Reaction Status Date / Time latex Allergy Hives Verified 07/12/18 10:36 moxifloxacin [From Avelox] Allergy Difficulty Verified 07/12/18 10:36 Breathing Review of Systems: All systems ED: reviewed and negative except as stated. Constitutional: Denies: fever, chills ENT ED: Denies: ear pain, throat pain Cardiovascular: Denies: chest pain, palpitations Respiratory: Denies: cough, Reports: dyspnea Gastrointestinal: Denies: abdominal pain, nausea, vomiting, diarrhea, co nstipation Genitourinary: Denies: urgency, dysuria, frequency Musculoskeletal: Denies: back pain, neck pain Reports: L hip pain Integumentary: Denies: rash, abrasion Neurological: Denies: headache, numbness, paresthesias Reports: weakness Psychiatric: Denies: anxiety, depression Endocrine: Denies: fatigue, heat or cold intolerance Hematological/Lymphatic: Denies: easy bleeding, easy bruising Allergic/Immunologic: Denies: facial swelling, urticaria Past Medical History - Past Medical History Attestation: Yes The following information was validated with the patient. Medical history: Reports: dialysis, hypertension, renal disease, valvular heart disease Psychiatric history: Reports: anxiety, depression - Social History Smoking Status: Never smoker Smokeless Tobacco Status: No Alcohol use: Reports: none Drug use: Reports: none Physical Exam General: A&O x 3. No acute distress. Thin, appears older than stated age. Head: atraumatic, normocephalic. ENT: No conjunctival injection, no scleral icterus. PERRLA. EOMI. Oropharynx non- erythematous. mucous membranes moist. Neuro: No focal deficits, no speech deficit, no facial droop, mentating well. Pulm: Lungs CTAB A/P. No wheezes, rales, ronchi. Cardio: RRR no m/r/g. Chest not tender to palpation. Abd: Soft, non-distended. Normoactive bowel sounds. Non-tender to palpation. No guarding. Non rigid. Extremities: Radial pulses 2+ jeri, L hip tender to palpation. Good distal pulses. Skin warm to touch. Skin: warm, dry, intact. No rashes. Psych: Appropriate mood and affect. Answers questions appropriately. Cooperative with exam. - General Limitations: no limitations General appearance: alert, in no apparent distress Course Course Narrative: Ddx includes but is not limited to: hip fracture, iliotibial band strain, femur fracture Workup will include: R hip CT Vital Signs Temperature 98.3 F 11/28/18 17:51 Pulse Rate 113 11/28/18 17:51 Respiratory Rate 18 11/28/18 17:51 Blood Pressure 157/90 11/28/18 17:51 O2 Sat by Pulse Oximetry 97 11/28/18 17:51 Temperature 98.3 F 11/28/18 17:51 Pulse Rate 113 11/28/18 17:51 Respiratory Rate 18 11/28/18 17:51 Blood Pressure 157/90 11/28/18 17:51 O2 Sat by Pulse Oximetry 97 11/28/18 17:51 Oxygen Delivery Oxygen Delivery Room Air Extremity Problem, Nontraumati - MDM Narrative Medical decision making narrative: Patient will be signed out to the [address] Wilhelm's note for full results of the workup and disposition. - Medical Records Medical records reviewed: Yes I reviewed the patient's medical records. Attestation Statement - Attestation Attestation: Patient was seen with resident physician. I reviewed the history, physical, assessment and plan, and agree with the findings. I also personally evaluated this patient and had [id number] time with this patient. 48-year-old female with a history of osteogenesis imperfecta presents with left lateral hip pain. Patient states there is no specific injury. She said she can no longer ambulate. She said pain is in the left hip it is lateral. It hurts with movement. It hurts with ambulation. Patient broke her right hip sometime ago it was difficult to diagnose it required some kind of body scanning she is not really sure which kind. She said that in the CT scan effectively demonstrated the fracture. That time she fractured it by trying to raise it area she has a history of bony fractures. Review of systems as above remainder negative. Physical exam vital signs are stable. ENT is unremarkable. Heart regular rhythm and rate. Lungs are clear. Abdomen is soft and nontender. Extremities patient is tender with palpation of the hip on the left side laterally. There is pain with passive and active range of motion. There is no gross deformity no shortening of the limb. Neurologically intact. Skin no rashes. Psych normal. ED course. We will get a CT scan of the hip treat the patient with some pain medication. Patient CT scan was pending at the time of shift change. Patient was signed out to the scene shifter doctor for final disposition. All pertinent information was communicated to the physician.
--- NOTE | 2018-11-28 19:16 | Emergency Department Note ---
Disposition Clinical Impression: Left hip pain, Unable to walk Disposition: Admitted As Inpatient Condition: Fair Referrals: Angela Bob LABEL OPERATOR [Primary Care Provider] - Forms: ED Satisfaction Letter Time of Disposition: 20:27 General Adult HPI - General Chief complaint: ED Extremity Problem,Nontraumatic Stated complaint: L hip pain Time Seen by Provider: 11/28/18 17:53 Source: patient, EMS Mode of arrival: EMS Limitations: no limitations - History of Present Illness Pain Scale: 6 - Related Data Home Medications Medication Instructions Recorded Confirmed Paroxetine [Paxil] 30 mg PO DAILY 07/19/16 07/12/18 Previous Rx's Medication Instructions Recorded Aspirin Enteric Coated [Aspirin EC] 81 mg PO DAILY #30 tablet. 07/13/18 Losartan [Cozaar] 25 mg PO DAILY #30 tablet 07/13/18 Metoprolol [Lopressor] 12.5 mg PO BID #30 tablet 07/13/18 Renal Vitamin [Renal Caps Softgel] 1 cap PO DAILY #30 capsule 07/15/18 Sevelamer [Renvela] 800 mg PO BID #60 tablet 07/15/18 Albuterol Sulfate [Albuterol 4 puff IH Q4HR PRN #1 puff 07/23/18 Inhaler] Allergies Allergy/AdvReac Type Severity Reaction Status Date / Time latex Allergy Hives Verified 07/12/18 10:36 moxifloxacin [From Avelox] Allergy Difficulty Verified 07/12/18 10:36 Breathing Past Medical History - Past Medical History Medical history: Reports: dialysis, hypertension, renal disease, valvular heart disease Psychiatric history: Reports: anxiety, depression - Social History Smoking Status: Never smoker Smokeless Tobacco Status: No Alcohol use: Reports: none Drug use: Reports: none Physical Exam - General Limitations: no limitations General appearance: alert, in no apparent distress Course Vital Signs Temperature 98.3 F 11/28/18 17:51 Pulse Rate 113 11/28/18 17:51 Respiratory Rate 18 11/28/18 17:51 Blood Pressure 157/90 11/28/18 17:51 O2 Sat by Pulse Oximetry 97 11/28/18 17:51 Temperature 98.3 F 11/28/18 17:51 Pulse Rate 113 11/28/18 17:51 Respiratory Rate 18 11/28/18 17:51 Blood Pressure 157/90 11/28/18 17:51 O2 Sat by Pulse Oximetry 97 11/28/18 17:51 Oxygen Delivery Oxygen Delivery Room Air Medical Decision Making - Radiology Data Radiology results reviewed: Yes I reviewed the patient's radiology results. Attestation Statement - Attestation Attestation: Care of patient assumed from Dr. Butts at [address] hip. 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 Patient appears to distress on exam. CT pending 20:25: Patient's CT results discussed with the patient and her family. She states her pain is such that she will be able to walk into her house. I will request admission for pain control and orthopedic consultation call placed to Dr. Woody at 20:28
[2018-11-28] MEDS ORDERED: *HR* FentaNYL (PF) 100 MCG/2 ML VIAL IVP ONE (19:52)
[2018-11-29] MEDS ORDERED: OXYCODONE Oral CONC 10 MG/0.5 ML ORAL.SYG SL PRN (00:38)
[2018-11-29] MEDS ORDERED: Naloxone 0.4 MG/ML INJ IVP PRN (00:41)
[2018-11-29 01:37] LABS: Basophils % 0.4 %; Eosinophils # 0.6 K/mcL (0.0-0.6); Eosinophils % 11.3 %; Hematocrit 34.1 % (35.3-44.9); Hemoglobin 10.7 g/dL (11.5-15.4); Immature Granulocytes % 0.2 % (0-4); Lymphocytes # 1.6 K/mcL (0.6-4.6); Lymphocytes % 28.9 %; Mean Corpuscular HGB Conc 31.4 g/dL (31.6-35.5); Mean Corpuscular Hemoglobin 30.4 pg (28.0-33.3); Mean Corpuscular Volume 96.9 fL (83.0-100.0); Mean Platelet Volume 10.4 fL (9.4-12.4); Monocytes # 0.4 K/mcL (0.0-1.3); Monocytes % 6.4 %; Neutrophils # 2.9 K/mcL (1.6-8.9); Platelet Count 164 K/mcL (140-400); Red Blood Count 3.52 M/mcL (3.82-4.97); Red Cell Distribution Width 13.6 % (11.5-14.5); Segmented Neutrophils % 52.8 %
[2018-11-29 01:58] LABS: Calcium 9.8 mg/dL (8.6-10.3); Potassium 5.1 mEq/L (3.5-5.1)
--- NOTE | 2018-11-29 03:21 | Internal Med History&Physical ---
Date of Encounter: 11/28/18 Time of Encounter: 22:30 Internal Medicine - H&P: HPI Chief complaint: Leg Pain Admitted From: Home Plans for Post Hospital Care: Home History of present illness: Ms. Darby is a 48 year old female with past medical history significant for hypertension, chronic renal disease on dialysis, valvular heart disease, brittle bone disease, hypoparathyroidism, rectal prolapse, asthma, anxiety, and depression who presents for complaints of left leg hip pain for past two weeks getting progressively worse. Pain is progressing so that any ambulation is very difficult. Denies any known injury. Pain is exacerbated with movement and improved with rest. Pain is described as sharp and rated at 10/10 when at its worst. Has tried using Otoniel back and body at home without much relief. Reports hip fracture of right hip in the past which required invasive imaging to identify. 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 Previous orthopedic surgery performed by Dr Woody whom the ER called and he agrees to see patient in consult in the morning. Received fentanyl, morphine, and zofran in ER which improved her pain. Currently denies any headache, numbness, tingling, chest pain, shortness of breath, cough, abdominal pain, nausea, bowel or bladder changes. Follows regularly with PCP every 6 months and nephrology every two weeks. Checks blood pressures regularly at home and reports systolic has been running high in the 180's. States she is supposed to schedule follow up with cardiology after recently being diagnosed with aortic and mitral stenosis. Receives dialysis Mondays, Wednesdays, and Fridays. Past Med Surg Social Fam HX - Past Medical History Medical history: asthma, dialysis, hypertension, renal disease, thyroid disease, valvular heart disease, other Additional medical history: brittle bone syndrome Psychiatric history: anxiety, depression - Past Surgical History Surgical History: orthopedic, other Additional surgical history: rectal prolapse. kidney/bladder surgeries. graft R arm. right hip surgery - Social History Smoking Status: Never smoker Smokeless Tobacco Status: No Alcohol use: none Drug use: none - Family History Mother Living Status: Still Living Hx Family Cardiac Disorders: Yes (CAD) Hx Family Cancer: Yes (skin cancer) Hx Family Endocrine Disorder: Yes (DM) Father Adopted: No Family Member Ethnicity: Non- Living Status: Still Living Hx Family Cardiac Disorders: Yes (heart disease) Hx Family Respiratory Disorders: No Hx Family Cancer: Yes (prostate) Hx Family GI Disorders: No Hx Family Genitourinary Disorders: No Hx Family Endocrine Disorder: Yes (Diabetes) Hx Family Musculoskeletal Disorders: No Hx Family Neuromuscular Disorders: No Hx Family Neurologic Disorders: No Hx Family HEENT Disorders: No Hx Family Autoimmune Disorders: No Hx Family Reproductive Disorders: No Hx Family Psychosocial Disorders: No Hx Family Medical Disorders: No Internal Medicine - H&P: Meds Aspirin Enteric Coated [Aspirin EC] 81 mg PO DAILY #30 tablet. 07/13/18 [Rx] Losartan [Cozaar] 25 mg PO DAILY #30 tablet 07/13/18 [Rx] Albuterol Sulfate [Albuterol Inhaler] 4 puff IH Q4HR PRN #1 puff 07/23/18 [Rx] ALPRAZolam [Xanax 0.5 MG Tablet] 0.5 mg PO DAILY PRN 11/28/18 [History] Sertraline [Zoloft] 50 mg PO DAILY 11/28/18 [History] Allergy/AdvReac Type Severity Reaction Status Date / Time bee venom protein (honey bee) Allergy Difficulty Verified 11/28/18 22:37 Breathing latex Allergy Hives Verified 07/12/18 10:36 moxifloxacin [From Avelox] Allergy Difficulty Verified 07/12/18 10:36 Breathing All Systems PM: A 10-system review of systems was performed and is negative for pertinent findings except as documented above in the HPI. - Constitutional Vitals: Temp Pulse Resp BP Pulse Ox 98 F 81 18 91/52 83 11/28/18 22:12 11/28/18 22:12 11/28/18 22:12 11/28/18 22:12 11/28/18 22:12 Exam: General: Alert and oriented. Skin:Normal color, no rash, no lesions. HEENT:Pupils equal, round and reactive. Cardiovascular:Chronic murmur noted. No JVD. Pulse regular. Lungs:Normal breath sounds, no wheezes or crackles. Abdomen:Soft, non-tender, no rigidity. Extremities:No deformity, edema, joint swelling or clubbing. Tenderness noted to left hip. Fistula noted to right arm with positive bruit. Neurological:Normal cognition and motor skills. Pulses:Carotid and radial pulses normal +2. Rest of the physical exam is non contributory. Internal Med - H&P Results - Labs CBC & Chem 7: 11/29/18 00:57 11/29/18 00:57 Labs: Short CBC 11/29/18 Range/Units 00:57 WBC 5.5 (4.3-11.1) K/mcL Hgb 10.7 L (11.5-15.4) g/dL Hct 34.1 L (35.3-44.9) % Plt Count 164 (140-400) K/mcL Neutrophils # 2.9 (1.6-8.9) K/mcL BMP 11/29/18 00:57 Sodium 138 Potassium 5.1 Chloride 95 L Carbon Dioxide 30 H BUN 57 H Creatinine 6.82 H Glucose 88 Calcium 9.8 - Impressions ITS Impressions Hip CT 11/28/18 17:53 IMPRESSION: 1. No fracture or other acute osseous abnormality. 2. 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 Chronic widening and subchondral resorption of the bilateral sacroiliac joints and fragmentation of the pubic bones worsened from 2017. Cystic lesion in the left ischium with punctate calcifications increased in size from 2017 at the origin of the left hamstring tendon. D/ / Gilmer Hughes MD / Gilmer Hughes MD Interpreting Provider: Gilmer Hughes MD - Assessment and Plan (1) Left hip pain Current Visit: Yes Status: Acute Assessment and plan: No fracture or acute osseous abnormality identified on CT of left hip. Orthopedics Dr Woody consulted by ER, will see patient in a.m. Pain control with PRN pain medications. Will need PT after seen by ortho. Social work consult ordered for possible assistance needed at discharge. (2) Chronic renal disease Current Visit: Yes Status: Chronic Assessment and plan: Chronic renal disease on dialysis Mondays, Wednesdays, and Fridays. Nephrology consult ordered for continued dialysis during admission, will need called in a.m. Qualifiers: Chronic kidney disease stage: unspecified stage Qualified Code(s): N18.9 - Chronic kidney disease, unspecified (3) Hypertension Current Visit: Yes Status: Chronic Assessment and plan: Continue home medications once verified. Qualifiers: Hypertension type: unspecified Qualified Code(s): I10 - Essential (primary) hypertension (4) Depression with anxiety Current Visit: Yes Status: Chronic Assessment and plan: Continue home medications once verified. (5) Asthma Current Visit: Yes Status: Chronic Assessment and plan: Continue home medications once verified. Qualifiers: Asthma complication type: unspecified Qualified Code(s): J45.909 - Unspecified asthma, uncomplicated - Time Spent With Patient Total time spent is greater than 50% in coordination of care (as documented) at patient's floor/unit and/or counseling patient:
[2018-11-29] MEDS ORDERED: Ondansetron 4 MG/2 ML VIAL IVP ONE (03:52)
[2018-11-29] MEDS ORDERED: 0.9 % Sodium Chloride 250 ML IVC PRN (09:58)
[2018-11-29] MEDS ORDERED: *HR* Heparin 10,000 UNIT/10 ML VIAL IV PRN (09:58)
[2018-11-29] MEDS ORDERED: 0.9 % Sodium Chloride 1,000 ML PRIME SCH (10:00)
[2018-11-29] MEDS ORDERED: 0.9 % Sodium Chloride 2,000 ML ONE (12:12)
--- NOTE | 2018-11-29 14:11 | Nephrology Consult Note ---
Date of Encounter: 11/29/18 Time of Encounter: 13:15 Assessment and Plan (1) End stage renal disease Current Visit: No Status: Chronic - Resume HD treatments with ultrafiltration as tolerated. - Renal diet. - Fluid restrictions. - Resume renal related home meds. - Avoid nephrotoxins. History of Present Illness - Reason for Consult Consult date: 11/29/18 - Chief Complaint L hip pain - History of Present Illness Patient is a 48 year old female with past medical history significant for hypertension, chronic renal disease on dialysis, valvular heart disease, brittle bone disease, hypoparathyroidism, rectal prolapse, asthma, anxiety, and depression who presents for complaints of left leg hip pain for past two weeks getting progressively worse. 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 eceived fentanyl, morphine, and zofran in ER which improved her pain. Checks blood pressures regularly at home and reports systolic has been running high in the 180's. Receives dialysis Mondays, Wednesdays, and Fridays. Patient was admitted for pain control. Nephrology consulted for HD. When seen today, patient was somnolent and was unable to be aroused long enough to answer questions. Past Med Surg Social Fam HX - Past Medical History Medical history: asthma, dialysis, hypertension, renal disease, thyroid disease, valvular heart disease, other Additional medical history: brittle bone syndrome Psychiatric history: anxiety, depression - Past Surgical History Surgical History: orthopedic, other Additional surgical history: rectal prolapse. kidney/bladder surgeries. graft R arm. right hip surgery - Social History Smoking Status: Never smoker Smokeless Tobacco Status: No Alcohol use: none Drug use: none - Family History Mother Living Status: Still Living Hx Family Cardiac Disorders: Yes (CAD) Hx Family Cancer: Yes (skin cancer) Hx Family Endocrine Disorder: Yes (DM) Father Adopted: No Family Member Ethnicity: Non- Living Status: Still Living Hx Family Cardiac Disorders: Yes (heart disease) Hx Family Respiratory Disorders: No Hx Family Cancer: Yes (prostate) Hx Family GI Disorders: No Hx Family Genitourinary Disorders: No Hx Family Endocrine Disorder: Yes (Diabetes) Hx Family Musculoskeletal Disorders: No Hx Family Neuromuscular Disorders: No Hx Family Neurologic Disorders: No Hx Family HEENT Disorders: No Hx Family Autoimmune Disorders: No Hx Family Reproductive Disorders: No Hx Family Psychosocial Disorders: No Hx Family Medical Disorders: No Medications and Allergies Aspirin Enteric Coated [Aspirin EC] 81 mg PO DAILY #30 tablet. 07/13/18 [Rx] Losartan [Cozaar] 25 mg PO DAILY #30 tablet 07/13/18 [Rx] ALPRAZolam [Xanax 0.5 MG Tablet] 0.5 mg PO DAILY PRN 11/28/18 [History] Sertraline [Zoloft] 50 mg PO DAILY 11/28/18 [History] Albuterol Sulfate [Ventolin Hfa] 2 puff IH Q6H PRN 11/29/18 [History] Allergy/AdvReac Type Severity Reaction Status Date / Time bee venom protein (honey bee) Allergy Difficulty Verified 11/28/18 22:37 Breathing latex Allergy Hives Verified 07/12/18 10:36 moxifloxacin [From Avelox] Allergy Difficulty Verified 07/12/18 10:36 Breathing Review of Systems ROS unobtainable: due to mental status Exam - Vital Signs Vital signs: Initial Vital Signs Temp Pulse Resp BP Pulse Ox 98.3 F 113 18 157/90 97 11/28/18 17:51 11/28/18 17:51 11/28/18 17:51 11/28/18 17:51 11/28/18 17:51 Vital Signs - Last 8 Hours Temp Pulse Resp BP Pulse Ox 11/29/18 07:09 97.8 F 81 18 105/69 93 Intake and Output 11/28/18 11/29/18 11/29/18 23:59 07:59 15:59 Intake Total 0 / 0 120 / 120 Balance 0 / 0 120 / 120 Intake: Oral 0 / 0 120 / 120 Other: Meal Breakfast Percent of Meal Consumed 25% Weight 46.3 kg - General Appearance General appearance: well-developed, well-nourished, appears started age EENT: mucous membranes moist, vision intact Neck: no JVD, no thyromegaly Respiratory: clear Cardiology: diastolic murmur, no rub, no gallops, no edema, regular rate, regular rhythm, normal S1, normal S2 - Dialysis Access Dialysis Vascular Access: Arteriovenous Fistula Gastrointestinal: normoactive bowel sounds, no tenderness, no guarding, no organomegaly, no masses Integumentary: no rash, warm and dry Neurologic: no focal deficit Musculoskeletal: no deformities, no erythema, no cyanosis, no clubbing Results - Lab Results 11/29/18 15:09 11/29/18 15:09 Consult Discharge Plan - Plan Referrals: Angela Bob CNP [Primary Care Provider] -
--- NOTE | 2018-11-29 15:15 | Event Note ---
Date of Encounter: 11/29/18 Time of Encounter: 15:09 I have seen and evaluated this patient at bedside. patient drowsy during my evaluation. Physical exam: vitals: reviewed General: somnolent but arousable to command. Cardiovascular: RRR, normal S1 & S2, no rubs, murmurs or gallops. No JVD. Pulse regular. Lungs: CTA b/l, no wheezes or crackles. Abdomen:Soft, non-tender, no rigidity. Extremities: No deformity, no edema or tenderness, no joint swelling or clubbing. Neurological: unable to perform due to mental status Rest of the physical exam is non contributory Assessment 1. AMS 2. Right hip pain 3. ESRD 4. anemia 5. VTE Prophylaxis 6. HTN 7. brittle bone syndrome 8. hypoparathyroidism Plan will repeat n labs, cbc, bmp ABG ordered stat vitals Q1H aspiration precaution stand by BiPap ammonia level ordered ortho consulted, recommendations to follow avoid opiods for pain control heparin subq
[2018-11-29 15:37] LABS: ABG Base Excess -1 mEq/L (-2 to 3); ABG HCO3 28 mEq/L (21-27); ABG Oxygen Saturation 92 % (95-98); ABG PCO2 65 mmHg (35-45); ABG PH 7.24 pH Units (7.32-7.45); ABG PO2 78 mmHg (85-104); ABG TCO2 30 mEq/L (20-26)
--- NOTE | 2018-11-29 16:27 | Event Note ---
Date of Encounter: 11/29/18 Time of Encounter: 16:24 A rapid response was called as patient was found to be hypotensive and hypoglycemic and IV access was not established US guided. Patient given glucagon and Dextrose orally. BP in ICU 103/50, HR 80s and saturating 100% on Bipap. accu-checks Q1H ordered cbc, bmp ordered. 0.9NS 250ml bolus x1 ordered will give fluid boluses as needed goal MAP >65 d5ns @40 ml/hr for maintenance fluids. patient transferred to ICU for closer monitoring.
[2018-11-29] MEDS: *HR* Dextrose 50 % in Water (Syg) 50 ML SYRINGE IVP PRN ×2 (17:02→17:04)
[2018-11-29] MEDS ORDERED: D5% in 0.9% NACL 1,000 ML IVC SCH (17:15)
--- NOTE | 2018-11-29 17:22 | Procedure Note ---
Date of procedure: 11/29/18 Pre-op diagnosis: Poor IV access, hypotension Post-op diagnosis: same Procedure: Procedure Note: Central Venous Catheter Insertion Indication: Hypotension with poor IV access Rounding And Backing Machine Operator: Dr. Jeremy Stern under the supervision of Dr. Mathew Sanders Consent: Detailed explanation of the procedure, treatment options, risks including but not limited to infection and bleeding, and benefits were explained to the patient. A written informed consent was obtained. Technique: A time out was preformed identifying the correct procedure, the correct location with the nursing staff. The [facility] groin was prepped with 2% chlorhexidine and draped with a full length sterile sheet in the usual fashion. The right femoral vein was accessed under ultrasound guidance with an 18 gauge thin wall needle. A triple lumen was inserted via the seldinger technique. Blood was withdrawn from all lumens and flushed with normal saline. The catheter was sutured in place and a sterile dressing was applied over the site prior to removal of drapes. The patient tolerated the procedure well and there were no complications. EBL: 5 mL Complication: None Anesthesia: local Surgeon: Jeremy Stern Was there an executive marketing assistant present: Yes Locomotive Electrician: Mathew Sanders Estimated blood loss (cc): 5 Specimen: none Pathology: none sent Condition: critical Disposition: ICU
[2018-11-29] MEDS ORDERED: Dextrose Gel 15 GM/37.5 ML TUBE PO ONE (17:26)
[2018-11-29 17:29] LABS: Eosinophils % 0.1 %; Hematocrit 32.6 % (35.3-44.9); Hemoglobin 10.1 g/dL (11.5-15.4); Immature Granulocytes % 0.4 % (0-4); Lymphocytes # 0.3 K/mcL (0.6-4.6); Lymphocytes % 3.7 %; Mean Corpuscular Hemoglobin 31.1 pg (28.0-33.3); Mean Corpuscular Volume 100.3 fL (83.0-100.0); Mean Platelet Volume 9.6 fL (9.4-12.4); Monocytes # 0.2 K/mcL (0.0-1.3); Monocytes % 3.1 %; Neutrophils # 6.5 K/mcL (1.6-8.9); Platelet Count 116 K/mcL (140-400); Red Blood Count 3.25 M/mcL (3.82-4.97); Red Cell Distribution Width 13.7 % (11.5-14.5); Segmented Neutrophils % 92.7 %
[2018-11-29 17:49] LABS: Potassium 3.7 mEq/L (3.5-5.1)
--- NOTE | 2018-11-29 20:19 | Orthopedic Consult Note ---
Date of Encounter: 11/29/18 Time of Encounter: 20:11 History of Present Illness Chief complaint: Left hip pain HPI: Ms. Darby is a 48 year old female well known to myself from previous hemiarthroplasty of the right hip for a fracture. This was performed over 2 years ago. The patient has had intractable left hip pain for a period of time now. She has had some much pain that she has been unable to weight-bear or ambulate. The patient denies trauma. The patient has significant history of end-stage renal disease requiring dialysis. Patient's completed history and physical as well as the medical record have been reviewed. Pertinent orthopedic examination reveals no pain with rotation of the left hip. No significant pain with hip flexion or extension. No palpable groin tenderness. Distal neurosensory exam is grossly intact with diminished sensation distal. I reviewed a CT scan of the left hip. This shows severe osteopenia but no evidence of an acute fracture. There is evidence of mild left hip arthritis. There is widening of the left sacroiliac joint and fragmentation of the bilateral pubic bones with the left more involved than the right. Impression: Renal osteodystrophy/osteomalacia left hip, no evidence of left hip fracture Recommendation: I had a long discussion with the patient and family about the findings. This included no evidence of a left hip fracture that would require intervention but marked osteoporotic bone as well as dystrophic changes at the left sacroiliac joint and the bilateral pubis. Discuss with the patient and family that orthopedic intervention is not indicated. If the patient does have persistent, continued pain definitive verification of a hip fracture could be made with an MRI. The patient can ambulate, would recommend a walker at all times as this could offer her more stability than utilizing a cane. Would not recommend the patient attempting to ambulate without an assistive device, preferably with a walker. Discussed the extreme difficulty in the patient's case. Patient and family understand and agree to proceed with care as outlined. Thank you for allowing me to see and care for Mrs. Darby. Sincerely, Montez Woody,DO Past Med Surg Social Fam HX - Past Medical History Medical history: asthma, dialysis, hypertension, renal disease, thyroid disease, valvular heart disease, other Additional medical history: brittle bone syndrome Psychiatric history: anxiety, depression - Past Surgical History Surgical History: orthopedic, other Additional surgical history: rectal prolapse. kidney/bladder surgeries. graft R arm. right hip surgery - Social History Smoking Status: Never smoker Smokeless Tobacco Status: No Alcohol use: none Drug use: none - Family History Mother Living Status: Still Living Hx Family Cardiac Disorders: Yes (CAD) Hx Family Cancer: Yes (skin cancer) Hx Family Endocrine Disorder: Yes (DM) Father Adopted: No Family Member Ethnicity: Non- Living Status: Still Living Hx Family Cardiac Disorders: Yes (heart disease) Hx Family Respiratory Disorders: No Hx Family Cancer: Yes (prostate) Hx Family GI Disorders: No Hx Family Genitourinary Disorders: No Hx Family Endocrine Disorder: Yes (Diabetes) Hx Family Musculoskeletal Disorders: No Hx Family Neuromuscular Disorders: No Hx Family Neurologic Disorders: No Hx Family HEENT Disorders: No Hx Family Autoimmune Disorders: No Hx Family Reproductive Disorders: No Hx Family Psychosocial Disorders: No Hx Family Medical Disorders: No Medications and Allergies Aspirin Enteric Coated [Aspirin EC] 81 mg PO DAILY #30 tablet. 07/13/18 [Rx] Losartan [Cozaar] 25 mg PO DAILY #30 tablet 07/13/18 [Rx] ALPRAZolam [Xanax 0.5 MG Tablet] 0.5 mg PO DAILY PRN 11/28/18 [History] Sertraline [Zoloft] 50 mg PO DAILY 11/28/18 [History] Albuterol Sulfate [Ventolin Hfa] 2 puff IH Q6H PRN 11/29/18 [History] Allergy/AdvReac Type Severity Reaction Status Date / Time bee venom protein (honey bee) Allergy Difficulty Verified 11/28/18 22:37 Breathing latex Allergy Hives Verified 07/12/18 10:36 moxifloxacin [From Avelox] Allergy Difficulty Verified 07/12/18 10:36 Breathing All Systems Reviewed: The remainder of the systems were reviewed and are negative Physical Exam - Constitutional Vitals: Temp Pulse Resp BP Pulse Ox 98 F 78 16 105/68 100 11/29/18 16:08 11/29/18 19:00 11/29/18 19:00 11/29/18 19:00 11/29/18 19:00 Results - Labs Result Diagrams: 11/29/18 15:09 11/29/18 15:09 Labs: Abnormal lab results RBC 3.25 M/mcL (3.82-4.97) L 11/29/18 15:09 Hgb 10.1 g/dL (11.5-15.4) L 11/29/18 15:09 Hct 32.6 % (35.3-44.9) L 11/29/18 15:09 MCV 100.3 fL (83.0-100.0) H 11/29/18 15:09 MCHC 31.0 g/dL (31.6-35.5) L 11/29/18 15:09 Plt Count 116 K/mcL (140-400) L 11/29/18 15:09 0.3 K/mcL (0.6-4.6) L 11/29/18 15:09 ABG pH 7.24 pH Units (7.32-7.45) L 11/29/18 15:34 ABG pCO2 65 mmHg (35-45) H 11/29/18 15:34 ABG pO2 78 mmHg (85-104) L 11/29/18 15:34 ABG HCO3 28 mEq/L (21-27) H 11/29/18 15:34 ABG Total CO2 30 mEq/L (20-26) H 11/29/18 15:34 ABG O2 Saturation 92 % (95-98) L 11/29/18 15:34 Sodium 135 mEq/L (136-145) L 11/29/18 15:09 Chloride 95 mEq/L (98-107) L 11/29/18 00:57 Carbon Dioxide 30 mEq/L (23-29) H 11/29/18 00:57 BUN 25 mg/dL (6-20) H 11/29/18 15:09 3.86 mg/dL (0.60-1.20) H 11/29/18 15:09 Est GFR ( Amer) 15 (> 60) L 11/29/18 15:09 Est GFR (Non-Af Amer) 13 (> 60) L 11/29/18 15:09 Glucose 298 mg/dL (70-105) H 11/29/18 15:09 301 (280-300) H 11/29/18 00:57 H & H 11/29/18 11/29/18 Range/Units 00:57 15:09 Hgb 10.7 L 10.1 L (11.5-15.4) g/dL Hct 34.1 L 32.6 L (35.3-44.9) % All other labs normal. - Diagnostic results Hip CT: image reviewed Consult Discharge Plan - Plan Referrals: Angela Bob CNP [Primary Care Provider] -
[2018-11-29 21:01] LABS: ABG Base Excess 5 mEq/L (-2 to 3); ABG HCO3 34 mEq/L (21-27); ABG Oxygen Saturation 97 % (95-98); ABG PCO2 75 mmHg (35-45); ABG PH 7.26 pH Units (7.32-7.45); ABG PO2 105 mmHg (85-104); ABG TCO2 36 mEq/L (20-26)
[2018-11-30 03:24] LABS: Hematocrit 34.8 % (35.3-44.9); Hemoglobin 10.6 g/dL (11.5-15.4); Mean Corpuscular HGB Conc 30.5 g/dL (31.6-35.5); Mean Corpuscular Hemoglobin 30.4 pg (28.0-33.3); Mean Corpuscular Volume 99.7 fL (83.0-100.0); Mean Platelet Volume 10.5 fL (9.4-12.4); Platelet Count 143 K/mcL (140-400); Red Blood Count 3.49 M/mcL (3.82-4.97); Red Cell Distribution Width 13.9 % (11.5-14.5)
[2018-11-30 03:43] LABS: Calcium 9.7 mg/dL (8.6-10.3); Potassium 4.3 mEq/L (3.5-5.1)
[2018-11-30] MEDS ORDERED: 0.9 % Sodium Chloride 250 ML IVC ONE ×2 (07:26→14:40)
[2018-11-30] MEDS: Aspirin Enteric Coated 81 MG Tablet PO SCH (08:23)
--- NOTE | 2018-11-30 11:04 | Pulmonology Consult Note ---
Date of Encounter: 11/30/18 Time of Encounter: 11:04 Past Med Surg Social Fam HX - Past Medical History Medical history: asthma, dialysis, hypertension, renal disease, thyroid disease, valvular heart disease, other Additional medical history: brittle bone syndrome Psychiatric history: anxiety, depression - Past Surgical History Surgical History: orthopedic, other Additional surgical history: rectal prolapse. kidney/bladder surgeries. graft R arm. right hip surgery - Social History Smoking Status: Never smoker Smokeless Tobacco Status: No Alcohol use: none Drug use: none - Family History Mother Living Status: Still Living Hx Family Cardiac Disorders: Yes (CAD) Hx Family Cancer: Yes (skin cancer) Hx Family Endocrine Disorder: Yes (DM) Father Adopted: No Family Member Ethnicity: Non- Living Status: Still Living Hx Family Cardiac Disorders: Yes (heart disease) Hx Family Respiratory Disorders: No Hx Family Cancer: Yes (prostate) Hx Family GI Disorders: No Hx Family Genitourinary Disorders: No Hx Family Endocrine Disorder: Yes (Diabetes) Hx Family Musculoskeletal Disorders: No Hx Family Neuromuscular Disorders: No Hx Family Neurologic Disorders: No Hx Family HEENT Disorders: No Hx Family Autoimmune Disorders: No Hx Family Reproductive Disorders: No Hx Family Psychosocial Disorders: No Hx Family Medical Disorders: No Medications and Allergies Aspirin Enteric Coated [Aspirin EC] 81 mg PO DAILY #30 tablet. 07/13/18 [Rx] Losartan [Cozaar] 25 mg PO DAILY #30 tablet 07/13/18 [Rx] ALPRAZolam [Xanax 0.5 MG Tablet] 0.5 mg PO DAILY PRN 11/28/18 [History] Sertraline [Zoloft] 50 mg PO DAILY 11/28/18 [History] Albuterol Sulfate [Ventolin Hfa] 2 puff IH Q6H PRN 11/29/18 [History] Allergy/AdvReac Type Severity Reaction Status Date / Time bee venom protein (honey bee) Allergy Difficulty Verified 11/28/18 22:37 Breathing latex Allergy Hives Verified 07/12/18 10:36 moxifloxacin [From Avelox] Allergy Difficulty Verified 07/12/18 10:36 Breathing All Systems: The remainder of the systems were reviewed and are negative Physical Examination Vital Signs: Vital Signs, Last 4 Hours Temp Pulse Resp BP Pulse Ox 11/30/18 10:00 75 15 91/53 100 11/30/18 09:00 78 14 85/52 100 11/30/18 08:39 98.3 F 11/30/18 08:00 79 14 81/52 100 Results - Laboratory Findings CBC and BMP: 11/30/18 03:15 11/30/18 03:15 ABG ABG pH 7.26 pH Units (7.32-7.45) L 11/29/18 20:16 ABG pCO2 75 mmHg (35-45) H* 11/29/18 20:16 ABG pO2 105 mmHg (85-104) H 11/29/18 20:16 ABG O2 Saturation 97 % (95-98) 11/29/18 20:16 Abnormal lab findings: Abnormal lab results RBC 3.49 M/mcL (3.82-4.97) L 11/30/18 03:15 Hgb 10.6 g/dL (11.5-15.4) L 11/30/18 03:15 Hct 34.8 % (35.3-44.9) L 11/30/18 03:15 MCV 100.3 fL (83.0-100.0) H 11/29/18 15:09 MCHC 30.5 g/dL (31.6-35.5) L 11/30/18 03:15 Plt Count 116 K/mcL (140-400) L 11/29/18 15:09 0.3 K/mcL (0.6-4.6) L 11/29/18 15:09 ABG pH 7.26 pH Units (7.32-7.45) L 11/29/18 20:16 ABG pCO2 75 mmHg (35-45) H* 11/29/18 20:16 ABG pO2 105 mmHg (85-104) H 11/29/18 20:16 ABG HCO3 34 mEq/L (21-27) H 11/29/18 20:16 ABG Total CO2 36 mEq/L (20-26) H 11/29/18 20:16 ABG O2 Saturation 92 % (95-98) L 11/29/18 15:34 ABG Base Excess 5 mEq/L (-2 to 3) H 11/29/18 20:16 Sodium 135 mEq/L (136-145) L 11/29/18 15:09 Chloride 97 mEq/L (98-107) L 11/30/18 03:15 Carbon Dioxide 31 mEq/L (23-29) H 11/30/18 03:15 BUN 29 mg/dL (6-20) H 11/30/18 03:15 4.74 mg/dL (0.60-1.20) H 11/30/18 03:15 Est GFR ( Amer) 12 (> 60) L 11/30/18 03:15 Est GFR (Non-Af Amer) 10 (> 60) L 11/30/18 03:15 Glucose 298 mg/dL (70-105) H 11/29/18 15:09 POC Glucose 147 mg/dL (70-99) H 11/29/18 18:39 301 (280-300) H 11/29/18 00:57 - Clinical Findings Intake & Output: Intake & Output 11/29/18 11/30/18 11/30/18 23:59 07:59 15:59 Intake Total 250 / 970 0 / 0 Output Total 0 / 600 0 / 0 Balance 250 / 370 0 / 0 Weight 52.5 kg Consult Discharge Plan - Plan Referrals: Angela Bob, HYDRAULIC ROCK DRILL OPERATOR [Primary Care Provider] -
--- NOTE | 2018-11-30 13:05 | Pulmonology Consult Note ---
<Jak Neville - Last Filed: 11/30/18 17:24> Date of Encounter: 11/30/18 Time of Encounter: 13:03 Assessment and Plan (1) Hypotension Current Visit: Yes Status: Acute Patient with episode of hypotension and hypoglycemia yesterday, found to be somnolent and altered Patient has had blood pressures ranging from 80/60-90/60 today and alert and oriented 3 during my examination, currently asymptomatic She has been off her hypertension medications for 24 hours She has been given a total of 250 mL bolus 2, slightly she is slightly fluid r esponsive at this time, has not dropped below 80 systolic She has been continued on D5 normal saline maintenance start midodrine 5 mg twice per day Chest x-ray performed which shows concern for new right lower lobe airspace opacity, infectious first atelectasis. Patient without fever or cough. In light of history of dialysis, patient will be started on broad spectrum antibiotics Start vancomycin Start Zosyn We will order CBC, blood cultures, urine Legionella and strep pneumo Considered adrenal suppression, however cortisols within normal limits Qualifiers: Hypotension type: unspecified hypotension type Qualified Code(s): I95.9 - H ypotension, unspecified (2) Left hip pain Current Visit: Yes Status: Acute CT performed in the ER which shows no fracture or acute osseous abnormality Was seen by orthopedics, Dr. 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 MRI considered as outpatient evaluation. At time of discharge patient will require assistive walking device, preferably a walker (3) Chronic renal disease Current Visit: Yes Status: Chronic Patient currently undergoing dialysis Thursday, Thursday and Thursday Nephrology has been consult did by hospitalist team, they are currently following. We will continue to avoid nephrotoxic drugs or renally dose. Qualifiers: Chronic kidney disease stage: unspecified stage Qualified Code(s): N18.9 - Chronic kidney disease, unspecified (4) Hypertension Current Visit: Yes Status: Chronic Hold all hypertension medications Qualifiers: Hypertension type: unspecified Qualified Code(s): I10 - Essential (primary) hypertension (5) Depression with anxiety Current Visit: Yes Status: Chronic Continue home medications (6) Asthma Current Visit: Yes Status: Chronic Continue home medications Qualifiers: Asthma complication type: unspecified Qualified Code(s): J45.909 - Unspecified asthma, uncomplicated History of Present Illness Consult date: 11/30/18 Requesting physician: Ector Prieto Reason for consult: other Chief complaint: Left hip pain History of present illness: Ms. Darby is a 48 year old female with past medical history significant for hypertension, chronic renal disease on dialysis, valvular heart disease, brittle bone disease, hypoparathyroidism, rectal prolapse, asthma, anxiety, and depression who presents for complaints of left leg hip pain for past two weeks getting progressively worse. Patient is significant with any sort of ambulation. Denies any known injury. History of hip fracture on the right side. While in the ER, patient was treated with that no, morphine and Zofran, which improved her pain. Orthopedic surgery was consulted in the ER, Dr. 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 Surgical intervention is not indicated at this point in time, does request a walker at time of discharge for difficulty with ambulation. On 11/29, patient had an episode of altered mental status with yakelin nolence, at that point in time the patient was found to be hypotensive and hypoglycemic. A central line was placed and the patient was given glucagon and dextrose orally. On arrival to the ICU, patient's blood pressure is 103/50, heart rate of 80 and pulse ox of 100% on BiPAP. Patient was given 250 mL bolus of normal saline and was started on D5 normal saline for maintenance fluids. Since arriving to the ICU, patient's blood pressures have been ranging from 80 systolic to 95 for systolic. Patient states that since the initial elicited she has not had further lightheaded or dizziness episodes. She currently states that she is asymptomatic. No chest pain, shortness of breath. She denies any hematuria, hematemesis, hematochezia or melena. She denies any cough or fever. Past Med Surg Social Fam HX - Past Medical History Medical history: asthma, dialysis, hypertension, renal disease, thyroid disease, valvular heart disease, other Additional medical history: brittle bone syndrome Psychiatric history: anxiety, depression - Past Surgical History Surgical History: orthopedic, other Additional surgical history: rectal prolapse. kidney/bladder surgeries. graft R arm. right hip surgery - Social History Smoking Status: Never smoker Smokeless Tobacco Status: No Alcohol use: none Drug use: none - Family History Mother Living Status: Still Living Hx Family Cardiac Disorders: Yes (CAD) Hx Family Cancer: Yes (skin cancer) Hx Family Endocrine Disorder: Yes (DM) Father Adopted: No Family Member Ethnicity: Non- Living Status: Still Living Hx Family Cardiac Disorders: Yes (heart disease) Hx Family Respiratory Disorders: No Hx Family Cancer: Yes (prostate) Hx Family GI Disorders: No Hx Family Genitourinary Disorders: No Hx Family Endocrine Disorder: Yes (Diabetes) Hx Family Musculoskeletal Disorders: No Hx Family Neuromuscular Disorders: No Hx Family Neurologic Disorders: No Hx Family HEENT Disorders: No Hx Family Autoimmune Disorders: No Hx Family Reproductive Disorders: No Hx Family Psychosocial Disorders: No Hx Family Medical Disorders: No Medications and Allergies Aspirin Enteric Coated [Aspirin EC] 81 mg PO DAILY #30 tablet. 07/13/18 [Rx] Losartan [Cozaar] 25 mg PO DAILY #30 tablet 07/13/18 [Rx] ALPRAZolam [Xanax 0.5 MG Tablet] 0.5 mg PO DAILY PRN 11/28/18 [History] Sertraline [Zoloft] 50 mg PO DAILY 11/28/18 [History] Albuterol Sulfate [Ventolin Hfa] 2 puff IH Q6H PRN 11/29/18 [History] Allergy/AdvReac Type Severity Reaction Status Date / Time bee venom protein (honey bee) Allergy Difficulty Verified 11/28/18 22:37 Breathing latex Allergy Hives Verified 07/12/18 10:36 moxifloxacin [From Avelox] Allergy Difficulty Verified 07/12/18 10:36 Breathing All Systems: The remainder of the systems were reviewed and are negative - Constitutional Constitutional: no fever(s), no headache(s), no night sweats - EENT Eyes: no loss of vision Nose, mouth and throat: no headache(s), no vertigo - Cardiovascular Cardiovascular: no chest pain, no chest pain at rest, no chest pain with activity, no diaphoresis, no dyspnea, no lightheadedness, no palpitations - Respiratory Respiratory: no cough, no dyspnea, no dyspnea on exertion, no wheezing - Gastrointestinal Gastrointestinal: no abdominal pain, no diarrhea, no hematemesis, no hematochezia, no loose stools, no melena, no nausea, no vomiting - Genitourinary Genitourinary: no hematuria - Musculoskeletal Musculoskeletal: other (left hip pain), no weakness - Neurological Neurological: no dizziness, no focal weakness, no headache(s), no loss of vision, no vertigo Physical Examination Vital Signs: Vital Signs, Last 4 Hours Temp Pulse Resp BP Pulse Ox 11/30/18 12:22 99.8 F H 11/30/18 12:00 75 15 91/58 100 11/30/18 11:00 77 15 92/59 100 11/30/18 10:00 75 15 91/53 100 General appearance: no acute distress Eyes: nonicteric ENT: oropharynx moist Neck: supple Effort: normal Inspection: normal Auscultation: bilateral: clear Cardiovascular: regular rate and rhythm, murmur noted (systolic murmur to the RSB, diastolic murmur to the LLSB) Gastrointestinal: normoactive bowel sounds Integumentary: normal, other (right upper arm fisula with bruit. Right femoral central line in place) Extremities: no cyanosis, no edema, pink and warm, pulses normal, other (TTP to the left hip) normal mental status, non-focal exam, pupils equal and round, motor strength normal and symmetric mood appropriate, affect normal Results - Laboratory Findings CBC and BMP: 11/30/18 03:15 11/30/18 03:15 ABG ABG pH 7.26 pH Units (7.32-7.45) L 11/29/18 20:16 ABG pCO2 75 mmHg (35-45) H* 11/29/18 20:16 ABG pO2 105 mmHg (85-104) H 11/29/18 20:16 ABG O2 Saturation 97 % (95-98) 11/29/18 20:16 Abnormal lab findings: Abnormal lab results RBC 3.49 M/mcL (3.82-4.97) L 11/30/18 03:15 Hgb 10.6 g/dL (11.5-15.4) L 11/30/18 03:15 Hct 34.8 % (35.3-44.9) L 11/30/18 03:15 MCV 100.3 fL (83.0-100.0) H 11/29/18 15:09 MCHC 30.5 g/dL (31.6-35.5) L 11/30/18 03:15 Plt Count 116 K/mcL (140-400) L 11/29/18 15:09 0.3 K/mcL (0.6-4.6) L 11/29/18 15:09 ABG pH 7.26 pH Units (7.32-7.45) L 11/29/18 20:16 ABG pCO2 75 mmHg (35-45) H* 11/29/18 20:16 ABG pO2 105 mmHg (85-104) H 11/29/18 20:16 ABG HCO3 34 mEq/L (21-27) H 11/29/18 20:16 ABG Total CO2 36 mEq/L (20-26) H 11/29/18 20:16 ABG O2 Saturation 92 % (95-98) L 11/29/18 15:34 ABG Base Excess 5 mEq/L (-2 to 3) H 11/29/18 20:16 Sodium 135 mEq/L (136-145) L 11/29/18 15:09 Chloride 97 mEq/L (98-107) L 11/30/18 03:15 Carbon Dioxide 31 mEq/L (23-29) H 11/30/18 03:15 BUN 29 mg/dL (6-20) H 11/30/18 03:15 4.74 mg/dL (0.60-1.20) H 11/30/18 03:15 Est GFR ( Amer) 12 (> 60) L 11/30/18 03:15 Est GFR (Non-Af Amer) 10 (> 60) L 11/30/18 03:15 Glucose 298 mg/dL (70-105) H 11/29/18 15:09 POC Glucose 147 mg/dL (70-99) H 11/29/18 18:39 301 (280-300) H 11/29/18 00:57 - Diagnostic Findings Chest x-ray: report reviewed, image reviewed - Clinical Findings Intake & Output: Intake & Output 11/29/18 11/30/18 11/30/18 23:59 07:59 15:59 Intake Total 250 / 970 0 / 0 Output Total 0 / 600 0 / 0 0 / 0 Balance 250 / 370 0 / 0 0 / 0 Weight 52.5 kg Consult Discharge Plan - Plan Referrals: Angela Bob, DIRECTOR ERP [Primary Care Provider] - <ValentinRosenda Gwendolyn - Last Filed: 11/30/18 21:45> Date of Encounter: 11/30/18 All Systems: The remainder of the systems were reviewed and are negative Physical Examination Vital Signs: Vital Signs, Last 4 Hours Temp Pulse Resp BP Pulse Ox 11/30/18 15:00 74 15 93/55 100 11/30/18 14:00 75 15 84/55 100 11/30/18 13:00 67 15 93/63 100 11/30/18 12:22 99.8 F H 11/30/18 12:00 75 15 91/58 100 Results - Laboratory Findings CBC and BMP: 11/30/18 03:15 11/30/18 03:15 ABG ABG pH 7.26 pH Units (7.32-7.45) L 11/29/18 20:16 ABG pCO2 75 mmHg (35-45) H* 11/29/18 20:16 ABG pO2 105 mmHg (85-104) H 11/29/18 20:16 ABG O2 Saturation 97 % (95-98) 11/29/18 20:16 Abnormal lab findings: Abnormal lab results RBC 3.49 M/mcL (3.82-4.97) L 11/30/18 03:15 Hgb 10.6 g/dL (11.5-15.4) L 11/30/18 03:15 Hct 34.8 % (35.3-44.9) L 11/30/18 03:15 MCV 100.3 fL (83.0-100.0) H 11/29/18 15:09 MCHC 30.5 g/dL (31.6-35.5) L 11/30/18 03:15 Plt Count 116 K/mcL (140-400) L 11/29/18 15:09 0.3 K/mcL (0.6-4.6) L 11/29/18 15:09 ABG pH 7.26 pH Units (7.32-7.45) L 11/29/18 20:16 ABG pCO2 75 mmHg (35-45) H* 11/29/18 20:16 ABG pO2 105 mmHg (85-104) H 11/29/18 20:16 ABG HCO3 34 mEq/L (21-27) H 11/29/18 20:16 ABG Total CO2 36 mEq/L (20-26) H 11/29/18 20:16 ABG O2 Saturation 92 % (95-98) L 11/29/18 15:34 ABG Base Excess 5 mEq/L (-2 to 3) H 11/29/18 20:16 Sodium 135 mEq/L (136-145) L 11/29/18 15:09 Chloride 97 mEq/L (98-107) L 11/30/18 03:15 Carbon Dioxide 31 mEq/L (23-29) H 11/30/18 03:15 BUN 29 mg/dL (6-20) H 11/30/18 03:15 4.74 mg/dL (0.60-1.20) H 11/30/18 03:15 Est GFR ( Amer) 12 (> 60) L 11/30/18 03:15 Est GFR (Non-Af Amer) 10 (> 60) L 11/30/18 03:15 Glucose 298 mg/dL (70-105) H 11/29/18 15:09 POC Glucose 147 mg/dL (70-99) H 11/29/18 18:39 301 (280-300) H 11/29/18 00:57 - Clinical Findings Intake & Output: Intake & Output 11/29/18 11/30/18 11/30/18 23:59 07:59 15:59 Intake Total 250 / 970 0 / 0 Output Total 0 / 600 0 / 0 0 / 0 Balance 250 / 370 0 / 0 0 / 0 Weight 52.5 kg - Attending Attestation I examined this patient and my medical decision-making was reviewed with the Resident Physician. I agree with the documented findings, disposition and treatment plan as described except to the extent set forth below. Patient seen and examined. Labs, radiology, chart personally reviewed. Agree with resident's history and physical, assessment, plan with following comments: STEAM PRESS OPERATOR: Patient follows commands and she stated she is feeling better now Pulmonary: Acceptable oxygenation and ventilation and if she needs more support and close monitoring. It will be safer to start possible HCAP and if cultures are negative, then antibiotics can be stopped. Cardiovascular: hypotension is not clear the cause to me at this time, suspect could be sepsis, hypovolemia, blood loss and will start on Midodrine and gentle fluid bolus and if no response then will need vasopressor and discussed with primary team and thanks for the consult GI: Nutrition per dietary and GI prophylaxis per routine Heme: DVT prophylaxis per routine ID: Continue antibiotics and plan to de-escalation Renal; urine out put and renal funtion reviewed Endorcine: blood glucose is monitored Lines: all lines checked and no evidence of infections Skin: skin care to prevent pressure ulcers per nursing routine care
[2018-11-30] MEDS: *HR* Heparin 5,000 UNIT/ML VIAL SQ SCH ×2 (14:57→23:08)
[2018-11-30] MEDS ORDERED: Albuterol 2.5 MG/3 ML NEBULIZER IH PRN (16:01)
--- NOTE | 2018-11-30 16:01 | Internal Med Progress Note ---
Hospitalist Progress Note - Encounter Date of Encounter: 11/30/18 Time of Encounter: 15:59 - Subjective Interval History: I have seen and evaluated the patient at bedside. patient denies chest pain, shortness of breath or light headedness. patient AOx4 today. in no distress. reports tingling around the her lips, no change in her speech or focal weakness - Exam Vitals: Temp Pulse Resp BP Pulse Ox 99.8 F H 74 15 93/55 100 11/30/18 12:22 11/30/18 15:00 11/30/18 15:00 11/30/18 15:00 11/30/18 15:00 Exam: vitals: reviewed General: AOx4. In no distress Cardiovascular: RRR, normal S1 & S2, no rubs, murmurs or gallops. No JVD. Pulse regular. Lungs: CTA b/l, no wheezes or crackles. Abdomen:Soft, non-tender, no rigidity. Extremities: No edema Neurological: No focal neurological deficits Rest of the physical exam is non contributory - Assessment and Plan (1) Hypotension Current Visit: Yes Status: Acute Assessment and Plan: patient with hypotension following HD. with no clear signs of infection. consider 0.9%NS 250ml bolus, goal keep map >65%. ICU attending consulted, recommendations appreciated. started on midodrine 5mg/PO TID. (2) Left hip pain Current Visit: Yes Status: Acute Assessment and Plan: patient on oxycodone 5mg SL for pain control. Ortho consulted recommended against intervention. If patient continues to report hip pain consider MRI of the hip. (3) Chronic renal disease Current Visit: Yes Status: Chronic Assessment and Plan: renal replacement therapy per nephrology recommendations. avoid nephrotoxic medications (4) Depression with anxiety Current Visit: Yes Status: Chronic Assessment and Plan: consider resuming sertraline 50mg/PO daily (5) Asthma Current Visit: Yes Status: Chronic Assessment and Plan: started on broncodilators Q4RT PRN (6) Acute hypercapnic respiratory failure Current Visit: Yes Status: Acute Assessment and Plan: stand by Bipap. pulmonology consulted, recommendations appreciated (7) Hypertension Current Visit: Yes Status: Chronic Assessment and Plan: antihypertensive held due to hypotension follow HD. DVT Prophylaxis: On heparin subq - Summary of Assessment and Plan Summary of Assessment and Plan: Patient to remain in the hospital due to hypotension and hypercapnic respiratory failure. - Time Spent with Patient Total time spent is greater than 50% in coordination of care (as documented) at patient's floor/unit and/or counseling patient: Greater than 35 minutes (40) Plan of Care Discussed with: patient (and the nurse.) Internal Medicine: Result - Labs CBC & Chem 7: 11/30/18 03:15 11/30/18 03:15 Labs: Short CBC 11/29/18 11/30/18 Range/Units 15:09 03:15 WBC 7.1 7.3 (4.3-11.1) K/mcL Hgb 10.1 L 10.6 L (11.5-15.4) g/dL Hct 32.6 L 34.8 L (35.3-44.9) % Plt Count 116 L 143 (140-400) K/mcL Neutrophils # 6.5 (1.6-8.9) K/mcL BMP 11/29/18 11/30/18 15:09 03:15 Sodium 135 L 136 Potassium 3.7 D 4.3 Chloride 98 97 L Carbon Dioxide 28 31 H BUN 25 H 29 H Creatinine 3.86 H 4.74 H Glucose 298 H 103 Calcium 9.0 9.7 - ABG Interpretation ABG results: ABG ABG pH 7.26 pH Units (7.32-7.45) L 11/29/18 20:16 ABG pCO2 75 mmHg (35-45) H* 11/29/18 20:16 ABG pO2 105 mmHg (85-104) H 11/29/18 20:16 ABG O2 Saturation 97 % (95-98) 11/29/18 20:16 - Impressions Impressions KUB X-Ray 11/29/18 17:01 IMPRESSION: Placement right femoral vascular catheter as above. D/ / Beth Brewer Cha, MD / Beth Brewer Cha, MD Interpreting Provider: Beth Brewer Cha, MD Chest X-Ray 11/30/18 14:38 IMPRESSION: 1. New right basilar airspace disease either due to atelectasis or developing pneumonia. D/ / Jef Long MD / Jef Long MD Interpreting Provider: Jef Long MD Consult Discharge Plan - Plan Referrals: Angela Bob, REFRACTORY REPAIRER [Primary Care Provider] - _ (1) Hypotension Qualifiers: Hypotension type: unspecified hypotension type Qualified Code(s): I95.9 - Hypotension, unspecified (3) Chronic renal disease Qualifiers: Chronic kidney disease stage: unspecified stage Qualified Code(s): N18.9 - Chronic kidney disease, unspecified (5) Asthma Qualifiers: Asthma complication type: unspecified Qualified Code(s): J45.909 - Unspecified asthma, uncomplicated (7) Hypertension Qualifiers: Hypertension type: unspecified Qualified Code(s): I10 - Essential (primary) hypertension
[2018-11-30] MEDS: Piperacillin/Tazobactam 3.375 GM in 0.9 % Sodium Chloride Mini Bag 100 ML IVPB SCH (18:15)
--- NOTE | 2018-11-30 23:51 | Nephrology Progress Note ---
Date of Encounter: 11/30/18 Objective - Vital Signs Vital signs: Vital Signs Temp Pulse Resp BP Pulse Ox 11/30/18 23:08 98.0 F 11/30/18 23:00 74 16 112/73 100 11/30/18 22:04 16 95 11/30/18 22:00 78 16 103/71 96 11/30/18 21:00 80 16 100/69 100 11/30/18 20:00 81 16 106/69 100 11/30/18 19:00 76 16 106/70 100 11/30/18 18:30 98.0 F 11/30/18 18:00 80 14 102/62 100 11/30/18 17:00 75 14 105/61 100 11/30/18 16:07 97.9 F 11/30/18 16:00 78 15 83/51 100 11/30/18 15:00 74 15 93/55 100 11/30/18 14:00 75 15 84/55 100 11/30/18 13:00 67 15 93/63 100 11/30/18 12:22 99.8 F H 11/30/18 12:00 75 15 91/58 100 11/30/18 11:00 77 15 92/59 100 11/30/18 10:00 75 15 91/53 100 11/30/18 09:00 78 14 85/52 100 11/30/18 08:39 98.3 F 11/30/18 08:00 79 14 81/52 100 11/30/18 07:00 74 14 87/59 100 11/30/18 06:00 72 14 86/57 100 11/30/18 05:00 70 14 82/56 100 11/30/18 04:00 77 14 82/55 96 11/30/18 03:56 16 81/54 96 11/30/18 03:53 97.9 F 11/30/18 03:00 72 16 88/62 95 11/30/18 02:00 74 16 75/53 95 11/30/18 01:24 16 83/53 92 11/30/18 01:00 76 16 95/58 97 11/30/18 00:41 98.2 F 11/30/18 00:00 80 16 84/50 97 Intake and Output 11/30/18 11/30/18 11/30/18 07:59 15:59 23:59 Intake Total 0 / 550 550 / 550 Output Total 0 / 0 0 / 0 0 / 0 Balance 0 / 550 0 / 550 550 / 550 Intake: IV Fluids 350 / 350 Zosyn 3.375 GM In 0.9 % Sodium 100 / 100 Chloride (Mini-Bag +) 100 ML @ 25 mls/hr IVPB Q12HR ELAINE Rx#: [id number] Vancocin 750 MG In 0.9 % Sodium 250 / 250 Chloride 250 ML @ 250 mls/hr IVPB ONCE ONE Rx#:[id number] Oral 0 / 200 200 / 200 Output: Urine 0 / 0 Catheter 0 / 0 0 / 0 Other: # Voids 1 # Urine Diapers 0 Weight 52.5 kg 53.3 kg Blood Glucose* 103 68 95 Patient Weight 11/30/18 23:59 Weight 53.3 kg - Lab 11/30/18 03:15 11/30/18 03:15 Most recent lab results 11/30/18 03:15 Calcium 9.7 Consult Discharge Plan - Plan Referrals: Angela Bob PAYROLL TECHNICIAN [Primary Care Provider] -
[2018-12-01 04:11] LABS: Basophils % 0.4 %; Eosinophils # 0.3 K/mcL (0.0-0.6); Eosinophils % 4.7 %; Hematocrit 35.1 % (35.3-44.9); Hemoglobin 10.4 g/dL (11.5-15.4); Immature Granulocytes % 0.9 % (0-4); Lymphocytes % 14.1 %; Mean Corpuscular HGB Conc 29.6 g/dL (31.6-35.5); Mean Corpuscular Hemoglobin 30.2 pg (28.0-33.3); Mean Platelet Volume 10.3 fL (9.4-12.4); Monocytes # 0.6 K/mcL (0.0-1.3); Platelet Count 156 K/mcL (140-400); Red Blood Count 3.44 M/mcL (3.82-4.97); Red Cell Distribution Width 13.7 % (11.5-14.5); Segmented Neutrophils % 71.9 %
[2018-12-01 04:30] LABS: Calcium 9.6 mg/dL (8.6-10.3); Magnesium 2.5 mg/dL (1.6-2.6); Phosphorous 7.4 mg/dL (2.7-4.5); Potassium 5.2 mEq/L (3.5-5.1)
[2018-12-01] MEDS: Piperacillin/Tazobactam 3.375 GM in 0.9 % Sodium Chloride Mini Bag 100 ML IVPB SCH ×2 (06:08→18:06)
[2018-12-01] MEDS: *HR* Heparin 5,000 UNIT/ML VIAL SQ SCH ×3 (06:08→22:40)
[2018-12-01] MEDS: Aspirin Enteric Coated 81 MG Tablet PO SCH (07:27)
--- NOTE | 2018-12-01 08:11 | Pulmonology Progress Note ---
<Jak Neville - Last Filed: 12/01/18 09:47> Date of Encounter: 12/01/18 Time of Encounter: 08:10 Assessment and Plan (1) Hypotension Current Visit: Yes Status: Acute Patient with episode of hypotension and hypoglycemia 11/29/18, found to be somnolent and altered Patient has had blood pressures ranging from 90-/60 to 100/60 and alert and oriented 3 during my examination, currently asymptomatic, appears to be improving today She has been off her hypertension medications for 48 hours She has been given a total of 250 mL bolus 2, no further fluids today other than maintenance continue midodrine 5 mg twice per day Chest x-ray performed which shows concern for new right lower lobe airspace opacity, infectious first atelectasis. Patient continues to deny fever and cough. Blood cultures have been drawn. If they remain negative, recommending de-escalation and removal of antibiotics. Continue vancomycin Day 2 Continue Zosyn Day 2 CBC remains stable, strep pneumo and urine pending As patient has remained asymptomatic, will sign off at this time, patient to be moved to Qualifiers: Hypotension type: unspecified hypotension type Qualified Code(s): I95.9 - Hypotension, unspecified (2) Left hip pain Current Visit: Yes Status: Acute CT performed in the ER which shows no fracture or acute osseous abnormality Was seen by orthopedics, Dr. 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 MRI considered as outpatient evaluation. At time of discharge patient will require assistive walking device, preferably a walker (3) Chronic renal disease Current Visit: Yes Status: Chronic Patient currently undergoing dialysis Thursday, Thursday and Thursday Nephrology has been consult did by hospitalist team, they are currently following. We will continue to avoid nephrotoxic drugs or renally dose. Qualifiers: Chronic kidney disease stage: unspecified stage Qualified Code(s): N18.9 - Chronic kidney disease, unspecified (4) Hypertension Current Visit: Yes Status: Chronic Hold all hypertension medications Qualifiers: Hypertension type: unspecified Qualified Code(s): I10 - Essential (primary) hypertension (5) Depression with anxiety Current Visit: Yes Status: Chronic Continue home medications (6) Asthma Current Visit: Yes Status: Chronic Continue home medications Qualifiers: Asthma complication type: unspecified Qualified Code(s): J45.909 - Unspecified asthma, uncomplicated Subjective Interval history: Patient is awake this morning, no acute complaints. Overnight she states that she did well, no episodes of chest pain, shortness of breath or lightheaded or dizziness. She currently denies abdominal pain, nausea or vomiting. Objective PUL Vital signs: Last Vital Signs Temp 97.5 F L 12/01/18 07:10 Pulse 77 12/01/18 07:00 Resp 16 12/01/18 07:00 BP 93/65 12/01/18 07:00 Pulse Ox 100 12/01/18 07:00 General appearance: no acute distress Eyes: nonicteric ENT: oropharynx moist Mallampati (class): 2 Neck: supple Effort: normal Auscultation: bilateral: clear Cardiovascular: regular rate and rhythm Gastrointestinal: normoactive bowel sounds, non-tender, non-distended Integumentary: normal Extremities: no cyanosis, no edema, no clubbing, pink and warm Musculoskeletal: no deformities normal mental status, non-focal exam, pupils equal and round mood appropriate, affect normal Results - Laboratory Findings CBC and BMP: 12/01/18 03:55 12/01/18 03:55 ABG ABG pH 7.26 pH Units (7.32-7.45) L 11/29/18 20:16 ABG pCO2 75 mmHg (35-45) H* 11/29/18 20:16 ABG pO2 105 mmHg (85-104) H 11/29/18 20:16 ABG O2 Saturation 97 % (95-98) 11/29/18 20:16 Abnormal lab findings: Abnormal lab results RBC 3.44 M/mcL (3.82-4.97) L 12/01/18 03:55 Hgb 10.4 g/dL (11.5-15.4) L 12/01/18 03:55 Hct 35.1 % (35.3-44.9) L 12/01/18 03:55 MCV 102.0 fL (83.0-100.0) H 12/01/18 03:55 MCHC 29.6 g/dL (31.6-35.5) L 12/01/18 03:55 Plt Count 116 K/mcL (140-400) L 11/29/18 15:09 0.3 K/mcL (0.6-4.6) L 11/29/18 15:09 ABG pH 7.26 pH Units (7.32-7.45) L 11/29/18 20:16 ABG pCO2 75 mmHg (35-45) H* 11/29/18 20:16 ABG pO2 105 mmHg (85-104) H 11/29/18 20:16 ABG HCO3 34 mEq/L (21-27) H 11/29/18 20:16 ABG Total CO2 36 mEq/L (20-26) H 11/29/18 20:16 ABG O2 Saturation 92 % (95-98) L 11/29/18 15:34 ABG Base Excess 5 mEq/L (-2 to 3) H 11/29/18 20:16 Sodium 135 mEq/L (136-145) L 11/29/18 15:09 Potassium 5.2 mEq/L (3.5-5.1) H 12/01/18 03:55 Chloride 95 mEq/L (98-107) L 12/01/18 03:55 Carbon Dioxide 30 mEq/L (23-29) H 12/01/18 03:55 BUN 41 mg/dL (6-20) H 12/01/18 03:55 6.50 mg/dL (0.60-1.20) H 12/01/18 03:55 Est GFR ( Amer) 8 (> 60) L 12/01/18 03:55 Est GFR (Non-Af Amer) 7 (> 60) L 12/01/18 03:55 Glucose 110 mg/dL (70-105) H 12/01/18 03:55 POC Glucose 68 mg/dL (70-99) L 11/30/18 11:45 301 (280-300) H 11/29/18 00:57 Phosphorus 7.4 mg/dL (2.7-4.5) H 12/01/18 03:55 2.60 ng/mL (0.00-0.15) H 11/30/18 17:07 - Microbiology Findings Microbiology Findings: Microbiology, Last 48 Hours 11/30/18 17:07 Blood Culture - Preliminary Peripheral Venipuncture Culture is incubating and being continuously monitored for growth. Final report to follow. 11/30/18 16:59 Blood Culture - Preliminary Peripheral Venipuncture Culture is incubating and being continuously monitored for growth. Final report to follow. - Diagnostic Findings Chest x-ray: report reviewed, image reviewed - Clinical Findings Intake & Output: Intake & Output 11/30/18 12/01/18 12/01/18 23:59 07:59 15:59 Intake Total 550 / 550 0 / 0 Output Total 0 / 0 0 / 0 Balance 550 / 550 0 / 0 Weight 53.3 kg Consult Discharge Plan - Plan Referrals: Angela Bob, PROSPECT MANAGER [Primary Care Provider] - <Rosenda Hanson - Last Filed: 12/01/18 14:17> Date of Encounter: 12/01/18 Objective PUL Vital signs: Last Vital Signs Temp 98.7 F 12/01/18 12:13 Pulse 74 12/01/18 12:13 Resp 16 12/01/18 12:13 BP 96/59 12/01/18 12:13 Pulse Ox 98 12/01/18 12:13 Results - Laboratory Findings CBC and BMP: 12/01/18 03:55 12/01/18 03:55 ABG ABG pH 7.26 pH Units (7.32-7.45) L 11/29/18 20:16 ABG pCO2 75 mmHg (35-45) H* 11/29/18 20:16 ABG pO2 105 mmHg (85-104) H 11/29/18 20:16 ABG O2 Saturation 97 % (95-98) 11/29/18 20:16 Abnormal lab findings: Abnormal lab results RBC 3.44 M/mcL (3.82-4.97) L 12/01/18 03:55 Hgb 10.4 g/dL (11.5-15.4) L 12/01/18 03:55 Hct 35.1 % (35.3-44.9) L 12/01/18 03:55 MCV 102.0 fL (83.0-100.0) H 12/01/18 03:55 MCHC 29.6 g/dL (31.6-35.5) L 12/01/18 03:55 Plt Count 116 K/mcL (140-400) L 11/29/18 15:09 0.3 K/mcL (0.6-4.6) L 11/29/18 15:09 ABG pH 7.26 pH Units (7.32-7.45) L 11/29/18 20:16 ABG pCO2 75 mmHg (35-45) H* 11/29/18 20:16 ABG pO2 105 mmHg (85-104) H 11/29/18 20:16 ABG HCO3 34 mEq/L (21-27) H 11/29/18 20:16 ABG Total CO2 36 mEq/L (20-26) H 11/29/18 20:16 ABG O2 Saturation 92 % (95-98) L 11/29/18 15:34 ABG Base Excess 5 mEq/L (-2 to 3) H 11/29/18 20:16 Sodium 135 mEq/L (136-145) L 11/29/18 15:09 Potassium 5.2 mEq/L (3.5-5.1) H 12/01/18 03:55 Chloride 95 mEq/L (98-107) L 12/01/18 03:55 Carbon Dioxide 30 mEq/L (23-29) H 12/01/18 03:55 BUN 41 mg/dL (6-20) H 12/01/18 03:55 6.50 mg/dL (0.60-1.20) H 12/01/18 03:55 Est GFR ( Amer) 8 (> 60) L 12/01/18 03:55 Est GFR (Non-Af Amer) 7 (> 60) L 12/01/18 03:55 Glucose 110 mg/dL (70-105) H 12/01/18 03:55 POC Glucose 68 mg/dL (70-99) L 11/30/18 11:45 301 (280-300) H 11/29/18 00:57 Phosphorus 7.4 mg/dL (2.7-4.5) H 12/01/18 03:55 2.60 ng/mL (0.00-0.15) H 11/30/18 17:07 - Microbiology Findings Microbiology Findings: Microbiology, Last 48 Hours 11/30/18 17:07 Blood Culture - Preliminary Peripheral Venipuncture Culture is incubating and being continuously monitored for growth. Final report to follow. 11/30/18 16:59 Blood Culture - Preliminary Peripheral Venipuncture Culture is incubating and being continuously monitored for growth. Final report to follow. - Clinical Findings Intake & Output: Intake & Output 11/30/18 12/01/18 12/01/18 23:59 07:59 15:59 Intake Total 550 / 550 0 / 0 Output Total 0 / 0 0 / 0 Balance 550 / 550 0 / 0 Weight 53.3 kg - Attending Attestation I examined this patient and my medical decision-making was reviewed with the Resident Physician. I agree with the documented findings, disposition and treatment plan as described except to the extent set forth below. Patient seen and examined. Labs, radiology, chart personally reviewed. Agree with resident's history and physical, assessment, plan with following comments: CITY DETECTIVE: Patient follows commands, Pulmonary: Acceptable oxygenation and ventilation and wean off FiO2 Cardiovascular: stable patient is feeling much better blood pressure is stabilized. Continue midodrine if nephrology will except that. GI: Nutrition per dietary and GI prophylaxis per routine Heme: DVT prophylaxis per routine ID: Continue antibiotics and plan to de-escalation Renal; urine out put and renal function reviewed. Nephrology follow-up Endorcine: blood glucose is monitored. Close monitoring for the hypoglycemia Lines: all lines checked and no evidence of infections Skin: skin care to prevent pressure ulcers per nursing routine care Patient remained hemodynamically stable and was transferred to the floor. Please call for any questions.
[2018-12-01] MEDS ORDERED: Aminoglycoside Consult 1 EACH MC ONE (09:08)
[2018-12-01] MEDS ORDERED: Albuterol 2.5 MG/3 ML NEBULIZER IH PRN (11:03)
[2018-12-01] MEDS ORDERED: *HR* Dextrose 50 % in Water (Syg) 50 ML SYRINGE IVP PRN (11:03)
[2018-12-01] MEDS ORDERED: Naloxone 0.4 MG/ML INJ IVP PRN (11:03)
[2018-12-01] MEDS ORDERED: 0.9 % Sodium Chloride 250 ML IVC PRN ×2 (11:03→13:32)
[2018-12-01] MEDS ORDERED: 0.9 % Sodium Chloride 1,000 ML PRIME SCH ×2 (11:03→13:45)
[2018-12-01] MEDS ORDERED: *HR* Heparin 10,000 UNIT/10 ML VIAL IV PRN ×2 (11:03→13:32)
[2018-12-01] MEDS ORDERED: OXYCODONE Oral CONC 10 MG/0.5 ML ORAL.SYG SL PRN (11:03)
--- NOTE | 2018-12-01 13:05 | Nephrology Progress Note ---
Date of Encounter: 12/01/18 Time of Encounter: 11:00 - Assessment and Plan (1) End stage renal disease Current Visit: No Status: Chronic -Continue HD treatments with ultrafiltration as tolerated. - Renal diet. - Fluid restrictions. - Renal meds on hold due to hypotension. - Avoid nephrotoxins. (2) Hypotension Current Visit: Yes Status: Acute Episode of hypotension and hypoglycemia yesterday. Her BPs were ranging from 80/60-90/60. She had been given a total of 250 mL bolus 2. Was started on midodrine. CXR showed concern for new right lower lobe airspace opacity, infectious first atelectasis. Started on broad-spectrum antibiotics. Bp stable today at 96/59. - BP meds on hold. - Management per primary team. Qualifiers: Hypotension type: unspecified hypotension type Qualified Code(s): I95.9 - Hypotension, unspecified Subjective Interval history: When seen today, patient was alert and oriented x 3. She denies any chest pain, SOB, cough, fever, abdominal pain, nausea, vomiting, or LE swelling. Objective - Vital Signs Vital signs: Vital Signs Temp Pulse Resp BP Pulse Ox 12/01/18 12:13 98.7 F 74 16 96/59 98 12/01/18 09:00 74 15 88/62 100 12/01/18 08:00 76 22 86/58 100 12/01/18 07:10 97.5 F L 12/01/18 07:00 77 16 93/65 100 12/01/18 06:00 76 16 102/66 100 12/01/18 05:00 78 18 105/60 98 12/01/18 04:00 98 F 77 16 97/66 98 12/01/18 03:00 78 16 105/57 98 12/01/18 02:00 78 16 110/69 99 12/01/18 01:00 80 22 102/66 100 12/01/18 00:00 81 20 96/65 100 11/30/18 23:08 98.0 F 11/30/18 23:00 74 16 112/73 100 11/30/18 22:04 16 95 11/30/18 22:00 78 16 103/71 96 11/30/18 21:00 80 16 100/69 100 11/30/18 20:00 81 16 106/69 100 11/30/18 19:00 76 16 106/70 100 11/30/18 18:30 98.0 F 11/30/18 18:00 80 14 102/62 100 11/30/18 17:00 75 14 105/61 100 11/30/18 16:07 97.9 F 11/30/18 16:00 78 15 83/51 100 11/30/18 15:00 74 15 93/55 100 11/30/18 14:00 75 15 84/55 100 Intake and Output 11/30/18 12/01/18 12/01/18 23:59 07:59 15:59 Intake Total 550 / 550 0 / 0 Output Total 0 / 0 0 / 0 Balance 550 / 550 0 / 0 Intake: IV Fluids 350 / 350 Zosyn 3.375 GM In 0.9 % Sodium 100 / 100 Chloride (Mini-Bag +) 100 ML @ 25 mls/hr IVPB Q12HR [facility] Rx#: [id number] Vancocin 750 MG In 0.9 % Sodium 250 / 250 Chloride 250 ML @ 250 mls/hr IVPB ONCE ONE Rx#:[id number] Oral 200 / 200 0 / 0 Output: Urine 0 / 0 Catheter 0 / 0 Other: # Voids 1 # Urine Diapers 0 Weight 53.3 kg Blood Glucose* 95 90 - General Appearance General appearance: Present: well-developed, well-nourished, appears started age EENT: Present: mucous membranes moist Neck: Present: no JVD Respiratory: Present: clear Cardiology: Present: no murmurs, no rub, no gallops, regular rate, regular rhythm, normal S1, normal S2 Gastrointestinal: Present: normoactive bowel sounds, no tenderness, no guarding, no organomegaly, no masses Integumentary: Present: warm and dry Neurologic: Present: no focal deficit Musculoskeletal: Present: no deformities, no erythema, no cyanosis Psychiatric: Present: mood/affect appropriate - Lab 12/01/18 03:55 12/01/18 03:55 Most recent lab results 12/01/18 03:55 Calcium 9.6 Phosphorus 7.4 H Magnesium 2.5 Consult Discharge Plan - Plan Referrals: Angela Bob, SENIOR ATTORNEY [Primary Care Provider] -
[2018-12-01] MEDS: D5% in 0.9% NACL 1,000 ML IVC SCH (13:59)
[2018-12-01] MEDS ORDERED: Vancomycin 500 MG in 0.9 % Sodium Chloride Mini Bag 100 ML IVPB ONE (17:00)
[2018-12-02] MEDS: Piperacillin/Tazobactam 3.375 GM in 0.9 % Sodium Chloride Mini Bag 100 ML IVPB SCH ×2 (05:54→16:39)
[2018-12-02] MEDS: *HR* Heparin 5,000 UNIT/ML VIAL SQ SCH ×2 (05:55→14:29)
[2018-12-02 06:11] LABS: Hematocrit 36.5 % (35.3-44.9); Hemoglobin 10.9 g/dL (11.5-15.4); Mean Corpuscular HGB Conc 29.9 g/dL (31.6-35.5); Mean Corpuscular Hemoglobin 30.7 pg (28.0-33.3); Mean Corpuscular Volume 102.8 fL (83.0-100.0); Mean Platelet Volume 10.1 fL (9.4-12.4); Platelet Count 170 K/mcL (140-400); Red Blood Count 3.55 M/mcL (3.82-4.97); Red Cell Distribution Width 14.1 % (11.5-14.5)
[2018-12-02 06:29] LABS: Calcium 8.9 mg/dL (8.6-10.3); Potassium 4.5 mEq/L (3.5-5.1)
[2018-12-02] MEDS: Aspirin Enteric Coated 81 MG Tablet PO SCH (07:56)
--- NOTE | 2018-12-02 09:36 | Internal Med Progress Note ---
Hospitalist Progress Note - Encounter Date of Encounter: 12/02/18 Time of Encounter: 09:34 - Subjective Interval History: Patient was admitted on November 29 for hip pain, she was found the hypotension and pneumonia, transferred to ICU on November 30 due to hypotension and hypoglycemia. Now she is out of ICU, still not feeling well on 4 L nasal cannula. She was not on home O2. She feels extremely tired, lack of appetite, patient has been on hemodialysis for 14 years. - Exam Vitals: Temp Pulse Resp BP Pulse Ox 98.2 F 74 14 90/56 100 12/02/18 07:35 12/02/18 07:35 12/02/18 07:35 12/02/18 07:35 12/02/18 07:35 Exam: CONSTITUTIONAL: patient appears as an age appropriate female in no acute distress. EYES Clear sclerae, bilateral pupils are equal, reactive to light. EMOI. RESPIRATORY: No accessory muscle use, bilateral scant crackles/rales. CARDIOVASCULAR: Regular heart rate, normal S1 and S2, no murmurs GASTROINTESTINAL: bowel sounds present, soft, no tenderness. MUSCULOSKELETAL: Joints in normal range of motion, no clubbing, no edema, no cyanosis. Bilateral peripheral pulses 2+. NEUROLOGIC: CN II to XII are grossly intact, no focal neurological deficit. DVT Prophylaxis: On heparin subq - Summary of Assessment and Plan Summary of Assessment and Plan: Ms. Darby is a 48 year old female with past medical history significant for hypertension, chronic renal disease on dialysis, valvular heart disease, brittle bone disease, hypoparathyroidism, rectal prolapse, asthma, anxiety, and de pression who presents for complaints of left leg hip pain for past two weeks getting progressively worse. Previous orthopedic surgery performed by Dr Woody whom the ER called and he agrees to see patient in consult in the morning. States she is supposed to schedule follow up with cardiology after recently being diagnosed with aortic and mitral stenosis. Receives dialysis Mondays, Wednesdays, and Fridays. Patient was admitted on November 28, for hip pain and pain control, then transfered to ICU on 11/29 for hypotension and hypoglycemia, then she was found pneumonia. (1) Hypotension Current Visit: Yes Status: Acute Patient with episode of hypotension and hypoglycemia 11/29/18, found to be somnolent and altered continue midodrine 5 mg twice per day (2) possible gram negative bacterial pneumonia Chest x-ray on 11/29 performed which shows concern for new right lower lobe airspace opacity, infectious first atelectasis. conitnue iV zosyn and vancomycin CBC remains stable, strep pneumo and urine pending still on 4 L NC (2) Left hip pain Current Visit: Yes Status: Acute CT performed in the ER which shows no fracture or acute osseous abnormality Was seen by orthopedics, Dr. 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 MRI considered as outpatient evaluation. At time of discharge patient will require assistive walking device, preferably a walker (3) ESRD on HD MWF, nephrology is on board Current Visit: Yes Status: Chronic We will continue to avoid nephrotoxic drugs or renally dose. Qualifiers: Chronic kidney disease stage: unspecified stage Qualified Code(s): N18.9 - Chronic kidney disease, unspecified (4) Hypertension Current Visit: Yes Status: Chronic Hold all hypertension medications Qualifiers: Hypertension type: unspecified Qualified Code(s): I10 - Essential (primary) hypertension (5) Depression with anxiety Current Visit: Yes Status: Chronic Continue home medications (6) Asthma Current Visit: Yes Status: Chronic Continue home medications Qualifiers: Asthma complication type: unspecified Qualified Code(s): J45.909 - Unspecified asthma, uncomplicated need weaning O2, conuslt PT and OT, patient was not on home O2 - Time Spent with Patient Total time spent is greater than 50% in coordination of care (as documented) at patient's floor/unit and/or counseling patient: 25 - 35 minutes Plan of Care Discussed with: patient Internal Medicine: Result - Labs CBC & Chem 7: 12/02/18 05:35 12/02/18 05:35 Labs: Short CBC 12/02/18 Range/Units 05:35 WBC 6.8 (4.3-11.1) K/mcL Hgb 10.9 L (11.5-15.4) g/dL Hct 36.5 (35.3-44.9) % Plt Count 170 (140-400) K/mcL BMP 12/02/18 05:35 Sodium 138 Potassium 4.5 Chloride 100 Carbon Dioxide 31 H BUN 18 Creatinine 4.13 H Glucose 114 H Calcium 8.9 - ABG Interpretation ABG results: ABG ABG pH 7.26 pH Units (7.32-7.45) L 11/29/18 20:16 ABG pCO2 75 mmHg (35-45) H* 11/29/18 20:16 ABG pO2 105 mmHg (85-104) H 11/29/18 20:16 ABG O2 Saturation 97 % (95-98) 11/29/18 20:16 Consult Discharge Plan - Plan Referrals: Angela Bob CNP [Primary Care Provider] -
--- NOTE | 2018-12-02 11:07 | Nephrology Progress Note ---
Date of Encounter: 12/02/18 Time of Encounter: 11:05 - Assessment and Plan (1) End stage renal disease Current Visit: No Status: Chronic Plan for HD tomorrow Continue renal diet Avoid nephrotoxins if possible (2) Hypotension Current Visit: Yes Status: Acute Midodrine added yesterday Qualifiers: Hypotension type: unspecified hypotension type Qualified Code(s): I95.9 - Hypotension, unspecified Subjective Principal diagnosis: ESRD on HD, hip pain Interval history: Patient seen and examined. No complaints this morning Objective - Vital Signs Vital signs: Vital Signs Temp Pulse Resp BP Pulse Ox 12/02/18 07:35 98.2 F 74 14 90/56 100 12/02/18 04:32 98.9 F 73 17 102/67 98 12/02/18 00:04 98.7 F 79 17 112/68 99 12/01/18 19:40 98.0 F 72 17 101/65 96 12/01/18 17:54 97.6 F 17 116/76 12/01/18 17:30 113/70 12/01/18 17:15 110/70 12/01/18 17:00 111/74 12/01/18 16:45 113/75 12/01/18 16:30 111/75 12/01/18 16:15 105/69 12/01/18 16:00 102/71 12/01/18 15:45 108/75 12/01/18 15:30 111/74 12/01/18 15:15 113/73 12/01/18 15:00 113/73 12/01/18 14:45 101/69 12/01/18 14:30 97.8 F 15 97/64 12/01/18 12:13 98.7 F 74 16 96/59 98 Intake and Output 12/01/18 12/02/18 12/02/18 23:59 07:59 15:59 Intake Total 100 / 600 240 / 240 Output Total 1500 / 1500 Balance -1400 / -900 240 / 240 Intake: IV Fluids 100 / 100 Zosyn 3.375 GM In 0.9 % Sodium 100 / 100 Chloride (Mini-Bag +) 100 ML @ 25 mls/hr IVPB Q12HR [facility] Rx#: [id number] Oral 240 / 240 Output: Urine 0 / 0 Total Dialysis (HD) Output 1500 / 1500 Other: Meal Breakfast Percent of Meal Consumed 50% Blood Glucose* 75 99 Hemodialysis Net Fluid Removed 1000 (mL) - General Appearance General appearance: Present: well-developed, well-nourished EENT: Present: ATNC, mucous membranes moist, hearing intact, vision intact Neck: Present: supple Respiratory: Present: clear Cardiology: Present: no edema, normal S1, normal S2 Gastrointestinal: Present: no tenderness, no guarding Integumentary: Present: warm and dry Neurologic: Present: alert and oriented x3 Psychiatric: Present: mood/affect appropriate, cooperative - Lab 12/02/18 05:35 12/02/18 05:35 Most recent lab results 12/02/18 05:35 Calcium 8.9 Consult Discharge Plan - Plan Referrals: Angela Bob COSTUMED CHARACTER ENTERTAINER [Primary Care Provider] -
[2018-12-02] MEDS: D5% in 0.9% NACL 1,000 ML IVC SCH (11:20)
[2018-12-02 19:06] LABS: Hematocrit 35.9 % (35.3-44.9); Hemoglobin 10.8 g/dL (11.5-15.4); Mean Corpuscular HGB Conc 30.1 g/dL (31.6-35.5); Mean Corpuscular Hemoglobin 30.3 pg (28.0-33.3); Mean Corpuscular Volume 100.6 fL (83.0-100.0); Mean Platelet Volume 9.9 fL (9.4-12.4); Platelet Count 191 K/mcL (140-400); Red Blood Count 3.57 M/mcL (3.82-4.97); Red Cell Distribution Width 14.2 % (11.5-14.5)
[2018-12-02] MEDS ORDERED: *HR* Heparin 5,000 UNIT/ML VIAL IVP ONE (19:53)
[2018-12-02] MEDS ORDERED: *HR* Heparin 5,000 UNIT/ML VIAL IVP PRN (19:53)
[2018-12-02] MEDS ORDERED: Aspirin 81 MG TAB.CHEW PO ONE ×2 (20:13→20:58)
[2018-12-02] MEDS ORDERED: Aspirin 81 MG TAB.CHEW ONE ×2 (20:22→21:02)
[2018-12-02 20:28] LABS: Hematocrit 35.6 % (35.3-44.9); Hemoglobin 10.9 g/dL (11.5-15.4); Mean Corpuscular HGB Conc 30.6 g/dL (31.6-35.5); Mean Corpuscular Volume 101.1 fL (83.0-100.0); Mean Platelet Volume 10.1 fL (9.4-12.4); Platelet Count 177 K/mcL (140-400); Red Blood Count 3.52 M/mcL (3.82-4.97); Red Cell Distribution Width 14.2 % (11.5-14.5)
[2018-12-02] MEDS: Heparin 25,000 UNIT/250 ML D5W 25,000 UNIT/250 ML IV.SOLN IVC SCH (20:48)
[2018-12-02 20:56] LABS: Heparin anti-factor XA UFH 0.01 IU/mL (0.30-0.70); Prothrombin Time 10.9 Seconds (9.4-12.1)
[2018-12-02] MEDS ORDERED: *HR* Ticagrelor 90 MG TABLET ONE ×2 (21:00→21:08)
[2018-12-02] MEDS ORDERED: *HR* Ticagrelor 90 MG TABLET PO ONE (21:03)
--- NOTE | 2018-12-02 21:29 | Event Note ---
Date of Encounter: 12/02/18 Time of Encounter: 21:27 Paged by nurse at 739 PM that the pt had a critical troponin back at 1.95 (no previous troponins completed during this hospital stay). She had abdominal pain this afternoon with nausea, no chest pain. Pt denied chest pain on my evaluation. EKG at ~1500 performed and repeat EKG ordered STAT. There appeared to be ST elevation in leads v2,v3 with some t wave inversion in v1. Ordered troponin to be trended x 3, next one for around midnight. Heparin drip ordered, ASA 324 mg given and made NPO. Spoke to Dr Freedman, information coder emergency services professional, who said to give pt given brillenta and that he would see her tomorrow. Jose J Zhang and Trish made aware of the pt as well.
[2018-12-03 02:49] LABS: Basophils % 0.4 %; Eosinophils # 0.4 K/mcL (0.0-0.6); Eosinophils % 4.8 %; Hematocrit 34.6 % (35.3-44.9); Hemoglobin 10.5 g/dL (11.5-15.4); Immature Granulocytes % 0.5 % (0-4); Lymphocytes # 1.2 K/mcL (0.6-4.6); Lymphocytes % 15.7 %; Mean Corpuscular HGB Conc 30.3 g/dL (31.6-35.5); Mean Corpuscular Hemoglobin 30.8 pg (28.0-33.3); Mean Corpuscular Volume 101.5 fL (83.0-100.0); Mean Platelet Volume 10.2 fL (9.4-12.4); Monocytes # 0.7 K/mcL (0.0-1.3); Monocytes % 9.6 %; Neutrophils # 5.3 K/mcL (1.6-8.9); Platelet Count 161 K/mcL (140-400); Red Blood Count 3.41 M/mcL (3.82-4.97); Red Cell Distribution Width 14.1 % (11.5-14.5)
[2018-12-03 03:11] LABS: Calcium 8.6 mg/dL (8.6-10.3); Potassium 4.4 mEq/L (3.5-5.1)
[2018-12-03] MEDS: Piperacillin/Tazobactam 3.375 GM in 0.9 % Sodium Chloride Mini Bag 100 ML IVPB SCH ×2 (06:24→17:58)
[2018-12-03] MEDS ORDERED: 0.9 % Sodium Chloride 250 ML IVC PRN (08:28)
[2018-12-03] MEDS ORDERED: *HR* Heparin 10,000 UNIT/10 ML VIAL IV PRN (08:28)
[2018-12-03] MEDS ORDERED: 0.9 % Sodium Chloride 1,000 ML PRIME SCH (08:30)
--- NOTE | 2018-12-03 09:23 | Cardiology Consult Note ---
Date of Encounter: 12/03/18 Time of Encounter: 10:00 Assessment and Plan (1) Chest pain Current Visit: No Status: Acute -Patient had no chest pain earlier this AM but endorsed a 5/10 retrosternal chest pain around 10.45 am today. -Patient is currently being treated in the hospital for hypertension and left hip pain, recently finished a course of ICU admission was stepdown 2 days ago. She also undergoes dialysis for her ESRD -Patient has risk factors that predispose her to theACS like history of hypertension and her being on dialysis. - Her troponins have been elevated at 1.5, 2.02, 2.01 -She was admitted to the hospital in Jun, 2018 with chest pain and mildly elevated troponins but was non- diagnositic for ACS back then. - 07/13/18 TTE showed severely calcified aortic valve leaflets. Moderate-severe . IRMA was approximately 1.02 cm2. Peak aortic velocity is 3.92m/s, MG 33 mmHg. Mild AR. Mild-moderate MS. MG is 6 mmHg. -07/14/18 MELINA showed --Mild aortic stenosis. Estimated IRMA 1.7 cm2 by planimetry. (V1/V2 2/3.1, PG/MG 22/11, LVOT 1.6). Trace/trivial aortic regurgitation. Mild calcified aortic valve. -07/15/2018 Nuclear stress test tell was negative for ischemia or infarct - Limited Echo pending. - Owing to her chest pain, she will undergo C today Qualifiers: Chest pain type: unspecified Qualified Code(s): R07.9 - Chest pain, unspecified (2) Elevated troponin Current Visit: No Status: Acute -patient has had elevated protein on the last 24 hours at 1.95, 2.02, 2.01 - Limited echo is pending -will under [facility] today to rule out any coronary vessel occlusion Discussion w patient/family: The assessment and plan as outlined above was discussed with the patient and/or family members who expressed understanding and agreement. All questions were answered. Thank you for involving us in the care of your patient. Please call with any questions. History of Present Illness Consult date: 12/03/18 History of present illness: Ms. Darby is a 48 year old female with past medical history of hypertension, ESRD(dialysis), valvular heart disease,, hypoparathyroidism, rectal prolapse, asthma, depression the treated hospital for lef hip pain and hypotension, was admitted to the ICU for hypotension and hypoglycemia , was stepped down 2 days ago. Cardiology was consulted for critical troponin at 1.95 with serial trops : 2.02, 2.01. EKG showed ST elevations in leads V2, V3 and some T-wave inver sions in V1. Of note, patient was seen last year in June by Cardiology for chest pain, trops were found to be 0.04, 0.05 , 0.07 and was found to be non- diagnostic for ACS. Her TTE back then showed calcified aortic valve leaflets, moderate severe . MELINA was done to further evaluate severity of and MSManjula Shields is currently being treated for PNA and is on Vanc/Zosyn She denies any chest pain, light headedness, N/V, no evidence of any pedal edema on physical exam. Patient is scheduled for a limited Echo today and depending upon the clinical picture will most likely undergo LHC . Past Med Surg Social Fam HX - Past Medical History Medical history: asthma, dialysis, hypertension, renal disease, thyroid disease, valvular heart disease, other Additional medical history: brittle bone syndrome Psychiatric history: anxiety, depression - Past Surgical History Surgical History: orthopedic, other Additional surgical history: rectal prolapse. kidney/bladder surgeries. graft R arm. right hip surgery - Social History Smoking Status: Never smoker Smokeless Tobacco Status: No Alcohol use: none Drug use: none - Family History Mother Living Status: Still Living Hx Family Cardiac Disorders: Yes (CAD) Hx Family Cancer: Yes (skin cancer) Hx Family Endocrine Disorder: Yes (DM) Father Adopted: No Family Member Ethnicity: Non- Living Status: Still Living Hx Family Cardiac Disorders: Yes (heart disease) Hx Family Respiratory Disorders: No Hx Family Cancer: Yes (prostate) Hx Family GI Disorders: No Hx Family Genitourinary Disorders: No Hx Family Endocrine Disorder: Yes (Diabetes) Hx Family Musculoskeletal Disorders: No Hx Family Neuromuscular Disorders: No Hx Family Neurologic Disorders: No Hx Family HEENT Disorders: No Hx Family Autoimmune Disorders: No Hx Family Reproductive Disorders: No Hx Family Psychosocial Disorders: No Hx Family Medical Disorders: No Medications and Allergies Aspirin Enteric Coated [Aspirin EC] 81 mg PO DAILY #30 tablet. 07/13/18 [Rx] Losartan [Cozaar] 25 mg PO DAILY #30 tablet 07/13/18 [Rx] ALPRAZolam [Xanax 0.5 MG Tablet] 0.5 mg PO DAILY PRN 11/28/18 [History] Sertraline [Zoloft] 50 mg PO DAILY 11/28/18 [History] Albuterol Sulfate [Ventolin Hfa] 2 puff IH Q6H PRN 11/29/18 [History] Allergy/AdvReac Type Severity Reaction Status Date / Time bee venom protein (honey bee) Allergy Difficulty Verified 11/28/18 22:37 Breathing latex Allergy Hives Verified 07/12/18 10:36 moxifloxacin [From Avelox] Allergy Difficulty Verified 07/12/18 10:36 Breathing All Systems Review: The remainder of the systems were reviewed and are negative - Constitutional Constitutional: no fatigue - Cardiovascular Cardiovascular: chest pain at rest - Respiratory Respiratory: no dyspnea - Gastrointestinal Gastrointestinal: no abdominal pain Physical Examination Vital Signs, Last 4 Hours Temp Pulse Resp BP Pulse Ox 12/03/18 07:15 97.7 F 69 18 108/68 99 Other: CONSTITUTIONAL: patient appears as an age appropriate female in no acute distre ss. EYES Clear sclerae, bilateral pupils are equal, reactive to light. EMOI. RESPIRATORY: No accessory muscle use, bilateral scant crackles/rales. CARDIOVASCULAR: Regular heart rate, normal S1 and S2, no murmurs GASTROINTESTINAL: bowel sounds present, soft, no tenderness. MUSCULOSKELETAL: Joints in normal range of motion, no clubbing, no edema, no cyanosis. Bilateral peripheral pulses 2+. NEUROLOGIC: CN II to XII are grossly intact, no focal neurological deficit. Results 12/03/18 02:30 12/03/18 02:30 Lab Results 12/02/18 12/02/18 12/02/18 18:54 18:54 20:08 WBC 9.3 8.4 Hgb 10.8 L 10.9 L Hct 35.9 35.6 Plt Count 191 177 INR Sodium Potassium Chloride Carbon Dioxide BUN Creatinine Glucose Calcium Troponin I 1.95 H* 12/02/18 12/02/18 12/03/18 20:08 23:30 02:30 WBC Hgb Hct Plt Count INR 1.0 Sodium 138 Potassium 4.4 Chloride 100 Carbon Dioxide 27 BUN 23 H Creatinine 5.23 H Glucose 111 H Calcium 8.6 Troponin I 2.02 H* 12/03/18 12/03/18 02:30 06:10 WBC 7.7 Hgb 10.5 L Hct 34.6 L Plt Count 161 INR Sodium Potassium Chloride Carbon Dioxide BUN Creatinine Glucose Calcium Troponin I 2.01 H* Consult Discharge Plan - Plan Referrals: Angela Bob, HEAVENLY [Primary Care Provider] -
--- NOTE | 2018-12-03 10:16 | Internal Med Progress Note ---
Hospitalist Progress Note - Encounter Date of Encounter: 12/03/18 Time of Encounter: 10:14 - Subjective Interval History: patient feels a little better since yesterday, she did not remember if she has MANAGER NUCLEAR infection, I discussed with trop elevation and cardiology is consulted, she said the cardiology saw her few min ago. she may need LHC - Exam Vitals: Temp Pulse Resp BP Pulse Ox 97.7 F 69 18 108/68 99 12/03/18 07:15 12/03/18 07:15 12/03/18 07:15 12/03/18 07:15 12/03/18 07:15 Exam: CONSTITUTIONAL: patient appears as an age appropriate female in no acute distress. EYES Clear sclerae, bilateral pupils are equal, reactive to light. EMOI. RESPIRATORY: No accessory muscle use, bilateral scant crackles/rales. CARDIOVASCULAR: Regular heart rate, normal S1 and S2, no murmurs GASTROINTESTINAL: bowel sounds present, soft, mild tenderness to left upper and lower abdomen. MUSCULOSKELETAL: Joints in normal range of motion, no clubbing, no edema, no cyanosis. Bilateral peripheral pulses 2+. NEUROLOGIC: CN II to XII are grossly intact, no focal neurological deficit. DVT Prophylaxis: On heparin subq - Summary of Assessment and Plan Summary of Assessment and Plan: Ms. Darby is a 48 year old female with past medical history significant for hypertension, chronic renal disease on dialysis, valvular heart disease, brittle bone disease, hypoparathyroidism, rectal prolapse, asthma, anxiety, and depression who presents for complaints of left leg hip pain for past two weeks getting progressively worse. Previous orthopedic surgery performed by Dr Woody whom the ER called and he agrees to see patient in consult in the morning. States she is supposed to schedule follow up with cardiology after recently being diagnosed with aortic and mitral stenosis. Receives dialysis Mondays, We , and Fridays. Patient was admitted on November 28, for hip pain and pain control, then transfered to ICU on 11/29 for hypotension and hypoglycemia, then she was found pneumonia. (1) NSTEMI with trop 2.02, on and off left side chest pin, cardiology is on board, continue heparin drip, would not tolerate NTG due to hypotension (2) abdominal pain CT scan showed1 Complex soft tissue mass in the left hemipelvis, stable and likely the sequela of a remote infectious or inflammatory process, possibly a tubo-ovarian abscess. Partial distention of the urinary bladder with diffuse bladder wall thickening and infiltration of the pericystic fat. Correlate for possible cystitis. will check UA and consult MANAGER NUCLEAR, conitnnus IV zosyn I spoke to MANAGER NUCLEAR, trans-vaginal US ordered (3) Hypotension, improved Current Visit: Yes Status: Acute Patient with episode of hypotension and hypoglycemia 11/29/18, found to be somno lent and altered continue midodrine 5 mg twice per day (2) possible gram negative bacterial pneumonia Chest x-ray on 11/29 performed which shows concern for new right lower lobe airspace opacity, infectious first atelectasis. conitnue iV zosyn and vancomycin CBC remains stable, strep pneumo and urine pending still on 4 L NC (2) Left hip pain Current Visit: Yes Status: Acute CT performed in the ER which shows no fracture or acute osseous abnormality Was seen by orthopedics, Dr. 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 MRI considered as outpatient evaluation. At time of discharge patient will require assistive walking device, preferably a walker (3) ESRD on HD MWF, nephrology is on board Current Visit: Yes Status: Chronic We will continue to avoid nephrotoxic drugs or renally dose. Qualifiers: Chronic kidney disease stage: unspecified stage Qualified Code(s): N18.9 - Chronic kidney disease, unspecified (4) Hypertension Current Visit: Yes Status: Chronic Hold all hypertension medications Qualifiers: Hypertension type: unspecified Qualified Code(s): I10 - Essential (primary) hypertension (5) Depression with anxiety Current Visit: Yes Status: Chronic Continue home medications (6) Asthma Current Visit: Yes Status: Chronic Continue home medications Qualifiers: Asthma complication type: unspecified Qualified Code(s): J45.909 - Unspecified asthma, uncomplicated need weaning O2, conuslt PT and OT, patient was not on home O2 - Time Spent with Patient Total time spent is greater than 50% in coordination of care (as documented) at patient's floor/unit and/or counseling patient: Greater than 35 minutes Internal Medicine: Result - Labs CBC & Chem 7: 12/03/18 02:30 12/03/18 02:30 Labs: Short CBC 12/02/18 12/02/18 12/03/18 Range/Units 18:54 20:08 02:30 WBC 9.3 8.4 7.7 (4.3-11.1) K/mcL Hgb 10.8 L 10.9 L 10.5 L (11.5-15.4) g/dL Hct 35.9 35.6 34.6 L (35.3-44.9) % Plt Count 191 177 161 (140-400) K/mcL Neutrophils # 5.3 (1.6-8.9) K/mcL BMP 12/03/18 02:30 Sodium 138 Potassium 4.4 Chloride 100 Carbon Dioxide 27 BUN 23 H Creatinine 5.23 H Glucose 111 H Calcium 8.6 Cardiac Enzymes 12/02/18 12/02/18 12/03/18 Range/Units 18:54 23:30 06:10 Troponin I 1.95 H* 2.02 H* 2.01 H* (< 0.04) ng/mL - ABG Interpretation ABG results: ABG ABG pH 7.26 pH Units (7.32-7.45) L 11/29/18 20:16 ABG pCO2 75 mmHg (35-45) H* 11/29/18 20:16 ABG pO2 105 mmHg (85-104) H 11/29/18 20:16 ABG O2 Saturation 97 % (95-98) 11/29/18 20:16 PT/INR, D-dimer PT 10.9 Seconds (9.4-12.1) 12/02/18 20:08 - Impressions Impressions KUB X-Ray 12/02/18 17:25 IMPRESSION: Nonspecific bowel gas pattern without acute abnormality identified. D/ / Yordy Schultz MD / Yordy Schultz MD Interpreting Provider: Yordy Schultz MD Abdomen/Pelvis CT 12/02/18 18:59 IMPRESSION: 1. Diffuse infiltration of the mesenteric, retroperitoneal and subcutaneous fat most consistent with 3rd spacing of fluid. Trace perihepatic ascites. Small right pleural effusion. 2. Colonic diverticulosis with no acute features. 3. Marked atrophy of the [place] kidneys bilaterally. 4. Complex soft tissue mass in the left hemipelvis, stable and likely the sequela of a remote infectious or inflammatory process, possibly a tubo-ovarian abscess. 5. Partial distention of the urinary bladder with diffuse bladder wall thickening and infiltration of the pericystic fat. Correlate for possible cystitis. D/ / 12/02/2018 20:32:09 Osmar Holland MD / sofia Interpreting Provider: Osmar Holland MD Consult Discharge Plan - Plan Referrals: Angela Bob, COMPONENT INSPECTOR [Primary Care Provider] -
[2018-12-03] MEDS: Aspirin Enteric Coated 81 MG Tablet PO SCH (10:21)
[2018-12-03] MEDS ORDERED: Nitroglycerin 0.4 MG TAB.SUBL SL PRN (10:46)
[2018-12-03] MEDS: D5% in 0.9% NACL 1,000 ML IVC SCH (11:26)
--- NOTE | 2018-12-03 11:37 | Nephrology Progress Note ---
Date of Encounter: 12/03/18 Time of Encounter: 09:00 - Assessment and Plan (1) NSTEMI (non-ST elevated myocardial infarction) Current Visit: Yes Status: Acute Patient has had elevated protein on the last 24 hours at 1.95, 2.02, 2.01. 07/13/18 TTE showed severely calcified aortic valve leaflets. Moderate-severe . Patient actively endorsing chest pain symptoms. - Patient will undergoing LHC today to rule out any coronary vessel occlusion (2) End stage renal disease Current Visit: No Status: Chronic HD on hold for today due to patient having active chest pain with NSTEMI. Placed on heparin drip and Brilinta. Patient to be undergoing LHC today. (3) Hypotension Current Visit: Yes Status: Acute BP stable today at 108/68. On midodrine. Qualifiers: Hypotension type: unspecified hypotension type Qualified Code(s): I95.9 - Hypotension, unspecified Subjective Principal diagnosis: ESRD on HD, hip pain Interval history: When seen today, patient was alert and oriented x 3. When asked if she remembered having chest pain yesterday, she said she was unable to recall anything about the prior day. At the time I saw her, she was not endorsing any chest pain. She denied any SOB, fever, cough, abdominal pain, nausea, or vomiting. However at 1045 AM, nurse reported the patient c/o retrosternal chest pain. Objective - Vital Signs Vital signs: Vital Signs Temp Pulse Resp BP Pulse Ox 12/03/18 11:01 97.9 F 69 19 124/84 99 12/03/18 10:48 69 20 124/84 100 12/03/18 07:15 97.7 F 69 18 108/68 99 12/03/18 03:53 97.8 F 67 18 103/67 100 12/03/18 00:07 97.6 F 66 18 94/56 99 12/02/18 19:33 97.9 F 70 18 120/75 97 12/02/18 15:40 98.6 F 71 20 96/63 93 12/02/18 12:08 97.5 F L 66 16 101/71 98 Intake and Output 12/02/18 12/03/18 12/03/18 23:59 07:59 15:59 Intake Total 100 / 1440 38 / 1138 1100 / 1138 Balance 100 / 1440 38 / 1138 1100 / 1138 Intake: IV Fluids 100 / 1200 38 / 1138 1100 / 1138 D5% And 0.9% Nacl 1000 Ml 1,000 1000 / 1000 ML @ 40 mls/hr IVC .Q24H [facility] Rx#:[id number] Heparin 25,000 UNIT/250 ML D5W 38 / 38 25,000 unit In 250 ml @ 12 UNIT /KG/HR 6.396 mls/hr IVC .Q24H [facility] Rx#:[id number] Zosyn 3.375 GM In 0.9 % Sodium 100 / 200 100 / 100 Chloride (Mini-Bag +) 100 ML @ 25 mls/hr IVPB Q12HR [facility] Rx#: [id number] Other: Stool Size Moderate Stool Consistency loose liquid Stool Color Brown Weight 47 kg Blood Glucose* 107 90 Patient Weight 12/03/18 23:59 Weight 47 kg - General Appearance General appearance: Present: well-developed, well-nourished, appears started age EENT: Present: mucous membranes moist Neck: Present: no JVD Respiratory: Present: clear Cardiology: Present: no murmurs, holosystolic murmur, no rub, no gallops, regular rate, regular rhythm, normal S1, normal S2 Gastrointestinal: Present: normoactive bowel sounds, no tenderness, no guarding, no organomegaly, no masses Integumentary: Present: warm and dry Neurologic: Present: no focal deficit, alert and oriented x3 Musculoskeletal: Present: no deformities, no cyanosis, no clubbing Psychiatric: Present: mood/affect appropriate, cooperative - Lab 12/03/18 02:30 12/03/18 02:30 Most recent lab results 12/03/18 02:30 Calcium 8.6 Consult Discharge Plan - Plan Referrals: Angela Bob, NORMALIZER [Primary Care Provider] -
[2018-12-03] MEDS: *HR* Heparin 5,000 UNIT/ML VIAL IVP PRN (14:10)
[2018-12-03] MEDS ORDERED: 0.9 % Sodium Chloride 1,000 ML ONE (16:58)
--- NOTE | 2018-12-03 19:05 | OB/GYN Consult Note ---
Date of Encounter: 12/03/18 Time of Encounter: 19:04 Assessment and Plan (1) Adnexal mass Current Visit: Yes Status: Acute Patient's 48-year-old female long history of multiple prior gynecologic as well as urological procedures. She is admitted with left hip pain and had CAT scan today revealing 6.7 x 3.7 cm left adnexal mass. The mass does appear somewhat tubular and is stable back to 2012. There was some mention of possible tubo- ovarian abscess however patient shows no signs of inflammation around the adnexa she has no fever or white blood cell count. Review of CAT scans and ultrasounds back to 2011 showed her to have similar structures in the past and actually in the past she also had similar structures on the right. I do not believe that this is an acute finding I do not believe it is contributing to patient's current situation. I did discuss this with patient and her sister and her mother who were in the room. I did advise that if one to ensure stability we could perform repeat CAT scan in 2-3 months to ensure resolution and rule out worsening of the cystic structure. She would indeed be a significant surgical risk if this would have to be surgically addressed and given her multitude of prior surgeries I do believe she would best be cared for by a gynecologic oncologist in [place]. I can be of any further assistance is to contact me History of Present Illness Consult date: 12/03/18 Reason for consult: other (Complex left adnexal mass) Chief complaint: Admitted for hip pain History of present illness: Patient's a 48-year-old female with end-stage renal disease admitted for left hip pain which is been a chronic issue for this patient and she is followed by Dr. Woody. She had CAT scan performed today showing 5.6 x 3.7 cm complex cystic/tubular mass in the left hemipelvis. Ultrasound today confirmed the same findings that it was better visualized but the CAT scan. Review of prior CAT scans back to 2011 shows similar structures in this region that have thought to have been hydrosalpinx. Patient was born prematurely and has had multiple gynecologic as well as neurologic procedures in the past. She currently has no new complaints of pain in her left lower abdomen and her family confirms that she has not been reporting any more pain in this region she denies bleeding or abnormal discharge. Past Med Surg Social Fam HX - Past Medical History Source: patient, old records reviewed, other (family) Medical history: asthma, dialysis, hypertension, renal disease, thyroid disease, valvular heart disease, other Additional medical history: brittle bone syndrome Psychiatric history: anxiety, depression - Past Surgical History Surgical History: orthopedic, other Additional surgical history: rectal prolapse. kidney/bladder surgeries. graft R arm. right hip surgery - Social History Smoking Status: Never smoker Smokeless Tobacco Status: No Alcohol use: none Drug use: none - Family History Mother Living Status: Still Living Hx Family Cardiac Disorders: Yes (CAD) Hx Family Cancer: Yes (skin cancer) Hx Family Endocrine Disorder: Yes (DM) Father Adopted: No Family Member Ethnicity: Non- Living Status: Still Living Hx Family Cardiac Disorders: Yes (heart disease) Hx Family Respiratory Disorders: No Hx Family Cancer: Yes (prostate) Hx Family GI Disorders: No Hx Family Genitourinary Disorders: No Hx Family Endocrine Disorder: Yes (Diabetes) Hx Family Musculoskeletal Disorders: No Hx Family Neuromuscular Disorders: No Hx Family Neurologic Disorders: No Hx Family HEENT Disorders: No Hx Family Autoimmune Disorders: No Hx Family Reproductive Disorders: No Hx Family Psychosocial Disorders: No Hx Family Medical Disorders: No Medications and Allergies Aspirin Enteric Coated [Aspirin EC] 81 mg PO DAILY #30 tablet. 07/13/18 [Rx] Losartan [Cozaar] 25 mg PO DAILY #30 tablet 07/13/18 [Rx] ALPRAZolam [Xanax 0.5 MG Tablet] 0.5 mg PO DAILY PRN 11/28/18 [History] Sertraline [Zoloft] 50 mg PO DAILY 11/28/18 [History] Albuterol Sulfate [Ventolin Hfa] 2 puff IH Q6H PRN 11/29/18 [History] Allergy/AdvReac Type Severity Reaction Status Date / Time bee venom protein (honey bee) Allergy Difficulty Verified 11/28/18 22:37 Breathing latex Allergy Hives Verified 07/12/18 10:36 moxifloxacin [From Avelox] Allergy Difficulty Verified 07/12/18 10:36 Breathing Exam - Vital Signs Vital signs: Initial Vital Signs Temp Pulse Resp BP Pulse Ox 98.3 F 113 18 157/90 97 11/28/18 17:51 11/28/18 17:51 11/28/18 17:51 11/28/18 17:51 11/28/18 17:51 - Constitutional Constitutional: moderate distress - HEENT HEENT: Mucus Membranes Moist - Lungs Respiratory exam: CTAB - Cardiovascular Cardiovascular exam: RRR - Abdomen Abdomen: Present: bowel sounds normal - Comments Comments: No pelvic exam b/c pt with multiple prior vaginal surgeries and family reports that pt sustains fractures very easily. Results Result Diagrams: 12/03/18 02:30 12/03/18 02:30 Abnormal lab results RBC 3.41 M/mcL (3.82-4.97) L 12/03/18 02:30 Hgb 10.5 g/dL (11.5-15.4) L 12/03/18 02:30 Hct 34.6 % (35.3-44.9) L 12/03/18 02:30 MCV 101.5 fL (83.0-100.0) H 12/03/18 02:30 MCHC 30.3 g/dL (31.6-35.5) L 12/03/18 02:30 Plt Count 116 K/mcL (140-400) L 11/29/18 15:09 0.3 K/mcL (0.6-4.6) L 11/29/18 15:09 Heparin Anti-Xa, Unfract 0.21 IU/mL (0.30-0.70) L 12/03/18 12:57 ABG pH 7.26 pH Units (7.32-7.45) L 11/29/18 20:16 ABG pCO2 75 mmHg (35-45) H* 11/29/18 20:16 ABG pO2 105 mmHg (85-104) H 11/29/18 20:16 ABG HCO3 34 mEq/L (21-27) H 11/29/18 20:16 ABG Total CO2 36 mEq/L (20-26) H 11/29/18 20:16 ABG O2 Saturation 92 % (95-98) L 11/29/18 15:34 ABG Base Excess 5 mEq/L (-2 to 3) H 11/29/18 20:16 Sodium 135 mEq/L (136-145) L 11/29/18 15:09 Potassium 5.2 mEq/L (3.5-5.1) H 12/01/18 03:55 Chloride 95 mEq/L (98-107) L 12/01/18 03:55 Carbon Dioxide 31 mEq/L (23-29) H 12/02/18 05:35 BUN 23 mg/dL (6-20) H 12/03/18 02:30 5.23 mg/dL (0.60-1.20) H 12/03/18 02:30 Est GFR ( Amer) 11 (> 60) L 12/03/18 02:30 Est GFR (Non-Af Amer) 9 (> 60) L 12/03/18 02:30 4 (6-26) L 12/03/18 02:30 Glucose 111 mg/dL (70-105) H 12/03/18 02:30 POC Glucose 112 mg/dL (70-99) H 12/03/18 00:11 301 (280-300) H 11/29/18 00:57 Phosphorus 7.4 mg/dL (2.7-4.5) H 12/01/18 03:55 2.01 ng/mL (< 0.04) H* 12/03/18 11:15 2.60 ng/mL (0.00-0.15) H 11/30/18 17:07 All other labs normal. Consult Discharge Plan - Plan Referrals: Angela Bob CNP [Primary Care Provider] -
[2018-12-04 03:59] LABS: Hematocrit 32.2 % (35.3-44.9); Hemoglobin 9.8 g/dL (11.5-15.4); Mean Corpuscular HGB Conc 30.4 g/dL (31.6-35.5); Mean Corpuscular Hemoglobin 30.4 pg (28.0-33.3); Platelet Count 146 K/mcL (140-400); Red Blood Count 3.22 M/mcL (3.82-4.97); Red Cell Distribution Width 14.1 % (11.5-14.5)
[2018-12-04 04:18] LABS: Calcium 9.1 mg/dL (8.6-10.3); Potassium 4.1 mEq/L (3.5-5.1)
[2018-12-04] MEDS: Heparin 25,000 UNIT/250 ML D5W 25,000 UNIT/250 ML IV.SOLN IVC SCH (05:29)
[2018-12-04] MEDS: Piperacillin/Tazobactam 3.375 GM in 0.9 % Sodium Chloride Mini Bag 100 ML IVPB SCH ×2 (05:29→18:00)
--- NOTE | 2018-12-04 09:02 | Cardiology Progress Note ---
Date of Encounter: 12/04/18 Time of Encounter: 09:00 Assessment and Plan (1) NSTEMI (non-ST elevated myocardial infarction) Current Visit: Yes Status: Acute Pt with elevated troponin, 1.95, 2.02, 2.01. Also c/o intermittent chest pain. Troponin also elevated in the setting of hypotension. ESRD, and PNA. Limited TTE LVEF 65-70%. Moderate concentric left ventricular hypertrophy. Normal right ventricular structure and function. Mildly dilated left atrium. 07/13/18 TTE showed severely calcified aortic valve leaflets. Moderate-severe . IRMA was approximately 1.02 cm2. Peak aortic velocity is 3.92m/s, MG 33 mmHg. Mild AR. Mild-moderate MS. MG is 6 mmHg. 07/14/18 MELINA showed --Mild aortic stenosis. Estimated IRMA 1.7 cm2 by planimetry. (V1/V2 2/3.1, PG/MG /, LVOT 1.6). Trace/trivial aortic regurgitation. Mild calcified aortic valve. 07/15/2018 Nuclear stress test tell was negative for ischemia or infarct Multiple cardiac risk factors for CAD. Denies recurrent chest pain overnight. Planning for [facility] Thursday. R/B/A of [facility] reviewed with patient and she agrees to proceed. Continue heparin gtt. Asa, statin. Holding bb for low b/p at times. NPO after midnight on thursday for [facility]. Cardiology will monitor peripherally over . (2) Acute hypercapnic respiratory failure Current Visit: Yes Status: Acute Discussion w patient/family: The assessment and plan as outlined above was discussed with the patient and/or family members who expressed understanding and agreement. All questions were answered. Thank you for involving us in the care of your patient. Please call with any questions. Subjective Principal diagnosis: ESRD on HD, hip pain Interval history: Pt resting with no complaints. Objective Vital Signs, Last 4 Hours Temp Pulse Resp BP Pulse Ox 12/04/18 07:14 97.8 F 7 16 106/66 100 General: Conversant, No Apparent Distress, Other (Drowsy) HEENT: Atraumatic, Normocephaly, Mucus Membranes Moist Neck: No JVD, Normal carotid pulses Cardiac: Reg Rate and Rhythm, Normal S1 and S2, Other (3/6 murmur) Lungs: Normal Breath Sounds, No Wheeze, Rales, Rhonchi Neuro: Alert and responsive, No focal deficits noted Abdomen: Soft, Non-Tender Skin: No rashes noted on visualized skin Musculoskeletal: No Chest Wall Tenderness Extremities: No Clubbing, No Cyanosis, No Edema, Normal Pulses Results 12/04/18 03:40 12/04/18 03:40 Lab Results 12/03/18 12/04/18 12/04/18 11:15 03:40 03:40 WBC 5.2 Hgb 9.8 L Hct 32.2 L Plt Count 146 Sodium 140 Potassium 4.1 Chloride 101 Carbon Dioxide 30 H BUN 10 Creatinine 3.43 H Glucose 108 H Calcium 9.1 Troponin I 2.01 H* - Imaging and Cardiology Echo: report reviewed - EKG Interpretation EKG results cardiology: personally reviewed Consult Discharge Plan - Plan Referrals: Angela Bob, HEAVENLY [Primary Care Provider] -
[2018-12-04] MEDS: Aspirin Enteric Coated 81 MG Tablet PO SCH (09:07)
--- NOTE | 2018-12-04 09:37 | Nephrology Progress Note ---
Date of Encounter: 12/04/18 Time of Encounter: 09:37 - Assessment and Plan (1) End stage renal disease Current Visit: No Status: Chronic HD MWF. Renal vitamins. Renal dose medications. Renal diet. Additional dialysis and ultrafiltration as needed. No need for dialysis today. (2) Hypotension Current Visit: Yes Status: Acute Qualifiers: Hypotension type: unspecified hypotension type Qualified Code(s): I95.9 - Hypotension, unspecified Subjective Principal diagnosis: ESRD on HD, hip pain Interval history: Patient seen. She has no new complaint. She denies chest pain or dyspnea. She states she feels "ok". Her ROS is stable. Objective - Vital Signs Vital signs: Vital Signs Temp Pulse Resp BP Pulse Ox 12/04/18 07:14 97.8 F 7 16 106/66 100 12/04/18 03:41 97.6 F 68 19 119/77 98 12/03/18 23:43 98 F 70 19 132/89 98 12/03/18 19:50 98.4 F 71 19 120/78 99 12/03/18 18:07 98.1 F 78 19 113/77 99 12/03/18 17:41 97.9 F 18 145/81 12/03/18 17:20 117/76 12/03/18 17:05 114/76 12/03/18 16:50 111/71 12/03/18 16:35 116/75 12/03/18 16:20 121/87 12/03/18 16:05 127/84 12/03/18 15:50 121/86 12/03/18 15:35 124/78 12/03/18 15:20 117/78 12/03/18 15:05 132/85 12/03/18 14:50 124/67 12/03/18 14:35 112/73 12/03/18 14:20 97.8 F 18 112/70 12/03/18 11:01 97.9 F 69 19 124/84 99 12/03/18 10:48 69 20 124/84 100 Intake and Output 12/03/18 12/04/18 12/04/18 23:59 07:59 15:59 Intake Total 149.5 / 1957.5 92.5 / 92.5 Output Total 2900 / 2900 Balance -2750.5 / -942.5 92.5 / 92.5 Intake: IV Fluids 149.5 / 1357.5 92.5 / 92.5 Heparin 25,000 UNIT/250 ML D5W 49.5 / 157.5 92.5 / 92.5 25,000 unit In 250 ml @ 12 UNIT /KG/HR 6.396 mls/hr IVC .Q24H E[facility]INE Rx#:[id number] Zosyn 3.375 GM In 0.9 % Sodium 100 / 200 Chloride (Mini-Bag +) 100 ML @ 25 mls/hr IVPB Q12HR ELAINE Rx#: [id number] Output: Total Dialysis (HD) Output 2600 / 2600 Catheter 300 / 300 Other: Weight 47 kg Blood Glucose* 90 97 Hemodialysis Net Fluid Removed 2000 (mL) - General Appearance General appearance: Present: well-developed, well-nourished EENT: Present: ATNC Cardiology: Present: regular rate Neurologic: Present: alert and oriented x3 Musculoskeletal: Present: no cyanosis Psychiatric: Present: mood/affect appropriate - Lab 12/04/18 03:40 12/04/18 03:40 Most recent lab results 12/04/18 03:40 Calcium 9.1 Consult Discharge Plan - Plan Referrals: Angela Bob, [employer] [Primary Care Provider] -
--- NOTE | 2018-12-04 10:14 | Internal Med Progress Note ---
Hospitalist Progress Note - Encounter Date of Encounter: 12/04/18 Time of Encounter: 10:11 - Subjective Interval History: Patient is doing okay, no chest pain. Denies any nausea vomiting, has poor appetite did not have breakfast. Patient is said she was not wearing oxygen at home denies any shortness of breath. Vitas V acute stable, on 4 L nasal cannula 100% sats. Patient is aware of getting left heart catheterization on Thursday - Exam Vitals: Temp Pulse Resp BP Pulse Ox 97.8 F 7 16 106/66 100 12/04/18 07:14 12/04/18 07:14 12/04/18 07:14 12/04/18 07:14 12/04/18 07:14 Exam: CONSTITUTIONAL: patient appears as an age appropriate female in no acute dis tress. EYES Clear sclerae, bilateral pupils are equal, reactive to light. EMOI. RESPIRATORY: No accessory muscle use, bilateral scant crackles/rales. CARDIOVASCULAR: Regular heart rate, normal S1 and S2, no murmurs GASTROINTESTINAL: bowel sounds present, soft, mild tenderness to left upper and lower abdomen. MUSCULOSKELETAL: Joints in normal range of motion, no clubbing, no edema, no cyanosis. Bilateral peripheral pulses 2+. NEUROLOGIC: CN II to XII are grossly intact, no focal neurological deficit. DVT Prophylaxis: On heparin subq - Summary of Assessment and Plan Summary of Assessment and Plan: Ms. Darby is a 48 year old female with past medical history significant for hypertension, chronic renal disease on dialysis, valvular heart disease, brittle bone disease, hypoparathyroidism, rectal prolapse, asthma, anxiety, and depression who presents for complaints of left leg hip pain for past two weeks getting progressively worse. Previous orthopedic surgery performed by Dr Woody whom the ER called and he agrees to see patient in consult in the morning. States she is supposed to schedule follow up with cardiology after recently being diagnosed with aortic and mitral stenosis. Receives dialysis Mondays, Wednesdays, and Fridays. Patient was admitted on November 28, for hip pain and pain control, then transfered to ICU on 11/29 for hypotension and hypoglycemia, then she was found pneumonia. (1) NSTEMI with trop 2.02, on and off left side chest pain, cardiology is on board, continue heparin drip, would not tolerate NTG due to hypotension, appreciate cardiology consult, getting [facility] on Thursday (2) Left Ovary complex cystic structure 5.1X2.5 cm, abdominal pain CT scan showed1 Complex soft tissue mass in the left hemipelvis, stable and likely the sequela of a remote infectious or inflammatory process, possibly a tubo-ovarian abscess., transvaginal US showed 1. Complex cystic structure in the left adnexa corresponding to recent CT. Based upon prior CT findings, this is suspected to represent either hydrosalpinx or tubo-ovarian abscess. No significant inflammation on the current ultrasound. appreciate [employer] [employer] consult: they recommended perform repeat CAT scan in 2-3 months to ensure resolution and rule out worsening of the cystic structure. She would indeed be a significant surgical risk if this would have to be surgically addressed and given her multitude of prior surgeries I do believe she would best be cared for by a gynecologic oncologist in [place]. CT showed Partial distention of the urinary bladder with diffuse bladder wall thickening and infiltration of the pericystic fat. Correlate for possible cystitis. UA was not done, will order again (3) Hypotension, improved Current Visit: Yes Status: Acute Patient with episode of hypotension and hypoglycemia 11/29/18, found to be somnolent and altered continue midodrine 5 mg twice per day (2) possible gram negative bacterial pneumonia Chest x-ray on 11/29 performed which shows concern for new right lower lobe airspace opacity, infectious first atelectasis. conitnue iV zosyn, MRSA screen is negative CBC remains stable, strep pneumo still on 4 L NC (2) Left hip pain Current Visit: Yes Status: Acute CT performed in the ER which shows no fracture or acute osseous abnormality Was seen by orthopedics, Dr. 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 MRI considered as outpatient evaluation. At time of discharge patient will require assisting walking device, preferably a walker (3) ESRD on HD MWF, nephrology is on board Current Visit: Yes Status: Chronic We will continue to avoid nephrotoxic drugs or renally dose. Qualifiers: Chronic kidney disease stage: unspecified stage Qualified Code(s): N18.9 - Chronic kidney disease, unspecified (4) Hypertension Current Visit: Yes Status: Chronic Hold all hypertension medications Qualifiers: Hypertension type: unspecified Qualified Code(s): I10 - Essential (primary) hypertension (5) Depression with anxiety Current Visit: Yes Status: Chronic Continue home medications (6) Asthma Current Visit: Yes Status: Chronic Continue home medications Qualifiers: Asthma complication type: unspecified Qualified Code(s): J45.909 - Unspecified asthma, uncomplicated DIsposition: pending [facility] on Thursday - Time Spent with Patient Total time spent is greater than 50% in coordination of care (as documented) at patient's floor/unit and/or counseling patient: Greater than 35 minutes Plan of Care Discussed with: patient Internal Medicine: Result - Labs CBC & Chem 7: 12/04/18 03:40 12/04/18 03:40 Labs: Short CBC 12/04/18 Range/Units 03:40 WBC 5.2 (4.3-11.1) K/mcL Hgb 9.8 L (11.5-15.4) g/dL Hct 32.2 L (35.3-44.9) % Plt Count 146 (140-400) K/mcL BMP 12/04/18 03:40 Sodium 140 Potassium 4.1 Chloride 101 Carbon Dioxide 30 H BUN 10 Creatinine 3.43 H Glucose 108 H Calcium 9.1 Cardiac Enzymes 12/03/18 Range/Units 11:15 Troponin I 2.01 H* (< 0.04) ng/mL - ABG Interpretation ABG results: ABG ABG pH 7.26 pH Units (7.32-7.45) L 11/29/18 20:16 ABG pCO2 75 mmHg (35-45) H* 11/29/18 20:16 ABG pO2 105 mmHg (85-104) H 11/29/18 20:16 ABG O2 Saturation 97 % (95-98) 11/29/18 20:16 PT/INR, D-dimer PT 10.9 Seconds (9.4-12.1) 12/02/18 20:08 - Impressions Impressions Echocardiogram Limited Views 12/03/18 10:31 Impressions: LVEF 65-70%. Moderate concentric left ventricular hypertrophy. Normal right ventricular structure and function. Mildly dilated left atrium. Left Ventricular Wall Motion: Rest Echo Findings All wall segments showed normal motion. Findings: Study Quality * Technically adequate exam. ECG Findings * Normal sinus rhythm. Left Ventricle * LVEF 65-70%. * Moderate concentric left ventricular hypertrophy. Right Ventricle * Normal right ventricular structure and function. Right Atrium * Normal right atrial size. Left Atrium * Mildly dilated left atrium. Tricuspid Valve * Estimated RA pressure is 3 mmHg. IVC * The IVC is not dilated. * > 50% respiratory change Aortic Valve * Severely calcified aortic valve leaflets. Mitral Valve * Moderate mitral annular calcification Abdomen/Pelvis/Transvag US 12/03/18 12:00 IMPRESSION: 1. Complex cystic structure in the left adnexa corresponding to recent CT. Based upon prior CT findings, this is suspected to represent either hydrosalpinx or tubo-ovarian abscess. No significant inflammation on the current ultrasound. 2. Continued gynecology follow-up is recommended. A 6 week repeat ultrasound would be advised to ensure resolution if no other intervention is undertaken. D/ / Jef Avitia MD / Jef Avitia MD Interpreting Provider: Jef Avitia MD Consult Discharge Plan - Plan Referrals: Angela Bob CNP [Primary Care Provider] -
[2018-12-04] MEDS: *HR* Heparin 5,000 UNIT/ML VIAL IVP PRN (12:54)
[2018-12-04] MEDS: D5% in 0.9% NACL 1,000 ML IVC SCH (15:19)
[2018-12-05 07:04] LABS: Hematocrit 30.7 % (35.3-44.9); Hemoglobin 9.3 g/dL (11.5-15.4); Mean Corpuscular HGB Conc 30.3 g/dL (31.6-35.5); Mean Corpuscular Hemoglobin 30.3 pg (28.0-33.3); Platelet Count 142 K/mcL (140-400); Red Blood Count 3.07 M/mcL (3.82-4.97); Red Cell Distribution Width 14.3 % (11.5-14.5)
[2018-12-05 07:23] LABS: Calcium 9.6 mg/dL (8.6-10.3); Potassium 3.6 mEq/L (3.5-5.1)
[2018-12-05] MEDS: Piperacillin/Tazobactam 3.375 GM in 0.9 % Sodium Chloride Mini Bag 100 ML IVPB SCH (08:03)
[2018-12-05] MEDS: Aspirin Enteric Coated 81 MG Tablet PO SCH (08:04)
--- NOTE | 2018-12-05 09:48 | Event Note ---
Date of Encounter: 12/05/18 Time of Encounter: 09:00 - Cardiology Event Note Patient placed nothing by mouth after midnight for cardiac catheterization as recommended tomorrow. Likely to be done after dialysis. [facility] risks, benefits, and alternatives reviewed with patient today and she states she continues to agree with plan.
[2018-12-05] MEDS: Heparin 25,000 UNIT/250 ML D5W 25,000 UNIT/250 ML IV.SOLN IVC SCH (10:39)
--- NOTE | 2018-12-05 11:11 | Nephrology Progress Note ---
Date of Encounter: 12/05/18 Time of Encounter: 11:11 - Assessment and Plan (1) End stage renal disease Current Visit: No Status: Chronic HD MWF. Renal vitamins. Renal dose medications. Renal diet. Additional dialysis and ultrafiltration as needed. No need for dialysis today. (2) Hypotension Current Visit: Yes Status: Resolved Midodrine discontinued as the patient is now hypertensive. Will increase losartan. Patient may need nitroglycerine. Qualifiers: Hypotension type: unspecified hypotension type Qualified Code(s): I95.9 - Hypotension, unspecified (3) NSTEMI (non-ST elevated myocardial infarction) Current Visit: Yes Status: Acute Per cardiology. Subjective Principal diagnosis: ESRD on HD, hip pain Interval history: Patient seen. She is asleep. Objective - Vital Signs Vital signs: Vital Signs Temp Pulse Resp BP Pulse Ox 12/05/18 07:29 98.3 F 79 16 157/91 95 12/05/18 04:54 97.7 F 79 16 169/97 99 12/05/18 00:50 98.4 F 73 16 176/106 98 12/04/18 20:49 97.8 F 77 16 160/94 97 12/04/18 16:07 97.6 F 75 16 137/80 99 12/04/18 11:17 97.6 F 70 16 139/87 100 Intake and Output 12/04/18 12/05/18 12/05/18 23:59 07:59 15:59 Intake Total 159 / 403.5 96.1 / 139.0 42.9 / 139.0 Balance 159 / 403.5 96.1 / 139.0 42.9 / 139.0 Intake: IV Fluids 159 / 403.5 96.1 / 139.0 42.9 / 139.0 Heparin 25,000 UNIT/250 ML D5W 59 / 203.5 96.1 / 139.0 42.9 / 139.0 25,000 unit In 250 ml @ 12 UNIT /KG/HR 6.396 mls/hr IVC .Q24H [facility] Rx#:[id number] Zosyn 3.375 GM In 0.9 % Sodium 100 / 200 Chloride (Mini-Bag +) 100 ML @ 25 mls/hr IVPB Q12HR E[facility]INE Rx#: [id number] Other: Stool Size Moderate Stool Consistency loose # Bowel Movement Diapers 1 Weight 48.2 kg Patient Weight 05/12/19 23:59 Weight 48.2 kg - General Appearance General appearance: Present: well-developed, well-nourished EENT: Present: ATNC Neck: Present: supple Cardiology: Present: regular rate - Lab 12/05/18 06:43 12/05/18 06:43 Most recent lab results 12/05/18 06:43 Calcium 9.6 Consult Discharge Plan - Plan Referrals: Angela Bob, DEVELOPMENT PLANNER [Primary Care Provider] -
--- NOTE | 2018-12-05 12:07 | Internal Med Progress Note ---
Hospitalist Progress Note - Encounter Date of Encounter: 12/05/18 Time of Encounter: 12:04 - Subjective Interval History: I have seen and evaluated the patient at bedside. today she is reporting right hip pain. denies nausea, vomiting or shortness of breath. but she reports nose congestion. denies abdominal pain or diarrhea. - Exam Vitals: Temp Pulse Resp BP Pulse Ox 97.9 F 78 18 185/127 99 12/05/18 11:34 12/05/18 11:34 12/05/18 11:34 12/05/18 11:34 12/05/18 11:34 Exam: vitals: reviewed General: AOx4. mild distress due to nose congestion and right hip pain Cardiovascular: RRR, normal S1 & S2, no rubs, murmurs or gallops. No JVD. Pulse regular. Lungs: expiratory wheezes on the left lower lobe, no rales or crackles. Abdomen:Soft, non-tender, no rigidity. Extremities: No edema Neurological: No focal neurological deficits Rest of the physical exam is non contributory - Assessment and Plan (1) NSTEMI (non-ST elevated myocardial infarction) Current Visit: Yes Status: Acute Assessment and Plan: Patient denied chest pain. On a heparin drip. Scheduled for a left heart catheter tomorrow morning. Low-dose beta florian added. Continue aspirin and statin. Cardiology recommendation appreciated. Nitroglycerin 0.4 mg sublingual every 5 minutes when necessary for chest pain. (2) Hypertension Current Visit: Yes Status: Chronic Assessment and Plan: Blood pressure is suboptimally controlled. Resume losartan 25 mg by mouth daily. Metoprolol 12.5 mg by mouth daily added. (3) Left hip pain Current Visit: Yes Status: Chronic Assessment and Plan: Pain management with oxycodone 5 mg sublingual every 6 hours when necessary. (4) Chronic renal disease Current Visit: Yes Status: Chronic Assessment and Plan: Patient on hemodialysis. Continue renal replacement therapy per nephrology recommendation. (5) Depression with anxiety Current Visit: Yes Status: Chronic Assessment and Plan: Patient is on sertraline 50 mg by mouth daily. (6) Asthma Current Visit: Yes Status: Chronic Assessment and Plan: Patient with mild expiratory wheezing on the left lower lobe. In no distress. Continue bronchodilators every 4 hours when necessary. (7) Acute hypercapnic respiratory failure Current Visit: Yes Status: Resolved (8) Hypotension Current Visit: Yes Status: Resolved (9) Pneumonia Current Visit: Yes Status: Resolved Assessment and Plan: CT abdomen and pelvis FINDINGS: Lower Chest: Small right pleural effusion. Dependent lower lobe opacification, likely subsegmental atelectasis or possibly infiltrate. The heart is enlarged. Plan Discontinue piperacillin/tazobactam Started on ceftriaxone 1 g IV daily. Blood cultures: No growth, pending final report. Incentive spirometry. (10) Hyperlipidemia Current Visit: Yes Status: Chronic Assessment and Plan: On atorvastatin 40 mg by mouth at bedtime. DVT Prophylaxis: Patient is on a heparin drip. - Summary of Assessment and Plan Summary of Assessment and Plan: Patient to remain in the hospital due to NSTEMI scheduled for [facility] tomorrow - Time Spent with Patient Total time spent is greater than 50% in coordination of care (as documented) at patient's floor/unit and/or counseling patient: Greater than 35 minutes (40) Plan of Care Discussed with: patient (and the nurse.) Internal Medicine: Result - Labs CBC & Chem 7: 12/05/18 06:43 12/05/18 06:43 Labs: Short CBC 12/05/18 Range/Units 06:43 WBC 5.0 (4.3-11.1) K/mcL Hgb 9.3 L (11.5-15.4) g/dL Hct 30.7 L (35.3-44.9) % Plt Count 142 (140-400) K/mcL BMP 12/05/18 06:43 Sodium 140 Potassium 3.6 Chloride 104 Carbon Dioxide 25 BUN 18 Creatinine 5.02 H Glucose 107 H Calcium 9.6 - ABG Interpretation ABG results: ABG ABG pH 7.26 pH Units (7.32-7.45) L 11/29/18 20:16 ABG pCO2 75 mmHg (35-45) H* 11/29/18 20:16 ABG pO2 105 mmHg (85-104) H 11/29/18 20:16 ABG O2 Saturation 97 % (95-98) 11/29/18 20:16 PT/INR, D-dimer PT 10.9 Seconds (9.4-12.1) 12/02/18 20:08 Consult Discharge Plan - Plan Referrals: Angela Bob, [employer] PROFESSIONAL [Primary Care Provider] - (2) Hypertension Qualifiers: Hypertension type: unspecified Qualified Code(s): I10 - Essential (primary) hypertension (4) Chronic renal disease Qualifiers: Chronic kidney disease stage: unspecified stage Qualified Code(s): N18.9 - Chronic kidney disease, unspecified (6) Asthma Qualifiers: Asthma severity: unspecified severity Asthma persistence: unspecified Asthma complication type: unspecified Qualified Code(s): J45.909 - Unspecified asthma, uncomplicated (8) Hypotension Qualifiers: Hypotension type: unspecified hypotension type Qualified Code(s): I95.9 - Hypotension, unspecified (10) Hyperlipidemia Qualifiers: Hyperlipidemia type: unspecified Qualified Code(s): E78.5 - Hyperlipidemia, unspecified
[2018-12-05] MEDS: Metoprolol XL (24 HR) Succ 25 MG TAB.ER.24H PO SCH (12:43)
[2018-12-05] MEDS: *HR* HYDROcodone/Acet 5/325 mg TABLET PO PRN ×2 (12:43→22:56)
[2018-12-05] MEDS: cefTRIAXone 1,000 MG in Water for inj. (sterile) 20 ML 10 ML IVP SCH (15:01)
[2018-12-05] MEDS: D5% in 0.9% NACL 1,000 ML IVC SCH (19:56)
[2018-12-06] MEDS: Heparin 25,000 UNIT/250 ML D5W 25,000 UNIT/250 ML IV.SOLN IVC SCH (02:21)
[2018-12-06 02:54] LABS: Hematocrit 30.5 % (35.3-44.9); Hemoglobin 9.2 g/dL (11.5-15.4); Mean Corpuscular HGB Conc 30.2 g/dL (31.6-35.5); Mean Corpuscular Hemoglobin 30.7 pg (28.0-33.3); Mean Corpuscular Volume 101.7 fL (83.0-100.0); Mean Platelet Volume 10.2 fL (9.4-12.4); Platelet Count 140 K/mcL (140-400); Red Cell Distribution Width 14.4 % (11.5-14.5)
[2018-12-06 03:15] LABS: Calcium 8.8 mg/dL (8.6-10.3); Magnesium 2.4 mg/dL (1.6-2.6); Phosphorous 6.9 mg/dL (2.7-4.5); Potassium 3.8 mEq/L (3.5-5.1)
[2018-12-06] MEDS ORDERED: 0.9 % Sodium Chloride 250 ML IVC PRN (08:30)
[2018-12-06] MEDS ORDERED: 0.9 % Sodium Chloride 1,000 ML PRIME SCH (08:30)
[2018-12-06] MEDS ORDERED: 0.9 % Sodium Chloride 2,000 ML ONE (08:38)
[2018-12-06] MEDS: Aspirin Enteric Coated 81 MG Tablet PO SCH (09:14)
[2018-12-06] MEDS: cefTRIAXone 1,000 MG in Water for inj. (sterile) 20 ML 10 ML IVP SCH (09:14)
[2018-12-06] MEDS: Metoprolol XL (24 HR) Succ 25 MG TAB.ER.24H PO SCH (09:15)
--- NOTE | 2018-12-06 09:43 | Nephrology Progress Note ---
Date of Encounter: 12/06/18 Time of Encounter: 09:00 - Assessment and Plan (1) End stage renal disease Current Visit: No Status: Chronic - Hemodialysis Thursday. - Renal vitamins. - Renally dose medications. - Renal diet. - Additional dialysis and ultrafiltration as needed. - Dialysis scheduled for today. - Avoid nephrotoxins. (2) NSTEMI (non-ST elevated myocardial infarction) Current Visit: Yes Status: Acute Currently denies chest pain. On heparin drip. On low-dose beta florian. On aspirin and statin. On nitroglycerin 0.4 mg sublingual when necessary. - Scheduled for [facility] later today. - NPO. - Management per cardiology. (3) Hypotension Current Visit: Yes Status: Resolved BP controlled at 104/66. - Continue losartan. Qualifiers: Hypotension type: unspecified hypotension type Qualified Code(s): I95.9 - Hypotension, unspecified Subjective Principal diagnosis: ESRD on HD, hip pain Interval history: When seen this morning the patient denies any chest pain or shortness of breath. She denies any abdominal pain, nausea, or vomiting. Denies any swelling in her lower extremities. Denies any fever or cough. Patient does state that yesterday she did experience chest pain with shortness of breath which lasted for a few hours however right now she currently does not have any symptoms. Objective - Vital Signs Vital signs: Vital Signs Temp Pulse Resp BP Pulse Ox 12/06/18 07:27 97.4 F L 72 16 104/66 100 12/06/18 04:01 97.8 F 76 16 110/70 98 12/05/18 23:28 98.8 F 72 16 100/63 100 12/05/18 20:14 98.2 F 71 16 104/68 100 12/05/18 16:04 97.9 F 71 16 129/77 98 12/05/18 11:34 97.9 F 78 18 185/127 99 Intake and Output 12/05/18 12/06/18 12/06/18 23:59 07:59 15:59 Intake Total 1240 / 1476.0 163 / 163 Balance 1240 / 1476.0 163 / 163 Intake: IV Fluids 1000 / 1236.0 163 / 163 D5% And 0.9% Nacl 1000 Ml 1,000 1000 / 1000 ML @ 40 mls/hr IVC .Q24H ELAINE Rx#:[id number] Heparin 25,000 UNIT/250 ML D5W 153 / 153 25,000 unit In 250 ml @ 12 UNIT /KG/HR 6.396 mls/hr IVC .Q24H E[facility]INE Rx#:[id number] Rocephin 1,000 MG In Water for inj. (sterile) 10 ML @ 600 mls/ hr IVP DAILY ELAINE Rx#:[id number] Oral 240 / 240 Other: Meal Dinner Percent of Meal Consumed 95% Stool Size Moderate Stool Consistency loose liquid # Bowel Movement Diapers 1 Weight 48.7 kg Patient Weight 12/06/18 23:59 Weight 48.7 kg - General Appearance General appearance: Present: well-developed, well-nourished, appears started age EENT: Present: mucous membranes moist Neck: Present: no JVD Respiratory: Present: clear Cardiology: Present: holosystolic murmur, no rub, no gallops, regular rate, regular rhythm, normal S1, normal S2 Dialysis Vascular Access: Arteriovenous Fistula (R arm) Gastrointestinal: Present: normoactive bowel sounds, no tenderness, no guarding, no organomegaly, no masses Integumentary: Present: no rash, warm and dry Neurologic: Present: no focal deficit, alert and oriented x3 Musculoskeletal: Present: no deformities, no erythema, no cyanosis, no clubbing Psychiatric: Present: mood/affect appropriate, cooperative - Lab 12/06/18 02:30 12/06/18 02:30 Most recent lab results 12/06/18 12/06/18 02:30 02:30 Calcium 8.8 Phosphorus 6.9 H Magnesium 2.4 Consult Discharge Plan - Plan Referrals: Angela Bob, RECREATION TECHNICIAN [Primary Care Provider] -
--- NOTE | 2018-12-06 12:51 | Internal Med Progress Note ---
Hospitalist Progress Note - Encounter Date of Encounter: 12/06/18 Time of Encounter: 09:45 - Subjective Interval History: No acute events overnight. Denies any chest pain, nausea/vomiting, diaphoresis, or worsening cough. No abdominal pain or change in bowel habits. - Exam Vitals: Temp Pulse Resp BP Pulse Ox 98.6 F 72 16 109/67 99 12/06/18 11:04 12/06/18 11:04 12/06/18 11:04 12/06/18 11:04 12/06/18 11:04 Exam: vitals: reviewed General: AOx4. Not in distress Cardiovascular: RRR, normal S1 & S2, no rubs, murmurs or gallops. No JVD. Pulse regular. Lungs: clear to auscultation Abdomen:Soft, non-tender, no rigidity. Extremities: No edema Neurological: No focal neurological deficits - Assessment and Plan (1) Acute hypercapnic respiratory failure Current Visit: Yes Status: Resolved Assessment and Plan: also associated with hypoxia secondary to PNA, completed 5 days of Zosyn and now on IV Rocephin. Complete a total of 7 days of abx wean O2 as tolerated (2) NSTEMI (non-ST elevated myocardial infarction) Current Visit: Yes Status: Acute Assessment and Plan: Troponin peaked at 2.02 Echocardiogram showed normal EF ASA, bb, statin, hep gtt. 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 (9) ESRD (end stage renal disease) on dialysis Current Visit: Yes Status: Chronic Assessment and Plan: Dialysis per nephrology - Time Spent with Patient Total time spent is greater than 50% in coordination of care (as documented) at patient's floor/unit and/or counseling patient: Greater than 35 minutes (45 mins) Plan of Care Discussed with: patient (Discussed with social media director and case management) Internal Medicine: Result - Labs CBC & Chem 7: 12/06/18 02:30 12/06/18 02:30 Labs: Short CBC 12/06/18 Range/Units 02:30 WBC 5.2 (4.3-11.1) K/mcL Hgb 9.2 L (11.5-15.4) g/dL Hct 30.5 L (35.3-44.9) % Plt Count 140 (140-400) K/mcL BMP 12/06/18 02:30 Sodium 141 Potassium 3.8 Chloride 103 Carbon Dioxide 26 BUN 23 H Creatinine 5.99 H Glucose 108 H Calcium 8.8 - ABG Interpretation ABG results: ABG ABG pH 7.26 pH Units (7.32-7.45) L 11/29/18 20:16 ABG pCO2 75 mmHg (35-45) H* 11/29/18 20:16 ABG pO2 105 mmHg (85-104) H 11/29/18 20:16 ABG O2 Saturation 97 % (95-98) 11/29/18 20:16 PT/INR, D-dimer PT 10.9 Seconds (9.4-12.1) 12/02/18 20:08 Consult Discharge Plan - Plan Referrals: Angela Bob, [employer] COR[employer]OR [Primary Care Provider] - (5) Hypertension Qualifiers: Hypertension type: unspecified Qualified Code(s): I10 - Essential (primary) hypertension (7) Asthma Qualifiers: Asthma severity: unspecified severity Asthma persistence: unspecified Asthma complication type: unspecified Qualified Code(s): J45.909 - Unspecified asthma, uncomplicated (8) Hyperlipidemia Qualifiers: Hyperlipidemia type: unspecified Qualified Code(s): E78.5 - Hyperlipidemia, unspecified
[2018-12-06] MEDS ORDERED: ALPRAZolam 0.5 MG TABLET PO PRN (12:58)
[2018-12-06] MEDS ORDERED: Heparin 1,000 UNITS/500 mL 500 ML ONE (13:32)
[2018-12-06] MEDS ORDERED: Nitroglycerin 1,000 MCG/10 ML VIAL IV ONE (13:32)
[2018-12-06] MEDS ORDERED: 0.9 % Sodium Chloride 1,000 ML ONE ×2 (13:32→13:50)
[2018-12-06] MEDS ORDERED: ISOVUE-370 200 ML INFUS..BTL ONE (13:32)
[2018-12-06] MEDS ORDERED: *HR* Heparin 10,000 UNIT/10 ML VIAL ONE (13:32)
--- NOTE | 2018-12-06 13:48 | Pre-Sedation Evaluation ---
Pre-sedation evaluation - Pre-sedation checklist Date of procedure: 11/29/18 Procedure: C Recent Vitals: Last Vital Signs Temp 98.6 F 12/06/18 11:04 Pulse 72 12/06/18 11:04 Resp 16 12/06/18 11:04 BP 109/67 12/06/18 11:04 Pulse Ox 99 12/06/18 11:04 H&P (including ROS) documented in medical record: Yes Previous reaction to sedatives/anesthetics: No Dietary Status: NPO after Midnight Dentition: No loose teeth or bridges ASA Classification *see protocol: CLASS II-Mild systemic disease Cardiac Registry (Cardio Only) - Functional Capacity Functional Capacity: >=4 METS without symptoms - Clincal Frailty Scale Clinical Frailty Scale: Managing Well
[2018-12-06] MEDS ORDERED: *HR* FentaNYL (PF) 100 MCG/2 ML VIAL ONE (13:49)
[2018-12-06] MEDS ORDERED: *HR* Midazolam HCl 2 MG/2 ML VIAL ONE (13:49)
--- NOTE | 2018-12-06 14:27 | Event Note ---
Date of Encounter: 12/06/18 Time of Encounter: 14:25 - Cardiology Event Note LHC reveals Non-obstructive CAD. No intervention required. Continue medical management with asa, statin, and bb. Cardiology f/u will be coordinated. Cardiology will sign off.
--- NOTE | 2018-12-06 14:43 | Invasive Diagnostic Lab Proc ---
Name: Daisy Darby Date of Study: 12/06/2018 Date: 1970 Ht: 59.1in Medical Record#: [id number] Age: 48 Wt: 103.62lb Gender: Female BSA: 1.4 Order #: [id number] BMI: 20.89 Physicians Procedure Physician: Adeel Arriaga MD Referring MD: Referring MD: Staff Name Position Time In [place] RN Corporate Affairs Manager 01:41 PM Gladis Garrison RT 01:42 PM Gladis Garrison RT Scrub 01:42 PM Jon Banks RN Monitor 01:42 PM Krystle Richey RT (R) Monitor 01:42 PM Sally Aguilar RT (R) 01:58 PM Indications Indication Non-Stemi Procedures Performed Procedure CORONARY ARTERY ANGIO S&I Pre-Procedure Checklist Informed consent is complete signed and on chart. H&P is on chart. ID band is on and ID verified with patient. Patient NPO for procedure The procedure was described for the patient and questions were answered. ECG is on chart. Plan of Care Patient will tolerate the procedure without complications. Adequate level of comfort will be maintained. Hemodynamics will remain stable Patient will recover from procedure without complications. Respiratory function will be maintained. Cardiac rhythm will remain stable. Patient temperature will be maintained. Patient and/or family have verbalized understanding of the procedure. Patient Education Chief Complaint/Reason for Test: Cardiac Cath Developmental Category: Adult (18-64 years) Developmentally Appropriate for Age: Yes Learning Barriers: None Education Needs: Procedure Education Method: Verbal Information Taught: Cardiac Cath Educational Evaluation: Able to repeat information Intravenous Access Time IV Size Location DC'd Fluid/Drip Rate Units RN PICC Line Lt Arm 0.9NaCl ml/hr Allergies moxifloxacin Propoxyphene NKA latex bee venom protein (honey bee) Vital Signs Time BP (mmHg) HR (bpm) O2 Sat. RR (bpm) LOC 01:50 PM / % 5 = Fully awake and oriented or at pre-proc level 01:50 PM / % 4 = Oriented but drowsy 02:05 PM / % 5 = Fully awake and oriented or at pre-proc level 01:52 PM 149 / 96 81 % 16 01:55 PM 135 / 81 79 78 % 14 02:00 PM 139 / 84 81 64 % 17 02:05 PM 93 / 57 81 93 % 14 02:10 PM 60 / 36 62 98 % 4 02:17 PM 90 / 45 79 93 % 12 Procedural Medications Time Medication Dose Units Method Given By 01:57 PM Versed 0.5 mg Intravenous [place] RN 01:57 PM Fentanyl 25 mcg Intravenous [place] RN 02:03 PM Versed 0.5 mg Intravenous [place] RN 02:04 PM Lidocaine 2% 18 ml Subcutaneous Adeel Arriaga MD ASA Classification: CLASS II- Mild systemic disease (i.e. well-controlled diabetes, hypertension, asthma, cigarette smoking) Deon Score Preprocedure Postprocedure Activity 2- Moves 4 extremities sustained head lift Activity 2- Moves 4 extremities sustained head lift Circulation 2- SBP +/= 20 points of pre-anesthetic level Circulation 2- SBP +/= 20 points of pre-anesthetic level Consciousness 2- Awake and alert oriented x 3 Consciousness 2- Awake and alert oriented x 3 O2 Saturation 2- Able to maintain O2 satruation of 92% on room air O2 Saturation 2- Able to maintain O2 satruation of 92% on room air Respiratory 2- Able to deep breathe and cough well Respiratory 2- Able to deep breathe and cough well Total Score 10 Total Score 10 Contrast Agent: Isovue Diagnostic Contrast: 20 ml Total Contrast: 20 ml Fluoro Dose: 35 mGy Procedure Log Time Note Enter By 01:42 PM Gladis Garrison RT Position: Time in: 13:42 [email or web address] 01:42 PM Gladis Garrison RT Position: Scrub Time in: 13:42 darling 01:42 PM Jon Banks RN Position: Monitor Time in: 13:42 [email or web address] 01:42 PM Krystle Richey RT (R) Position: Monitor Time in: 13:42 [email or web address] 01:42 PM Pt arrived to cath lab 2 at 13:42 oparker 01:43 PM IV Supplies used: J loop Angio Cath. oparker 01:43 PM Hair removed from procedure site in procedure lab using clippers. Bilateral groin prepped with Chloraprep by Daniel Garcia RN, then patient was draped. Skin intact. oparker 01:43 PM Patient charges- Angio tray pack, Navilyst 3mm J, Pulse Oximetry and ACIST tubing and transducer oparker 01:44 PM Case Start 01:46 PM Physician arrived 13:46 oparker 01:46 PM Taran and alexsander completed oparker 01:47 PM ASA Class CLASS II- Mild systemic disease (i.e. well-controlled diabetes, hypertension, asthma, cigarette smoking) oparker 01:50 PM Vitals capture started with the following parameters, Patient=Adult, Interval=5 min, Initial Nkxxbtkj=840 mmHg, Deflation Rate=5 mmHg, Cuff placed on Right Leg 01:50 PM Time: 13:50 Patient comfortable and pain free: Yes oparker 01:50 PM Time: 13:50LOC: 5 = Fully awake and oriented or at pre-proc level oparker 01:52 PM HR=81 bpm, CHGN=090/96 mmhg, Resp=16 B/min 01:53 PM Recorded ECG: HR=79 Condition=Condition 1 01:55 PM HR=79 bpm, FMBE=453/81 mmhg, SpO2=78.0 %, Resp=14 B/min, Comment=Sinus Rhythm 01:57 PM Time: 13:57 Versed 0.5 mg Intravenous Given by F[place] Ward RN [email or web address] 01:57 PM Time: 13:57 Fentanyl 25 mcg Intravenous Given by F[place] Ward RN oparker 01:58 PM Sally Aguilar RT (R) Position: Scrub Orientee Time in: 13:58 oparker 02:00 PM HR=81 bpm, CAGX=691/84 mmhg, SpO2=64.0 %, Resp=17 B/min, Comment=Sinus Rhythm 02:01 PM Physician arrived 14:01 oparker 02:02 PM Sign in performed according to hospital policy. Informed consent was obtained. oparker 02:02 PM Procedure start 14:02 oparker 02:03 PM Pressure channel 1 zeroed. 02:03 PM Time: 14:03 Versed 0.5 mg Intravenous Given by F[place] Ward RN opajerica 02:03 PM Time out was performed according to hospital policy. Conscious sedation and anesthesia was achieved (see medication log with in this report above) oparker 02:04 PM Micro-Introducer Kit utilized for sheath placement oparker 02:05 PM Access obtained by percutaneous puncture. 6Fr 10cm Terumo [place] sheath placed in right Femoral artery. [id number] oparker 02:05 PM Time: 13:50LOC: 4 = Oriented but drowsy oparker 02:05 PM HR=81 bpm, NIBP=93/57 mmhg, SpO2=93 %, Resp=14 B/min, Comment=Sinus Rhythm 02:05 PM Time: 13:50 Patient comfortable and pain free: Yes oparker 02:06 PM 0.035 145cm Navilyst 3mmJ wire [id number] oparker 02:07 PM 5Fr FR 4 catheter inserted over the wire DNC oparker 02:07 PM RCA angiography performed in multiple views. oparker 02:08 PM Catheter removed oparker 02:08 PM 5Fr FL 4 catheter inserted over the wire DNC oparker 02:09 PM LCA angiography performed in multiple views. oparker 02:09 PM Recorded Pressure: Ao, HR=73, Condition=Condition 1 (Aorta) Ao 52/41/47 02:10 PM Catheter removed oparker 02:10 PM HR=62 bpm, NIBP=60/36 mmhg, SpO2=98 %, Resp=4 B/min, Comment=Sinus Rhythm 02:10 PM 5Fr Pigtail catheter inserted over the wire DN oparker 02:11 PM Unable to cross valve. oparker 02:12 PM Catheter removed oparker 02:13 PM Procedure completed at 14:13 12/06/2018 oparker 02:13 PM Recorded Pressure: Ao, HR=83, Condition=Condition 1 (Aorta) Ao 81/46/58 02:13 PM Did you address KIM flow and Dominance? YesCoronary Dominance: Left oparker 02:13 PM Coronary Dominance: Left oparker 02:15 PM Sign out completed: Radiation Dose 70.64 mGy, 35.4 Gy/cm2 Fluoro Time: 2.1 Isovue 370 - 200ml contrast 20 ml given by Adeel Arriaga MD. Complications: None. The patient was discharged out of the cleaner laboratory equipment in stable condition. Sedation minutes 17. Cardiac Rehab Consult needed: No. Confirmed administered medications: Yes oparker 02:15 PM Arterial sheath pulled, Mynx closure device used and was Successful [id number] S/N. oparker 02:17 PM HR=79 bpm, NIBP=90/45 mmhg, SpO2=93 %, Resp=12 B/min, Comment=Sinus Rhythm 02:17 PM Estimated Blood Loss: minimal oparker 02:17 PM Post ECG NSR oparker 02:17 PM Post Blood Pressure 90/45 oparker 02:17 PM 14:17 Post Pulses Bilateral DP 2+ oparker 02:18 PM Education needs Procedure, Plan of Care, and Disease Process oparker 02:18 PM Learning barriers :None oparker 02:18 PM Education Methods Verbal oparker 02:18 PM Education evaluation Able to repeat information oparker 02:18 PM Site status No bleeding/hematoma - Rt Groin as reported by Sites, Krystle RT (R) at 14:18 oparker 02:18 PM Opsite applied oparker 02:19 PM Time: 1357 Oxygen on at 2 L/min per nasal cannula by oparker 02:20 PM Time: 14:04 18 ml Lidocaine 2% to right groin Subcutaneous Given by Adeel Arriaga MD oparker 02:21 PM Time: 14:05LOC: 5 = Fully awake and oriented or at pre-proc level oparker 02:21 PM Time: 14:05 Patient comfortable and pain free: Yes oparker 02:21 PM manual pressure held to RT Groin site for 15 minutes. oparker 02:22 PM No family available at this time oparker 02:22 PM Vitals capture stopped. 02:25 PM Report given to Flavia COPPOLA Pt taken to 2A Room #34. 14:24 oparker 02:27 PM Lesion found in Mid RCA. Pre Stenosis: 40 Pre KIM Flow: 3: Complete and Brisk Flow/Perfusion oparker 02:30 PM Patient out of room: 14:30 oparjoesph Complications Complication None Hemodynamics Pressures Site Systolic/A Wave Diastolic/V Wave Mean AO 52 41 47 AO 81 46 58 Post Procedure Information Blood Pressure: 90/45 mmHg Rhythm: NSR Post procedural instructions were given Closure Device Time Device Success/Fail 12/06/2018 2:30:00 PM MynxGrip Successful Site Checks Time Location Status Staff Sheath In? Note 02:18 PM Rt Groin No bleeding/hematoma Sites, Krystle RT (R) Pulses Time Site Pre-Procedure Post-Procedure Note Bilateral DP & PT 2+ Bilateral radial 2+ 2:17:00 PM Bilateral DP 2+ Updated by Jon Banks RN on 12/06/2018 2:31:51 PM electronically signed on 12/06/2018 2:33:12 PM with status of Final
[2018-12-06] MEDS ORDERED: OXYCODONE Oral CONC 10 MG/0.5 ML ORAL.SYG SL PRN (15:40)
[2018-12-06] MEDS ORDERED: 0.9 % Sodium Chloride 500 ML IVC PRN (16:10)
[2018-12-06] MEDS: *HR* HYDROcodone/Acet 5/325 mg TABLET PO PRN (19:06)
[2018-12-06] MEDS: D5% in 0.9% NACL 1,000 ML IVC SCH (21:48)
[2018-12-07 05:26] LABS: Mean Corpuscular Volume 105.6 fL (83.0-100.0); Red Blood Count 3.03 M/mcL (3.82-4.97)
[2018-12-07 05:27] LABS: Hemoglobin 9.4 g/dL (11.5-15.4); Mean Corpuscular HGB Conc 29.4 g/dL (31.6-35.5); Mean Platelet Volume 10.6 fL (9.4-12.4); Platelet Count 135 K/mcL (140-400); Red Cell Distribution Width 14.7 % (11.5-14.5)
[2018-12-07 05:44] LABS: Calcium 8.9 mg/dL (8.6-10.3); Potassium 4.4 mEq/L (3.5-5.1)
[2018-12-07] MEDS ORDERED: 0.9 % Sodium Chloride 250 ML IVC PRN (07:41)
[2018-12-07] MEDS ORDERED: 0.9 % Sodium Chloride 1,000 ML PRIME SCH (07:45)
[2018-12-07] MEDS ORDERED: 0.9 % Sodium Chloride 1,000 ML ONE (10:12)
[2018-12-07] MEDS: cefTRIAXone 1,000 MG in Water for inj. (sterile) 20 ML 10 ML IVP SCH (10:35)
[2018-12-07] MEDS: Aspirin Enteric Coated 81 MG Tablet PO SCH (10:35)
--- NOTE | 2018-12-07 12:16 | Nephrology Progress Note ---
Date of Encounter: 12/07/18 Time of Encounter: 12:15 - Assessment and Plan (1) End stage renal disease Current Visit: No Status: Chronic HD MWF. Renal vitamins. Renal dose medications. Renal diet. Additional dialysis and ultrafiltration as needed. No need for dialysis today. (2) Hypotension Current Visit: Yes Status: Acute Qualifiers: Hypotension type: unspecified hypotension type Qualified Code(s): I95.9 - Hypotension, unspecified (3) NSTEMI (non-ST elevated myocardial infarction) Current Visit: Yes Status: Acute Subjective Principal diagnosis: ESRD on HD, hip pain Interval history: Patient seen. Objective - Vital Signs Vital signs: Vital Signs Temp Pulse Resp BP Pulse Ox 12/07/18 11:50 103/70 12/07/18 11:35 107/78 12/07/18 11:20 112/72 12/07/18 11:05 114/74 12/07/18 10:50 106/54 12/07/18 10:35 105/69 12/07/18 10:20 113/82 12/07/18 10:05 122/74 12/07/18 09:50 107/72 12/07/18 09:35 110/74 12/07/18 09:20 94/63 12/07/18 09:05 97.7 F 16 111/73 12/07/18 07:04 97.9 F 82 16 104/68 96 12/07/18 03:29 97.9 F 65 18 120/80 99 12/07/18 00:16 98.0 F 75 17 104/70 99 12/06/18 19:20 98.0 F 76 20 89/57 95 12/06/18 18:21 79 18 118/81 12/06/18 16:01 82 16 91/59 91 12/06/18 15:46 97.4 F L 79 18 75/52 91 12/06/18 15:32 77 16 74/56 92 12/06/18 15:05 79 16 75/52 91 12/06/18 14:41 78 16 84/56 92 Intake and Output 12/06/18 12/07/18 12/07/18 23:59 07:59 15:59 Intake Total 110 / 273 1000 / 1750 750 / 1750 Balance 110 / 273 1000 / 1750 750 / 1750 Intake: IV Fluids 110 / 273 1000 / 1010 10 / 1010 D5% And 0.9% Nacl 1000 Ml 1,000 1000 / 1000 ML @ 40 mls/hr IVC .Q24H [facility] Rx#:[id number] Rocephin 1,000 MG In Water for 10 / 10 inj. (sterile) 10 ML @ 600 mls/ hr IVP DAILY [facility] Rx#:[id number] Zosyn 3.375 GM In 0.9 % Sodium 100 / 100 Chloride (Mini-Bag +) 100 ML @ 25 mls/hr IVPB Q12HR [facility] Rx#: [id number] Oral 140 / 140 Intake, Rinseback and Flushes 600 / 600 Other: Meal Breakfast Percent of Meal Consumed 50% Weight 58.2 kg Hemodialysis Net Fluid Removed 2034 (mL) Patient Weight 12/07/18 23:59 Weight 58.2 kg - General Appearance General appearance: Present: well-developed, well-nourished EENT: Present: ATNC Neck: Present: supple Cardiology: Present: regular rate - Lab 12/08/18 03:35 12/08/18 03:35 Most recent lab results 12/07/18 05:10 Calcium 8.9 Consult Discharge Plan - Plan Instructions: Asthma (DC), Acute Respiratory Distress Syndrome (DC), Chronic Hypertension (DC), Anxiety (DC), Pneumonia (DC) Additional Instructions: Outpatient CT pelvis for complex cystic lesion in 2-3 months. Recommended to follow up with Gynecology in [place] Follow up with Orthopedics HD per nephrology Referrals: Angela Bob CNP [Primary Care Provider] - Montez Woody DO [Non-Partnered Physician] - Adeel Arriaga [Partnered Physician] - Prescriptions: Atorvastatin [Lipitor] 40 mg PO HS #30 tablet GuaiFENesin ER [Mucinex] 600 mg PO BID PRN #20 tbbp.12hr PRN Reason: Congestion HYDROcodone/Acet 5/325 mg [[place] 5-325 mg] 1 tab PO Q6HR PRN 3 Days #12 tablet PRN Reason: Pain Midodrine [ProAmatine] 5 mg PO 0800,1200,1700 #90 tablet ALPRAZolam [Xanax 0.5 MG Tablet] 0.5 mg PO DAILY PRN 7 Days #7 tablet PRN Reason: Anxiety
--- NOTE | 2018-12-07 13:13 | Electrocardiograph Report ---
[address] [address] Test Date: 2018-12-02 Pat Name: Daisy Darby Department: 112 Room: 2A34 Gender: F [employer] Manager: : 1970 Requested By: Parmjit Enamorado Order Number: [id number] Reading MD: Ike Rodriguez Measurements Intervals [place] Rate: 73 P: 75 [place]: 162 QRS: 77 QRSD: 103 T: 20 QT: 401 QTc: 426 Interpretive Statements SINUS RHYTHM WARNING: DATA QUALITY MAY AFFECT INTERPRETATION Electronically Signed On 12-07-2018 13:11:41 EDT by Ike Rodriguez
--- NOTE | 2018-12-07 13:42 | Discharge Summary ---
- NOTES TO OUTPATIENT PROVIDER Notes to Outpatient Provider: Follow-up with PCP and cardiology for reinitiation of bb and ARB which is on hold due to borderline BP. Orders not resulted at time of discharge: Pending orders 12/01/18 04:00 Legionella Antigen [RM] AM 0400 S. Pneumoniae Antigen [RM] AM 0400 12/03/18 10:24 UA w. reflex culture [Urinalysis Reflex Cult & Micro] [URIN] Stat 12/03/18 12:30 CL Cardiac Catheterization [CL] Routine 12/08/18 04:00 Basic Metabolic Panel AM 0400 CBC no Diff [Complete Blood Count w/o Diff] [HEME] AM 0400 12/09/18 04:00 Basic Metabolic Panel AM 0400 CBC no Diff [Complete Blood Count w/o Diff] [HEME] AM 040 Date of Encounter: 12/07/18 Time of Encounter: 11:30 - Discharge Diagnosis (1) Acute hypercapnic respiratory failure Priority: Primary Status: Resolved (2) NSTEMI (non-ST elevated myocardial infarction) Priority: Secondary Status: Acute (3) Pneumonia Priority: Secondary Status: Acute Qualifiers: Pneumonia type: due to unspecified organism Laterality: right Lung location: lower lobe of lung Qualified Code(s): J18.1 - Lobar pneumonia, unspecified organism (4) Left hip pain Priority: Secondary Status: Chronic (5) Hypertension Priority: Secondary Status: Chronic Qualifiers: Hypertension type: unspecified Qualified Code(s): I10 - Essential (primary) hypertension (6) Depression with anxiety Priority: Secondary Status: Chronic (7) Asthma Priority: Secondary Status: Chronic Qualifiers: Asthma severity: unspecified severity Asthma persistence: unspecified Asthma complication type: unspecified Qualified Code(s): J45.909 - Unspecified asthma, uncomplicated (8) Hyperlipidemia Priority: Secondary Status: Chronic Qualifiers: Hyperlipidemia type: unspecified Qualified Code(s): E78.5 - Hyperlipidemia, unspecified (9) ESRD (end stage renal disease) on dialysis Priority: Secondary Status: Chronic Hospital course: Ms. 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 Completed a total of 7 days of IV antibiotics. Orthopedic evaluated patient during her stay and recommended nonsurgical mx. Hospital course complicated by NSTEMI 12/02 with troponin of 2. Echo 65-70% with moderate LV hypertrophy. LHC was done on 12/06 which only showed 40% stenosis in mid RCA. She had Lipitor added to her medication. Due to borderline BP, was unable to add bb or GERALDO-i to her regimen. She will be discharged to [facility] for further rehab. Of note, she has long-standing complex cystic lesion in left adnexal region. To be followed up with CT in 2-3 months per Gynecology. Discharge discussed with: patient, nurse, social work, case management - Time Spent with Patient Total time spent providing and/or coordinating discharge services: 36 mins - Discharge Medications Prescriptions: New Atorvastatin [Lipitor] 40 mg PO HS #30 tablet GuaiFENesin ER [Mucinex] 600 mg PO BID PRN #20 tbbp.12hr PRN Reason: Congestion HYDROcodone/Acet 5/325 mg [[place] 5-325 mg] 1 tab PO Q6HR PRN 3 Days #12 tablet PRN Reason: Pain Midodrine [ProAmatine] 5 mg PO 0800,1200,1700 #90 tablet Continued Aspirin Enteric Coated [Aspirin EC] 81 mg PO DAILY #30 tablet. Sertraline [Zoloft] 50 mg PO DAILY Albuterol Sulfate [Ventolin Hfa] 2 puff IH Q6H PRN PRN Reason: Shortness Of Breath ALPRAZolam [Xanax 0.5 MG Tablet] 0.5 mg PO DAILY PRN 7 Days #7 tablet PRN Reason: Anxiety Discontinued Losartan [Cozaar] 25 mg PO DAILY #30 tablet Home Medications: Aspirin Enteric Coated [Aspirin EC] 81 mg PO DAILY #30 tablet. 07/13/18 [Rx] Sertraline [Zoloft] 50 mg PO DAILY 11/28/18 [History] Albuterol Sulfate [Ventolin Hfa] 2 puff IH Q6H PRN 11/29/18 [History] ALPRAZolam [Xanax 0.5 MG Tablet] 0.5 mg PO DAILY PRN 7 Days #7 tablet 12/07/18 [Rx] Atorvastatin [Lipitor] 40 mg PO HS #30 tablet 12/07/18 [Rx] GuaiFENesin ER [Mucinex] 600 mg PO BID PRN #20 tbbp.12hr 12/07/18 [Rx] HYDROcodone/Acet 5/325 mg [[place] 5-325 mg] 1 tab PO Q6HR PRN 3 Days #12 tablet 12/07/18 [Rx] Midodrine [ProAmatine] 5 mg PO 0800,1200,1700 #90 tablet 12/07/18 [Rx] Allergies/Adverse Reactions: Allergy/AdvReac Type Severity Reaction Status Date / Time bee venom protein (honey bee) Allergy Difficulty Verified 11/28/18 22:37 Breathing latex Allergy Hives Verified 07/12/18 10:36 moxifloxacin [From Avelox] Allergy Difficulty Verified 07/12/18 10:36 Breathing Date of admission: 11/30/18 17:45 Primary care physician: Angela Bob CNP Consults: 11/28/18 20:44 Consult to Orthopedic Surgery [CONS] Stat Consulting Provider: Montez Woody Reason for Consult: left hip pain Time Notified: 20:44 Call Completed: Yes 11/29/18 00:43 Consult to Nephrology [CONS] Routine Consulting Provider: Kidney Radha/CHING/LORNE/DEBORA Reason for Consult: Receives dialysis Thursday, Thursday, Thursday, will need continued during admission. Call Completed: No 11/29/18 03:29 Consult to Meat Dresser [CONS] Routine Reason for SW Consult: May need assistance at home at discharge. 11/29/18 10:00 Consult to Dialysis [CONS] ONCE 11/30/18 09:00 Consult to Critical Care [CONS] Routine Consulting Provider: Pulm Crit Care & Sleep Radha Reason for Consult: hypotension Call Completed: Yes 12/01/18 13:45 Consult to Dialysis [CONS] ONCE 12/02/18 09:05 Consult to Nurse Navigator [CONS] Routine Comment: hd 12/02/18 09:48 Consult to Occupational Therapy [CONS] Routine Comment: Evaluate, develop and implement POC Reason for Consult: discharge Does patient have active BEDREST order?: No Is patient medically & hemodynamically stable?: Yes Patient assessed for mobility or mobilized this visit?: Yes Consult to Physical Therapy [CONS] Routine Comment: Evaluate, develop and implement POC Reason for Consult: weakness Does patient have active BEDREST order?: No Is patient medically & hemodynamically stable?: Yes Patient assessed for mobility or mobilized this visit?: Yes 12/02/18 21:26 Consult to Cardiology [CONS] Routine Comment: Consulting Provider: Cardiology Radha Reason for Consult: elevated troponin, EKG changes, spoke to dr alcala on phone Call Completed: Yes 12/03/18 08:30 Consult to Dialysis [CONS] ONCE 12/03/18 10:24 Consult to FRONT DESK [CONS] Routine Consulting Provider: CINDER PIT WORKER Radha Reason for Consult: tubo-ovarian abscess from CT scan Call Completed: Yes 12/06/18 08:30 Consult to Dialysis [CONS] Stat 12/07/18 07:45 Consult to Dialysis [CONS] ONCE - Constitutional Vitals: Temp Pulse Resp BP Pulse Ox 97.5 F L 82 18 123/59 96 12/07/18 12:52 12/07/18 07:04 12/07/18 12:52 12/07/18 12:52 12/07/18 07:04 Exam: vitals: reviewed General: AOx4. Not in distress Cardiovascular: RRR, normal S1 & S2, no rubs, murmurs or gallops. No JVD. Pulse regular. Lungs: clear to auscultation Abdomen:Soft, non-tender, no rigidity. Extremities: No edema Neurological: No focal neurological deficits - Patient Status Disposition: Transfer SNF Condition: Fair - Discharge Instructions Instructions: Pneumonia (DC), Asthma (DC), Anxiety (DC), Chronic Hypertension (DC), Acute Respiratory Distress Syndrome (DC) Follow Up With: Angela Bob CNP [Primary Care Provider] - Adeel Arriaga [Partnered Physician] - Montez Woody DO [Non-Partnered Physician] - Additional Instructions: Outpatient CT pelvis for complex cystic lesion in 2-3 months. Recommended to follow up with Gynecology in [place] Follow up with Orthopedics HD per nephrology - Diet and Activity Activity: resume usual activities as tolerated Diet: other (renal diet)
--- NOTE | 2018-12-07 13:53 | Physician Discharge Referral ---
ExtendedCare Referral Info Institutional Level of Care: Skilled - Diagnosis (1) Acute hypercapnic respiratory failure Priority: Primary Status: Resolved (2) NSTEMI (non-ST elevated myocardial infarction) Priority: Secondary Status: Acute (3) Pneumonia Priority: Secondary Status: Acute (4) Left hip pain Priority: Secondary Status: Chronic (5) Hypertension Priority: Secondary Status: Chronic (6) Depression with anxiety Priority: Secondary Status: Chronic (7) Asthma Priority: Secondary Status: Chronic (8) Hyperlipidemia Priority: Secondary Status: Chronic (9) ESRD (end stage renal disease) on dialysis Priority: Secondary Status: Chronic - Transfer Medications Prescriptions: Atorvastatin [Lipitor] 40 mg PO HS #30 tablet GuaiFENesin ER [Mucinex] 600 mg PO BID PRN #20 tbbp.12hr PRN Reason: Congestion HYDROcodone/Acet 5/325 mg [[place] 5-325 mg] 1 tab PO Q6HR PRN 3 Days #12 tablet PRN Reason: Pain Midodrine [ProAmatine] 5 mg PO 0800,1200,1700 #90 tablet ALPRAZolam [Xanax 0.5 MG Tablet] 0.5 mg PO DAILY PRN 7 Days #7 tablet PRN Reason: Anxiety Home Medications: Aspirin Enteric Coated [Aspirin EC] 81 mg PO DAILY #30 tablet. 07/13/18 [Rx] Sertraline [Zoloft] 50 mg PO DAILY 11/28/18 [History] Albuterol Sulfate [Ventolin Hfa] 2 puff IH Q6H PRN 11/29/18 [History] ALPRAZolam [Xanax 0.5 MG Tablet] 0.5 mg PO DAILY PRN 7 Days #7 tablet 12/07/18 [Rx] Atorvastatin [Lipitor] 40 mg PO HS #30 tablet 12/07/18 [Rx] GuaiFENesin ER [Mucinex] 600 mg PO BID PRN #20 tbbp.12hr 12/07/18 [Rx] HYDROcodone/Acet 5/325 mg [[place] 5-325 mg] 1 tab PO Q6HR PRN 3 Days #12 tablet 12/07/18 [Rx] Midodrine [ProAmatine] 5 mg PO 0800,1200,1700 #90 tablet 12/07/18 [Rx] Allergies/Adverse Reactions: Allergy/AdvReac Type Severity Reaction Status Date / Time bee venom protein (honey bee) Allergy Difficulty Verified 11/28/18 22:37 Breathing latex Allergy Hives Verified 07/12/18 10:36 moxifloxacin [From Avelox] Allergy Difficulty Verified 07/12/18 10:36 Breathing - Respiratory Orders Oxygen / L per min (2-3L continuous) Smoking Cessation: Smoking cessation has been advised. For more information, call the [place] Quit Line at [phone]-MFFJ-NOW. - Rehabiliation Orders Rehab Orders: Evaluation for Physical Therapy, Evaluation for Occupational Therapy - Diet Orders Renal CERTIFICATION: I certify that the transfer of the above named patient to an Extended Care Facility is necessary for the continuing treatment of the diagnosis listed. The above information is true and accurate reflection of patient's current condition. Confidential - Redisclosure prohibited without a patient's written consent.
[2018-12-07] MEDS: *HR* HYDROcodone/Acet 5/325 mg TABLET PO PRN (15:47)
[2018-12-07] MEDS: Loperamide 1 MG/5 ML UDC PO ONE ×2 (18:59→19:01)
[2018-12-08] MEDS: *HR* HYDROcodone/Acet 5/325 mg TABLET PO PRN (01:05)
[2018-12-08 03:55] LABS: Hematocrit 31.8 % (35.3-44.9); Hemoglobin 9.4 g/dL (11.5-15.4); Mean Corpuscular HGB Conc 29.6 g/dL (31.6-35.5); Mean Corpuscular Hemoglobin 30.6 pg (28.0-33.3); Mean Corpuscular Volume 103.6 fL (83.0-100.0); Mean Platelet Volume 10.6 fL (9.4-12.4); Platelet Count 147 K/mcL (140-400); Red Blood Count 3.07 M/mcL (3.82-4.97); Red Cell Distribution Width 15.1 % (11.5-14.5)
[2018-12-08 04:13] LABS: Potassium 3.9 mEq/L (3.5-5.1)
[2018-12-08] MEDS: Aspirin Enteric Coated 81 MG Tablet PO SCH (08:22)
[2018-12-08] MEDS ORDERED: *HR* HYDROcodone/Acet 5/325 mg TABLET PO PRN (09:32)
[2018-12-08] MEDS ORDERED: OXYCODONE Oral CONC 10 MG/0.5 ML ORAL.SYG SL PRN (09:33)
--- NOTE | 2018-12-08 09:43 | Nephrology Progress Note ---
Date of Encounter: 12/08/18 Time of Encounter: 09:30 - Assessment and Plan (1) End stage renal disease Current Visit: No Status: Chronic - Patient to continue with HD today (On MWF schedule). - Renal vitamins. - Renally dose medications. - Renal diet. - Additional dialysis and ultrafiltration as needed. - Avoid nephrotoxins. (2) NSTEMI (non-ST elevated myocardial infarction) Current Visit: Yes Status: Acute (3) Hypotension Current Visit: Yes Status: Acute BP controlled at 107/73. - On midodrine. Qualifiers: Hypotension type: unspecified hypotension type Qualified Code(s): I95.9 - Hypotension, unspecified Subjective Principal diagnosis: ESRD on HD, hip pain Interval history: When seen this morning, the patient denied any chest pain or SOB. She denied any abdominal pain, nausea, or vomiting. Denied any swelling in the LE. Objective - Vital Signs Vital signs: Vital Signs Temp Pulse Resp BP Pulse Ox 12/08/18 06:54 98.0 F 77 18 107/73 92 12/08/18 04:18 97.5 F L 74 17 117/74 97 12/07/18 23:15 98.0 F 72 16 105/69 98 12/07/18 20:10 98.1 F 76 17 105/69 100 12/07/18 15:26 98.0 F 70 18 107/69 100 12/07/18 12:52 97.5 F L 18 123/59 12/07/18 12:35 105/59 12/07/18 12:20 117/63 12/07/18 12:05 121/74 12/07/18 11:50 103/70 12/07/18 11:35 107/78 12/07/18 11:20 112/72 12/07/18 11:05 114/74 12/07/18 10:50 106/54 12/07/18 10:35 105/69 12/07/18 10:20 113/82 12/07/18 10:05 122/74 12/07/18 09:50 107/72 Intake and Output 12/07/18 12/08/18 12/08/18 23:59 07:59 15:59 Intake Total 120 / 120 Output Total Balance - 120 / 119 Intake: Oral 120 / 120 Output: Stool Other: Meal Breakfast Percent of Meal Consumed 25% Stool Size Moderate Moderate Stool Consistency loose soft soft Stool Color Brown Brown Green Weight 59.3 kg Patient Weight 12/08/18 23:59 Weight 59.3 kg - General Appearance General appearance: Present: well-developed, well-nourished, appears started age EENT: Present: mucous membranes moist Neck: Present: no JVD Respiratory: Present: clear Cardiology: Present: holosystolic murmur, no rub, no gallops, no edema, regular rate, regular rhythm, normal S1, normal S2 Gastrointestinal: Present: normoactive bowel sounds, no tenderness, no guarding, no organomegaly, no masses Integumentary: Present: warm and dry Neurologic: Present: no focal deficit, alert and oriented x3 Musculoskeletal: Present: no cyanosis, no clubbing Psychiatric: Present: mood/affect appropriate, cooperative - Lab 12/08/18 03:35 12/08/18 03:35 Most recent lab results 12/08/18 03:35 Calcium 9.0 - VTE Documentation of Mechanical Device: Intermittent pneumatic compression device Consult Discharge Plan - Plan Instructions: Asthma (DC), Acute Respiratory Distress Syndrome (DC), Chronic Hypertension (DC), Anxiety (DC), Pneumonia (DC) Additional Instructions: Outpatient CT pelvis for complex cystic lesion in 2-3 months. Recommended to follow up with Gynecology in [place] Follow up with Orthopedics HD per nephrology Referrals: Angela Bob, SALVAGE WINDER [Primary Care Provider] - Montez Woody DO [Non-Partnered Physician] - Adeel Arriaga [Partnered Physician] - Prescriptions: Atorvastatin [Lipitor] 40 mg PO HS #30 tablet GuaiFENesin ER [Mucinex] 600 mg PO BID PRN #20 tbbp.12hr PRN Reason: Congestion HYDROcodone/Acet 5/325 mg [[place] 5-325 mg] 1 tab PO Q6HR PRN 3 Days #12 tablet PRN Reason: Pain Midodrine [ProAmatine] 5 mg PO 0800,1200,1700 #90 tablet ALPRAZolam [Xanax 0.5 MG Tablet] 0.5 mg PO DAILY PRN 7 Days #7 tablet PRN Reason: Anxiety
[2018-12-08] MEDS ORDERED: 0.9 % Sodium Chloride 250 ML IVC PRN (09:58)
--- NOTE | 2018-12-08 11:33 | Event Note ---
Date of Encounter: 12/08/18 Time of Encounter: 11:26 I have seen and evaluated the patient at bedside. patient reports having right hip pain, improved when compared with her presentation. denies chest pain, shortness of breath, nausea or vomiting. tolerating PO diet well. Physical exam: Vitals: Reviewed vitals: reviewed General: AOx4. In no distress Cardiovascular: RRR, normal S1 & S2, no rubs, murmurs or gallops. No JVD. Pulse regular. Lungs: CTA b/l, no rales or crackles. Abdomen:Soft, non-tender, no rigidity. Extremities: No edema Neurological: No focal neurological deficits Rest of the physical exam is non contributory Assessment: 1. NSTEMI s/p LHC 2. Acute hypercapnic respiratory failure (resolved) 3. Pneumonia 4. Left hip pain 5. Depression and Anxiety 6. Asthma 7. HTN 8. ESRD 9. HLD Plan Patient is clinically stable to be discharged to SNF/ECF BP labile, ranging from low 100s SBP to 160s but when antihypertensive resumed BP goes to 90s SBP continue home meds Disposition Discharge after HD, pending placement.
[2018-12-08 16:51] VITALS: BP 140/94
== END 2018-12-08 18:20 | DRG 698 ==
LOC: EMEROOARM 17:46 → 2ANU 17:46 → SUATTDRO 21:21 → 2ANU 22:07 → ICNU 11-29 15:59 → SUATTDRO 11-30 17:45 → 2ANU 12-01 10:51
PROVIDERS: ADMIT Family Medicine; ATTEND Internal Medicine

== ENCOUNTER 2019-03-20 13:23 | Inpatient (IN) ==
[2019-03-20] MEDS ORDERED: *HR* HYDROcodone/Acet 5/325 mg TABLET PO ONE (14:25)
--- NOTE | 2019-03-20 15:16 | Emergency Department Note ---
Disposition Clinical Impression: ESRD (end stage renal disease) on dialysis, Hyperkalemia Sacral fracture Qualifiers: Encounter type: initial encounter Zone of sacrum fracture: unspecified portion of sacrum Fracture type: closed Qualified Code(s): S32.10XA - Unspecified fracture of sacrum, initial encounter for closed fracture Pubic ramus fracture Qualifiers: Encounter type: initial encounter Fracture type: closed Laterality: left Qualified Code(s): S32.592A - Other specified fracture of left pubis, initial encounter for closed fracture Disposition: Admitted As Inpatient Condition: Fair Time of Disposition: 19:01 General Adult HPI - General Chief complaint: ED Extremity Injury, Lower Stated complaint: Bilateral hip pain Time Seen by Provider: 03/20/19 13:34 Source: patient, family Limitations: no limitations Nursing Notes Reviewed: Yes Vital Signs Reviewed: Yes - History of Present Illness HPI Narrative: Patient is a 48, presents emergency Department with reports of bilateral hip pain. Patient states that approximately 2 weeks ago she had a fall and has had pain in her hips. Patient states that she had x-rays that were performed and these did not show evidence of fracture. States that she has been unable to bear weight since then and feels like the pain is steadily getting worse. Patient's family at bedside states that she has had prior falls and abdomen and rehabilitation until approximately a month ago. Patient was then discharged was able to walk approximately 10 steps on her home but now is unable to take any steps. Patient also mentioned that she has a history of a prolapsed rectum. Patient states that her rectum is had to be repaired twice. Patient states that her rectum is been prolapsed for approximately 2 weeks. States that it is small and will partially reduced. Pain Scale: 10 - Related Data Home Medications Medication Instructions Recorded Confirmed Sertraline [Zoloft] 50 mg PO DAILY 11/28/18 03/20/19 Albuterol Sulfate [Ventolin Hfa] 2 puff IH Q6H PRN 11/29/18 03/20/19 Previous Rx's Medication Instructions Recorded Aspirin Enteric Coated [Aspirin EC] 81 mg PO DAILY #30 tablet. 07/13/18 Atorvastatin [Lipitor] 40 mg PO HS #30 tablet 12/07/18 GuaiFENesin ER [Mucinex] 600 mg PO BID PRN #20 tbbp.12hr 12/07/18 Midodrine [ProAmatine] 5 mg PO 0800,1200,1700 #90 tablet 12/07/18 Allergies Allergy/AdvReac Type Severity Reaction Status Date / Time bee venom protein (honey bee) Allergy Difficulty Verified 11/28/18 22:37 Breathing latex Allergy Hives Verified 07/12/18 10:36 moxifloxacin [From Avelox] Allergy Difficulty Verified 07/12/18 10:36 Breathing All systems ED: reviewed and negative except as stated. Constitutional: Denies: fever Cardiovascular: Denies: chest pain Respiratory: Denies: dyspnea Gastrointestinal: Denies: abdominal pain Musculoskeletal: Reports: other (bilateral hip pain ) Neurological: Denies: weakness, numbness, paresthesias Past Medical History - Past Medical History Medical history: Reports: asthma, dialysis, hypertension, renal disease, thyroid disease, valvular heart disease, other Surgical history: Reports: orthopedic, other Psychiatric history: Reports: anxiety, depression - Social History Smoking Status: Never smoker Smokeless Tobacco Status: No Alcohol use: Reports: none Drug use: Reports: none Physical Exam - General Limitations: no limitations General appearance: alert, in no apparent distress - Head Head exam: atraumatic, normocephalic - Eye Eye exam: Present: normal appearance, EOMI - Neck Neck exam: Present: normal inspection, full ROM, trachea midline - Respiratory Respiratory exam: Present: normal lung sounds bilaterally. Absent: respiratory distress, wheezes - Cardiovascular Cardiovascular exam: Present: regular rate, normal rhythm, normal heart sounds, +S1, +S2 - Abdominal Exam Abdominal exam: Present: soft, Non-Tender, normal bowel sounds - Extremities Exam Extremities exam: Present: other (Patient has tenderness to bilateral hips. Bilateral lower extremities appear to be atrophied.) - Neurological Exam Neurological exam: Present: alert, oriented X3 - Psychiatric Psychiatric exam: Present: normal affect, normal mood - Skin Skin exam: Present: warm, dry, intact Course Vital Signs Temperature 98.4 F 03/20/19 13:25 Pulse Rate 80 03/20/19 13:25 Respiratory Rate 18 03/20/19 13:25 Blood Pressure 158/86 03/20/19 13:25 O2 Sat by Pulse Oximetry 98 03/20/19 13:25 Temperature 98.4 F 03/20/19 13:36 Pulse Rate 81 03/20/19 17:39 Respiratory Rate 18 03/20/19 17:39 Blood Pressure 143/84 03/20/19 17:39 O2 Sat by Pulse Oximetry 100 03/20/19 17:39 Oxygen Delivery Oxygen Delivery Nasal Cannula Medical Decision Making - MDM Narrative Medical decision making narrative: Due the patient presenting to emergency Department with reports of a fall we will obtain a x-ray of the pelvis. Due to the findings on the x-ray will obtain a CT scan of the pelvis and hips to evaluate for possible fracture. There was evidence of a sacral fracture as well as a inferior pubic rami fracture. I called and spoke with the on-call orthopedic surgeon Dr. Hernandez he was made aware the patient was in agreement with seeing the patient in consult. Patient's laboratory testing was obtained. Patient does have elevated creatinine which is chronic for her due to end-stage renal disease. Patient dialyzes Thursday, Thursday and Thursday and will need dialysis tomorrow. Patient does have an elevated potassium of 5.5 which again will need dialysis tomorrow. Patient did have signs of rectal tissue that was where the anal verge is. Patient states that she has had prior surgeries area and there is no true rectal prolapse but his rectal tissue at the anal verge. I called and spoke with the admitting hospitalist Dr. Gama and she is accepted the patient to their service. Patient be admitted to the hospital this time for further evaluation and management. - Medical Records Medical records reviewed: Yes I reviewed the patient's medical records. - Lab Data Lab results reviewed: Yes I reviewed the patient's lab results. Result diagrams: 03/20/19 17:37 03/20/19 17:37 Lab Results 03/20/19 03/20/19 03/20/19 Range/Units 17:37 17:37 17:37 WBC 4.7 (4.3-11.1) K/mcL RBC 3.51 L (3.82-4.97) M/mcL Hgb 9.9 L (11.5-15.4) g/dL Hct 34.4 L (35.3-44.9) % MCV 98.0 (83.0-100.0) fL MCH 28.2 (28.0-33.3) pg MCHC 28.8 L (31.6-35.5) g/dL RDW 16.1 H (11.5-14.5) % Plt Count 146 (140-400) K/mcL MPV 10.4 (9.4-12.4) fL Immature Gran % 0.4 (0-4) % Seg Neutrophils % 65.5 % Lymphocytes % 18.9 % Monocytes % 6.4 % Eosinophils % 8.4 % Basophils % 0.4 % Neutrophils # 3.1 (1.6-8.9) K/mcL Lymphocytes # 0.9 (0.6-4.6) K/mcL Monocytes # 0.3 (0.0-1.3) K/mcL Eosinophils # 0.4 (0.0-0.6) K/mcL Basophils # 0.0 (0.0-0.2) K/mcL Hypochromasia Present A (Not Present) PT 11.8 (9.4-12.1) Seconds INR 1.0 APTT 34.8 (26.0-36.0) Seconds Sodium 135 L (136-145) mEq/L Potassium 5.5 H (3.5-5.1) mEq/L Chloride 95 L (98-107) mEq/L Carbon Dioxide 26 (23-29) mEq/L BUN 62 H (6-20) mg/dL Creatinine 6.46 H (0.60-1.20) mg/dL Est GFR ( Amer) 8 L (> 60) Est GFR (Non-Af Amer) 7 L (> 60) BUN/Creatinine Ratio 10 (6-26) Glucose 90 (70-105) mg/dL Calculated Osmolality 297 (280-300) Calcium 9.7 (8.6-10.3) mg/dL - Radiology Data Radiology results reviewed: Yes I reviewed the patient's radiology results. Hip/Pelvis X-Ray 03/20/19 13:49 IMPRESSION: 1. Severe osteopenia limiting evaluation. No acute bony or joint abnormality identified. 2. Given the severe degree of osteopenia, nondisplaced fractures would be difficult to detect and consideration should be given to an MRI or a CT D/ / Chad Allred MD / Chad Allred MD Interpreting Provider: Chad Allred MD Pelvis CT 03/20/19 14:42 IMPRESSION: 1. Nondisplaced fracture involving the right side of the sacrum at the S1 and S2 levels 2. Nondisplaced fracture of the right inferior pubic ramus D/ / Chad Allred MD / Chad Allred MD Interpreting Provider: Chad Allred MD Attestation Statement - Attestation Attestation: I, Logan Edwards, examined this patient and my medical decision-making was reviewed with the SURVEYOR ROD HELPER/PA/Advanced Practice Nurse/Resident Physician. I agree with the documented findings, disposition and treatment plan as described except to the extent set forth below. 48-year-old female presents emergency Department for evaluation of pelvic pain. Patient was recently admitted to the hospital for deconditioning and underwent rehabilitation however she was discharged 2 weeks ago and then fell on her driveway. She is been unable to walk over the past 2 weeks. She came in today because the pain started to worsen. Patient is unable to roll from right to left secondary to pain. She has a history of rectal prolapse which has required surgery in the past. She believes that her rectum prolapsed today however upon evaluation she has evidence of surgical intervention and rugae a present around the anus however I think that this is likely secondary to her previous surgery as there is no bulging mass consistent with rectal prolapse. Patient has been having Her baseline bowel movements over the past few days. Patient has a history of osteopenia. She has history of renal failure and follows Dr. Puja loving. CT shows a sacral fracture and pubic rami fracture. Patient is unable to ambulate. She will be admitted to hospitalist for further care and evaluation. Patient was updated regarding imaging and laboratory results
[2019-03-20 17:57] LABS: Basophils % 0.4 %; Hematocrit 34.4 % (35.3-44.9); Mean Corpuscular Hemoglobin 28.2 pg (28.0-33.3); Red Cell Distribution Width 16.1 % (11.5-14.5)
[2019-03-20 18:02] LABS: Eosinophils # 0.4 K/mcL (0.0-0.6); Eosinophils % 8.4 %; Hemoglobin 9.9 g/dL (11.5-15.4); Hypochromasia Present (Not Present); Immature Granulocytes % 0.4 % (0-4); Lymphocytes # 0.9 K/mcL (0.6-4.6); Lymphocytes % 18.9 %; Mean Corpuscular HGB Conc 28.8 g/dL (31.6-35.5); Mean Platelet Volume 10.4 fL (9.4-12.4); Monocytes # 0.3 K/mcL (0.0-1.3); Monocytes % 6.4 %; Neutrophils # 3.1 K/mcL (1.6-8.9); Platelet Count 146 K/mcL (140-400); Red Blood Count 3.51 M/mcL (3.82-4.97); Segmented Neutrophils % 65.5 %; White Blood Count 4.7 K/mcL (4.3-11.1)
[2019-03-20 18:07] LABS: Prothrombin Time 11.8 Seconds (9.4-12.1)
[2019-03-20 18:10] LABS: Activated Partial Thrombo Time 34.8 Seconds (26.0-36.0)
[2019-03-20 18:15] LABS: Calcium 9.7 mg/dL (8.6-10.3); Potassium 5.5 mEq/L (3.5-5.1)
[2019-03-21] MEDS ORDERED: Naloxone 0.4 MG/ML INJ IVP PRN (02:11)
[2019-03-21] MEDS ORDERED: Acetaminophen IV 500 MG/50 ML INFUS..BTL IVPB ONE (02:32)
--- NOTE | 2019-03-21 03:31 | Internal Med History&Physical ---
Date of Encounter: 03/21/19 Time of Encounter: 01:30 Internal Medicine - H&P: HPI Chief complaint: Hip pain Admitted From: Home Plans for Post Hospital Care: Home History of present illness: Ms. Darby is a 48 year old female with past medical history significant for CAD, [place], valvular heart disease, hypertension, end-stage renal disease on dialysis, asthma, thyroid disease, rectal prolapse, anxiety, and depression who presents for complaints of continued bilateral hip pain. Reports having mechanical fall around 2 weeks ago getting into her car and had outpatient x- rays completed at that time that were negative for fracture. However pain has continued to progressively get worse and she is no longer able to ambulate secondary to the pain. Reports using a wheelchair at home for mobility currently. She has had hip pain in the past for which she recently just finished 3 months of rehabilitation briefly before her fall. Denies any falls since her last around 2 weeks ago and denies striking her head and losing consciousness at that time. ER obtained x-rays of the hip and pelvis which showed severe osteopenia limiting evaluation with no acute bony or joint abnormality identified recommending MRI or CT for further evaluation given the severe degree of osteopenia making nondisplaced fractures difficult to detect. ER then obtained a CT of the pelvis which showed a nondisplaced fracture involving the right side of the sacrum at the S1 and S2 levels and a nondisplaced fracture of the right inferior pubic ramus. ER called and discussed with on-call orthopedic surgeon Dr. Olivares who agreed to see patient in consult. Patient currently reports improvement in her pain following pain medication received in ER. Currently denies any headache, numbness, tingling, chest pain, shortness of breath, cough, abdominal pain, nausea, bowel or bladder changes. Also reported to ER that she has a history of rectal prolapse and thinks that it may have reoccurred, and reports she has follow up scheduled with her surgeon for same, but denies any associated symptoms, pain, or bowel changes. Patient follows with her PCP and Nephrology regularly. Also receives hemodialysis Mondays, Wednesdays, and Fridays and reports compliance. Reports wearing 3 LPM nasal cannula oxygen continuously at home. Past Med Surg Social Fam HX - Past Medical History Medical history: asthma, coronary artery disease, dialysis, hypertension, renal disease, thyroid disease, valvular heart disease, other Additional medical history: brittle bone syndrome, bladder/sphincter, pulmonary HTN Psychiatric history: anxiety, depression - Past Surgical History Surgical History: orthopedic, other, other Additional surgical history: rectal prolapse. kidney/bladder surgeries. graft R arm. right hip surgery. Right arm fistula - Social History Smoking Status: Never smoker Smokeless Tobacco Status: No Alcohol use: none Drug use: none - Family History Mother Living Status: Still Living Hx Family Cardiac Disorders: Yes (CAD) Hx Family Cancer: Yes (skin cancer) Hx Family Endocrine Disorder: Yes (DM) Father Adopted: No Family Member Ethnicity: Non- Living Status: Still Living Hx Family Cardiac Disorders: Yes (heart disease) Hx Family Respiratory Disorders: No Hx Family Cancer: Yes (prostate) Hx Family GI Disorders: No Hx Family Endocrine Disorder: Yes (Diabetes) Hx Family Neuromuscular Disorders: No Hx Family Neurologic Disorders: No Hx Family HEENT Disorders: No Hx Family Autoimmune Disorders: No Internal Medicine - H&P: Meds Aspirin Enteric Coated [Aspirin EC] 81 mg PO DAILY #30 tablet.dr 07/13/18 [Rx] Sertraline [Zoloft] 50 mg PO DAILY 11/28/18 [History] Albuterol Sulfate [Ventolin Hfa] 2 puff IH Q6H PRN 11/29/18 [History] Atorvastatin [Lipitor] 40 mg PO HS #30 tablet 12/07/18 [Rx] GuaiFENesin ER [Mucinex] 600 mg PO BID PRN #20 tbbp.12hr 12/07/18 [Rx] Midodrine [ProAmatine] 5 mg PO 0800,1200,1700 #90 tablet 12/07/18 [Rx] Allergy/AdvReac Type Severity Reaction Status Date / Time bee venom protein (honey bee) Allergy Difficulty Verified 11/28/18 22:37 Breathing fentanyl Allergy Unresponsiv Verified 03/21/19 01:08 e latex Allergy Hives Verified 07/12/18 10:36 morphine Allergy Unresponsiv Verified 03/21/19 01:08 e moxifloxacin [From Avelox] Allergy Difficulty Verified 07/12/18 10:36 Breathing All Systems PM: A 10-system review of systems was performed and is negative for pertinent findings except as documented above in the HPI. - Constitutional Vitals: Temp Pulse Resp BP Pulse Ox 98.0 F 78 20 131/81 98 03/20/19 20:24 03/20/19 20:24 03/20/19 20:24 03/20/19 20:24 03/20/19 20:46 Exam: General: Alert and oriented. Skin:Normal color, no rash, no lesions. HEENT:Pupils equal, round and reactive. Cardiovascular:Chronic murmur noted. No JVD. Pulse regular. Lungs:Normal breath sounds, no wheezes or crackles. Abdomen:Soft, non-tender, no rigidity. Extremities:No deformity, no edema, no joint swelling or clubbing. Tenderness noted to bilateral lower extremities, distal PMS intact. Right arm fistula noted with positive bruit. Neurological:Normal cognition and motor skills. Difficulty ambulating secondary to pain, able to move extremities. Pulses:Carotid and radial pulses normal +2. Rest of the physical exam is non contributory. Internal Med - H&P Results - Labs CBC & Chem 7: 03/20/19 17:37 03/20/19 17:37 Labs: Short CBC 03/20/19 Range/Units 17:37 WBC 4.7 (4.3-11.1) K/mcL Hgb 9.9 L (11.5-15.4) g/dL Hct 34.4 L (35.3-44.9) % Plt Count 146 (140-400) K/mcL Neutrophils # 3.1 (1.6-8.9) K/mcL BMP 03/20/19 17:37 Sodium 135 L Potassium 5.5 H Chloride 95 L Carbon Dioxide 26 BUN 62 H Creatinine 6.46 H Glucose 90 Calcium 9.7 - Impressions ITS Impressions Hip/Pelvis X-Ray 03/20/19 13:49 IMPRESSION: 1. Severe osteopenia limiting evaluation. No acute bony or joint abnormality identified. 2. Given the severe degree of osteopenia, nondisplaced fractures would be difficult to detect and consideration should be given to an MRI or a CT D/ / Chad Allred MD / Chad Allred MD Interpreting Provider: Chad Allred MD Pelvis CT 03/20/19 14:42 IMPRESSION: 1. Nondisplaced fracture involving the right side of the sacrum at the S1 and S2 levels 2. Nondisplaced fracture of the right inferior pubic ramus D/ / Chad Allred MD / Chad Allred MD Interpreting Provider: Chad Allred MD - Assessment and Plan (1) Fall Current Visit: Yes Status: Acute Assessment and plan: Reports having mechanical fall around 2 weeks ago getting into her car and developed bilateral hip pain, had outpatient x-rays completed at that time that were negative for fracture. ER obtained x-rays of the hip/pelvis which showed severe osteopenia with no acute bony or joint abnormality identified recommending MRI /CT for further evaluation given the severe degree of osteopenia making nondisplaced fractures difficult to detect. ER then obtained a CT of the pelvis which showed a nondisplaced fracture involving the right side of the sacrum at the S1 and S2 levels and a nondisplaced fracture of the right inferior pubic ramus. ER called and discussed with on-call orthopedic surgeon Dr. Olivares who agreed to see patient in consult, consult order placed. Will need cardiac clearance for any surgical intervention, cardiology consult ordered, will need called in a.m. Pain control with PRN pain medications. Fall precautions ordered. Social work consult for any potential discharge needs. Qualifiers: Encounter type: initial encounter Qualified Code(s): W19.XXXA - Unspecified fall, initial encounter (2) Sacral fracture Current Visit: Yes Status: Acute Assessment and plan: CT of the pelvis which showed a nondisplaced fracture involving the right side of the sacrum at the S1 and S2 levels. Plan as stated above. Qualifiers: Encounter type: initial encounter Zone of sacrum fracture: unspecified portion of sacrum Fracture type: closed Qualified Code(s): S32.10XA - Unspecified fracture of sacrum, initial encounter for closed fracture (3) Pubic ramus fracture Current Visit: Yes Status: Acute Assessment and plan: ER obtained CT of the pelvis which showed a nondisplaced fracture of the right inferior pubic ramus. Plan as stated above. Qualifiers: Encounter type: initial encounter Fracture type: closed Laterality: right Qualified Code(s): S32.591A - Other specified fracture of right pubis, initial encounter for closed fracture (4) Hyperkalemia Current Visit: Yes Status: Acute Assessment and plan: Increased at 5.5 ER ordered Kayexalate. Nephrology consult for continued dialysis schedule of Thursday, Thursday, Thursday, will need called in a.m. Repeat labs ordered. (5) Hyponatremia Current Visit: Yes Status: Acute Assessment and plan: Minimally decreased at 135. Repeat labs ordered. (6) ESRD (end stage renal disease) on dialysis Current Visit: Yes Status: Chronic Assessment and plan: Nephrology consult for continued dialysis schedule of Thursday, Thursday, Thursday, will need called in a.m. Avoid nephrotoxins as able. (7) Decreased hemoglobin Current Visit: Yes Status: Chronic Assessment and plan: Appears at baseline. Repeat labs ordered. - Time Spent With Patient Total time spent is greater than 50% in coordination of care (as documented) at patient's floor/unit and/or counseling patient:
[2019-03-21 05:42] LABS: Eosinophils % 7.9 %; Hemoglobin 10.7 g/dL (11.5-15.4); Immature Granulocytes % 0.4 % (0-4)
[2019-03-21 05:43] LABS: Basophils % 0.2 %; Eosinophils # 0.4 K/mcL (0.0-0.6); Hematocrit 38.6 % (35.3-44.9); Lymphocytes # 0.9 K/mcL (0.6-4.6); Lymphocytes % 15.9 %; Mean Corpuscular HGB Conc 27.7 g/dL (31.6-35.5); Mean Corpuscular Hemoglobin 27.7 pg (28.0-33.3); Mean Platelet Volume 10.3 fL (9.4-12.4); Monocytes # 0.5 K/mcL (0.0-1.3); Monocytes % 9.1 %; Neutrophils # 3.7 K/mcL (1.6-8.9); Platelet Count 144 K/mcL (140-400); Red Blood Count 3.86 M/mcL (3.82-4.97); Red Cell Distribution Width 16.1 % (11.5-14.5); Segmented Neutrophils % 66.5 %; White Blood Count 5.6 K/mcL (4.3-11.1)
[2019-03-21 06:03] LABS: Calcium 9.5 mg/dL (8.6-10.3); Potassium 5.9 mEq/L (3.5-5.1)
[2019-03-21 06:10] LABS: Anisocytosis 1+ (Not Present); Hypochromasia Present (Not Present); Platelet Estimate Normal (Normal)
[2019-03-21] MEDS ORDERED: Albuterol 2.5 MG/3 ML NEBULIZER IH PRN (08:00)
--- NOTE | 2019-03-21 08:08 | Orthopedic Consult Note ---
Date of Encounter: 03/21/19 Time of Encounter: 08:05 Assessment and Plan (1) Pelvis fracture, right Current Visit: Yes Status: Acute I did have a very long discussion with the patient regarding the diagnosis. She does have a right-sided stable pelvic ring injury which I feel will heal with nonoperative management. She does have a history of left hip pain beginning in November which has improved with therapy, however CT scan does show what appears to be an anterior lucency and the tension side of the femoral neck which I suspect was likely the cause of her pain. Options include continued observation and protected weightbearing, percutaneous screw fixation, and cemented hip hemiarthroplasty. Given that the femoral neck fracture has demonstrated at least some inherent stability I feel that screw stabilization would be a low morbidity procedure which would reduce the risk of displacement, provide more stability and reduce the risk of needing a much larger, more morbid hemiarthroplasty procedure. Given her osteopenia, she is at risk of needing prosthetic replacement in the future regardless of current treatment. I did discuss this at great length with the patient and she did wish to proceed with percutaneous screw stabilization. The plan is for surgery Thursday after dialysis. I have reviewed each of the pertinent components of this chart and any other pertinent medical component(s) including but not limited to pertinent application of the chief complaint, history of present illness, current medication, medical history, allergies, family history, medical history, surgical history, social history, review of systems, vital signs, and any other portion of the pertinent patient medical record directly or indirectly involved with this patient care that is pertinent based on my medical decision process. JARROD Sainz Qualifiers: Qualified Code(s): S32.301A - Unspecified fracture of right ilium, initial encounter for closed fracture History of Present Illness HPI: Ms. Darby is a 48 year old female with a history of renal osteodystrophy, and the patient has been on dialysis since an early age. She did undergo successful right hip cemented hemiarthroplasty about 2 years ago for a nondisplaced femoral neck fracture, given her severe osteopenia. She did have left hip pain back in November though imaging failed to show hip fracture and she is managed with therapy. At the time the pain was quite significant and localized to the left hip region and worse with use and movement and better with rest, though there is no injury at that time. She had rehabbed this left hip reasonably well, and was discharged home and had a fall which resulted in a nondisplaced pelvic ring injury for which she was admitted. I was asked to assist in the evaluation and management of this patient. She currently complains of right-sided groin pain related to her right-sided pelvic ring injury. She currently denies pain on the left. No numbness, tingling, or any other associated signs or symptoms or modifying factors otherwise. Past Med Surg Social Fam HX - Past Medical History Medical history: asthma, coronary artery disease, dialysis, hypertension, renal disease, thyroid disease, valvular heart disease, other Additional medical history: brittle bone syndrome, bladder/sphincter, pulmonary HTN Psychiatric history: anxiety, depression - Past Surgical History Surgical History: orthopedic, other, other Additional surgical history: rectal prolapse. kidney/bladder surgeries. graft R arm. right hip surgery. Right arm fistula - Social History Smoking Status: Never smoker Smokeless Tobacco Status: No Alcohol use: none Drug use: none - Family History Mother Living Status: Still Living Hx Family Cardiac Disorders: Yes (CAD) Hx Family Cancer: Yes (skin cancer) Hx Family Endocrine Disorder: Yes (DM) Father Adopted: No Family Member Ethnicity: Non- Living Status: Still Living Hx Family Cardiac Disorders: Yes (heart disease) Hx Family Respiratory Disorders: No Hx Family Cancer: Yes (prostate) Hx Family GI Disorders: No Hx Family Endocrine Disorder: Yes (Diabetes) Hx Family Neuromuscular Disorders: No Hx Family Neurologic Disorders: No Hx Family HEENT Disorders: No Hx Family Autoimmune Disorders: No Medications and Allergies ALPRAZolam [Xanax 0.5 MG Tablet] 0.5 mg PO MOWEFR 03/21/19 [History] Albuterol Sulfate [Ventolin Hfa] 2 puff IH Q6H PRN 03/21/19 [History] Hydrocodone/Acetaminophen [[place] 5-325 Tablet] 1 tab PO Q6H PRN 03/21/19 [History] Loperamide [Imodium] 2 mg PO 8XD PRN 03/21/19 [History] Losartan Potassium 25 mg PO DAILY 03/21/19 [History] Sertraline [Zoloft] 50 mg PO HS 03/21/19 [History] Allergy/AdvReac Type Severity Reaction Status Date / Time bee venom protein (honey bee) Allergy Difficulty Verified 03/21/19 08:47 Breathing fentanyl Allergy Unresponsiv Verified 03/21/19 08:47 e latex Allergy Hives Verified 03/21/19 08:47 morphine Allergy Unresponsiv Verified 03/21/19 08:47 e moxifloxacin [From Avelox] Allergy Difficulty Verified 03/21/19 08:47 Breathing All Systems Reviewed: Constitutional -The patient denies any fevers, chills, or feelings of illness Neurologic -The patient denies any numbness, tingling, or burning pains Physical Exam - Constitutional Vitals: Temp Pulse Resp BP Pulse Ox 97.7 F 75 17 114/72 95 03/21/19 06:57 03/21/19 06:57 03/21/19 06:57 03/21/19 06:57 03/21/19 06:57 Constitutional -Vitals reviewed -The patient is well developed and well nourished. -Mood is pleasant. -The patient is well groomed. Psychiatric -The patient is fully alert and oriented x 3. Respiratory: -Respiratory effort normal Abdomen: -Soft abdomen -Non tender -Non distended: Left upper extremity: -No deformities. The overlying skin is intact. No obvious signs of acute trauma. -No tenderness to palpation throughout. -No significant pain with passive motion of the shoulder, elbow, wrist, and fingers within the limits of the bed. -Able to make an "OK" sign, cross the index and long fingers, and extend the thumb. -Sensation grossly intact to light touch throughout the median, radial, and ulnar distributions. -Radial pulse is present; Fingers have good capillary refill. Right upper extremity: -No deformities. The overlying skin is intact. No obvious signs of acute trauma. -No tenderness to palpation throughout. -No significant pain with passive motion of the shoulder, elbow, wrist, and fingers within the limits of the bed. -Able to make an "OK" sign, cross the index and long fingers, and extend the thumb. -Sensation grossly intact to light touch throughout the median, radial, and ulnar distributions. -Radial pulse is present; Fingers have good capillary refill. Left lower extremity: -No deformities. The overlying skin is intact. No obvious signs of acute trauma. -No tenderness to palpation throughout. -No pain with passive motion of the hip, knee, ankle, and toes within the limits of the bed. -No pain with axial loading of the thigh. -Able to dorsiflex and plantarflex the ankle and toes. -Sensation is grossly intact to light touch throughout the sural, saphenous, superficial peroneal, and deep peroneal distributions. -Toes have good capillary refill. Right lower extremity: -No deformities. The overlying skin is intact. No obvious signs of acute trauma. -No tenderness to palpation throughout. -No pain with passive motion of the hip, knee, ankle, and toes within the limits of the bed. -Mild pain with axial loading of the right thigh. -Able to dorsiflex and plantarflex the ankle and toes. -Sensation is grossly intact to light touch throughout the sural, saphenous, superficial peroneal, and deep peroneal distributions. -Toes have good capillary refill. Diagnostic Imaging: I did personally review and interpret bilateral hip x-rays which show an intact cemented right hip hemiarthroplasty. No definite fracture on the left. CT scan does show a right-sided stable pelvic ring injury. On this study there is superior/anterior lucency the seen on coronal series 3 image 41. Results - Labs Result Diagrams: 03/21/19 05:14 03/21/19 15:55 Labs: Abnormal lab results RBC 3.51 M/mcL (3.82-4.97) L 03/20/19 17:37 Hgb 10.7 g/dL (11.5-15.4) L 03/21/19 05:14 Hct 34.4 % (35.3-44.9) L 03/20/19 17:37 MCH 27.7 pg (28.0-33.3) L 03/21/19 05:14 MCHC 27.7 g/dL (31.6-35.5) L 03/21/19 05:14 RDW 16.1 % (11.5-14.5) H 03/21/19 05:14 Hypochromasia Present (Not Present) A 03/21/19 05:14 Anisocytosis 1+ (Not Present) A 03/21/19 05:14 Sodium 135 mEq/L (136-145) L 03/20/19 17:37 Potassium 5.9 mEq/L (3.5-5.1) H 03/21/19 05:14 Chloride 94 mEq/L (98-107) L 03/21/19 05:14 BUN 77 mg/dL (6-20) H 03/21/19 05:14 Creatinine 7.41 mg/dL (0.60-1.20) H 03/21/19 05:14 Est GFR ( Amer) 7 (> 60) L 03/21/19 05:14 Est GFR (Non-Af Amer) 6 (> 60) L 03/21/19 05:14 Calculated Osmolality 305 (280-300) H 03/21/19 05:14 H & H 03/20/19 03/21/19 Range/Units 17:37 05:14 Hgb 9.9 L 10.7 L (11.5-15.4) g/dL Hct 34.4 L 38.6 (35.3-44.9) % All other labs normal. Consult Discharge Plan - Plan Referrals: Angela Bob, [facility] [Primary Care Provider] -
--- NOTE | 2019-03-21 08:56 | Event Note ---
Date of Encounter: 03/21/19 Time of Encounter: 08:54 I have seen and evaluated the patient at bedside. H&P, vitals signs, labs and image reviewed. Patient hemodynamically stable. Ortho consulted. Home meds resumed. will continue to follow up
[2019-03-21] MEDS: Aspirin Enteric Coated 81 MG Tablet PO SCH (09:18)
--- NOTE | 2019-03-21 11:29 | Electrocardiograph Report ---
[address] [address] Test Date: 2019-03-21 Pat Name: Daisy Darby Department: 115 Room: 3A53 Gender: F Picc Nurse: : 1970 Requested By: Russ Ch Order Number: [id number] Reading MD: Kelly Maurice Measurements Intervals [place] Rate: 74 P: 74 CO: 160 QRS: 115 QRSD: 94 T: 24 QT: 375 QTc: 403 Interpretive Statements SINUS RHYTHM ARTIFACT Electronically Signed On 03-21-2019 11:28:15 EDT by Kelly Maurice
[2019-03-21] MEDS ORDERED: 0.9 % Sodium Chloride 250 ML IVC PRN (11:53)
[2019-03-21] MEDS ORDERED: *HR* Heparin 10,000 UNIT/10 ML VIAL IV PRN (11:53)
[2019-03-21] MEDS: *HR* HYDROcodone/Acet 5/325 mg TABLET PO PRN (11:57)
[2019-03-21] MEDS ORDERED: 0.9 % Sodium Chloride 1,000 ML PRIME SCH (12:00)
--- NOTE | 2019-03-21 12:40 | Nephrology Consult Note ---
<Brock Jenkins - Last Filed: 03/21/19 17:41> Date of Encounter: 03/21/19 Time of Encounter: 14:08 History of Present Illness - Reason for Consult Consult date: 03/21/19 - History of Present Illness Course per EMR review Isabell Darby presented to the ED on 03/20/19 for bilateral hip pain. PMH: hypertension. thyroid disease. ESRD-end stage renal disease on hemodialysis. congenital cloacal deformity: congenital imperforate anus, r ectovaginal fistula, and ectopic L ureter, vesicovaginal fistula. mitral valve prolapse. rectal prolapse. secondary hypoparathyroidism. hypertension. Adnexal mass. Obesity. Premature menopause. Initial vitals unremarkable Initial labs significant for: Hemoglobin 9.9 and at baseline. Potassium 5.5. BUN 62. Creatinine 7.41 and at baseline Hip and pelvis x-ray 03/20: Severe osteopenia complicated the exam CT pelvis showed nondisplaced fracture involving the right side of the sacrum at the S1 and S2 levels. Nondisplaced fracture of the right inferior pubic ramus She was admitted for #fall, #sacral fracture, #pubic ramus fracture, #end-stage renal disease with electrolyte abnormalities, #decreased hemoglobin Subjective States that she was getting into her car by holding onto the door which moved and caused her to fall. No loss of consciousness. Renal history She was born with one functioning kidney. She does not know what condition calls this. She has had multiple surgeries on her bladder and her kidneys the last one being 1989. She notes that they were corrective surgeries but does not remember all of the details. She states that she is to have chronic kidney infections growing up. She has never had a kidney transplant. Patient has had dialysis since 2003. She receives dialysis Thursday, Thursday, Thursday. Last treatment was Thursday. Every few weeks her blood pressures will drop during treatment and they will stop the treatment. She makes maybe a teaspoon of urine per day and this is not occurring every day. Past medical history: Pulmonary hypertension, hypertension, mitral valve prolapse, "something like a heart attack "2 months ago requiring catheter lab with no intervention, rectal prolapse, "maybe" COPD Past surgical history: Multiple corrective surgeries on urinary tract. Most recent surgery for her rectal prolapse. Medications: Zoloft, Xanax, blood pressure pill Family history: She has 2 cousins with kidney issues that are different than her own. She states that whatever the condition is called it typically causes people not to live long into adulthood. Today: Patient states that she feels okay and better than yesterday. Associates this with just having received her pain pill. Past Med Surg Social Fam HX - Past Medical History Medical history: asthma, coronary artery disease, dialysis, hypertension, renal disease, thyroid disease, valvular heart disease, other Additional medical history: brittle bone syndrome, bladder/sphincter, pulmonary HTN Psychiatric history: anxiety, depression - Past Surgical History Surgical History: orthopedic, other, other Additional surgical history: rectal prolapse. kidney/bladder surgeries. graft R arm. right hip surgery. Right arm fistula - Social History Smoking Status: Never smoker Smokeless Tobacco Status: No Alcohol use: none Drug use: none - Family History Mother Living Status: Still Living Hx Family Cardiac Disorders: Yes (CAD) Hx Family Cancer: Yes (skin cancer) Hx Family Endocrine Disorder: Yes (DM) Father Adopted: No Family Member Ethnicity: Non- Living Status: Still Living Hx Family Cardiac Disorders: Yes (heart disease) Hx Family Respiratory Disorders: No Hx Family Cancer: Yes (prostate) Hx Family GI Disorders: No Hx Family Endocrine Disorder: Yes (Diabetes) Hx Family Neuromuscular Disorders: No Hx Family Neurologic Disorders: No Hx Family HEENT Disorders: No Hx Family Autoimmune Disorders: No Medications and Allergies Albuterol Sulfate [Ventolin Hfa] 2 puff IH Q6H PRN 03/21/19 [History] Losartan Potassium 25 mg PO DAILY 03/21/19 [History] Sertraline [Zoloft] 50 mg PO HS 03/21/19 [History] ALPRAZolam [Xanax 0.5 MG Tablet] 0.5 mg PO MOWEFR 7 Days #7 tablet 03/28/19 [Rx] Aspirin Enteric Coated [Aspirin EC] 81 mg PO DAILY tablet. 03/28/19 [Rx] Atorvastatin [Lipitor] 40 mg PO HS tablet 03/28/19 [Rx] Budesonide/Formoterol 80/4.5 [Symbicort 80/4.5] 2 puff IH BIDR inhaler 9 [Rx] Hydrocodone/Acetaminophen [[place] 5-325 Tablet] 1 tab PO Q6H PRN 7 Days #28 tablet 03/28/19 [Rx] Midodrine [ProAmatine] 5 mg PO 0800,1200,1700 #90 tablet 03/28/19 [Rx] Sevelamer [Renvela] 800 mg PO TIDWM tablet 03/28/19 [Rx] Allergy/AdvReac Type Severity Reaction Status Date / Time bee venom protein (honey bee) Allergy Difficulty Verified 03/21/19 08:47 Breathing fentanyl Allergy Unresponsiv Verified 03/21/19 08:47 e latex Allergy Hives Verified 03/21/19 08:47 morphine Allergy Unresponsiv Verified 03/21/19 08:47 e moxifloxacin [From Avelox] Allergy Difficulty Verified 03/21/19 08:47 Breathing diphenhydramine AdvReac Hives Verified 03/23/19 14:04 [From Benadryl] Review of Systems All Systems review (narrative): Admits: Chest pain occasionally that is not new for her, palpitations that is not new for her, dyspnea, hip pain, depression Denies: Fever, weight loss, night sweats, new skin lesions or rash, new vision loss, epistaxis, dysphagia, cough, hemoptysis, abdominal pain, recent diarrhea, hematochezia, hematuria, dizziness, syncope Exam - Vital Signs Vital signs: Initial Vital Signs Temp Pulse Resp BP Pulse Ox 98.4 F 80 18 158/86 98 03/20/19 13:25 03/20/19 13:25 03/20/19 13:25 03/20/19 13:25 03/20/19 13:25 Vital Signs - Last 8 Hours Temp Pulse Resp BP Pulse Ox 03/21/19 10:25 97.9 F 73 15 95/58 95 03/21/19 06:57 97.7 F 75 17 114/72 95 Intake and Output 03/20/19 03/21/19 03/21/19 23:59 07:59 15:59 Intake Total 50 / 50 Output Total 0 / 0 0 / 0 0 / 0 Balance 0 / 0 50 / 50 0 / 50 Intake: IV Fluids 50 / 50 Ofirmev 1,000 mg/100 ml 500 mg 50 / 50 In 50 ml @ 200 mls/hr IVPB ONCE ONE Rx#:[id number] Output: Urine 0 / 0 0 / 0 0 / 0 Other: Weight 52.9 kg Additional exam: Gen.: Middle-aged female. No acute distress Skin: Bilateral superficial purpura of forearms. Eyes: Moist. Anicteric Neck: Bilateral carotid bruits in the setting of known MVP Cardiac: Regular rate and rhythm. At least 3/6 systolic murmur heard throughout. Respiratory: Minimal Basilar crackles. CTA otherwise GI: Multiple surgical scars. Bowel sounds heard Extremities: Capillary refill less than 2 seconds bilateral upper extremities. No bilateral lower extremity edema Neuro: Eyes able to track. No obvious tremor. Psych: Appropriate mood and behavior. Answers questions coherently A/P #End-stage renal disease Hemodialysis MWF Last dialysis session 03/18 -Urine output 0 since admission -Potassium 5.9 -BUN 77 -Creatinine 7.41 -plan for dialysis -telemetry #Anemia Chronic. Usually normocytic. Macrocytic in November. In the setting of ESRD. Record search did not find iron studies -Consider checking erythropoietin and vitamin D levels. #Femoral neck abnormality Orthopedics discovered anterior lucency of the femoral neck on imaging. -Planned for surgery Thursday afternoon after dialysis Results - Lab Results 03/21/19 05:14 03/21/19 15:55 Most recent lab results 03/21/19 05:14 Calcium 9.5 Consult Discharge Plan - Plan Additional Instructions: INTERMEDIATE DISCHARGE INSTRUCTIONS Dr. Olivares PROCEDURE PERFORMED Fixation of left hip. Stable pelvic ring injury, nonoperative Incision care -Daily dressing changes to the left hip with dry gauze and either paper tape or medipore tape. -Avoid soaking wound in water (no hot tubs, bathtubs, swimming pools). Weight bearing status -Non-weightbearing to the left lower extremity -May mobilize with weightbearing as tolerated to the right lower extremity under the direction of physical and occupational therapy. Medications -Pain medication per the discharging medical doctor -DVT prophylaxis per the discharging hospitalist Other -Knee high MIRIAN hose 23 hours per day -Consult physical and occupational therapy for mobilization. -Up to chair with assistance at least twice per day. -Follow up with your primary care physician to discuss testing for bone mineral density. Follow-up with Dr. Olivares at the office 2 weeks from the surgery date for a post operative evaluation. Call the office at [phone] to schedule appointment. Referrals: Angela Bob C[employer]ER SERVICE [employer]IVER [Primary Care Provider] - (web requested 03/28/2019) Prescriptions: Hydrocodone/Acetaminophen [[place] 5-325 Tablet] 1 tab PO Q6H PRN 7 Days #28 tablet PRN Reason: Mild To Moderate Pain Midodrine [ProAmatine] 5 mg PO 0800,1200,1700 #90 tablet ALPRAZolam [Xanax 0.5 MG Tablet] 0.5 mg PO MOWEFR 7 Days #7 tablet <Nicholas Hartmanncesar Ramos - Last Filed: 04/03/19 15:38> Date of Encounter: 03/21/19 Assessment and Plan (1) Hypertension Status: Chronic Qualifiers: Hypertension type: essential hypertension Qualified Code(s): I10 - Es sential (primary) hypertension (2) ESRD (end stage renal disease) on dialysis Status: Chronic (3) Anemia Status: Acute Qualifiers: Qualified Code(s): D64.9 - Anemia, unspecified (4) Acute and chronic respiratory failure with hypoxia Status: Acute Exam - Vital Signs Vital signs: Initial Vital Signs Temp Pulse Resp BP Pulse Ox 98.4 F 80 18 158/86 98 03/20/19 13:25 03/20/19 13:25 03/20/19 13:25 03/20/19 13:25 03/20/19 13:25 Results - Lab Results 03/28/19 04:00 03/28/19 04:00 - Attending Attestation I examined this patient and my medical decision-making was reviewed with the Resident Physician. I agree with the documented findings, disposition and treatment plan as described except to the extent set forth below. Pt seen and examined on HD; 48 y o female with PMH of ESRD on HD since and HTN admitted s/p fall with fracture to right sacrum and pubic ramus. Renal consulted for HD needs. On exam; Gen chronic ill appearing but comfortable, Lungs clear, Heart S1S2, Abd soft NT/NT, Ext no LE edema and Neuro AAOx3. Lab reviewed. Continue HD with UF as tolerated and continue HD on schedule during hospital stay. Renal diet advised. Fluid restriction advised
[2019-03-21] MEDS: ALPRAZolam 0.5 MG TABLET PO SCH (13:29)
[2019-03-21] MEDS: *HR* Heparin 5,000 UNIT/ML VIAL SQ SCH (19:05)
[2019-03-22] MEDS: *HR* Heparin 5,000 UNIT/ML VIAL SQ SCH ×2 (06:29→16:58)
[2019-03-22 06:48] LABS: Calcium 9.6 mg/dL (8.6-10.3)
[2019-03-22] MEDS: Aspirin Enteric Coated 81 MG Tablet PO SCH (07:19)
--- NOTE | 2019-03-22 09:27 | Nephrology Progress Note ---
Date of Encounter: 03/22/19 Time of Encounter: 13:44 - Assessment and Plan (1) Anemia Current Visit: Yes Status: Acute Qualifiers: Qualified Code(s): D64.9 - Anemia, unspecified (2) ESRD (end stage renal disease) on dialysis Current Visit: Yes Status: Chronic (3) Sacral fracture Current Visit: Yes Status: Acute Qualifiers: Encounter type: initial encounter Zone of sacrum fracture: unspecified portion of sacrum Fracture type: closed Qualified Code(s): S32.10XA - Unspecified fracture of sacrum, initial encounter for closed fracture Subjective Interval history: Patient states that she feels crummy because she has a stomachache and feels shaky. PE Gen.: Middle-aged female. No acute distress Skin: Good turgor. Eyes: Moist Cardiac: Regular rate and rhythm. 3/6 systolic murmur heard throughout. Respiratory: Distant lung sounds. Possible mild crackles in the bases GI: Right lower quadrant nodular 2" x 3" mass that feels similar to a lipoma. Bowel sounds heard within this mass. Extremities: Bilateral upper extremities capillary refill less than 2 seconds. No lower extremity edema. A/P #End-stage renal disease Hemodialysis MWF Last dialysis session 03/18 Patient usually has around 3 L removed during dialysis. -Urine output 0 since admission -Potassium 5.9 -BUN 77> 33 -Creatinine 7.41> 3.97 -Continue dialysis MWF during stay #Anemia Chronic. Usually normocytic. Macrocytic in November. In the setting of ESRD. Record search did not find iron studies -Consider checking erythropoietin and vitamin D levels. #sacral fracture Orthopedics also discovered anterior lucency of the left femoral neck on imaging representing fracture. -Plan for screw stabilization of left femoral neck Thursday afternoon after dialysis Objective - Vital Signs Vital signs: Vital Signs Temp Pulse Resp BP Pulse Ox 03/22/19 07:16 97.6 F 81 14 96/53 98 03/22/19 04:28 97.6 F 78 14 87/58 100 03/21/19 18:51 97.9 F 16 102/68 03/21/19 18:15 101/57 03/21/19 18:00 99/62 03/21/19 17:45 93/56 03/21/19 17:30 95/60 03/21/19 17:15 92/58 03/21/19 17:00 95/61 03/21/19 16:45 98/66 03/21/19 16:30 99/69 03/21/19 16:15 101/67 03/21/19 16:00 99/58 03/21/19 15:45 100/66 03/21/19 15:30 109/74 03/21/19 15:15 122/72 03/21/19 15:00 118/68 03/21/19 14:45 97.7 F 18 122/70 03/21/19 14:14 97.6 F 71 15 134/88 95 03/21/19 10:25 97.9 F 73 15 95/58 95 Intake and Output 03/21/19 03/22/19 03/22/19 23:59 07:59 15:59 Output Total 2600 / 2600 Balance -2600 / -1710 Output: Urine 0 / 0 Total Dialysis (HD) Output 2600 / 2600 Other: # Urine Diapers 0 Weight 53.5 kg Hemodialysis Net Fluid Removed 2000 (mL) Patient Weight 03/22/19 23:59 Weight 53.5 kg - Lab 03/21/19 05:14 03/22/19 05:42 Most recent lab results 03/22/19 05:42 Calcium 9.6 Consult Discharge Plan - Plan Referrals: Angela Bob CNP [Primary Care Provider] -
[2019-03-22] MEDS: *HR* HYDROcodone/Acet 5/325 mg TABLET PO PRN (10:28)
--- NOTE | 2019-03-22 11:20 | Internal Med Progress Note ---
Hospitalist Progress Note - Encounter Date of Encounter: 03/22/19 Time of Encounter: 11:17 - Subjective Interval History: I have seen and evaluated the patient at bedside. patient reported feeling well today, but reported some discomfort on her shoulders, denies chest pain, nausea, vomiting or shortness of breath. - Exam Vitals: Temp Pulse Resp BP Pulse Ox 97.6 F 81 14 96/53 97 03/22/19 07:16 03/22/19 07:16 03/22/19 07:16 03/22/19 07:16 03/22/19 07:18 Exam: Vitals: Reviewed General: Alert and oriented x4. In no distress Cardiovascular: RRR, normal S1S2, III/ systolic murmur. No JVD. Lungs: CTA b/;L, no wheezes or crackles. Abdomen: Soft, non-tender, no rigidity. Extremities: No edema on the lower extr b/l. Right arm fistula noted with positive bruit. Neurological: Normal cognition. Difficulty ambulating secondary to pain. Rest of the physical exam is non contributory. - Assessment and Plan (1) Pubic ramus fracture Current Visit: Yes Status: Acute Assessment and Plan: continue with main controlled. ortho evaluated the patient. patient also has a fracture of the right pelvis. scheduled for surgery on Thursday after HD. (2) ESRD (end stage renal disease) on dialysis Current Visit: Yes Status: Chronic Assessment and Plan: avoid nephrotoxic medications. renal replacement therapy as scheduled, patient euvolemic. BP in the low 90s SBP after HD. started on midodrine 5mg/PO TID. nephrology recommendations appreciated. (3) Fall Current Visit: Yes Status: Acute Assessment and Plan: PT/OT ordered. (4) Hyponatremia Current Visit: Yes Status: Resolved (5) Hyperkalemia Current Visit: Yes Status: Resolved (6) CAD (coronary artery disease) Current Visit: Yes Status: Chronic Assessment and Plan: patient had a LHC on 12/06/18. Impressions: There is moderate one vessel coronary artery disease. no stent placed. cardiology recommended medical management. continue aspirin 81mg/PO daily. (7) Hyperlipidemia Current Visit: No Status: Chronic DVT Prophylaxis: On heparin subQ. - Summary of Assessment and Plan Summary of Assessment and Plan: Patient to remain in the hospital scheduled for surgery tomorrow. - Time Spent with Patient Total time spent is greater than 50% in coordination of care (as documented) at patient's floor/unit and/or counseling patient: Greater than 35 minutes (45) Plan of Care Discussed with: patient (and the nurse.) Internal Medicine: Result - Labs CBC & Chem 7: 03/21/19 05:14 03/22/19 05:42 Labs: BMP 03/21/19 03/22/19 15:55 05:42 Sodium 140 Potassium 4.0 D 5.0 Chloride 99 Carbon Dioxide 30 H BUN 33 H Creatinine 3.97 H Glucose 77 Calcium 9.6 - ABG Interpretation ABG results: PT/INR, D-dimer PT 11.8 Seconds (9.4-12.1) 03/20/19 17:37 Consult Discharge Plan - Plan Referrals: Angela Bob, WHE[employer]IR RENT[employer] CLERK [Primary Care Provider] - (1) Pubic ramus fracture Qualifiers: Encounter type: initial encounter Fracture type: closed Laterality: right Qualified Code(s): S32.591A - Other specified fracture of right pubis, initial encounter for closed fracture (3) Fall Qualifiers: Encounter type: initial encounter Qualified Code(s): W19.XXXA - Unspecified fall, initial encounter (6) CAD (coronary artery disease) Qualifiers: Coronary Disease-Associated Artery/Lesion type: unspecified vessel or lesion type [place] vs. transplanted heart: unspecified whether [place] or transplanted heart Associated angina: angina presence unspecified Qualified Code(s): I25.10 - Atherosclerotic heart disease of [place] coronary artery without angina pectoris (7) Hyperlipidemia Qualifiers: Hyperlipidemia type: unspecified Qualified Code(s): E78.5 - Hyperlipidemia, unspecified
--- NOTE | 2019-03-22 16:16 | Orthopedics Progress Note ---
Date of Encounter: 03/22/19 Time of Encounter: 15:00 - Assessment and Plan (1) Pelvis fracture, right Current Visit: Yes Status: Acute Qualifiers: Qualified Code(s): S32.301A - Unspecified fracture of right ilium, initial encounter for closed fracture Subjective Interval history: S: Patient resting in bed comfortably without any new injuries or complaints. Expected pain to the right groin due to her pelvic ring injury. She denies any left hip pain O: Afebrile on the vital signs are stable Mild pain in the right groin No significant pain with passive motion of the left hip or axial loading of the left thigh. No significant pain with passive motion of the right hip or axial loading of the right thigh. Neurovascularly intact distally to the lower extremities. I did discuss the CT scan with the muscular skeletal radiologist and there is felt to be a tension sided nondisplaced femoral neck fracture which was likely present back in November with some mild surrounding resorption superiorly. A: Stable right pelvic ring injury P: I did have a very long discussion with the patient and her who is present at the bedside. The pelvic ring injury is presumed to be stable and my recommendation is observation and careful radiographic follow-up with weightbearing as tolerated on the right lower extremity. Regarding the left hip, however options include continued observation with protected weightbearing, percutaneous screw fixation, and cemented left hip hemiarthroplasty like she had on the right. Given the patient's significant medical comorbidities she wishes to avoid a significant procedure such as prosthetic replacement (which left her in the ICU last time) at this time. I did discuss percutaneous screw fixation which can be performed through a small incision with likely much less morbidity though she does have significant osteopenia and it is not entirely clear how much purchase the screws would obtain, though it may add some stabilitiy. Simple observation likely carries the greatest risk of fracture displacement. After this long discussion she wishes to proceed with percutaneous screw fixation of left hip in hopes of adding stability to the fracture. We will place a bone stimulator postoperatively to assist in healing. She is aware of the risk of nonunion, malunion, hardware failure, and the need for prosthetic replacement if the fracture displaces. She is aware the risk of anesthesia including stroke, heart attack, and . She gets dialysis tomorrow and we will plan on percutaneous screw fixation of the left hip thereafter pending medical clearance. I did discuss the case thoroughly with Dr. Burton from the hospital team. Objective Vital signs: Vital Signs Temp Pulse Resp BP Pulse Ox 03/22/19 14:57 98.0 F 75 14 119/72 95 03/22/19 11:19 98.0 F 81 14 115/74 97 03/22/19 07:18 97 03/22/19 07:16 97.6 F 81 14 96/53 98 03/22/19 04:28 97.6 F 78 14 87/58 100 03/21/19 18:51 97.9 F 16 102/68 03/21/19 18:15 101/57 03/21/19 18:00 99/62 03/21/19 17:45 93/56 03/21/19 17:30 95/60 03/21/19 17:15 92/58 03/21/19 17:00 95/61 03/21/19 16:45 98/66 03/21/19 16:30 99/69 Intake and Output 03/22/19 03/22/19 03/22/19 07:59 15:59 23:59 Intake Total 0 / 0 Output Total 0 / 0 Balance 0 / 0 Intake: Oral 0 / 0 Output: Urine 0 / 0 Other: Meal Breakfast Percent of Meal Consumed 0% # Urine Diapers 0 Weight 53.5 kg Patient Weight 03/22/19 23:59 Weight 53.5 kg - Labs CBC & BMP: 03/21/19 05:14 03/22/19 05:42 Labs: Abnormal lab results RBC 3.51 M/mcL (3.82-4.97) L 03/20/19 17:37 Hgb 10.7 g/dL (11.5-15.4) L 03/21/19 05:14 Hct 34.4 % (35.3-44.9) L 03/20/19 17:37 MCH 27.7 pg (28.0-33.3) L 03/21/19 05:14 MCHC 27.7 g/dL (31.6-35.5) L 03/21/19 05:14 RDW 16.1 % (11.5-14.5) H 03/21/19 05:14 Hypochromasia Present (Not Present) A 03/21/19 05:14 Anisocytosis 1+ (Not Present) A 03/21/19 05:14 Sodium 135 mEq/L (136-145) L 03/20/19 17:37 Potassium 5.9 mEq/L (3.5-5.1) H 03/21/19 05:14 Chloride 94 mEq/L (98-107) L 03/21/19 05:14 Carbon Dioxide 30 mEq/L (23-29) H 03/22/19 05:42 BUN 33 mg/dL (6-20) H 03/22/19 05:42 Creatinine 3.97 mg/dL (0.60-1.20) H 03/22/19 05:42 Est GFR ( Amer) 15 (> 60) L 03/22/19 05:42 Est GFR (Non-Af Amer) 12 (> 60) L 03/22/19 05:42 Calculated Osmolality 305 (280-300) H 03/21/19 05:14 Consult Discharge Plan - Plan Referrals: Angela Bob CNP [Primary Care Provider] -
[2019-03-23] MEDS: *HR* Heparin 5,000 UNIT/ML VIAL SQ SCH ×2 (05:01→21:23)
--- NOTE | 2019-03-23 06:51 | Nephrology Progress Note ---
Date of Encounter: 03/23/19 Time of Encounter: 06:30 - Assessment and Plan (1) Anemia Current Visit: Yes Status: Acute Qualifiers: Qualified Code(s): D64.9 - Anemia, unspecified (2) ESRD (end stage renal disease) on dialysis Current Visit: Yes Status: Chronic (3) Sacral fracture Current Visit: Yes Status: Acute Qualifiers: Encounter type: initial encounter Zone of sacrum fracture: unspecified portion of sacrum Fracture type: closed Qualified Code(s): S32.10XA - Unspecified fracture of sacrum, initial encounter for closed fracture (4) Pleuritic chest pain Current Visit: Yes Status: Acute Subjective Interval history: Patient states that she feels worse than yesterday. She is having pleuritic chest pain that began last night. She had no incidence of injury. It has progressed throughout the night and causes her not to sleep. Denies hemoptysis, history of long trips, cancer history. She says that she is mobile before this current injury. Denies history of DVT or PE. Denies leg pain. Denies shortness of breath. Pain is located around the scapula area on the left. Worsened with deep breathing. States that she does receive blood thinners duri ng dialysis. She is not on any anticoagulants at home. Physical exam Gen.: Middle-aged female. Some discomfort Skin: Good turgor Eyes: Moist. Cardiac: Regular rate and rhythm. At least known 3/6 systolic murmur. Respiratory: CTA throughout. Nontender to palpation over chest wall area of perceived pain. Extremities: No bilateral lower extremity edema. Capillary refill less than 2 seconds bilateral upper extremities Neuro: No obvious tremors noted. Eyes able to track Psych: Answers questions coherently. Appropriate mood and behavior A/P #End-stage renal disease Hemodialysis MWF Last dialysis session before hospitalization was 03/18 Patient usually has around 3 L removed during dialysis. -Urine output 0 since admission -Potassium WNL -BUN 77> 33>19 -Creatinine 7.41> 3.97>0.84 -Continue dialysis MWF during stay #Anemia Chronic. Usually normocytic. Macrocytic in November. In the setting of ESRD. Record search did not find iron studies -Consider check of erythropoietin and vitamin D levels. #sacral fracture Orthopedics also discovered anterior lucency of the left femoral neck on imaging representing fracture. -Plan for screw stabilization of left femoral neck this afternoon after dialysis #Pleuritic chest pain As above It has not been quite 3 days since the patient presented to the ER. Considering this fact wells score for PE is 0. -Continue to monitor and low threshold for further workup if clinical status worsens Objective - Vital Signs Vital signs: Vital Signs Temp Pulse Resp BP Pulse Ox 03/23/19 03:48 97.4 F L 73 16 125/78 95 03/22/19 21:07 97 03/22/19 19:33 97.4 F L 75 16 100/63 97 03/22/19 14:57 98.0 F 75 14 119/72 95 03/22/19 11:19 98.0 F 81 14 115/74 97 03/22/19 07:18 97 03/22/19 07:16 97.6 F 81 14 96/53 98 Intake and Output 03/22/19 03/22/19 03/23/19 15:59 23:59 07:59 Intake Total 0 / 0 0 / 0 Output Total 0 / 0 0 / 0 Balance 0 / 0 0 / 0 Intake: Oral 0 / 0 0 / 0 Output: Urine 0 / 0 0 / 0 Other: Meal Breakfast Dinner Percent of Meal Consumed 0% 5% Stool Size Small Stool Consistency loose Stool Characteristics Foamy Stool Color Brown Yellow # Bowel Movement Diapers 1 - Lab 03/21/19 05:14 03/23/19 06:09 Consult Discharge Plan - Plan Referrals: Angela Bob, CRUSHER [Primary Care Provider] -
[2019-03-23] MEDS ORDERED: 0.9 % Sodium Chloride 250 ML IVC PRN ×2 (06:56→19:25)
[2019-03-23] MEDS ORDERED: *HR* Heparin 10,000 UNIT/10 ML VIAL IV PRN (06:56)
[2019-03-23] MEDS ORDERED: 0.9 % Sodium Chloride 1,000 ML ONE (07:10)
--- NOTE | 2019-03-23 07:45 | Orthopedics Progress Note ---
Date of Encounter: 03/23/19 Time of Encounter: 07:43 - Assessment and Plan (1) Pelvis fracture, right Current Visit: Yes Status: Acute Qualifiers: Qualified Code(s): S32.301A - Unspecified fracture of right ilium, initial encounter for closed fracture Subjective Interval history: S: Patient resting in bed comfortably without any new injuries or complaints. Expected pain to the right groin due to her pelvic ring injury. She denies any left hip pain O: Afebrile on the vital signs are stable Mild pain in the right groin No significant pain with passive motion of the left hip or axial loading of the left thigh. No significant pain with passive motion of the right hip or axial loading of the right thigh. Neurovascularly intact distally to the lower extremities. I did discuss the CT scan with the muscular skeletal radiologist and there is felt to be a tension sided nondisplaced femoral neck fracture which was likely present back in November with some mild surrounding resorption superiorly. A: Stable right pelvic ring injury Left sided nondisplaced femoral neck fracture P: I did rediscuss the treatment options including observation without surgery, percutaneous pinning, and hemiarthroplasty. The patient did wish to proceed with percutaneous pinning on the left. She will go for dialysis this morning and will proceed with surgery after. The risks discussed included but were not limited to stiffness, bleeding, infection, blood clots, damage to neurovascular structures, tendons, ligaments, and bone. Also discussed was the risk of continued symptoms and possible need for further procedures. I did discuss the anesthesia risks including stroke, heart attack, and . I did discuss the reasonable, foreseeable postoperative course with the patient. The patient did wish to proceed. Objective Vital signs: Vital Signs Temp Pulse Resp BP Pulse Ox 03/23/19 03:48 97.4 F L 73 16 125/78 95 03/22/19 21:07 97 03/22/19 19:33 97.4 F L 75 16 100/63 97 03/22/19 14:57 98.0 F 75 14 119/72 95 03/22/19 11:19 98.0 F 81 14 115/74 97 Intake and Output 03/22/19 03/22/19 03/23/19 15:59 23:59 07:59 Intake Total 0 / 0 0 / 0 Output Total 0 / 0 0 / 0 Balance 0 / 0 0 / 0 Intake: Oral 0 / 0 0 / 0 Output: Urine 0 / 0 0 / 0 Other: Meal Breakfast Dinner Percent of Meal Consumed 0% 5% Stool Size Small Stool Consistency loose Stool Characteristics Foamy Stool Color Brown Yellow # Bowel Movement Diapers 1 - Labs CBC & BMP: 03/21/19 05:14 03/23/19 06:09 Labs: Abnormal lab results RBC 3.51 M/mcL (3.82-4.97) L 03/20/19 17:37 Hgb 10.7 g/dL (11.5-15.4) L 03/21/19 05:14 Hct 34.4 % (35.3-44.9) L 03/20/19 17:37 MCH 27.7 pg (28.0-33.3) L 03/21/19 05:14 MCHC 27.7 g/dL (31.6-35.5) L 03/21/19 05:14 RDW 16.1 % (11.5-14.5) H 03/21/19 05:14 Hypochromasia Present (Not Present) A 03/21/19 05:14 Anisocytosis 1+ (Not Present) A 03/21/19 05:14 Sodium 135 mEq/L (136-145) L 03/20/19 17:37 Potassium 5.9 mEq/L (3.5-5.1) H 03/21/19 05:14 Chloride 108 mEq/L (98-107) H 03/23/19 06:09 Carbon Dioxide 21 mEq/L (23-29) L 03/23/19 06:09 BUN 33 mg/dL (6-20) H 03/22/19 05:42 Creatinine 3.97 mg/dL (0.60-1.20) H 03/22/19 05:42 Est GFR ( Amer) 15 (> 60) L 03/22/19 05:42 Est GFR (Non-Af Amer) 12 (> 60) L 03/22/19 05:42 Glucose 126 mg/dL (70-105) H 03/23/19 06:09 Calculated Osmolality 305 (280-300) H 03/21/19 05:14 Consult Discharge Plan - Plan Referrals: Angela Bob, HEAVENLY [Primary Care Provider] -
[2019-03-23] MEDS: ALPRAZolam 0.5 MG TABLET PO SCH (07:51)
[2019-03-23] MEDS: Aspirin Enteric Coated 81 MG Tablet PO SCH (07:52)
[2019-03-23 08:09] LABS: Basophils % 0.4 %; Immature Granulocytes % 0.9 % (0-4); Mean Platelet Volume 10.2 fL (9.4-12.4)
[2019-03-23 08:11] LABS: Eosinophils # 0.1 K/mcL (0.0-0.6); Eosinophils % 2.9 %; Hematocrit 38.3 % (35.3-44.9); Hemoglobin 10.6 g/dL (11.5-15.4); Lymphocytes # 0.9 K/mcL (0.6-4.6); Lymphocytes % 18.8 %; Mean Corpuscular HGB Conc 27.7 g/dL (31.6-35.5); Mean Corpuscular Hemoglobin 27.6 pg (28.0-33.3); Mean Corpuscular Volume 99.7 fL (83.0-100.0); Monocytes # 0.4 K/mcL (0.0-1.3); Monocytes % 8.6 %; Neutrophils # 3.1 K/mcL (1.6-8.9); Platelet Count 144 K/mcL (140-400); Red Blood Count 3.84 M/mcL (3.82-4.97); Segmented Neutrophils % 68.4 %; White Blood Count 4.5 K/mcL (4.3-11.1)
[2019-03-23 08:39] LABS: Platelet Estimate Normal (Normal)
[2019-03-23 11:33] LABS: Calcium 9.2 mg/dL (8.6-10.3)
[2019-03-23] MEDS ORDERED: Albuterol 2.5 MG/3 ML NEBULIZER IH ONE (12:17)
--- NOTE | 2019-03-23 12:18 | Anesthesia Evaluation PreOp ---
<Yarely Davis - Last Filed: 03/23/19 12:15> Date of Encounter: 03/23/19 - Past History Planned Operation: left hip pinning Cardiac History: [place], Angina, HTN, Hyperlipidemia Pulmonary History: Asthma, COPD, Other (on oxygen 24/7 at home) CAPTION WRITER History: Other (anxiety, depression) Other Medical History: Renal (ESRD, on dialysis), Thyroid Anesthesia History: No Prior Anesthetic Complications, Past Anesthesia (Had hemiarthroplasty two years ago without anesthetic complication) Alcohol Use: none Drug use: none Medications and Allergies ALPRAZolam [Xanax 0.5 MG Tablet] 0.5 mg PO MOWEFR 03/21/19 [History] Albuterol Sulfate [Ventolin Hfa] 2 puff IH Q6H PRN 03/21/19 [History] Hydrocodone/Acetaminophen [[place] 5-325 Tablet] 1 tab PO Q6H PRN 03/21/19 [History] Loperamide [Imodium] 2 mg PO 8XD PRN 03/21/19 [History] Losartan Potassium 25 mg PO DAILY 03/21/19 [History] Sertraline [Zoloft] 50 mg PO HS 03/21/19 [History] Allergy/AdvReac Type Severity Reaction Status Date / Time bee venom protein (honey bee) Allergy Difficulty Verified 03/21/19 08:47 Breathing fentanyl Allergy Unresponsiv Verified 03/21/19 08:47 e latex Allergy Hives Verified 03/21/19 08:47 morphine Allergy Unresponsiv Verified 03/21/19 08:47 e moxifloxacin [From Avelox] Allergy Difficulty Verified 03/21/19 08:47 Breathing - Meds/Allergy Pre-op Review Medications Reviewed: Yes Allergies Reviewed: Yes Beta Blockers on Current Med List: No Anesthesia Results - Labs 03/23/19 07:55 03/23/19 10:35 - Imaging EKG: report reviewed (sinus rhythm) Additional studies: ECHO EF 65%-70%, mild global hypokinesis Anesthesia Exam Selected Entries 03/23/19 07:47 Temperature 97.9 F Pulse Rate 66 Respiratory Rate 16 Blood Pressure 151/88 O2 Sat by Pulse Oximetry 97 Oxygen Flow Rate (LPM) 2 Oxygen Delivery Method Nasal Cannula Weight: 54 kg NPO (# of Hours): over 8 hours - Cardiac Rhythm: Regular Murmur: None - Pulmonary Breath Sounds: bilateral Clear Respiratory Effort: Symmetrical Anesthesia Assess/Plan ASA Score: 4 Level of consciousness: Cooperative Anesthetic Plan: General Monitoring Plan: Standard Monitors Recovery Plan: PACU (Discussed GA, risks. Agreed to proceed.) <Marycarmen Aguayo - Last Filed: 03/23/19 13:23> Date of Encounter: 03/23/19 Time of Encounter: 13:23 - Past History Cardiac History: CHF (Mod-Severe mitral stenosis) Pulmonary History: Other (on oxygen 24/7 at home - 3L since November 2018) Other Medical History: Renal (ESRD, on dialysis - just completed dialysis) Anesthesia Results - Labs 03/23/19 07:55 03/23/19 10:35 - Imaging EKG: report reviewed Additional studies: TTE: Indications: Valvular disease Impressions: LVEF 65-70 %. Moderate concentric LVH. The right ventricle was normal in size and systolic function. Mildly dilated LA and RA. Mild aortic stenosis. Estimated IRMA 1.7 cm2 by planimetry. (V1/V2 2/3.1, PG/MG 22/11, LVOT 1.6). Trace/trivial aortic regurgitation. Mild calcified aortic valve. Moderate-severe mitral stenosis. Estimated MVA 1.5 cm2, mean gradient 3 mmHg at HR 60 bpm. Trace/trivial mitral regurgitation. The anterior leaflet moderately calcified, posterior leaflet severely calcified. Mild tricuspid regurgitation. Mild-moderate pulmonic regurgitation. Mild pulmonary hypertension. Anesthesia Exam - HEENT Pupil (Motor): Pupils equal, EOMI Mallampati: III Teeth: Poor dentition Oral Opening: Greater than 3 - CAPTION WRITER LOC: Oriented - Cardiac Murmur: Systolic (Loud systolic ejection murmur) - Pulmonary Breath Sounds: bilateral Clear Respiratory Effort: Symmetrical Anesthesia Assess/Plan ASA Score: 4 Level of consciousness: Cooperative Anesthetic Plan: General, Precautions (no propofol; careful induction; pre- induction A-line) Monitoring Plan: Standard Monitors, A-Line Recovery Plan: PACU
[2019-03-23] MEDS ORDERED: *HR* OxyCODONE Immed Rel 5 MG TABLET PO PRN ×2 (13:30→19:25)
[2019-03-23] MEDS ORDERED: Heparin 1,000 UNITS/500 mL 500 ML ONE (13:34)
[2019-03-23] MEDS ORDERED: Lidocaine -MPF 1% 5 ML AMPUL ONE (13:40)
[2019-03-23] MEDS ORDERED: *HR* Propofol 200 MG/20 ML VIAL IVP ONE (13:44)
[2019-03-23] MEDS ORDERED: Lidocaine -MPF 2% 2 ML VIAL ONE (13:46)
[2019-03-23] MEDS ORDERED: *HR* Succinylcholine 200 MG/10 ML VIAL IVP ONE (13:46)
[2019-03-23] MEDS ORDERED: Lidocaine HCL 4 ML Topical Solution (Laryng-O-Jet Kit Sterile Pak) TP ONE (13:48)
[2019-03-23] MEDS ORDERED: *HR* Midazolam HCl 2 MG/2 ML VIAL ONE (13:49)
[2019-03-23] MEDS ORDERED: *HR* FentaNYL (PF) 100 MCG/2 ML VIAL ONE ×3 (13:52→20:15)
[2019-03-23] MEDS ORDERED: CeFAZolin Syr 2,000MG/20 ML 2,000 MG/20 ML SYRINGE IVPB STA (14:03)
[2019-03-23] MEDS ORDERED: *HR* Etomidate 40 MG/20 ML VIAL IVP ONE (14:04)
--- NOTE | 2019-03-23 14:04 | Event Note ---
Date of Encounter: 03/23/19 Time of Encounter: 14:02 Seen in the preoperative holding area with Dr. Aguayo. We did discuss risks from anesthesia which include stroke, heart attack, and . The patient will get an arterial line. I did discuss again operative versus nonoperative management in the form of observation and protected weightbearing versus screw fixation. She does wish to accept the risk of surgery and undergo percutaneous screw fixation of left hip. We will place a bone stimulator postoperatively as well. The risks discussed included but were not limited to stiffness, bleeding, infection, blood clots, damage to neurovascular structures, tendons, ligaments, and bone. Also discussed was the risk of continued symptoms and possible need for further procedures. I did discuss the anesthesia risks including stroke, heart attack, and . I did discuss the reasonable, foreseeable postoperative course with the patient. The patient did wish to proceed and consent was obtained
[2019-03-23] MEDS ORDERED: Lidocaine -MPF 4% 5 ML AMPUL ONE (14:18)
[2019-03-23] MEDS ORDERED: Ondansetron 4 MG/2 ML VIAL ONE (14:52)
[2019-03-23] MEDS ORDERED: Dexamethasone 4 MG/ML VIAL ONE (14:52)
--- NOTE | 2019-03-23 15:43 | Orthopedic Operative Note ---
Date of procedure: 03/23/19 Procedure: OPERATIVE REPORT SURGEON: Roosevelt Olivares MD PREOPERATIVE DIAGNOSIS: Nondisplaced left femoral neck fracture POSTOPERATIVE DIAGNOSIS: Nondisplaced left femoral neck fracture PROCEDURE: Percutaneous screw fixation of left femoral neck ANESTHESIA: General anesthesia SPECIMENS: No specimens IMPLANTS: Synthes 7.3 mm partially threaded cancellus screws, 2 PREOPERATIVE NOTE The surgical plan was reviewed with the patient. The risks, benefits, alternatives, and potential complications of this procedure were discussed with the patient including injury to veins, arteries, nerves, tendons, ligaments, and bone. Also discussed were the risks of infection, bleeding, pain, blood clots, the possible need for a blood transfusion, the possible need for further procedures, heart attack, stroke, and . Additional risks include fracture, malunion, nonunion, hardware failure and displacement. All of this was explained in simple terms, and the patient verbalized understanding and wished to proceed. Consent was given to proceed with surgery. PROCEDURE: The patient was seen in the preoperative holding area where the identify and the consent were confirmed. The left hip was marked. Final questions were answered. The patient was brought back to the operating room. A huddle was performed with the patient and all vital surgical team members confirming patient identity, the correct procedure, and the correct operative site. General anesthesia was administered. The patient was placed on the traction table and the left lower extremity was placed in traction boot, but no traction was placed. The right lower extremity was lowered out of the way. X-rays confirmed no displacement of the fracture and good views could be obtained. The operative extremity was prepped and draped in the usual sterile fashion. A surgical time out was performed immediately preceding the incision with all personnel in the operating room to confirm patient identity, the correct operative site and extremity, correct radiographic studies, availability of appropriate surgical equipment, and agreement on the planned procedure. The C-arm was brought in and a small focal was made on the proximal lateral thigh. The guidewire was driven into the femoral head along the inferior neck. This was measured and the outer cortex drilled. The definitive screw was placed over the guidewire. Despite her preoperative osteopenia there was a moderate amount of purchase with the screw. The patient had a very narrow femoral neck and therefore the decision was made to place one superior screw as opposed to 2 parallel superior screws due to concern for the neck diameter. Therefore second guidewire was placed parallel and directly superior to the first screw and into the femoral head. This is measured and drilled and the definitive screw was placed over the guidewire again with moderate purchase. X-rays confirmed good placement of the screws. The wound was copiously irrigated and a single 3-0 Vicryl stitches placed followed by alicja. A soft, sterile dressing was applied. The instrument, sponge, and needle counts were correct after wound closure. POST OPERATIVE PLAN: Nonweightbearing to left lower extremity. I did communicate with our bracing department and they will place the bone stimulator. Was there an supply assistant present: No Estimated blood loss (cc): 5
--- NOTE | 2019-03-23 16:29 | Nephrology Progress Note ---
Date of Encounter: 03/23/19 Objective - Vital Signs Vital signs: Vital Signs Temp Pulse Resp BP Pulse Ox 03/23/19 13:25 83 16 140/89 100 03/23/19 13:19 15 97 03/23/19 12:20 97.5 F L 15 140/90 03/23/19 11:40 139/85 03/23/19 11:25 124/86 03/23/19 11:10 142/90 03/23/19 10:55 135/87 03/23/19 10:40 130/83 03/23/19 10:25 117/79 03/23/19 10:10 126/73 03/23/19 09:55 124/84 03/23/19 09:40 132/83 03/23/19 09:25 143/96 03/23/19 09:10 149/93 03/23/19 08:55 158/98 03/23/19 08:40 97.9 F 15 150/99 03/23/19 07:50 97 03/23/19 07:47 97.9 F 66 16 151/88 97 03/23/19 03:48 97.4 F L 73 16 125/78 95 03/22/19 21:07 97 03/22/19 19:33 97.4 F L 75 16 100/63 97 Intake and Output 03/23/19 03/23/19 03/23/19 07:59 15:59 23:59 Intake Total 520 / 520 Output Total 0 / 2505 2505 / 2505 Balance / -1984 Intake: IV Fluids 20 / 20 Ancef Syringe 2,000 MG/20 ML 2, 20 / 20 000 mg In 20 ml @ 200 mls/hr IVPB PREOP STA Rx#:[id number] Oral 0 / 0 Intake, Rinseback and Flushes 500 / 500 Output: Urine 0 / 0 0 / 0 Total Dialysis (HD) Output 2500 / 2500 Estimated Blood Loss 5 / 5 Other: Meal npo Stool Size Small Stool Consistency loose Stool Characteristics Foamy Stool Color Brown Yellow # Bowel Movement Diapers 1 Hemodialysis Net Fluid Removed 2000 (mL) - Lab 03/23/19 07:55 03/23/19 10:35 Most recent lab results 03/23/19 03/23/19 06:09 10:35 Calcium TNP 9.2 Consult Discharge Plan - Plan Referrals: Angela Bob, [facility] [Primary Care Provider] -
[2019-03-23] MEDS ORDERED: *HR* FentaNYL (PF) 100 MCG/2 ML VIAL IVP PRN (16:37)
[2019-03-23] MEDS ORDERED: Dexmedetomidine HCl 400 MCG/100 ML MLS IVC SCH (16:45)
[2019-03-23] MEDS ORDERED: 0.9 % Sodium Chloride 500 ML ONE (16:50)
[2019-03-23] MEDS ORDERED: Dexmedetomidine HCl 400 MCG/100 ML MLS IVC ONE (16:59)
--- NOTE | 2019-03-23 18:58 | Anesthesia Evaluation Post Op ---
Date of Encounter: 03/23/19 Time of Encounter: 19:00 - Vital Signs Vital Signs: Vital Signs/O2 Sat/Glucose, Most Current Temp Pulse Resp BP Pulse Ox 03/23/19 18:42 98.2 F 55 12 141/73 98 03/23/19 18:32 55 12 132/72 98 03/23/19 18:22 58 12 126/70 96 03/23/19 18:12 98.4 F 67 12 119/67 95 03/23/19 18:02 64 12 94/68 95 03/23/19 17:52 54 12 115/77 99 03/23/19 17:42 98.2 F 56 12 109/59 99 03/23/19 17:32 55 12 106/55 100 03/23/19 17:22 58 12 109/68 100 03/23/19 17:12 98.1 F 65 12 105/54 99 03/23/19 17:02 66 12 109/68 99 03/23/19 16:52 69 12 98/61 99 03/23/19 16:42 98.4 F 73 12 94/77 98 03/23/19 16:32 70 12 105/88 99 03/23/19 16:28 12 99 03/23/19 16:22 79 12 118/65 98 03/23/19 16:12 98.6 F 80 12 105/64 96 - Airway Airway: Intubated - Cardiovascular Regular Rate - Mental Status Mental Status: Asleep with brisk response to light stimulation - Pain Pain Scale: 0 - Nausea Vomiting Nausea Vomiting: Not Present - Hydration Hydration: NPO - Discharge PostOp Status: Transfer Patient to floor (Patient to ICU on ventilator)
[2019-03-23] MEDS ORDERED: Albuterol 2.5 MG/3 ML NEBULIZER IH PRN (19:25)
[2019-03-23] MEDS ORDERED: Naloxone 0.4 MG/ML INJ IVP PRN (19:25)
[2019-03-23] MEDS ORDERED: *HR* FentaNYL (PF) 100 MCG/2 ML VIAL IVP ONE (20:02)
[2019-03-23] MEDS ORDERED: FentaNYL (PF) 1,000 MCG in 0.9 % Sodium Chloride 80 ML IVC SCH (21:30)
--- NOTE | 2019-03-23 21:31 | Internal Med Progress Note ---
Hospitalist Progress Note - Encounter Date of Encounter: 03/23/19 Time of Encounter: 19:00 - Subjective Interval History: Was notified by the anesthesiologist is status post Percutaneous screw fixation of left femoral neck. The patient has difficulty weaning off the ventilator. She stated they had to reintubate the patient in the OR after initial extub ation. Upon review of her health problems no mention of rheumatoid arthritis however due to concerns for subluxation CT of the cervical spine was ordered although the study was limited due to motion artifact no mention of subluxation. The odontoid process was intact and alignment is grossly maintained. Per staff patient is communicative via bedside clip board awake on no sedation. - Exam Vitals: Temp Pulse Resp BP Pulse Ox 98.2 F 59 12 176/85 97 03/23/19 20:00 03/23/19 21:00 03/23/19 21:00 03/23/19 21:00 03/23/19 21:00 Exam: GEN: NAD, awake on vent, SKIN: [place] warm acyanotic not jaundice HEART: RRR, no murmurs LUNGS: coarse no wheeze or crackles, overall non labored ABDOMEN; Soft, non tender or distended, BS x 4 normactive EXT: No LE edema, Pedal pulses 1+, radial pulses 2+ able to move extremities upper and lower PSYCH: Mood and affect is appropriate - Assessment and Plan (1) Postoperative respiratory failure Current Visit: Yes Status: Acute Assessment and Plan: CT scan was cervical spine was unremarkable patient on exam appears to be awake able to move extremities and can communicates via clip board while on the vent with little in the sedation. No documented history of RA, myasthenic gravis on any other autoimmune immune conditions. We will keep on vent tonight consult pulm/crit team for SBT- NIF (2) Hyperkalemia Current Visit: Yes Status: Resolved Assessment and Plan: Resolved potassium is 4 (3) ESRD (end stage renal disease) on dialysis Current Visit: Yes Status: Chronic Assessment and Plan: avoid nephrotoxic medications. renal replacement therapy as scheduled, nephrology recommendations appreciated. (4) Pubic ramus fracture Current Visit: Yes Status: Acute Assessment and Plan: s/p Percutaneous screw fixation of left femoral neck, postop day 0 patient is having active respiratory failure as stated above. Will likely need ECF placement for rehabilitation (5) Fall Current Visit: Yes Status: Acute Assessment and Plan: PT/OT ordered. (6) Hyponatremia Current Visit: Yes Status: Resolved Assessment and Plan: Results sodium is 138 (7) CAD (coronary artery disease) Current Visit: Yes Status: Chronic Assessment and Plan: patient had a LHC on 12/06/18. Impressions: There is moderate one vessel coronary artery disease. no stent placed. cardiology recommended medical management. continue aspirin 81mg/PO daily. DVT Prophylaxis: Heparin subcutaneous - Time Spent with Patient Total time spent is greater than 50% in coordination of care (as documented) at patient's floor/unit and/or counseling patient: Internal Medicine: Result - Labs CBC & Chem 7: 03/23/19 07:55 03/23/19 10:35 Labs: Short CBC 03/23/19 Range/Units 07:55 WBC 4.5 (4.3-11.1) K/mcL Hgb 10.6 L (11.5-15.4) g/dL Hct 38.3 (35.3-44.9) % Plt Count 144 (140-400) K/mcL Neutrophils # 3.1 (1.6-8.9) K/mcL BMP 03/23/19 03/23/19 06:09 10:35 Sodium TNP 138 Potassium TNP 4.0 Chloride TNP 98 Carbon Dioxide TNP 30 H BUN TNP 16 Creatinine TNP 2.08 H Glucose TNP 97 Calcium TNP 9.2 - ABG Interpretation ABG results: PT/INR, D-dimer PT 11.8 Seconds (9.4-12.1) 03/20/19 17:37 - Impressions Impressions Fluoroscopy 03/23/19 00:00 IMPRESSION: Fluoroscopy was utilized for the purposes of percutaneous ORIF of the left hip D/ / Armond Bush MD / Armond Bush MD Interpreting Provider: Armond Bush MD Hip X-Ray 03/23/19 00:00 IMPRESSION: Fluoroscopy was utilized for the purposes of percutaneous ORIF of the left hip D/ / Armond Bush MD / Armond Bush MD Interpreting Provider: Armond Bush MD Chest X-Ray 03/23/19 16:03 IMPRESSION: Intubation. Cardiomegaly without edema. D/ / Lee Mayo MD / Lee Mayo MD Interpreting Provider: Lee Mayo MD Cervical Spine CT 03/23/19 17:36 IMPRESSION: Significantly limited secondary to patient motion artifact. No acute process identified. D/ / Gilmer Hughes MD / Gilmer Hughes MD Interpreting Provider: Gilmer Hughes MD - VTE Documentation of Mechanical Device: Intermittent pneumatic compression device Consult Discharge Plan - Plan Referrals: Angela Bob, [employer]ICATION[employer] DES[employer] [Primary Care Provider] - (4) Pubic ramus fracture Qualifiers: Encounter type: initial encounter Fracture type: closed Laterality: right Qualified Code(s): S32.591A - Other specified fracture of right pubis, initial encounter for closed fracture (5) Fall Qualifiers: Encounter type: initial encounter Qualified Code(s): W19.XXXA - Unspecified fall, initial encounter (7) CAD (coronary artery disease) Qualifiers: Coronary Disease-Associated Artery/Lesion type: unspecified vessel or lesion type [place] vs. transplanted heart: unspecified whether [place] or transplanted heart Associated angina: angina presence unspecified Qualified Code(s): I25.10 - Atherosclerotic heart disease of [place] coronary artery without angina pectoris
[2019-03-24 03:58] LABS: Basophils % 0.2 %; Hematocrit 36.2 % (35.3-44.9); Hemoglobin 10.7 g/dL (11.5-15.4); Immature Granulocytes % 0.4 % (0-4); Lymphocytes # 0.5 K/mcL (0.6-4.6); Lymphocytes % 10.6 %; Mean Corpuscular HGB Conc 29.6 g/dL (31.6-35.5); Mean Corpuscular Volume 94.8 fL (83.0-100.0); Mean Platelet Volume 10.8 fL (9.4-12.4); Monocytes # 0.4 K/mcL (0.0-1.3); Monocytes % 6.9 %; Neutrophils # 4.2 K/mcL (1.6-8.9); Platelet Count 145 K/mcL (140-400); Red Blood Count 3.82 M/mcL (3.82-4.97); Red Cell Distribution Width 15.9 % (11.5-14.5); Segmented Neutrophils % 81.9 %; White Blood Count 5.1 K/mcL (4.3-11.1)
[2019-03-24 04:14] LABS: Calcium 9.6 mg/dL (8.6-10.3); Magnesium 2.2 mg/dL (1.6-2.6); Phosphorous 5.3 mg/dL (2.7-4.5); Potassium 4.9 mEq/L (3.5-5.1)
[2019-03-24 04:36] LABS: ABG Base Excess 1 mEq/L (-2 to 3); ABG HCO3 25 mEq/L (21-27); ABG Oxygen Saturation 96 % (95-98); ABG PCO2 38 mmHg (35-45); ABG PH 7.43 pH Units (7.32-7.45); ABG PO2 82 mmHg (85-104); ABG TCO2 26 mEq/L (20-26); Blood Gas Modality ASSIST CONTROL; Blood Gas PEEP 5 cm H2O; Blood Gas VT 450 cc
[2019-03-24] MEDS ORDERED: Dexmedetomidine HCl 400 MCG/100 ML MLS IVC SCH (05:45)
[2019-03-24] MEDS ORDERED: Dexmedetomidine HCl 400 MCG/100 ML MLS IVC ONE (05:55)
[2019-03-24] MEDS: *HR* Heparin 5,000 UNIT/ML VIAL SQ SCH ×2 (06:04→17:39)
--- NOTE | 2019-03-24 06:52 | Pulmonology Consult Note ---
<Ángel Munoz W - Last Filed: 03/24/19 08:56> Date of Encounter: 03/24/19 Medications and Allergies ALPRAZolam [Xanax 0.5 MG Tablet] 0.5 mg PO MOWEFR 03/21/19 [History] Albuterol Sulfate [Ventolin Hfa] 2 puff IH Q6H PRN 03/21/19 [History] Hydrocodone/Acetaminophen [[place] 5-325 Tablet] 1 tab PO Q6H PRN 03/21/19 [History] Loperamide [Imodium] 2 mg PO 8XD PRN 03/21/19 [History] Losartan Potassium 25 mg PO DAILY 03/21/19 [History] Sertraline [Zoloft] 50 mg PO HS 03/21/19 [History] Allergy/AdvReac Type Severity Reaction Status Date / Time bee venom protein (honey bee) Allergy Difficulty Verified 03/21/19 08:47 Breathing fentanyl Allergy Unresponsiv Verified 03/21/19 08:47 e latex Allergy Hives Verified 03/21/19 08:47 morphine Allergy Unresponsiv Verified 03/21/19 08:47 e moxifloxacin [From Avelox] Allergy Difficulty Verified 03/21/19 08:47 Breathing diphenhydramine AdvReac Hives Verified 03/23/19 14:04 [From Benadryl] All Systems: The remainder of the systems were reviewed and are negative Physical Examination Vital Signs: Vital Signs, Last 4 Hours Temp Pulse Resp BP Pulse Ox 03/24/19 08:12 19 102/54 100 03/24/19 08:11 123/74 03/24/19 08:09 15 102/54 100 03/24/19 08:04 85 15 125/74 94 03/24/19 07:51 98.0 F 91 03/24/19 07:30 81 20 126/73 89 03/24/19 07:25 25 124/72 100 03/24/19 06:00 48 12 112/61 100 03/24/19 05:20 12 92/50 98 03/24/19 05:00 64 12 107/62 96 Ventilator Settings Ventilator Settings: Ventilator Settings, Last 8 Hours Ventilator Tidal Volume 450 Setting Ventilator Tidal Volume 450 Setting Ventilator Tidal Volume 450 Setting Ventilator Tidal Volume 450 Setting Ventilator Tidal Volume 450 Setting Ventilator Tidal Volume 450 Setting Ventilator Tidal Volume 450 Setting Ventilator Tidal Volume 450 Setting Ventilator Tidal Volume 450 Setting Ventilator Tidal Volume 450 Setting Ventilator Respiratory Rate 12 Setting Ventilator Respiratory Rate 12 Setting Ventilator Respiratory Rate 12 Setting Ventilator Respiratory Rate 12 Setting Ventilator Respiratory Rate 12 Setting Ventilator Respiratory Rate 12 Setting Ventilator Respiratory Rate 12 Setting Ventilator Respiratory Rate 12 Setting Ventilator Respiratory Rate 12 Setting Ventilator Respiratory Rate 12 Setting Actual Respiratory Rate 20 Actual Respiratory Rate 26 Actual Respiratory Rate 12 Actual Respiratory Rate 12 Actual Respiratory Rate 12 Actual Respiratory Rate 12 Actual Respiratory Rate 12 Actual Respiratory Rate 12 Actual Respiratory Rate 12 Actual Respiratory Rate 12 Actual Respiratory Rate 12 Positive End Expiratory 5 Pressure Positive End Expiratory 5 Pressure Positive End Expiratory 5 Pressure Positive End Expiratory 5 Pressure Positive End Expiratory 5 Pressure Positive End Expiratory 5 Pressure Positive End Expiratory 5 Pressure Positive End Expiratory 5 Pressure Positive End Expiratory 5 Pressure Positive End Expiratory 5 Pressure Positive End Expiratory 5 Pressure Positive End Expiratory 5 Pressure Peak Inspiratory Airway 18 Pressure Peak Inspiratory Airway 16 Pressure Peak Inspiratory Airway 39 Pressure Peak Inspiratory Airway 44 Pressure Peak Inspiratory Airway 45 Pressure Peak Inspiratory Airway 46 Pressure Peak Inspiratory Airway 43 Pressure Peak Inspiratory Airway 45 Pressure Peak Inspiratory Airway 45 Pressure Results - Laboratory Findings CBC and BMP: 03/24/19 03:26 03/24/19 03:26 ABG ABG pH 7.43 pH Units (7.32-7.45) 03/24/19 04:31 ABG pCO2 38 mmHg (35-45) 03/24/19 04:31 ABG pO2 82 mmHg (85-104) L 03/24/19 04:31 ABG O2 Saturation 96 % (95-98) 03/24/19 04:31 PT/INR, D-dimer PT 11.8 Seconds (9.4-12.1) 03/20/19 17:37 Abnormal lab findings: Abnormal lab results RBC 3.51 M/mcL (3.82-4.97) L 03/20/19 17:37 Hgb 10.7 g/dL (11.5-15.4) L 03/24/19 03:26 Hct 34.4 % (35.3-44.9) L 03/20/19 17:37 MCH 27.6 pg (28.0-33.3) L 03/23/19 07:55 MCHC 29.6 g/dL (31.6-35.5) L 03/24/19 03:26 RDW 15.9 % (11.5-14.5) H 03/24/19 03:26 Lymphocytes # 0.5 K/mcL (0.6-4.6) L 03/24/19 03:26 Hypochromasia Present (Not Present) A 03/21/19 05:14 Anisocytosis 1+ (Not Present) A 03/21/19 05:14 ABG pO2 82 mmHg (85-104) L 03/24/19 04:31 Sodium 135 mEq/L (136-145) L 03/20/19 17:37 Potassium 5.9 mEq/L (3.5-5.1) H 03/21/19 05:14 Chloride 94 mEq/L (98-107) L 03/21/19 05:14 Carbon Dioxide 30 mEq/L (23-29) H 03/23/19 10:35 BUN 26 mg/dL (6-20) H 03/24/19 03:26 Creatinine 3.46 mg/dL (0.60-1.20) H 03/24/19 03:26 Est GFR ( Amer) 17 (> 60) L 03/24/19 03:26 Est GFR (Non-Af Amer) 14 (> 60) L 03/24/19 03:26 Glucose 110 mg/dL (70-105) H 03/24/19 03:26 POC Glucose 107 mg/dL (70-99) H 03/23/19 19:03 Calculated Osmolality 305 (280-300) H 03/21/19 05:14 Phosphorus 5.3 mg/dL (2.7-4.5) H 03/24/19 03:26 - Clinical Findings Intake & Output: Intake & Output 03/23/19 03/24/19 03/24/19 23:59 07:59 15:59 Intake Total 100 / 620 200 / 200 Output Total 0 / 2505 0 / 0 Balance 100 / -1885 200 / 200 Weight 51.1 kg 51.1 kg Consult Discharge Plan - Plan Referrals: Angela Bob, [employer] [Primary Care Provider] - - Attending Attestation I examined this patient and my medical decision-making was reviewed with the Re sident Physician. I agree with the documented findings, disposition and treatment plan as described except to the extent set forth below. We independently had [id number] contact with the patient Patient seen and examined at bedside Labs, radiology, chart personally reviewed. Management was reviewed during multidisciplinary critical care rounds. GRADE RECORDER: Fully awake and alert no focal neurological deficit-analgesia as needed for postoperative/sacral fracture Pulm: Acute on chronic respiratory failure which is also likely multifactorial including sedative effect with underlying pulmonary hypertension patient to was successfully liberated from the vent after initially having to be reintubated in the PACU in the postoperative period. She is now doing well on BiPAP and we will transition to nasal cannula as tolerated. She is at high risk for hydrostatic pulmonary edema. We will treat underlying small airways disease with scheduled bronchodilators does not appear to have an acute exacerbation h owever Cards: Pulmonary hypertension which is likely multifactorial including severe mitral stenosis blood pressure is currently stable GI: Stress ulcer prophylaxis has been given Nutrition: Nothing by mouth for now Renal: ESRD Nephrology following- Cont to Trend sCr and monitor Electrolytes. ID: No clear evidence of infection we will continue to monitor this closely Heme/Onc: DVT prophylaxis given Endo: Glucose Monitored Integ/MSK: Post repair of sacral fracture orthopedic following Skin Care per routine ICU Nursing Protocol to prevent ulcers. Lines: All lines examined without evidence of infection : Dispo: Monitor in ICU post extubation CODE: Full <JonnydeeptiSantosh - Last Filed: 03/24/19 10:38> Date of Encounter: 03/24/19 Time of Encounter: 06:52 Assessment and Plan (1) Respiratory insufficiency Current Visit: No Status: Acute Patient successfully extubated with transitioned to BiPAP and down to nasal cannula. Patient is tolerating extubation well however we will continue to monitor closely due to patient's significant comorbidities. Continuous telemetry and pulse oximetry. (2) Hypertension Current Visit: No Status: Chronic Continue patient's home medications for hypertension Continue to monitor Qualifiers: Hypertension type: essential hypertension Qualified Code(s): I10 - Ess ential (primary) hypertension (3) Left hip pain Current Visit: No Status: Chronic Continue patient's home medicines for pain. Roxicodone/[place] (4) Depression with anxiety Current Visit: No Status: Chronic Continue patient's home medications When necessary benzodiazepines for anxiety/panic (5) Asthma Current Visit: No Status: Chronic Continue patient's home medications When necessary nebulizers Qualifiers: Asthma severity: unspecified severity Asthma persistence: unspecified Asthma complication type: unspecified Qualified Code(s): J45.909 - Unspecified asthma, uncomplicated (6) ESRD (end stage renal disease) on dialysis Current Visit: Yes Status: Chronic Nephrology consulted and is following. Continue Thursday dialysis schedule. Avoid renal toxic medications. (7) Pubic ramus fracture Current Visit: Yes Status: Acute Continue home medicines for pain. Qualifiers: Encounter type: initial encounter Fracture type: closed Laterality: right Qualified Code(s): S32.591A - Other specified fracture of right pubis, initial encounter for closed fracture (8) Fall Current Visit: Yes Status: Acute High fall risk Qualifiers: Encounter type: initial encounter Qualified Code(s): W19.XXXA - Unspecified fall, initial encounter (9) CAD (coronary artery disease) Current Visit: Yes Status: Chronic Qualifiers: Coronary Disease-Associated Artery/Lesion type: unspecified vessel or lesion type [place] vs. transplanted heart: unspecified whether [place] or transplanted heart Associated angina: angina presence unspecified Qualified Code(s): I25.10 - Atherosclerotic heart disease of [place] coronary artery without angina pectoris (10) Mitral stenosis Current Visit: No Status: Acute Qualifiers: Cardiac valve disease etiology: etiology unspecified Qualified Code(s): I05.0 - Rheumatic mitral stenosis (11) DVT prophylaxis Current Visit: No Status: Acute Heparin 5000 units subcutaneous 3 times a day. History of Present Illness Consult date: 03/24/19 Requesting physician: Manjeet Vigil Reason for consult: other (Ventilator weaning) Chief complaint: Pelvic/sacral fracture status post surgery History of present illness: 48-year-old female past medical history of CAD, [place], severe mitral stenosis, hypertension, end-stage renal disease on Thursday dialysis, thyroid disease, asthma, anxiety, depression, rectal prolapse, presented to the ED on March 20 after experiencing 2 weeks of bilateral hip pain after having a fall at home. The patient's x-ray was inconclusive due to severe arthritic change and CT scan was performed which showed a S1/S2 sacral fracture as well as a pelvic ramus fracture. The patient was admitted to o rthopedic medicine service and had surgical correction performed on March 23 GI doctor will follow to repair the sacral fracture. Surgery was performed without overt complications however when patient was to be extubated she did not have spontaneous respirations and needed to be reintubated while in surgical suite. Patient was admitted to the ICU for further monitoring by Dr. Haley with hospitalist medicine service. Patient was given spontaneous breathing trial on the morning of by respiratory therapy was noted to have no spontaneous respirations at that time. Due to concerns of the fall and Patient severe arthritis perhaps causing injury to the cervical spine in the setting of the phrenic nerve distribution a CT scan was performed the cervical spine on 82 that did not show any acute pathology. Concerns were related this morning 03/24 by the RN that it was stated causes medicine service concern for a pseudocholinesterase deficiency after succinylcholine used on the patient for surgical paralytic. Upon my initial examination as noted the patient is awake, alert, oriented, she remains intubated but is able to nod her head yes and no and communicate effectively with the use of a white board at her bedside. She has no alert neurological deficits, no lateralizing signs, strength is equal 4/5 in the upper and lower extremities bilaterally. Patient states that she has some discomfort caused by the endotracheal tube has no other concerns or complaints at this time. The patient states that she has required intubation status post surgery in the past related to her comorbidities. Upon consultation of the internet network specialist Dr. Munoz bedside spontaneous breathing trial was conducted and the patient was noted to have spontaneous respirations at that time. The patient was extubated in transition to BiPAP and tolerated this machine well. Patient has been titrated down to nasal cannula 3 L/m without desaturations, she remains neuro cognitively intact with no concerns or complaints at this time rather than sore throat. We will monitor the patient continued DVT prophylaxis here in the ICU for at least 1 additional day before transferring the patient to the floor. The p atient and hospitalist have been informed of this and agree with this decision. The patient remains hemodynamically stable at this time. Past Med Surg Social Fam HX - Past Medical History Medical history: asthma, coronary artery disease, dialysis, hypertension, renal disease, thyroid disease, valvular heart disease, other Additional medical history: brittle bone syndrome, bladder/sphincter, pulmonary HTN Psychiatric history: anxiety, depression - Past Surgical History Surgical History: orthopedic, other, other Additional surgical history: rectal prolapse. kidney/bladder surgeries. graft R arm. right hip surgery. Right arm fistula - Social History Smoking Status: Never smoker Smokeless Tobacco Status: No Alcohol use: none Drug use: none - Family History Mother Living Status: Still Living Hx Family Cardiac Disorders: Yes (CAD) Hx Family Cancer: Yes (skin cancer) Hx Family Endocrine Disorder: Yes (DM) Father Adopted: No Family Member Ethnicity: Non- Living Status: Still Living Hx Family Cardiac Disorders: Yes (heart disease) Hx Family Respiratory Disorders: No Hx Family Cancer: Yes (prostate) Hx Family GI Disorders: No Hx Family Endocrine Disorder: Yes (Diabetes) Hx Family Neuromuscular Disorders: No Hx Family Neurologic Disorders: No Hx Family HEENT Disorders: No Hx Family Autoimmune Disorders: No ROS unobtainable: due to endotracheal tube All Systems: The remainder of the systems were reviewed and are negative - EENT Nose, mouth and throat: sore throat - Cardiovascular Cardiovascular: no chest pain - Respiratory Respiratory: no dyspnea - Gastrointestinal Gastrointestinal: no abdominal pain, no nausea, no vomiting - Neurological Neurological: no dizziness, no headache(s) Physical Examination Vital Signs: Vital Signs, Last 4 Hours Temp Pulse Resp BP Pulse Ox 03/24/19 06:00 48 12 112/61 100 03/24/19 05:20 12 92/50 98 03/24/19 05:00 64 12 107/62 96 03/24/19 04:14 98.7 F 03/24/19 04:08 12 108/61 97 03/24/19 04:00 54 12 109/66 99 03/24/19 03:30 54 03/24/19 03:00 48 12 114/65 98 General appearance: no acute distress, alert, appears uncomfortable Eyes: nonicteric ENT: oropharynx moist Neck: supple Effort: normal Cardiovascular: regular rate and rhythm Gastrointestinal: normoactive bowel sounds Integumentary: normal Extremities: no cyanosis Musculoskeletal: no deformities normal mental status, non-focal exam, motor strength normal and symmetric mood appropriate, affect normal Ventilator Settings Ventilator Settings: Ventilator Settings, Last 8 Hours Ventilator Tidal Volume 450 Setting Ventilator Tidal Volume 450 Setting Ventilator Tidal Volume 450 Setting Ventilator Tidal Volume 450 Setting Ventilator Tidal Volume 450 Setting Ventilator Tidal Volume 450 Setting Ventilator Tidal Volume 450 Setting Ventilator Tidal Volume 450 Setting Ventilator Tidal Volume 450 Setting Ventilator Tidal Volume 450 Setting Ventilator Tidal Volume 450 Setting Ventilator Tidal Volume 450 Setting Ventilator Tidal Volume 450 Setting Ventilator Respiratory Rate 12 Setting Ventilator Respiratory Rate 12 Setting Ventilator Respiratory Rate 12 Setting Ventilator Respiratory Rate 12 Setting Ventilator Respiratory Rate 12 Setting Ventilator Respiratory Rate 12 Setting Ventilator Respiratory Rate 12 Setting Ventilator Respiratory Rate 12 Setting Ventilator Respiratory Rate 12 Setting Ventilator Respiratory Rate 12 Setting Ventilator Respiratory Rate 12 Setting Ventilator Respiratory Rate 12 Setting Ventilator Respiratory Rate 12 Setting Actual Respiratory Rate 12 Actual Respiratory Rate 12 Actual Respiratory Rate 12 Actual Respiratory Rate 12 Actual Respiratory Rate 12 Actual Respiratory Rate 12 Actual Respiratory Rate 12 Actual Respiratory Rate 12 Actual Respiratory Rate 12 Actual Respiratory Rate 13 Actual Respiratory Rate 12 Actual Respiratory Rate 12 Positive End Expiratory 5 Pressure Positive End Expiratory 5 Pressure Positive End Expiratory 5 Pressure Positive End Expiratory 5 Pressure Positive End Expiratory 5 Pressure Positive End Expiratory 5 Pressure Positive End Expiratory 5 Pressure Positive End Expiratory 5 Pressure Positive End Expiratory 5 Pressure Positive End Expiratory 5 Pressure Positive End Expiratory 5 Pressure Positive End Expiratory 5 Pressure Positive End Expiratory 5 Pressure Peak Inspiratory Airway 39 Pressure Peak Inspiratory Airway 44 Pressure Peak Inspiratory Airway 45 Pressure Peak Inspiratory Airway 46 Pressure Peak Inspiratory Airway 43 Pressure Peak Inspiratory Airway 45 Pressure Peak Inspiratory Airway 45 Pressure Peak Inspiratory Airway 48 Pressure Peak Inspiratory Airway 50 Pressure Peak Inspiratory Airway 42 Pressure Results - Laboratory Findings CBC and BMP: 03/24/19 03:26 03/24/19 03:26 ABG ABG pH 7.43 pH Units (7.32-7.45) 03/24/19 04:31 ABG pCO2 38 mmHg (35-45) 03/24/19 04:31 ABG pO2 82 mmHg (85-104) L 03/24/19 04:31 ABG O2 Saturation 96 % (95-98) 03/24/19 04:31 PT/INR, D-dimer PT 11.8 Seconds (9.4-12.1) 03/20/19 17:37 Abnormal lab findings: Abnormal lab results RBC 3.51 M/mcL (3.82-4.97) L 03/20/19 17:37 Hgb 10.7 g/dL (11.5-15.4) L 03/24/19 03:26 Hct 34.4 % (35.3-44.9) L 03/20/19 17:37 MCH 27.6 pg (28.0-33.3) L 03/23/19 07:55 MCHC 29.6 g/dL (31.6-35.5) L 03/24/19 03:26 RDW 15.9 % (11.5-14.5) H 03/24/19 03:26 Lymphocytes # 0.5 K/mcL (0.6-4.6) L 03/24/19 03:26 Hypochromasia Present (Not Present) A 03/21/19 05:14 Anisocytosis 1+ (Not Present) A 03/21/19 05:14 ABG pO2 82 mmHg (85-104) L 03/24/19 04:31 Sodium 135 mEq/L (136-145) L 03/20/19 17:37 Potassium 5.9 mEq/L (3.5-5.1) H 03/21/19 05:14 Chloride 94 mEq/L (98-107) L 03/21/19 05:14 Carbon Dioxide 30 mEq/L (23-29) H 03/23/19 10:35 BUN 26 mg/dL (6-20) H 03/24/19 03:26 Creatinine 3.46 mg/dL (0.60-1.20) H 03/24/19 03:26 Est GFR ( Amer) 17 (> 60) L 03/24/19 03:26 Est GFR (Non-Af Amer) 14 (> 60) L 03/24/19 03:26 Glucose 110 mg/dL (70-105) H 03/24/19 03:26 POC Glucose 107 mg/dL (70-99) H 03/23/19 19:03 Calculated Osmolality 305 (280-300) H 03/21/19 05:14 Phosphorus 5.3 mg/dL (2.7-4.5) H 03/24/19 03:26 - Clinical Findings Intake & Output: Intake & Output 03/23/19 03/23/19 03/24/19 15:59 23:59 07:59 Intake Total 520 / 620 100 / 620 200 / 200 Output Total 2505 / 2505 0 5 0 / 0 Balance -1984 / / 200 / 200 Weight 51.1 kg 51.1 kg
--- NOTE | 2019-03-24 07:45 | Orthopedics Progress Note ---
Date of Encounter: 03/24/19 Time of Encounter: 07:43 - Assessment and Plan (1) Pelvis fracture, right Current Visit: Yes Status: Acute Qualifiers: Qualified Code(s): S32.301A - Unspecified fracture of right ilium, initial encounter for closed fracture Subjective Interval history: S: Patient is resting in bed comfortably. Admitted to the ICU due to ventilator dependence O: Afebrile on the vital signs are stable Left hip dressing is clean, dry, and intact Neurovascularly intact distally A: Percutaneous pinning of the left hip Stable pelvic ring injury P: Resume postoperative care Nonweightbearing to the left lower extremity We will hopefully wean from the vent today Dressing change tomorrow. Objective Vital signs: Vital Signs Temp Pulse Resp BP Pulse Ox 03/24/19 07:30 81 20 126/73 89 03/24/19 07:25 25 124/72 100 03/24/19 06:00 48 12 112/61 100 03/24/19 05:20 12 92/50 98 03/24/19 05:00 64 12 107/62 96 03/24/19 04:14 98.7 F 03/24/19 04:08 12 108/61 97 03/24/19 04:00 54 12 109/66 99 03/24/19 03:30 54 03/24/19 03:00 48 12 114/65 98 03/24/19 02:00 48 12 122/68 98 03/24/19 01:05 12 123/68 98 03/24/19 01:00 47 12 123/68 99 03/24/19 00:42 97.6 F 03/24/19 00:00 52 13 161/81 100 03/23/19 23:52 12 98 03/23/19 23:30 52 03/23/19 23:00 54 12 153/87 100 03/23/19 22:00 57 12 171/83 97 03/23/19 21:48 12 97 03/23/19 21:00 59 12 176/85 97 03/23/19 20:00 98.2 F 57 12 174/84 98 03/23/19 19:30 57 03/23/19 19:22 14 99 03/23/19 19:19 98.7 F 56 12 161/80 97 03/23/19 18:56 13 98 03/23/19 18:52 98.2 F 56 12 137/78 98 03/23/19 18:42 98.2 F 55 12 141/73 98 03/23/19 18:32 55 12 132/72 98 03/23/19 18:22 58 12 126/70 96 03/23/19 18:12 98.4 F 67 12 119/67 95 03/23/19 18:02 64 12 94/68 95 03/23/19 17:52 54 12 115/77 99 03/23/19 17:42 98.2 F 56 12 109/59 99 03/23/19 17:32 55 12 106/55 100 03/23/19 17:22 58 12 109/68 100 03/23/19 17:12 98.1 F 65 12 105/54 99 03/23/19 17:02 66 12 109/68 99 03/23/19 16:52 69 12 98/61 99 03/23/19 16:42 98.4 F 73 12 94/77 98 03/23/19 16:32 70 12 105/88 99 03/23/19 16:28 12 99 03/23/19 16:22 79 12 118/65 98 03/23/19 16:12 98.6 F 80 12 105/64 96 03/23/19 13:25 83 16 140/89 100 03/23/19 13:19 15 97 03/23/19 12:20 97.5 F L 15 140/90 03/23/19 11:40 139/85 03/23/19 11:25 124/86 03/23/19 11:10 142/90 03/23/19 10:55 135/87 03/23/19 10:40 130/83 03/23/19 10:25 117/79 03/23/19 10:10 126/73 03/23/19 09:55 124/84 03/23/19 09:40 132/83 03/23/19 09:25 143/96 03/23/19 09:10 149/93 03/23/19 08:55 158/98 03/23/19 08:40 97.9 F 15 150/99 03/23/19 07:50 97 03/23/19 07:47 97.9 F 66 16 151/88 97 Intake and Output 03/23/19 03/23/19 03/24/19 15:59 23:59 07:59 Intake Total 520 / 620 100 / 620 200 / 200 Output Total 2505 / 2505 0 / 2505 0 / 0 Balance -1984 / -1884 100 / -1885 200 / 200 Intake: IV Fluids 20 / 120 100 / 120 200 / 200 Precedex Premix 400 mcg In 100 100 / 100 ml @ 0.7 MCG/KG/HR 9.363 mls/hr IVC .[id number] ELAINE Rx#: [id number] Ancef Syringe 2,000 MG/20 ML 2, 20 / 20 000 mg In 20 ml @ 200 mls/hr IVPB PREOP STA Rx#:[id number] Ancef 2,000 MG In 0.9 % Sodium 100 / 100 100 / 100 Chloride 100 ML @ 200 mls/hr IVPB Q8H ELAINE Rx#:[id number] Oral 0 / 0 0 / 0 Intake, Rinseback and Flushes 500 / 500 Output: Urine 0 / 0 0 / 0 0 / 0 Total Dialysis (HD) Output 2500 / 2500 Estimated Blood Loss 5 / 5 Other: Meal npo Weight 51.1 kg 51.1 kg Blood Glucose* 107 Hemodialysis Net Fluid Removed 2000 (mL) Patient Weight 03/24/19 23:59 Weight 51.1 kg - Labs CBC & BMP: 03/24/19 03:26 03/24/19 03:26 Labs: Abnormal lab results RBC 3.51 M/mcL (3.82-4.97) L 03/20/19 17:37 Hgb 10.7 g/dL (11.5-15.4) L 03/24/19 03:26 Hct 34.4 % (35.3-44.9) L 03/20/19 17:37 MCH 27.6 pg (28.0-33.3) L 03/23/19 07:55 MCHC 29.6 g/dL (31.6-35.5) L 03/24/19 03:26 RDW 15.9 % (11.5-14.5) H 03/24/19 03:26 Lymphocytes # 0.5 K/mcL (0.6-4.6) L 03/24/19 03:26 Hypochromasia Present (Not Present) A 03/21/19 05:14 Anisocytosis 1+ (Not Present) A 03/21/19 05:14 ABG pO2 82 mmHg (85-104) L 03/24/19 04:31 Sodium 135 mEq/L (136-145) L 03/20/19 17:37 Potassium 5.9 mEq/L (3.5-5.1) H 03/21/19 05:14 Chloride 94 mEq/L (98-107) L 03/21/19 05:14 Carbon Dioxide 30 mEq/L (23-29) H 03/23/19 10:35 BUN 26 mg/dL (6-20) H 03/24/19 03:26 Creatinine 3.46 mg/dL (0.60-1.20) H 03/24/19 03:26 Est GFR ( Amer) 17 (> 60) L 03/24/19 03:26 Est GFR (Non-Af Amer) 14 (> 60) L 03/24/19 03:26 Glucose 110 mg/dL (70-105) H 03/24/19 03:26 POC Glucose 107 mg/dL (70-99) H 03/23/19 19:03 Calculated Osmolality 305 (280-300) H 03/21/19 05:14 Phosphorus 5.3 mg/dL (2.7-4.5) H 03/24/19 03:26 - VTE Documentation of Mechanical Device: Intermittent pneumatic compression device Consult Discharge Plan - Plan Referrals: Angela Bob, ASSISTANT DEAN [Primary Care Provider] -
--- NOTE | 2019-03-24 08:24 | Nephrology Progress Note ---
<Brock Jenkins - Last Filed: 03/24/19 13:22> Date of Encounter: 03/24/19 Time of Encounter: 06:30 (Time is an estimate) - Assessment and Plan (1) Anemia Current Visit: Yes Status: Acute Qualifiers: Qualified Code(s): D64.9 - Anemia, unspecified (2) ESRD (end stage renal disease) on dialysis Current Visit: Yes Status: Chronic (3) Sacral fracture Current Visit: Yes Status: Acute Qualifiers: Encounter type: initial encounter Zone of sacrum fracture: unspecified portion of sacrum Fracture type: closed Qualified Code(s): S32.10XA - Unspecified fracture of sacrum, initial encounter for closed fracture (4) Pleuritic chest pain Current Visit: Yes Status: Acute Subjective Interval history: S Patient was transferred to the ICU after percutaneous screw fixation of left femoral neck operation on 03/23. Failed extubation and reintubated. Nursing rep orts that spontaneous breathing trials have been unsuccessful although the patient is completely alert during these trials. On Precedex and fentanyl. Patient is communicating with nods and gestures and also writes on her pad. Patient indicates that she is having pleuritic chest pain over the sternum with inspiration that is similar to the pain that she complained of yesterday, except now in a different location. O Physical exam Gen.: Middle-aged female. Intubated Skin: Good turgor Eyes: Moist. Anicteric Cardiac: Bradycardic. At least 3/6 known systolic murmur best heard over the tricuspid post Respiratory: No rhonchi in the bases that improves as you move superiorly in the lungs. Sounds seem to be bilaterally equal as far as I can tell GI: Not diffusely tender Extremities: Capillary refill less than 2 seconds bilateral upper extremities. Some pedal edema Neuro: Eyes able to track. No obvious tremor. Seems to be quite alert and coherent. Monique 2 A/P #End-stage renal disease Hemodialysis MWF Last dialysis session before current hospitalization was 03/18 Patient usually has around 3 L removed during dialysis. She does not typically make urine -Potassium WNL -BUN worsened -Dialysis as tolerated #Anemia Chronic Usually normocytic. Macrocytic in November. In the setting of ESRD. Record search did not find iron studies -Consider check of erythropoietin and vitamin D levels. #sacral fracture Orthopedics also discovered anterior lucency of the left femoral neck on imaging representing fracture. -Status post percutaneous screw fixation of left femoral neck on 03/23 #Pleuritic chest pain 03/24: It has not been quite 3 days since the patient presented to the ER. Considering this fact wells score for PE is 0. -Pain has migrated to the sternal area. -Consider further workup Objective - Vital Signs Vital signs: Vital Signs Temp Pulse Resp BP Pulse Ox 03/24/19 08:11 123/74 03/24/19 08:04 85 15 125/74 94 03/24/19 07:51 98.0 F 91 03/24/19 07:30 81 20 126/73 89 03/24/19 07:25 25 124/72 100 03/24/19 06:00 48 12 112/61 100 03/24/19 05:20 12 92/50 98 03/24/19 05:00 64 12 107/62 96 03/24/19 04:14 98.7 F 03/24/19 04:08 12 108/61 97 03/24/19 04:00 54 12 109/66 99 03/24/19 03:30 54 03/24/19 03:00 48 12 114/65 98 03/24/19 02:00 48 12 122/68 98 03/24/19 01:05 12 123/68 98 03/24/19 01:00 47 12 123/68 99 03/24/19 00:42 97.6 F 03/24/19 00:00 52 13 161/81 100 03/23/19 23:52 12 98 03/23/19 23:30 52 03/23/19 23:00 54 12 153/87 100 03/23/19 22:00 57 12 171/83 97 03/23/19 21:48 12 97 03/23/19 21:00 59 12 176/85 97 03/23/19 20:00 98.2 F 57 12 174/84 98 03/23/19 19:30 57 03/23/19 19:22 14 99 03/23/19 19:19 98.7 F 56 12 161/80 97 03/23/19 18:56 13 98 03/23/19 18:52 98.2 F 56 12 137/78 98 03/23/19 18:42 98.2 F 55 12 141/73 98 03/23/19 18:32 55 12 132/72 98 03/23/19 18:22 58 12 126/70 96 03/23/19 18:12 98.4 F 67 12 119/67 95 03/23/19 18:02 64 12 94/68 95 03/23/19 17:52 54 12 115/77 99 03/23/19 17:42 98.2 F 56 12 109/59 99 03/23/19 17:32 55 12 106/55 100 03/23/19 17:22 58 12 109/68 100 03/23/19 17:12 98.1 F 65 12 105/54 99 03/23/19 17:02 66 12 109/68 99 03/23/19 16:52 69 12 98/61 99 03/23/19 16:42 98.4 F 73 12 94/77 98 03/23/19 16:32 70 12 105/88 99 03/23/19 16:28 12 99 03/23/19 16:22 79 12 118/65 98 03/23/19 16:12 98.6 F 80 12 105/64 96 03/23/19 13:25 83 16 140/89 100 03/23/19 13:19 15 97 03/23/19 12:20 97.5 F L 15 140/90 03/23/19 11:40 139/85 03/23/19 11:25 124/86 03/23/19 11:10 142/90 03/23/19 10:55 135/87 03/23/19 10:40 130/83 03/23/19 10:25 117/79 03/23/19 10:10 126/73 03/23/19 09:55 124/84 03/23/19 09:40 132/83 03/23/19 09:25 143/96 03/23/19 09:10 149/93 03/23/19 08:55 158/98 03/23/19 08:40 97.9 F 15 150/99 Intake and Output 03/23/19 03/24/19 03/24/19 23:59 07:59 15:59 Intake Total 100 / 620 200 / 200 Output Total 0 / 2505 0 / 0 Balance 100 / -1885 200 / 200 Intake: IV Fluids 100 / 120 200 / 200 Precedex Premix 400 mcg In 100 100 / 100 ml @ 0.7 MCG/KG/HR 9.363 mls/hr IVC .[id number] [facility] Rx#: [id number] Ancef 2,000 MG In 0.9 % Sodium 100 / 100 100 / 100 Chloride 100 ML @ 200 mls/hr IVPB Q8H [facility] Rx#:[id number] Oral 0 / 0 Output: Urine 0 / 0 0 / 0 Other: Weight 51.1 kg 51.1 kg Blood Glucose* 107 Patient Weight 03/24/19 23:59 Weight 51.1 kg - Lab 03/24/19 03:26 03/24/19 03:26 Most recent lab results 03/24/19 03/24/19 03/24/19 03:26 03:26 04:31 ABG pH 7.43 ABG pCO2 38 ABG pO2 82 L ABG HCO3 25 ABG O2 Saturation 96 Calcium 9.6 Phosphorus 5.3 H Magnesium 2.2 - VTE Documentation of Mechanical Device: Intermittent pneumatic compression device Consult Discharge Plan - Plan Referrals: Angela Bob CNP [Primary Care Provider] - <Yobany Hartmann - Last Filed: 03/25/19 02:26> Date of Encounter: 03/24/19 Objective - Vital Signs Vital signs: Vital Signs Temp Pulse Resp BP Pulse Ox 03/25/19 02:00 74 16 95/75 100 03/25/19 01:00 88 22 103/68 96 03/25/19 00:00 97.9 F 78 16 99/68 96 03/24/19 23:00 79 18 102/72 96 03/24/19 22:00 73 20 97/78 98 03/24/19 21:00 76 18 100/67 100 03/24/19 20:01 96.8 F L 03/24/19 20:00 73 20 103/62 98 03/24/19 19:00 72 21 97/66 100 03/24/19 18:18 81 20 88/53 100 03/24/19 17:32 73 17 93/55 98 03/24/19 16:15 72 17 96/60 100 03/24/19 16:11 71 03/24/19 15:30 73 19 96/60 98 03/24/19 15:18 97.5 F L 03/24/19 14:00 73 20 130/96 100 03/24/19 13:40 74 17 99/60 100 03/24/19 12:36 78 03/24/19 12:28 80 20 104/91 97 03/24/19 11:36 98.4 F 03/24/19 11:00 82 17 114/101 100 03/24/19 10:17 76 20 91/70 100 03/24/19 09:08 73 20 98/59 99 03/24/19 08:12 19 102/54 100 03/24/19 08:11 123/74 03/24/19 08:09 15 102/54 100 03/24/19 08:04 85 15 125/74 94 03/24/19 07:51 98.0 F 91 03/24/19 07:30 81 20 126/73 89 03/24/19 07:25 25 124/72 100 03/24/19 06:00 48 12 112/61 100 03/24/19 05:20 12 92/50 98 03/24/19 05:00 64 12 107/62 96 03/24/19 04:14 98.7 F 03/24/19 04:08 12 108/61 97 03/24/19 04:00 54 12 109/66 99 03/24/19 03:30 54 03/24/19 03:00 48 12 114/65 98 Intake and Output 03/24/19 03/24/19 03/25/19 15:59 23:59 07:59 Intake Total 547 / 1167 420 / 1167 Balance 547 / 1167 420 / 1167 Intake: IV Fluids 67 / 267 Precedex Premix 400 mcg In 100 10 / 10 ml @ 0.2 MCG/KG/HR 2.555 mls/hr IVC .Q24H [facility] Rx#:[id number] FentaNYL (PF) 1,000 MCG In 0.9 57 / 57 % Sodium Chloride 80 ML @ 25 MCG/HR 2.5 mls/hr IVC CONT [facility] Rx#:[id number] Oral 480 / 900 420 / 900 Other: Meal Lunch Dinner Percent of Meal Consumed 10% 20% Weight 52.4 kg Patient Weight 03/25/19 23:59 Weight 52.4 kg - Lab 03/24/19 03:26 03/24/19 03:26 - Attending Attestation I examined this patient and my medical decision-making was reviewed with the Resident Physician. I agree with the documented findings, disposition and treatment plan as described except to the extent set forth below. Pt seen and examined later in the am s/p extubation doing well but fatigued. On exam: gen: frail appearing, lethargic. Lungs good areation with transmitted upper airways sounds. Heart S1S2. Abd soft NT/ND Ext trace LE edema bilat and Neuro AAOx3. Labs noted. s/p HD yesterday pre-surgery with next planned tomorrow however was happy to dialyze today for additional UF but pt refuses.
[2019-03-24] MEDS: *HR* HYDROcodone/Acet 5/325 mg TABLET PO PRN ×3 (10:21→21:48)
[2019-03-24] MEDS: Aspirin Enteric Coated 81 MG Tablet PO SCH (10:21)
--- NOTE | 2019-03-24 20:41 | Orthopedics Progress Note ---
Date of Encounter: 03/24/19 Time of Encounter: 20:38 - Assessment and Plan (1) Pelvis fracture, right Current Visit: Yes Status: Acute Qualifiers: Qualified Code(s): S32.301A - Unspecified fracture of right ilium, initial encounter for closed fracture Subjective Interval history: S: Patient is resting in bed comfortably. Was extubated this morning. Minimal pain to the left hip. Pain control to the right hemipelvis O: Afebrile on the vital signs are stable Dressing clean, dry, and intact to the left hip. Neurovascularly intact distally. A: Post left hip pinning P: Doing much better clinically now that she is extubated Resume postoperative care Nonweightbearing to left lower extremity Dressing change tomorrow Objective Vital signs: Vital Signs Temp Pulse Resp BP Pulse Ox 03/24/19 20:01 96.8 F L 03/24/19 20:00 73 20 103/62 98 03/24/19 19:00 72 21 97/66 100 03/24/19 18:18 81 20 88/53 100 03/24/19 17:32 73 17 93/55 98 03/24/19 16:15 72 17 96/60 100 03/24/19 16:11 71 03/24/19 15:30 73 19 96/60 98 03/24/19 15:18 97.5 F L 03/24/19 14:00 73 20 130/96 100 03/24/19 13:40 74 17 99/60 100 03/24/19 12:36 78 03/24/19 12:28 80 20 104/91 97 03/24/19 11:36 98.4 F 03/24/19 11:00 82 17 114/101 100 03/24/19 10:17 76 20 91/70 100 03/24/19 09:08 73 20 98/59 99 03/24/19 08:12 19 102/54 100 03/24/19 08:11 123/74 03/24/19 08:09 15 102/54 100 03/24/19 08:04 85 15 125/74 94 03/24/19 07:51 98.0 F 91 03/24/19 07:30 81 20 126/73 89 03/24/19 07:25 25 124/72 100 03/24/19 06:00 48 12 112/61 100 03/24/19 05:20 12 92/50 98 03/24/19 05:00 64 12 107/62 96 03/24/19 04:14 98.7 F 03/24/19 04:08 12 108/61 97 03/24/19 04:00 54 12 109/66 99 03/24/19 03:30 54 03/24/19 03:00 48 12 114/65 98 03/24/19 02:00 48 12 122/68 98 03/24/19 01:05 12 123/68 98 03/24/19 01:00 47 12 123/68 99 03/24/19 00:42 97.6 F 03/24/19 00:00 52 13 161/81 100 03/23/19 23:52 12 98 03/23/19 23:30 52 03/23/19 23:00 54 12 153/87 100 03/23/19 22:00 57 12 171/83 97 03/23/19 21:48 12 97 03/23/19 21:00 59 12 176/85 97 Intake and Output 03/24/19 03/24/19 03/24/19 07:59 15:59 23:59 Intake Total 200 / 1047 547 / 1047 300 / 1047 Output Total 0 / 0 Balance 200 / 1047 547 / 1047 300 / 1047 Intake: IV Fluids 200 / 267 67 / 267 Precedex Premix 400 mcg In 100 100 / 110 10 / 110 ml @ 0.2 MCG/KG/HR 2.555 mls/hr IVC .Q24H [facility] Rx#:[id number] FentaNYL (PF) 1,000 MCG In 0.9 57 / 57 % Sodium Chloride 80 ML @ 25 MCG/HR 2.5 mls/hr IVC CONT [facility] Rx#:[id number] Ancef 2,000 MG In 0.9 % Sodium 100 / 100 Chloride 100 ML @ 200 mls/hr IVPB Q8H [facility] Rx#:[id number] Oral 480 / 780 300 / 780 Output: Urine 0 / 0 Other: Meal Lunch Dinner Percent of Meal Consumed 10% 20% Weight 51.1 kg Patient Weight 03/24/19 23:59 Weight 51.1 kg - Labs CBC & BMP: 03/24/19 03:26 03/24/19 03:26 Labs: Abnormal lab results RBC 3.51 M/mcL (3.82-4.97) L 03/20/19 17:37 Hgb 10.7 g/dL (11.5-15.4) L 03/24/19 03:26 Hct 34.4 % (35.3-44.9) L 03/20/19 17:37 MCH 27.6 pg (28.0-33.3) L 03/23/19 07:55 MCHC 29.6 g/dL (31.6-35.5) L 03/24/19 03:26 RDW 15.9 % (11.5-14.5) H 03/24/19 03:26 Lymphocytes # 0.5 K/mcL (0.6-4.6) L 03/24/19 03:26 Hypochromasia Present (Not Present) A 03/21/19 05:14 Anisocytosis 1+ (Not Present) A 03/21/19 05:14 ABG pO2 82 mmHg (85-104) L 03/24/19 04:31 Sodium 135 mEq/L (136-145) L 03/20/19 17:37 Potassium 5.9 mEq/L (3.5-5.1) H 03/21/19 05:14 Chloride 94 mEq/L (98-107) L 03/21/19 05:14 Carbon Dioxide 30 mEq/L (23-29) H 03/23/19 10:35 BUN 26 mg/dL (6-20) H 03/24/19 03:26 Creatinine 3.46 mg/dL (0.60-1.20) H 03/24/19 03:26 Est GFR ( Amer) 17 (> 60) L 03/24/19 03:26 Est GFR (Non-Af Amer) 14 (> 60) L 03/24/19 03:26 Glucose 110 mg/dL (70-105) H 03/24/19 03:26 POC Glucose 107 mg/dL (70-99) H 03/23/19 19:03 Calculated Osmolality 305 (280-300) H 03/21/19 05:14 Phosphorus 5.3 mg/dL (2.7-4.5) H 03/24/19 03:26 - VTE Documentation of Mechanical Device: Intermittent pneumatic compression device Consult Discharge Plan - Plan Referrals: Angela Bob CNP [Primary Care Provider] -
[2019-03-25 02:13] LABS: Basophils % 0.3 %; Hemoglobin 10.4 g/dL (11.5-15.4); Immature Granulocytes % 0.4 % (0-4); Mean Corpuscular Volume 99.5 fL (83.0-100.0)
[2019-03-25 02:15] LABS: Eosinophils # 0.2 K/mcL (0.0-0.6); Eosinophils % 3.3 %; Hematocrit 37.1 % (35.3-44.9); Immature Platelets 4.5 % (1.1-6.1); Lymphocytes # 0.9 K/mcL (0.6-4.6); Lymphocytes % 12.8 %; Mean Corpuscular Hemoglobin 27.9 pg (28.0-33.3); Mean Platelet Volume 10.7 fL (9.4-12.4); Monocytes # 0.8 K/mcL (0.0-1.3); Monocytes % 10.6 %; Neutrophils # 5.3 K/mcL (1.6-8.9); Platelet Count 169 K/mcL (140-400); Red Blood Count 3.73 M/mcL (3.82-4.97); Red Cell Distribution Width 16.3 % (11.5-14.5); Segmented Neutrophils % 72.6 %; White Blood Count 7.3 K/mcL (4.3-11.1)
[2019-03-25 02:38] LABS: Calcium 8.8 mg/dL (8.6-10.3)
[2019-03-25 02:57] LABS: Platelet Estimate Normal (Normal); Reactive Lymphocytes Present (Not Present)
[2019-03-25 02:58] LABS: Anisocytosis 1+ (Not Present); Hypochromasia Present (Not Present)
[2019-03-25] MEDS: *HR* HYDROcodone/Acet 5/325 mg TABLET PO PRN ×3 (05:01→21:24)
[2019-03-25] MEDS: *HR* Heparin 5,000 UNIT/ML VIAL SQ SCH ×2 (05:01→16:30)
--- NOTE | 2019-03-25 08:03 | Pulmonology Progress Note ---
<Santosh Cantu - Last Filed: 03/25/19 07:58> Date of Encounter: 03/25/19 Time of Encounter: 07:58 Assessment and Plan (1) Respiratory insufficiency Current Visit: No Status: Acute (2) Hypertension Current Visit: No Status: Chronic Qualifiers: Hypertension type: essential hypertension Qualified Code(s): I10 - E ssential (primary) hypertension (3) Left hip pain Current Visit: No Status: Chronic (4) Depression with anxiety Current Visit: No Status: Chronic (5) Asthma Current Visit: No Status: Chronic Qualifiers: Asthma severity: unspecified severity Asthma persistence: unspecified Asthma complication type: unspecified Qualified Code(s): J45.909 - Unspecified asthma, uncomplicated (6) ESRD (end stage renal disease) on dialysis Current Visit: Yes Status: Chronic (7) Pubic ramus fracture Current Visit: Yes Status: Acute Qualifiers: Encounter type: initial encounter Fracture type: closed Laterality: right Qualified Code(s): S32.591A - Other specified fracture of right pubis, initial encounter for closed fracture (8) Fall Current Visit: Yes Status: Acute Qualifiers: Encounter type: initial encounter Qualified Code(s): W19.XXXA - Unspecified fall, initial encounter (9) CAD (coronary artery disease) Current Visit: Yes Status: Chronic Qualifiers: Coronary Disease-Associated Artery/Lesion type: unspecified vessel or lesion type [place] vs. transplanted heart: unspecified whether [place] or transplanted heart Associated angina: angina presence unspecified Qualified Code(s): I25.10 - Atherosclerotic heart disease of [place] coronary artery without angina pectoris (10) Mitral stenosis Current Visit: No Status: Acute Qualifiers: Cardiac valve disease etiology: etiology unspecified Qualified Code(s): I05.0 - Rheumatic mitral stenosis (11) DVT prophylaxis Current Visit: No Status: Acute Subjective Principal diagnosis: Acute respiratory failure Interval history: 48-year-old female past medical history of CAD, [place], severe mitral stenosis, hypertension, end-stage renal disease on Thursday dialysis, thyroid disease, asthma, anxiety, depression, rectal prolapse, presented to the ED on March 20 after experiencing 2 weeks of bilateral hip pain after having a fall at home. The patient's x-ray was inconclusive due to severe arthritic change and CT scan was performed which showed a S1/S2 sacral fracture as well as a pelvic ramus fracture. The patient was admitted to orthopedic medicine service and had surgical correction performed on March 23 to repair the sacral fracture. Surgery was performed without overt complication s however when patient was to be extubated she did not have spontaneous respirations and needed to be reintubated while in surgical suite. Patient was admitted to the ICU for further monitoring by Dr. Haley with hospitalist medicine service. Patient was given spontaneous breathing trial on the morning of 03/24 by respiratory therapy was noted to have no spontaneous respirations at that time. Due to concerns of the fall and Patient severe arthritis perhaps causing injury to the cervical spine in the setting of the phrenic nerve distribution a CT scan was performed the cervical spine on 03/23 that did not show any acute pathology. Concerns were related the morning 03/24 by the RN that it was stated causes medicine service concern for a pseudocholinesterase deficiency after succinylcholine used on the patient for surgical paralytic. Patient was successfully extubated on with transitioned to BiPAP after spontaneous breathing trial was successfully completed. Patient further improve throughout the day and was able to be transitioned to her home 3 L of oxygen by nasal cannula saturating well without complications. Upon my initial examination as noted the patient is awake, alert, oriented, She has no alert neurological deficits, no lateralizing signs. She states she has no pain or difficulty breathing at this time. She has no other concerns or complaints. Patient is hemodynamically stable without significant laboratory abnormalities noted. We will sign off from the ICU. Please reconsult us with any needs or concerns. Objective PUL Vital signs: Last Vital Signs Temp 97.5 F L 03/25/19 04:00 Pulse 82 03/25/19 07:34 Resp 19 03/25/19 07:26 BP 92/64 03/25/19 07:26 Pulse Ox 94 03/25/19 07:26 General appearance: no acute distress, alert Eyes: nonicteric ENT: oropharynx moist Neck: supple Effort: normal Auscultation: bilateral: clear Cardiovascular: regular rate and rhythm Gastrointestinal: normoactive bowel sounds, soft, non-tender, non-distended Integumentary: normal Extremities: no cyanosis, no edema, no clubbing, pink and warm Musculoskeletal: no deformities normal mental status, non-focal exam mood appropriate, affect normal Results - Laboratory Findings CBC and BMP: 03/25/19 01:53 03/25/19 01:53 ABG ABG pH 7.43 pH Units (7.32-7.45) 03/24/19 04:31 ABG pCO2 38 mmHg (35-45) 03/24/19 04:31 ABG pO2 82 mmHg (85-104) L 03/24/19 04:31 ABG O2 Saturation 96 % (95-98) 03/24/19 04:31 PT/INR, D-dimer PT 11.8 Seconds (9.4-12.1) 03/20/19 17:37 Abnormal lab findings: Abnormal lab results RBC 3.73 M/mcL (3.82-4.97) L 03/25/19 01:53 Hgb 10.4 g/dL (11.5-15.4) L 03/25/19 01:53 Hct 34.4 % (35.3-44.9) L 03/20/19 17:37 MCH 27.9 pg (28.0-33.3) L 03/25/19 01:53 MCHC 28.0 g/dL (31.6-35.5) L 03/25/19 01:53 RDW 16.3 % (11.5-14.5) H 03/25/19 01:53 Lymphocytes # 0.5 K/mcL (0.6-4.6) L 03/24/19 03:26 Reactive Lymphocytes Present (Not Present) A 03/25/19 01:53 Hypochromasia Present (Not Present) A 03/25/19 01:53 Anisocytosis 1+ (Not Present) A 03/25/19 01:53 ABG pO2 82 mmHg (85-104) L 03/24/19 04:31 Sodium 135 mEq/L (136-145) L 03/20/19 17:37 Potassium 5.9 mEq/L (3.5-5.1) H 03/21/19 05:14 Chloride 94 mEq/L (98-107) L 03/21/19 05:14 Carbon Dioxide 30 mEq/L (23-29) H 03/23/19 10:35 BUN 36 mg/dL (6-20) H 03/25/19 01:53 Creatinine 4.54 mg/dL (0.60-1.20) H 03/25/19 01:53 Est GFR ( Amer) 13 (> 60) L 03/25/19 01:53 Est GFR (Non-Af Amer) 10 (> 60) L 03/25/19 01:53 Glucose 110 mg/dL (70-105) H 03/25/19 01:53 POC Glucose 107 mg/dL (70-99) H 03/23/19 19:03 Calculated Osmolality 305 (280-300) H 03/21/19 05:14 Phosphorus 5.3 mg/dL (2.7-4.5) H 03/24/19 03:26 - Clinical Findings Intake & Output: Intake & Output 03/24/19 03/24/19 03/25/19 15:59 23:59 07:59 Intake Total 547 / 1167 420 / 1167 Output Total 0 / 0 Balance 547 / 1167 420 / 1167 0 / 0 Weight 52.4 kg - VTE Documentation of Mechanical Device: Intermittent pneumatic compression device Consult Discharge Plan - Plan Referrals: Angela Bob, FRONT OF HOUSE MANAGER [Primary Care Provider] - <Ángel Munoz - Last Filed: 03/25/19 12:05> Date of Encounter: 03/25/19 Assessment and Plan (1) Acute and chronic respiratory failure with hypoxia Current Visit: Yes Status: Acute Objective PUL Vital signs: Last Vital Signs Temp 98.6 F 03/25/19 12:00 Pulse 82 03/25/19 11:00 Resp 18 03/25/19 11:00 BP 115/58 03/25/19 11:00 Pulse Ox 94 03/25/19 11:00 Results - Laboratory Findings CBC and BMP: 03/25/19 01:53 03/25/19 01:53 ABG ABG pH 7.43 pH Units (7.32-7.45) 03/24/19 04:31 ABG pCO2 38 mmHg (35-45) 03/24/19 04:31 ABG pO2 82 mmHg (85-104) L 03/24/19 04:31 ABG O2 Saturation 96 % (95-98) 03/24/19 04:31 PT/INR, D-dimer PT 11.8 Seconds (9.4-12.1) 03/20/19 17:37 Abnormal lab findings: Abnormal lab results RBC 3.73 M/mcL (3.82-4.97) L 03/25/19 01:53 Hgb 10.4 g/dL (11.5-15.4) L 03/25/19 01:53 Hct 34.4 % (35.3-44.9) L 03/20/19 17:37 MCH 27.9 pg (28.0-33.3) L 03/25/19 01:53 MCHC 28.0 g/dL (31.6-35.5) L 03/25/19 01:53 RDW 16.3 % (11.5-14.5) H 03/25/19 01:53 Lymphocytes # 0.5 K/mcL (0.6-4.6) L 03/24/19 03:26 Reactive Lymphocytes Present (Not Present) A 03/25/19 01:53 Hypochromasia Present (Not Present) A 03/25/19 01:53 Anisocytosis 1+ (Not Present) A 03/25/19 01:53 ABG pO2 82 mmHg (85-104) L 03/24/19 04:31 Sodium 135 mEq/L (136-145) L 03/20/19 17:37 Potassium 5.9 mEq/L (3.5-5.1) H 03/21/19 05:14 Chloride 94 mEq/L (98-107) L 03/21/19 05:14 Carbon Dioxide 30 mEq/L (23-29) H 03/23/19 10:35 BUN 36 mg/dL (6-20) H 03/25/19 01:53 Creatinine 4.54 mg/dL (0.60-1.20) H 03/25/19 01:53 Est GFR ( Amer) 13 (> 60) L 03/25/19 01:53 Est GFR (Non-Af Amer) 10 (> 60) L 03/25/19 01:53 Glucose 110 mg/dL (70-105) H 03/25/19 01:53 POC Glucose 107 mg/dL (70-99) H 03/23/19 19:03 Calculated Osmolality 305 (280-300) H 03/21/19 05:14 Phosphorus 5.3 mg/dL (2.7-4.5) H 03/24/19 03:26 - Clinical Findings Intake & Output: Intake & Output 03/24/19 03/25/19 03/25/19 23:59 07:59 15:59 Intake Total 420 / 1167 240 / 240 Output Total 0 / 0 Balance 420 / 1167 0 / 240 240 / 240 Weight 52.4 kg - Attending Attestation I examined this patient and my medical decision-making was reviewed with the Resident Physician. I agree with the documented findings, disposition and treatment plan as described except to the extent set forth below. We independently had [id number] contact with the patient Patient seen and examined at bedside Labs, radiology, chart personally reviewed. Management was reviewed during multidisciplinary critical care rounds. HYDRAULIC CONTROLS TECHNICIAN: Awake and alert no focal deficits Pulm: Acceptable oxygenation on nasal cannula O2 start combination inhaler for asthma Cards: Blood pressure monitored and stable GI: Continue to monitor Nutrition: Advanced renal diet as tolerated Renal: ESRD plan for dialysis nephrology following UOP Monitored, Cont to Trend sCr and monitor Electrolytes. ID: No clear evidence of infection Heme/Onc: DVT prophylaxis given Endo: Glucose Monitored Integ/MSK: Status post sacral fracture repair -Skin Care per routine ICU Nursing Protocol to prevent ulcers. Lines: All lines examined without evidence of infection : [facility]po[facility] CODE: Full
--- NOTE | 2019-03-25 08:14 | Nephrology Progress Note ---
Date of Encounter: 03/26/19 Time of Encounter: 06:10 (Time estimated) - Assessment and Plan (1) Anemia Current Visit: Yes Status: Acute Qualifiers: Qualified Code(s): D64.9 - Anemia, unspecified (2) ESRD (end stage renal disease) on dialysis Current Visit: Yes Status: Chronic (3) Sacral fracture Current Visit: Yes Status: Acute Qualifiers: Encounter type: initial encounter Zone of sacrum fracture: unspecified portion of sacrum Fracture type: closed Qualified Code(s): S32.10XA - Unspecified fracture of sacrum, initial encounter for closed fracture Subjective Principal diagnosis: Acute respiratory failure Interval history: S Patient seen and examined at bedside. Feels that her breathing is improved. Notes right arm swelling. Chest pain yesterday is getting better as she now relates it to being intubated. Intake: Since the surgery she has drank may be 8 ounces as well as some small amount of Sprite. O PE General: Middle-aged female. No acute distress Skin: Good turgor Eyes: Moist. Anicteric Cardiac: At least 3/6 systolic murmur. Respiratory: Posterior basilar and middle lung field crackles on the right with a wheeze. Posterior basilar and middle auscultation field crackles on the left without wheeze. Abdomen: Tender over heparin injection site with a roughly 2 x 3" mass that feel s like a lipoma under the site. Extremities: No bilateral lower extremity edema. Capillary refill less than 2 seconds bilateral upper extremities. Psych: Appropriate mood and behavior. Answers questions coherently A/P #End-stage renal disease Hemodialysis MWF Last dialysis session before current hospitalization was 03/18 Patient usually has around 3 L removed during dialysis. She does not typically make urine -Potassium WNL -BUN worsened -Dialysis as tolerated #Anemia Chronic Usually normocytic. Macrocytic in November. In the setting of ESRD. Previous record search did not find iron studies Patient believes that she is on vitamin D replacement at home. She is unsure whether or not she has received erythropoietin in the past. -Consider check of erythropoietin and vitamin D levels. #sacral fracture Orthopedics also discovered anterior lucency of the left femoral neck on imaging representing fracture. -Status post percutaneous screw fixation of left femoral neck on 03/23 Objective - Vital Signs Vital signs: Vital Signs Temp Pulse Resp BP Pulse Ox 03/25/19 08:05 17 95 08/30/19 07:34 82 03/25/19 07:26 88 19 92/64 94 03/25/19 06:00 83 18 86/66 95 03/25/19 05:00 84 16 90/59 98 03/25/19 04:00 97.5 F L 80 18 89/62 98 03/25/19 03:00 86 18 100/68 100 03/25/19 02:00 74 16 95/75 100 03/25/19 01:00 88 22 103/68 96 03/25/19 00:00 97.9 F 78 16 99/68 96 03/24/19 23:00 79 18 102/72 96 03/24/19 22:00 73 20 97/78 98 03/24/19 21:00 76 18 100/67 100 03/24/19 20:01 96.8 F L 03/24/19 20:00 73 20 103/62 98 03/24/19 19:00 72 21 97/66 100 03/24/19 18:18 81 20 88/53 100 03/24/19 17:32 73 17 93/55 98 03/24/19 16:15 72 17 96/60 100 03/24/19 16:11 71 03/24/19 15:30 73 19 96/60 98 03/24/19 15:18 97.5 F L 03/24/19 14:00 73 20 130/96 100 03/24/19 13:40 74 17 99/60 100 03/24/19 12:36 78 03/24/19 12:28 80 20 104/91 97 03/24/19 11:36 98.4 F 03/24/19 11:00 82 17 114/101 100 03/24/19 10:17 76 20 91/70 100 03/24/19 09:08 73 20 98/59 99 03/24/19 08:12 19 102/54 100 03/24/19 08:11 123/74 Intake and Output 03/24/19 03/25/19 03/25/19 23:59 07:59 15:59 Intake Total 420 / 1167 Output Total 0 / 0 Balance 420 / 1167 0 / 0 Intake: Oral 420 / 900 Output: Urine 0 / 0 Other: Meal Dinner Percent of Meal Consumed 20% Weight 52.4 kg Patient Weight 03/25/19 23:59 Weight 52.4 kg - Lab 03/26/19 05:30 03/26/19 05:30 Most recent lab results 03/25/19 03/25/19 01:53 01:53 Calcium 8.8 Magnesium 2.3 Consult Discharge Plan - Plan Additional Instructions: CARE HOME DISCHARGE INSTRUCTIONS Dr. Olivares PROCEDURE PERFORMED Fixation of left hip. Stable pelvic ring injury, nonoperative Incision care -Daily dressing changes to the left hip with dry gauze and either paper tape or medipore tape. -Avoid soaking wound in water (no hot tubs, bathtubs, swimming pools). Weight bearing status -Non-weightbearing to the left lower extremity -May mobilize with weightbearing as tolerated to the right lower extremity under the direction of physical and occupational therapy. Medications -Pain medication per the discharging medical doctor -DVT prophylaxis per the discharging hospitalist Other -Knee high MIRIAN hose 23 hours per day -Consult physical and occupational therapy for mobilization. -Up to chair with assistance at least twice per day. -Follow up with your primary care physician to discuss testing for bone mineral density. Follow-up with Dr. Olivares at the office 2 weeks from the surgery date for a post operative evaluation. Call the office at [phone] to schedule appointment. Referrals: Angela Bob CNP [Primary Care Provider] -
[2019-03-25] MEDS: Aspirin Enteric Coated 81 MG Tablet PO SCH (08:34)
[2019-03-25] MEDS ORDERED: ALPRAZolam 0.5 MG TABLET PO SCH ×2 (09:00→12:53)
[2019-03-25] MEDS ORDERED: Budesonide/Formoterol 80/4.5 1 PUFF INH IH SCH (10:00)
[2019-03-25] MEDS ORDERED: Albuterol 2.5 MG/3 ML NEBULIZER IH PRN (12:53)
[2019-03-25] MEDS ORDERED: *HR* OxyCODONE Immed Rel 5 MG TABLET PO PRN (12:53)
[2019-03-25] MEDS ORDERED: 0.9 % Sodium Chloride 250 ML IVC PRN (12:53)
[2019-03-25] MEDS ORDERED: Naloxone 0.4 MG/ML INJ IVP PRN (12:53)
--- NOTE | 2019-03-25 17:50 | Orthopedics Progress Note ---
Date of Encounter: 03/25/19 Time of Encounter: 16:30 - Assessment and Plan (1) Pelvis fracture, right Current Visit: Yes Status: Acute Qualifiers: Qualified Code(s): S32.301A - Unspecified fracture of right ilium, initial encounter for closed fracture Subjective Principal diagnosis: Acute respiratory failure Interval history: S: Patient is resting in bed comfortably. Minimal pain to the left hip. Pain control to the right hemipelvis O: Afebrile on the vital signs are stable Incision is clean, dry, and intact to the left hip. Neurovascularly intact distally. A: Post left hip pinning Stable pelvic ring injury P: Resume postoperative care Nonweightbearing to left lower extremity Daily dressing changes Okay to mobilize while putting weight on the right lower extremity but will need physical and occupational therapy to assist. Anticipate rehabilitation upon discharge Follow-up with me 2 weeks from the surgery date for a repeat x-ray; anticipate 4-6 weeks of nonweightbearing to the left lower extremity. DVT prophylaxis per the hospitalist. Recommend a total of 4 weeks from the date of surgery. Objective Vital signs: Vital Signs Temp Pulse Resp BP Pulse Ox 03/25/19 15:47 97.7 F 74 18 95/64 100 03/25/19 15:00 78 16 115/58 94 03/25/19 12:00 98.6 F 03/25/19 11:00 82 18 115/58 94 03/25/19 10:00 86 18 81/54 94 03/25/19 09:00 87 18 90/57 93 03/25/19 08:36 87 16 90/57 94 03/25/19 08:12 98.2 F 03/25/19 08:05 17 95 03/25/19 07:34 82 03/25/19 07:26 88 19 92/64 94 03/25/19 06:00 83 18 86/66 95 03/25/19 05:00 84 16 90/59 98 03/25/19 04:00 97.5 F L 80 18 89/62 98 03/25/19 03:00 86 18 100/68 100 03/25/19 02:00 74 16 95/75 100 03/25/19 01:00 88 22 103/68 96 03/25/19 00:00 97.9 F 78 16 99/68 96 03/24/19 23:00 79 18 102/72 96 03/24/19 22:00 73 20 97/78 98 03/24/19 21:00 76 18 100/67 100 03/24/19 20:01 96.8 F L 03/24/19 20:00 73 20 103/62 98 03/24/19 19:00 72 21 97/66 100 03/24/19 18:18 81 20 88/53 100 Intake and Output 03/25/19 03/25/19 03/25/19 07:59 15:59 23:59 Intake Total 600 / 600 Output Total 0 / 0 Balance 0 / 600 600 / 600 Intake: Oral 600 / 600 Output: Urine 0 / 0 Other: Weight 52.4 kg Patient Weight 03/25/19 23:59 Weight 52.4 kg - Labs CBC & BMP: 03/25/19 01:53 03/25/19 01:53 Labs: Abnormal lab results RBC 3.73 M/mcL (3.82-4.97) L 03/25/19 01:53 Hgb 10.4 g/dL (11.5-15.4) L 03/25/19 01:53 Hct 34.4 % (35.3-44.9) L 03/20/19 17:37 MCH 27.9 pg (28.0-33.3) L 03/25/19 01:53 MCHC 28.0 g/dL (31.6-35.5) L 03/25/19 01:53 RDW 16.3 % (11.5-14.5) H 03/25/19 01:53 Lymphocytes # 0.5 K/mcL (0.6-4.6) L 03/24/19 03:26 Reactive Lymphocytes Present (Not Present) A 03/25/19 01:53 Hypochromasia Present (Not Present) A 03/25/19 01:53 Anisocytosis 1+ (Not Present) A 03/25/19 01:53 ABG pO2 82 mmHg (85-104) L 03/24/19 04:31 Sodium 135 mEq/L (136-145) L 03/20/19 17:37 Potassium 5.9 mEq/L (3.5-5.1) H 03/21/19 05:14 Chloride 94 mEq/L (98-107) L 03/21/19 05:14 Carbon Dioxide 30 mEq/L (23-29) H 03/23/19 10:35 BUN 36 mg/dL (6-20) H 03/25/19 01:53 Creatinine 4.54 mg/dL (0.60-1.20) H 03/25/19 01:53 Est GFR ( Amer) 13 (> 60) L 03/25/19 01:53 Est GFR (Non-Af Amer) 10 (> 60) L 03/25/19 01:53 Glucose 110 mg/dL (70-105) H 03/25/19 01:53 POC Glucose 107 mg/dL (70-99) H 03/23/19 19:03 Calculated Osmolality 305 (280-300) H 03/21/19 05:14 Phosphorus 5.3 mg/dL (2.7-4.5) H 03/24/19 03:26 - VTE Documentation of Mechanical Device: Intermittent pneumatic compression device Consult Discharge Plan - Plan Additional Instructions: HALF-WAY DISCHARGE INSTRUCTIONS Dr. Olivares PROCEDURE PERFORMED Fixation of left hip. Stable pelvic ring injury, nonoperative Incision care -Daily dressing changes to the left hip with dry gauze and either paper tape or medipore tape. -Avoid soaking wound in water (no hot tubs, bathtubs, swimming pools). Weight bearing status -Non-weightbearing to the left lower extremity -May mobilize with weightbearing as tolerated to the right lower extremity under the direction of physical and occupational therapy. Medications -Pain medication per the discharging medical doctor -DVT prophylaxis per the discharging hospitalist Other -Knee high MIRIAN hose 23 hours per day -Consult physical and occupational therapy for mobilization. -Up to chair with assistance at least twice per day. -Follow up with your primary care physician to discuss testing for bone mineral density. Follow-up with Dr. Olivares at the office 2 weeks from the surgery date for a post operative evaluation. Call the office at [phone] to schedule appointment. Referrals: Angela Bob CNP [Primary Care Provider] -
[2019-03-25] MEDS: Budesonide/Formoterol 80/4.5 1 PUFF INH IH SCH (20:00)
[2019-03-26] MEDS: *HR* Heparin 5,000 UNIT/ML VIAL SQ SCH ×2 (05:08→17:16)
[2019-03-26 05:48] LABS: Red Cell Distribution Width 16.3 % (11.5-14.5)
[2019-03-26 05:49] LABS: Hematocrit 38.2 % (35.3-44.9); Hemoglobin 10.7 g/dL (11.5-15.4); Mean Corpuscular Hemoglobin 28.6 pg (28.0-33.3); Mean Corpuscular Volume 102.1 fL (83.0-100.0); Mean Platelet Volume 10.8 fL (9.4-12.4); Platelet Count 186 K/mcL (140-400); Red Blood Count 3.74 M/mcL (3.82-4.97); White Blood Count 6.4 K/mcL (4.3-11.1)
[2019-03-26 06:06] LABS: Potassium 5.6 mEq/L (3.5-5.1)
[2019-03-26] MEDS: Aspirin Enteric Coated 81 MG Tablet PO SCH (08:01)
[2019-03-26] MEDS ORDERED: 0.9 % Sodium Chloride 250 ML IVC PRN (08:56)
--- NOTE | 2019-03-26 09:07 | Nephrology Progress Note ---
Date of Encounter: 03/25/19 Time of Encounter: 10:30 - Assessment and Plan (1) ESRD (end stage renal disease) on dialysis Current Visit: Yes Status: Chronic HD TRS. Renal vitamins. Renal dose medications. Renal diet. Additional dialysis and ultrafiltration as needed. Additional dialysis needed. No acute need for dialysis today. (2) Acute and chronic respiratory failure with hypoxia Current Visit: Yes Status: Acute Per the pulmonary team. The patient's x-ray. She states she is breathing well. (3) Anemia Current Visit: Yes Status: Acute Transfuse as needed. Qualifiers: Qualified Code(s): D64.9 - Anemia, unspecified (4) Hypertension Current Visit: No Status: Chronic Qualifiers: Hypertension type: essential hypertension Qualified Code(s): I10 - Essential (primary) hypertension Subjective Principal diagnosis: Acute respiratory failure Interval history: The patient was seen and evaluated while she was in the intensive care unit. She denies chest pain or shortness of breath. She states she does get occasional lightheadedness. She states she overall feels better. Her review of systems otherwise was negative or stable.. Objective - Vital Signs Vital signs: Vital Signs Temp Pulse Resp BP Pulse Ox 03/26/19 07:38 97.8 F 77 17 89/54 97 03/26/19 03:17 97.8 F 64 18 95/63 94 03/25/19 23:44 97.5 F L 83 18 99/62 93 03/25/19 23:35 93 03/25/19 20:01 18 95 03/25/19 18:43 97.6 F 72 18 104/65 97 03/25/19 15:47 97.7 F 74 18 95/64 100 03/25/19 15:00 78 16 115/58 94 03/25/19 12:00 98.6 F 03/25/19 11:00 82 18 115/58 94 03/25/19 10:00 86 18 81/54 94 Intake and Output 03/25/19 03/26/19 03/26/19 23:59 07:59 15:59 Intake Total 240 / 840 Balance 240 / 840 Intake: Oral 240 / 840 Other: Meal Dinner Percent of Meal Consumed 25% # Urine Diapers 0 0 Weight 51.4 kg Patient Weight 03/26/19 23:59 Weight 51.4 kg - General Appearance General appearance: Present: well-developed, well-nourished EENT: Present: ATNC Neck: Present: supple Cardiology: Present: edema, regular rate Dialysis Vascular Access: Arteriovenous Graft (Right upper arm graft) thrill: Yes bruit: Yes Gastrointestinal: Present: no tenderness Integumentary: Present: warm and dry Neurologic: Present: alert and oriented x3 Musculoskeletal: Present: no cyanosis Psychiatric: Present: mood/affect appropriate - Lab 03/26/19 05:30 03/26/19 05:30 Most recent lab results 03/26/19 05:30 Calcium 9.0 - VTE Documentation of Mechanical Device: Intermittent pneumatic compression device Consult Discharge Plan - Plan Additional Instructions: GROUP HOME DISCHARGE INSTRUCTIONS Dr. Olivares PROCEDURE PERFORMED Fixation of left hip. Stable pelvic ring injury, nonoperative Incision care -Daily dressing changes to the left hip with dry gauze and either paper tape or medipore tape. -Avoid soaking wound in water (no hot tubs, bathtubs, swimming pools). Weight bearing status -Non-weightbearing to the left lower extremity -May mobilize with weightbearing as tolerated to the right lower extremity under the direction of physical and occupational therapy. Medications -Pain medication per the discharging medical doctor -DVT prophylaxis per the discharging hospitalist Other -Knee high MIRIAN hose 23 hours per day -Consult physical and occupational therapy for mobilization. -Up to chair with assistance at least twice per day. -Follow up with your primary care physician to discuss testing for bone mineral density. Follow-up with Dr. Olivares at the office 2 weeks from the surgery date for a post operative evaluation. Call the office at [phone] to schedule appointment. Referrals: Angela Bob, WATCH SUPERVISOR [Primary Care Provider] -
--- NOTE | 2019-03-26 09:15 | Nephrology Progress Note ---
Date of Encounter: 03/26/19 Time of Encounter: 09:12 - Assessment and Plan (1) ESRD (end stage renal disease) on dialysis Current Visit: Yes Status: Chronic HD TRS. Renal vitamins. Renal dose medications. Renal diet. Additional dialysis and ultrafiltration as needed. Additional dialysis needed. Plan for dialysis today. (2) Acute and chronic respiratory failure with hypoxia Current Visit: Yes Status: Acute (3) Anemia Current Visit: Yes Status: Acute Transfuse as needed. Qualifiers: Qualified Code(s): D64.9 - Anemia, unspecified (4) Hypertension Current Visit: No Status: Chronic Her blood pressures on the low side. Consider holding her losartan. Qualifiers: Hypertension type: essential hypertension Qualified Code(s): I10 - Essential (primary) hypertension Subjective Principal diagnosis: Acute respiratory failure Interval history: The patient was seen . She was asleep. No new reports overnight.. Objective - Vital Signs Vital signs: Vital Signs Temp Pulse Resp BP Pulse Ox 03/26/19 07:38 97.8 F 77 17 89/54 97 03/26/19 03:17 97.8 F 64 18 95/63 94 03/25/19 23:44 97.5 F L 83 18 99/62 93 03/25/19 23:35 93 03/25/19 20:01 18 95 03/25/19 18:43 97.6 F 72 18 104/65 97 03/25/19 15:47 97.7 F 74 18 95/64 100 03/25/19 15:00 78 16 115/58 94 03/25/19 12:00 98.6 F 03/25/19 11:00 82 18 115/58 94 03/25/19 10:00 86 18 81/54 94 Intake and Output 03/25/19 03/26/19 03/26/19 23:59 07:59 15:59 Intake Total 240 / 840 Balance 240 / 840 Intake: Oral 240 / 840 Other: Meal Dinner Percent of Meal Consumed 25% # Urine Diapers 0 0 Weight 51.4 kg Patient Weight 03/26/19 23:59 Weight 51.4 kg - General Appearance General appearance: Present: well-developed, well-nourished EENT: Present: ATNC Cardiology: Present: regular rate Dialysis Vascular Access: Arteriovenous Graft Musculoskeletal: Present: no cyanosis - Lab 03/26/19 05:30 03/26/19 05:30 Most recent lab results 03/26/19 05:30 Calcium 9.0 - VTE Documentation of Mechanical Device: Intermittent pneumatic compression device Consult Discharge Plan - Plan Additional Instructions: JAIL DISCHARGE INSTRUCTIONS Dr. Olivares PROCEDURE PERFORMED Fixation of left hip. Stable pelvic ring injury, nonoperative Incision care -Daily dressing changes to the left hip with dry gauze and either paper tape or medipore tape. -Avoid soaking wound in water (no hot tubs, bathtubs, swimming pools). Weight bearing status -Non-weightbearing to the left lower extremity -May mobilize with weightbearing as tolerated to the right lower extremity under the direction of physical and occupational therapy. Medications -Pain medication per the discharging medical doctor -DVT prophylaxis per the discharging hospitalist Other -Knee high MIRIAN hose 23 hours per day -Consult physical and occupational therapy for mobilization. -Up to chair with assistance at least twice per day. -Follow up with your primary care physician to discuss testing for bone mineral density. Follow-up with Dr. Olivares at the office 2 weeks from the surgery date for a post operative evaluation. Call the office at [phone] to schedule appointment. Referrals: Angela Bob, RESIDENTIAL SOLAR CONSULTANT [Primary Care Provider] -
[2019-03-26] MEDS: Budesonide/Formoterol 80/4.5 1 PUFF INH IH SCH ×2 (10:29→19:37)
[2019-03-26] MEDS ORDERED: Albumin 25% 12.5gm/50mL 25.0 GM/100 ML IV.SOLN ONE (12:39)
[2019-03-26] MEDS ORDERED: Albumin 25% 25gram/100mL 25 GM/100 ML IV.SOLN IVPB ONE (12:47)
--- NOTE | 2019-03-26 15:51 | Internal Med Progress Note ---
Hospitalist Progress Note - Encounter Date of Encounter: 03/26/19 Time of Encounter: 08:30 - Subjective Interval History: Ms Darby is scheduled for dialysis today she reports being tired. She is back at baseline oxygen of 3 L. She is agreeable to ECF placement for rehabilitation GEN: Denies fever, chills or malaise HEENT: Denies headache blurriness, or dysphagia RESP: Denies SOB or cough CV: Denies chest pain or palpitations GI: Denies Nausea, vomiting, diarrhea or constipation Reviewed current in hospital medications with modifications see orders Reviewed Routine labs - Exam Vitals: Temp Pulse Resp BP Pulse Ox 98.1 F 72 17 91/47 92 03/26/19 11:35 03/26/19 11:35 03/26/19 11:35 03/26/19 11:35 03/26/19 11:35 Exam: GEN: NAD, A&O 3 SKIN: [place] warm acyanotic not jaundice HEART: RRR, grade 3/6 holo systolic murmur noted LUNGS: Diminished minimal wheeze or crackles, overall non labored ABDOMEN; Soft, non tender or distended, BS x 4 normactive EXT: No LE edema, Pedal pulses 1+, radial pulses 2+ able to move extremities upper and lower PSYCH: Mood and affect is appropriate - Assessment and Plan (1) Anemia Current Visit: Yes Status: Acute Assessment and Plan: Suspect anemia of chronic disease we will initiate workup for other treatable causes (2) Pubic ramus fracture Current Visit: Yes Status: Acute Assessment and Plan: s/p Percutaneous screw fixation of left femoral neck, postop day 3. Will likely need ECF placement for rehabilitation (3) Fall Current Visit: Yes Status: Acute Assessment and Plan: PT/OT ordered. (4) Postoperative respiratory failure Current Visit: Yes Status: Acute Assessment and Plan: Resolved she was extubated the next day and managed at the ICU for 48 hours with noninvasive positive ventilation she is not back at baseline oxygen 3 L Of note -CT scan was cervical spine was unremarkable patient on exam appears to be awake able to move extremities and can communicates via clip board while on the vent with little in the sedation. No documented history of RA, myasthenic gravis on any other autoimmune immune conditions. We will keep on vent tonight consult pulm/crit team for SBT- NIF (5) Hyperkalemia Current Visit: Yes Status: Resolved Assessment and Plan: due to ESRD, will resolve with HD, no need for Kayexalate due to high risk for bowel perforation in end-stage renal disease patient (6) ESRD (end stage renal disease) on dialysis Current Visit: Yes Status: Chronic Assessment and Plan: On HD per nephrology, appreciate their help. (7) Hyponatremia Current Visit: Yes Status: Resolved Assessment and Plan: Results sodium is 138 (8) CAD (coronary artery disease) Current Visit: Yes Status: Chronic Assessment and Plan: patient had a LHC on 12/06/18. Impressions: There is moderate one vessel coronary artery disease. no stent placed. cardiology recommended medical management. continue aspirin 81mg/PO daily, Lipitor, losartan. DVT Prophylaxis: Heparin per protocol - Time Spent with Patient Total time spent is greater than 50% in coordination of care (as documented) at patient's floor/unit and/or counseling patient: Internal Medicine: Result - Labs CBC & Chem 7: 03/26/19 05:30 03/26/19 05:30 Labs: Short CBC 03/26/19 Range/Units 05:30 WBC 6.4 (4.3-11.1) K/mcL Hgb 10.7 L (11.5-15.4) g/dL Hct 38.2 (35.3-44.9) % Plt Count 186 (140-400) K/mcL BMP 03/26/19 05:30 Sodium 138 Potassium 5.6 H Chloride 96 L Carbon Dioxide 28 BUN 49 H Creatinine 5.67 H Glucose 95 Calcium 9.0 - ABG Interpretation ABG results: ABG ABG pH 7.43 pH Units (7.32-7.45) 03/24/19 04:31 ABG pCO2 38 mmHg (35-45) 03/24/19 04:31 ABG pO2 82 mmHg (85-104) L 03/24/19 04:31 ABG O2 Saturation 96 % (95-98) 03/24/19 04:31 PT/INR, D-dimer PT 11.8 Seconds (9.4-12.1) 03/20/19 17:37 - VTE Documentation of Mechanical Device: Intermittent pneumatic compression device Consult Discharge Plan - Plan Additional Instructions: RESIDENTIAL DISCHARGE INSTRUCTIONS Dr. Olivares PROCEDURE PERFORMED Fixation of left hip. Stable pelvic ring injury, nonoperative Incision care -Daily dressing changes to the left hip with dry gauze and either paper tape or medipore tape. -Avoid soaking wound in water (no hot tubs, bathtubs, swimming pools). Weight bearing status -Non-weightbearing to the left lower extremity -May mobilize with weightbearing as tolerated to the right lower extremity under the direction of physical and occupational therapy. Medications -Pain medication per the discharging medical doctor -DVT prophylaxis per the discharging hospitalist Other -Knee high MIRIAN hose 23 hours per day -Consult physical and occupational therapy for mobilization. -Up to chair with assistance at least twice per day. -Follow up with your primary care physician to discuss testing for bone mineral density. Follow-up with Dr. Olivares at the office 2 weeks from the surgery date for a post operative evaluation. Call the office at [phone] to schedule appointment. Referrals: Angela Bob, DISTRICT ADVISER [Primary Care Provider] - (1) Anemia Qualifiers: Anemia type: unspecified type Qualified Code(s): D64.9 - Anemia, unspecified (2) Pubic ramus fracture Qualifiers: Encounter type: initial encounter Fracture type: closed Laterality: right Qualified Code(s): S32.591A - Other specified fracture of right pubis, initial encounter for closed fracture (3) Fall Qualifiers: Encounter type: initial encounter Qualified Code(s): W19.XXXA - Unspecified fall, initial encounter (8) CAD (coronary artery disease) Qualifiers: Coronary Disease-Associated Artery/Lesion type: unspecified vessel or lesion type [place] vs. transplanted heart: unspecified whether [place] or transplanted heart Associated angina: angina presence unspecified Qualified Code(s): I25.10 - Atherosclerotic heart disease of [place] coronary artery without angina pectoris
[2019-03-27 04:52] LABS: Platelet Count 183 K/mcL (140-400)
[2019-03-27 04:54] LABS: Hematocrit 35.2 % (35.3-44.9); Hemoglobin 9.7 g/dL (11.5-15.4); Mean Corpuscular HGB Conc 27.6 g/dL (31.6-35.5); Mean Corpuscular Volume 101.7 fL (83.0-100.0); Mean Platelet Volume 10.4 fL (9.4-12.4); Red Blood Count 3.46 M/mcL (3.82-4.97); Red Cell Distribution Width 16.5 % (11.5-14.5); White Blood Count 5.8 K/mcL (4.3-11.1)
[2019-03-27 05:16] LABS: Calcium 8.9 mg/dL (8.6-10.3); Magnesium 2.4 mg/dL (1.6-2.6); Phosphorous 6.5 mg/dL (2.7-4.5); Potassium 4.7 mEq/L (3.5-5.1)
[2019-03-27 05:39] LABS: Folate 10.5 ng/mL (3.0-16.0)
[2019-03-27] MEDS: Budesonide/Formoterol 80/4.5 1 PUFF INH IH SCH ×2 (07:34→20:32)
[2019-03-27] MEDS: *HR* Heparin 5,000 UNIT/ML VIAL SQ SCH ×2 (07:50→16:47)
[2019-03-27] MEDS: Aspirin Enteric Coated 81 MG Tablet PO SCH (07:50)
--- NOTE | 2019-03-27 09:31 | Nephrology Progress Note ---
Date of Encounter: 03/27/19 Time of Encounter: 09:30 - Assessment and Plan (1) ESRD (end stage renal disease) on dialysis Current Visit: Yes Status: Chronic HD TRS. Renal vitamins. Renal dose medications. Renal diet. Additional dialysis and ultrafiltration as needed. Additional dialysis needed. No need for dialysis today. (2) Acute and chronic respiratory failure with hypoxia Current Visit: Yes Status: Acute (3) Anemia Current Visit: Yes Status: Acute Qualifiers: Qualified Code(s): D64.9 - Anemia, unspecified (4) Hypertension Current Visit: No Status: Chronic Qualifiers: Hypertension type: essential hypertension Qualified Code(s): I10 - Essential (primary) hypertension Subjective Principal diagnosis: Acute respiratory failure Interval history: The patient was seen . She was getting a bath. No new reports overnight.. Objective - Vital Signs Vital signs: Vital Signs Temp Pulse Resp BP Pulse Ox 03/27/19 07:40 98.1 F 77 18 120/72 97 03/27/19 03:19 97.5 F L 78 14 108/71 98 03/27/19 00:00 97.9 F 88 14 100/70 96 03/26/19 20:09 97.8 F 79 18 85/57 98 03/26/19 19:39 16 98 03/26/19 16:30 98.3 F 78 17 104/71 97 03/26/19 14:05 97.5 F L 17 97/61 03/26/19 13:50 87/59 03/26/19 13:35 89/55 03/26/19 13:20 86/58 03/26/19 13:05 89/56 03/26/19 12:50 90/60 03/26/19 12:35 86/55 03/26/19 12:20 97.6 F 18 96/71 03/26/19 11:35 98.1 F 72 17 91/47 92 03/26/19 10:30 16 99 Intake and Output 03/26/19 03/27/19 03/27/19 23:59 07:59 15:59 Other: Stool Size Small Stool Consistency liquid Stool Color Brown # Urine Diapers 1 Weight 59.2 kg Patient Weight 03/27/19 23:59 Weight 59.2 kg - General Appearance General appearance: Present: well-developed, well-nourished, obese EENT: Present: ATNC Cardiology: Present: regular rate Neurologic: Present: alert and oriented x3 Psychiatric: Present: mood/affect appropriate - Lab 03/27/19 04:45 03/27/19 04:45 Most recent lab results 03/27/19 04:45 Calcium 8.9 Phosphorus 6.5 H Magnesium 2.4 - VTE Documentation of Mechanical Device: Intermittent pneumatic compression device Consult Discharge Plan - Plan Additional Instructions: FDC DISCHARGE INSTRUCTIONS Dr. Olivares PROCEDURE PERFORMED Fixation of left hip. Stable pelvic ring injury, nonoperative Incision care -Daily dressing changes to the left hip with dry gauze and either paper tape or medipore tape. -Avoid soaking wound in water (no hot tubs, bathtubs, swimming pools). Weight bearing status -Non-weightbearing to the left lower extremity -May mobilize with weightbearing as tolerated to the right lower extremity under the direction of physical and occupational therapy. Medications -Pain medication per the discharging medical doctor -DVT prophylaxis per the discharging hospitalist Other -Knee high MIRIAN hose 23 hours per day -Consult physical and occupational therapy for mobilization. -Up to chair with assistance at least twice per day. -Follow up with your primary care physician to discuss testing for bone mineral density. Follow-up with Dr. Olivares at the office 2 weeks from the surgery date for a post operative evaluation. Call the office at [phone] to schedule appointment. Referrals: Angela Bob GM [Primary Care Provider] -
--- NOTE | 2019-03-27 15:54 | Internal Med Progress Note ---
Hospitalist Progress Note - Encounter Date of Encounter: 03/27/19 Time of Encounter: 09:15 - Subjective Interval History: Ms Darby overnight or earlier this morning was noted to have popped sensation when she bent over. Since she was status post hip surgery she was concerned and wanted a hip evaluated. She had radiograph of the hip this morning which was unrevealing. GEN: Denies fever, chills or malaise HEENT: Denies headache blurriness, or dysphagia RESP: Denies SOB or cough CV: Denies chest pain or palpitations GI: Denies Nausea, vomiting, diarrhea or constipation Reviewed current in hospital medications with modifications see orders Reviewed Routine labs - Exam Vitals: Temp Pulse Resp BP Pulse Ox 97.7 F 81 16 96/59 95 03/27/19 15:39 03/27/19 15:39 03/27/19 15:39 03/27/19 15:39 03/27/19 15:39 Exam: GEN: NAD, A&O 3 SKIN: [place] warm acyanotic not jaundice HEART: RRR, grade 3/6 holo systolic murmur noted LUNGS: Diminished but appears clear to auscultation minimal wheeze or crackles, overall non labored ABDOMEN; Soft, non tender or distended, BS x 4 normactive EXT: No LE edema, Pedal pulses 1+, radial pulses 2+ able to move extremities upper and lower PSYCH: Mood and affect is appropriate - Assessment and Plan (1) Anemia Current Visit: Yes Status: Acute Assessment and Plan: Suspect anemia of chronic disease we will initiate workup for other treatable causes, B12 folate was within normal limits ferritin was also within normal limits denies melena hematochezia hemoglobin stable at 9.7 (2) Pubic ramus fracture Current Visit: Yes Status: Acute Assessment and Plan: s/p Percutaneous screw fixation of left femoral neck, postop day 4. Patient had a pop yesterday or earlier this morning, radiograph of the hip was unremarkable. Will likely need ECF placement for rehabilitation (3) Fall Current Visit: Yes Status: Acute Assessment and Plan: PT/OT ordered. She is a dialysis patient will defer to delivery aide on vitamin D supplementation for fall precaution (4) Postoperative respiratory failure Current Visit: Yes Status: Acute Assessment and Plan: Resolved she was extubated the next day and managed at the ICU for 48 hours with noninvasive positive ventilation she is not back at baseline oxygen 3 L Of note -CT scan was cervical spine was unremarkable patient on exam appears to be awake able to move extremities and can communicates via clip board while on the vent with little in the sedation. No documented history of RA, myasthenic gravis on any other autoimmune immune conditions. We will keep on vent tonight consult pulm/crit team for SBT- NIF (5) Hyperkalemia Current Visit: Yes Status: Resolved Assessment and Plan: due to ESRD, will resolve with HD, no need for Kayexalate due to high risk for bowel perforation in end-stage renal disease patient (6) ESRD (end stage renal disease) on dialysis Current Visit: Yes Status: Chronic Assessment and Plan: On HD per nephrology, appreciate their help. (7) Hyponatremia Current Visit: Yes Status: Resolved Assessment and Plan: Resolved sodium is 137 (8) CAD (coronary artery disease) Current Visit: Yes Status: Chronic Assessment and Plan: patient had a LHC on 12/06/18. Impressions: There is moderate one vessel coronary artery disease. no stent placed. cardiology recommended medical management. continue aspirin 81mg/PO daily, Lipitor, losartan. DVT Prophylaxis: Heparin per protocol - Time Spent with Patient Total time spent is greater than 50% in coordination of care (as documented) at patient's floor/unit and/or counseling patient: Internal Medicine: Result - Labs CBC & Chem 7: 03/27/19 04:45 03/27/19 04:45 Labs: Short CBC 03/27/19 Range/Units 04:45 WBC 5.8 (4.3-11.1) K/mcL Hgb 9.7 L (11.5-15.4) g/dL Hct 35.2 L (35.3-44.9) % Plt Count 183 (140-400) K/mcL BMP 03/27/19 04:45 Sodium 137 Potassium 4.7 Chloride 96 L Carbon Dioxide 28 BUN 34 H Creatinine 4.47 H Glucose 100 Calcium 8.9 - ABG Interpretation ABG results: ABG ABG pH 7.43 pH Units (7.32-7.45) 03/24/19 04:31 ABG pCO2 38 mmHg (35-45) 03/24/19 04:31 ABG pO2 82 mmHg (85-104) L 03/24/19 04:31 ABG O2 Saturation 96 % (95-98) 03/24/19 04:31 PT/INR, D-dimer PT 11.8 Seconds (9.4-12.1) 03/20/19 17:37 - Impressions Impressions Hip/Pelvis X-Ray 03/27/19 07:39 IMPRESSION: Status post interval ORIF left femoral neck Stable right hip replacement Nonvisualization of the right pubic bone fracture and right sacral fracture noted on CT D/ / 03/27/2019 09:50:10 Micha Velazquez MD / petty Interpreting Provider: Micha Velazquez MD - VTE Documentation of Mechanical Device: Intermittent pneumatic compression device Consult Discharge Plan - Plan Additional Instructions: LONG TERM DISCHARGE INSTRUCTIONS Dr. Olivares PROCEDURE PERFORMED Fixation of left hip. Stable pelvic ring injury, nonoperative Incision care -Daily dressing changes to the left hip with dry gauze and either paper tape or medipore tape. -Avoid soaking wound in water (no hot tubs, bathtubs, swimming pools). Weight bearing status -Non-weightbearing to the left lower extremity -May mobilize with weightbearing as tolerated to the right lower extremity under the direction of physical and occupational therapy. Medications -Pain medication per the discharging medical doctor -DVT prophylaxis per the discharging hospitalist Other -Knee high MIRIAN hose 23 hours per day -Consult physical and occupational therapy for mobilization. -Up to chair with assistance at least twice per day. -Follow up with your primary care physician to discuss testing for bone mineral density. Follow-up with Dr. Olivares at the office 2 weeks from the surgery date for a post operative evaluation. Call the office at [phone] to schedule appointment. Referrals: Angela Bob, FOIL OPERATOR [Primary Care Provider] - (1) Anemia Qualifiers: Anemia type: unspecified type Qualified Code(s): D64.9 - Anemia, unspecified (2) Pubic ramus fracture Qualifiers: Encounter type: initial encounter Fracture type: closed Laterality: right Qualified Code(s): S32.591A - Other specified fracture of right pubis, initial encounter for closed fracture (3) Fall Qualifiers: Encounter type: initial encounter Qualified Code(s): W19.XXXA - Unspecified fall, initial encounter (8) CAD (coronary artery disease) Qualifiers: Coronary Disease-Associated Artery/Lesion type: unspecified vessel or lesion type [place] vs. transplanted heart: unspecified whether [place] or transplanted heart Associated angina: angina presence unspecified Qualified Code(s): I25.10 - Atherosclerotic heart disease of [place] coronary artery without angina pectoris
--- NOTE | 2019-03-28 06:06 | Nephrology Progress Note ---
Date of Encounter: 03/28/19 - Assessment and Plan (1) Anemia Current Visit: Yes Status: Acute Qualifiers: Qualified Code(s): D64.9 - Anemia, unspecified (2) ESRD (end stage renal disease) on dialysis Current Visit: Yes Status: Chronic (3) Sacral fracture Current Visit: Yes Status: Acute Qualifiers: Encounter type: initial encounter Zone of sacrum fracture: unspecified portion of sacrum Fracture type: closed Qualified Code(s): S32.10XA - Unspecified fracture of sacrum, initial encounter for closed fracture Subjective Principal diagnosis: Acute respiratory failure Interval history: S Patient seen and examined at bedside. Feels that her breathing is improved. Notes right arm swelling. Chest pain yesterday is getting better as she now relates it to being intubated. Intake: Since the surgery she has drank may be 8 ounces as well as some small amount of Sprite. O PE General: Middle-aged female. No acute distress Skin: Good turgor Eyes: Moist. Anicteric Cardiac: At least 3/6 systolic murmur. Respiratory: Posterior basilar and middle lung field crackles on the right with a wheeze. Posterior basilar and middle auscultation field crackles on the left without wheeze. Abdomen: Tender over heparin injection site with a roughly 2 x 3" mass that feels like a lipoma under the site. Extremities: No bilateral lower extremity edema. Capillary refill less than 2 seconds bilateral upper extremities. Psych: Appropriate mood and behavior. Answers questions coherently A/P #End-stage renal disease Hemodialysis MWF Last dialysis session before current hospitalization was 03/18 Patient usually has around 3 L removed during dialysis. She does not typically make urine -Potassium WNL -BUN worsened -Dialysis as tolerated #Anemia Chronic Usually normocytic. Macrocytic in November. In the setting of ESRD. Previous record search did not find iron studies Patient believes that she is on vitamin D replacement at home. She is unsure whether or not she has received erythropoietin in the past. -Consider check of erythropoietin and vitamin D levels. #sacral fracture Orthopedics also discovered anterior lucency of the left femoral neck on imaging representing fracture. -Status post percutaneous screw fixation of left femoral neck on 03/23 Objective - Vital Signs Vital signs: Vital Signs Temp Pulse Resp BP Pulse Ox 03/28/19 04:14 97.5 F L 88 17 116/81 90 03/27/19 23:24 98 F 78 18 111/71 94 03/27/19 20:35 16 96 03/27/19 19:12 97.5 F L 78 18 110/70 95 03/27/19 15:39 97.7 F 81 16 96/59 95 03/27/19 10:29 98.2 F 77 18 128/86 95 03/27/19 07:40 98.1 F 77 18 120/72 97 03/27/19 07:34 18 98 Intake and Output 03/27/19 03/27/19 03/28/19 15:59 23:59 07:59 Other: Weight 59 kg - Lab 03/27/19 04:45 03/27/19 04:45 - VTE Documentation of Mechanical Device: Intermittent pneumatic compression device Consult Discharge Plan - Plan Additional Instructions: HALF-WAY DISCHARGE INSTRUCTIONS Dr. Olivares PROCEDURE PERFORMED Fixation of left hip. Stable pelvic ring injury, nonoperative Incision care -Daily dressing changes to the left hip with dry gauze and either paper tape or medipore tape. -Avoid soaking wound in water (no hot tubs, bathtubs, swimming pools). Weight bearing status -Non-weightbearing to the left lower extremity -May mobilize with weightbearing as tolerated to the right lower extremity under the direction of physical and occupational therapy. Medications -Pain medication per the discharging medical doctor -DVT prophylaxis per the discharging hospitalist Other -Knee high MIRIAN hose 23 hours per day -Consult physical and occupational therapy for mobilization. -Up to chair with assistance at least twice per day. -Follow up with your primary care physician to discuss testing for bone mineral density. Follow-up with Dr. Olivares at the office 2 weeks from the surgery date for a post operative evaluation. Call the office at [phone] to schedule appointment. Referrals: Angela Bob, MARRIAGE AND FAMILY THERAPIST [Primary Care Provider] -
--- NOTE | 2019-03-28 06:57 | Nephrology Progress Note ---
Date of Encounter: 03/28/19 Time of Encounter: 06:45 (Time estimated) - Assessment and Plan (1) Anemia Current Visit: Yes Status: Acute Qualifiers: Qualified Code(s): D64.9 - Anemia, unspecified (2) ESRD (end stage renal disease) on dialysis Current Visit: Yes Status: Chronic (3) Sacral fracture Current Visit: Yes Status: Acute Qualifiers: Encounter type: initial encounter Zone of sacrum fracture: unspecified portion of sacrum Fracture type: closed Qualified Code(s): S32.10XA - Unspecified fracture of sacrum, initial encounter for closed fracture Subjective Principal diagnosis: Acute respiratory failure Interval history: S Patient seen and examined at bedside. Says that she has been okay and better than yesterday when she was having some chest pain that has now resolved. Intake: She believes she drank 32 ounces in the past 24 hours Output: Last dialysis session was Thursday and she believes they did remove some fluid. O PE Gen.: Middle-age female. No acute distress Skin: Good turgor Eyes: Moist. Anicteric Neck: No obvious JVD Cardiac: At least 3/6 systolic murmur heard throughout. Regular rhythm Respiratory: Low grunting of left lower base. No significant crackles or wheezes heard otherwise. Abdomen: Not diffusely tender Extremities: Capillary refill less than 2 seconds bilateral upper extremities. No obvious lower extremity edema Neuro: No obvious tremors Psych: Appropriate mood and behavior. Answers questions coherently A/P #End-stage renal disease Hemodialysis Last dialysis session before current hospitalization was 03/18 Patient usually has around 3 L removed during dialysis. She does not typically make urine -Potassium elevated -BUN elevated -Renal dosage of medications -Renal diet -Dialysis as tolerated #Anemia Chronic Usually normocytic. Macrocytic in November. In the setting of ESRD. Patient believes that she is on vitamin D replacement at home. She is unsure whether or not she has received erythropoietin in the past. -Iron studies suggest anemia of chronic disease/inflammation -Consider check of erythropoietin and vitamin D levels. #sacral fracture Orthopedics also discovered anterior lucency of the left femoral neck on imaging representing fracture. -Status post percutaneous screw fixation of left femoral neck on 03/23 Objective - Vital Signs Vital signs: Vital Signs Temp Pulse Resp BP Pulse Ox 03/28/19 04:14 97.5 F L 88 17 116/81 90 09/01/19 23:24 98 F 78 18 111/71 94 03/27/19 20:35 16 96 03/27/19 19:12 97.5 F L 78 18 110/70 95 03/27/19 15:39 97.7 F 81 16 96/59 95 03/27/19 10:29 98.2 F 77 18 128/86 95 03/27/19 07:40 98.1 F 77 18 120/72 97 03/27/19 07:34 18 98 Intake and Output 03/27/19 03/27/19 03/28/19 15:59 23:59 07:59 Other: Weight 59 kg - Lab 03/28/19 04:00 03/28/19 04:00 - VTE Documentation of Mechanical Device: Intermittent pneumatic compression device Consult Discharge Plan - Plan Additional Instructions: HALF-WAY DISCHARGE INSTRUCTIONS Dr. Olivares PROCEDURE PERFORMED Fixation of left hip. Stable pelvic ring injury, nonoperative Incision care -Daily dressing changes to the left hip with dry gauze and either paper tape or medipore tape. -Avoid soaking wound in water (no hot tubs, bathtubs, swimming pools). Weight bearing status -Non-weightbearing to the left lower extremity -May mobilize with weightbearing as tolerated to the right lower extremity under the direction of physical and occupational therapy. Medications -Pain medication per the discharging medical doctor -DVT prophylaxis per the discharging hospitalist Other -Knee high MIRIAN hose 23 hours per day -Consult physical and occupational therapy for mobilization. -Up to chair with assistance at least twice per day. -Follow up with your primary care physician to discuss testing for bone mineral density. Follow-up with Dr. Olivares at the office 2 weeks from the surgery date for a post operative evaluation. Call the office at [phone] to schedule appointment. Referrals: Angela Bob, EDGE TRIMMING MACHINE OPERATOR [Primary Care Provider] -
[2019-03-28] MEDS: *HR* Heparin 5,000 UNIT/ML VIAL SQ SCH (06:58)
[2019-03-28] MEDS ORDERED: 0.9 % Sodium Chloride 1,000 ML ONE (07:46)
[2019-03-28] MEDS: Aspirin Enteric Coated 81 MG Tablet PO SCH (08:00)
[2019-03-28 08:16] LABS: Hematocrit 36.9 % (35.3-44.9); Hemoglobin 10.4 g/dL (11.5-15.4); Mean Corpuscular HGB Conc 28.2 g/dL (31.6-35.5); Mean Corpuscular Hemoglobin 28.1 pg (28.0-33.3); Mean Corpuscular Volume 99.7 fL (83.0-100.0); Mean Platelet Volume 10.1 fL (9.4-12.4); Platelet Count 180 K/mcL (140-400); Red Cell Distribution Width 16.2 % (11.5-14.5); White Blood Count 4.6 K/mcL (4.3-11.1)
[2019-03-28 08:33] LABS: Calcium 9.4 mg/dL (8.6-10.3); Potassium 5.3 mEq/L (3.5-5.1)
[2019-03-28 08:34] LABS: Magnesium 2.6 mg/dL (1.6-2.6); Phosphorous 6.9 mg/dL (2.7-4.5)
[2019-03-28] MEDS ORDERED: ALPRAZolam 0.5 MG TABLET PO SCH (09:00)
[2019-03-28] MEDS ORDERED: 0.9 % Sodium Chloride 250 ML IVC PRN (09:27)
[2019-03-28] MEDS ORDERED: 0.9 % Sodium Chloride 1,000 ML PRIME SCH (09:30)
--- NOTE | 2019-03-28 10:02 | Nephrology Progress Note ---
Date of Encounter: 03/28/19 Time of Encounter: 10:00 - Assessment and Plan (1) ESRD (end stage renal disease) on dialysis Current Visit: Yes Status: Chronic HD MWF Renal vitamins. Renal dose medications. Renal diet. Additional dialysis and ultrafiltration as needed. Additional dialysis needed. Plan for dialysis today. (2) Acute and chronic respiratory failure with hypoxia Current Visit: Yes Status: Acute Per the pulmonary team. The patient's x-ray. She states she is breathing well. She has a vague pleuritic chest discomfort of unclear etiology. Will leave the overall management, evaluation to the primary team. Clinically this could possibly be pleurisy. (3) Anemia Current Visit: Yes Status: Acute Transfuse as needed. Qualifiers: Qualified Code(s): D64.9 - Anemia, unspecified (4) Hypertension Current Visit: No Status: Chronic Her blood pressure appears to be normal. We will be gentle with ultrafiltration. Titrate blood pressure medications as needed. Qualifiers: Hypertension type: essential hypertension Qualified Code(s): I10 - Essential (primary) hypertension Subjective Principal diagnosis: Acute respiratory failure Interval history: The patient was seen. She reports a vague chest discomfort with respirations that were present 1-2 days prior to admission that haven't worsened or improved since. Remainder review of systems either negative or stable. Objective - Vital Signs Vital signs: Vital Signs Temp Pulse Resp BP Pulse Ox 03/28/19 07:39 96.7 F L 84 16 137/88 93 03/28/19 04:14 97.5 F L 88 17 116/81 90 03/27/19 23:24 98 F 78 18 111/71 94 03/27/19 20:35 16 96 03/27/19 19:12 97.5 F L 78 18 110/70 95 03/27/19 15:39 97.7 F 81 16 96/59 95 03/27/19 10:29 98.2 F 77 18 128/86 95 Intake and Output 03/27/19 03/28/19 03/28/19 23:59 07:59 15:59 Intake Total 360 / 360 Balance 360 / 360 Intake: Oral 360 / 360 Other: Meal Breakfast Percent of Meal Consumed 100% Weight 59 kg - General Appearance General appearance: Present: well-developed, well-nourished EENT: Present: ATNC Neck: Present: supple Respiratory: Present: clear Cardiology: Present: no edema, regular rate Dialysis Vascular Access: Arteriovenous Fistula Gastrointestinal: Present: no tenderness Integumentary: Present: warm and dry Neurologic: Present: alert and oriented x3 Musculoskeletal: Present: no cyanosis Psychiatric: Present: mood/affect appropriate - Lab 03/28/19 04:00 03/28/19 04:00 Most recent lab results 03/28/19 03/28/19 04:00 04:00 Calcium 9.4 Phosphorus 6.9 H Magnesium 2.6 - VTE Documentation of Mechanical Device: Intermittent pneumatic compression device Consult Discharge Plan - Plan Additional Instructions: JAIL DISCHARGE INSTRUCTIONS Dr. Olivares PROCEDURE PERFORMED Fixation of left hip. Stable pelvic ring injury, nonoperative Incision care -Daily dressing changes to the left hip with dry gauze and either paper tape or medipore tape. -Avoid soaking wound in water (no hot tubs, bathtubs, swimming pools). Weight bearing status -Non-weightbearing to the left lower extremity -May mobilize with weightbearing as tolerated to the right lower extremity under the direction of physical and occupational therapy. Medications -Pain medication per the discharging medical doctor -DVT prophylaxis per the discharging hospitalist Other -Knee high MIRIAN hose 23 hours per day -Consult physical and occupational therapy for mobilization. -Up to chair with assistance at least twice per day. -Follow up with your primary care physician to discuss testing for bone mineral density. Follow-up with Dr. Olivares at the office 2 weeks from the surgery date for a post operative evaluation. Call the office at [phone] to schedule appointment. Referrals: Angela Bob REGISTERED MEDICAL ASSISTANT [Primary Care Provider] -
--- NOTE | 2019-03-28 10:12 | Orthopedics Progress Note ---
Date of Encounter: 03/26/19 Time of Encounter: 10:35 Subjective Principal diagnosis: Femoral neck fracture status post internal fixation Interval history: The patient is without complaints. Afebrile vital signs are stable. Incision is clean dry and intact. Neurovascularly intact with regard to bilateral lower extremities. Assessment :stable. Plan mobilize ,continue analgesics, medical management, discharge planning. Objective Vital signs: Vital Signs Temp Pulse Resp BP Pulse Ox 03/28/19 07:39 96.7 F L 84 16 137/88 93 03/28/19 04:14 97.5 F L 88 17 116/81 90 03/27/19 23:24 98 F 78 18 111/71 94 03/27/19 20:35 16 96 03/27/19 19:12 97.5 F L 78 18 110/70 95 03/27/19 15:39 97.7 F 81 16 96/59 95 03/27/19 10:29 98.2 F 77 18 128/86 95 Intake and Output 03/27/19 03/28/19 03/28/19 23:59 07:59 15:59 Intake Total 360 / 360 Balance 360 / 360 Intake: Oral 360 / 360 Other: Meal Breakfast Percent of Meal Consumed 100% Weight 59 kg - Labs CBC & BMP: 03/28/19 04:00 03/28/19 04:00 Labs: Abnormal lab results RBC 3.70 M/mcL (3.82-4.97) L 03/28/19 04:00 Hgb 10.4 g/dL (11.5-15.4) L 03/28/19 04:00 Hct 35.2 % (35.3-44.9) L 03/27/19 04:45 MCV 101.7 fL (83.0-100.0) H 03/27/19 04:45 MCH 27.9 pg (28.0-33.3) L 03/25/19 01:53 MCHC 28.2 g/dL (31.6-35.5) L 03/28/19 04:00 RDW 16.2 % (11.5-14.5) H 03/28/19 04:00 Lymphocytes # 0.5 K/mcL (0.6-4.6) L 03/24/19 03:26 Reactive Lymphocytes Present (Not Present) A 03/25/19 01:53 Hypochromasia Present (Not Present) A 03/25/19 01:53 Anisocytosis 1+ (Not Present) A 03/25/19 01:53 ABG pO2 82 mmHg (85-104) L 03/24/19 04:31 Sodium 135 mEq/L (136-145) L 03/20/19 17:37 Potassium 5.3 mEq/L (3.5-5.1) H 03/28/19 04:00 Chloride 97 mEq/L (98-107) L 03/28/19 04:00 Carbon Dioxide 30 mEq/L (23-29) H 03/23/19 10:35 BUN 43 mg/dL (6-20) H 03/28/19 04:00 Creatinine 5.89 mg/dL (0.60-1.20) H 03/28/19 04:00 Est GFR ( Amer) 9 (> 60) L 03/28/19 04:00 Est GFR (Non-Af Amer) 8 (> 60) L 03/28/19 04:00 Glucose 110 mg/dL (70-105) H 03/25/19 01:53 POC Glucose 107 mg/dL (70-99) H 03/23/19 19:03 Calculated Osmolality 305 (280-300) H 03/21/19 05:14 Phosphorus 6.9 mg/dL (2.7-4.5) H 03/28/19 04:00 Iron 33 mcg/dL (50-170) L 03/27/19 04:45 % Saturation 13 % (15-50) L 03/27/19 04:45 Transferrin 178 mg/dL (203-362) L 03/27/19 04:45 Ferritin 248 ng/mL (10-120) H 03/27/19 04:45 - VTE Documentation of Mechanical Device: Intermittent pneumatic compression device Consult Discharge Plan - Plan Additional Instructions: SNF DISCHARGE INSTRUCTIONS Dr. Olivares PROCEDURE PERFORMED Fixation of left hip. Stable pelvic ring injury, nonoperative Incision care -Daily dressing changes to the left hip with dry gauze and either paper tape or medipore tape. -Avoid soaking wound in water (no hot tubs, bathtubs, swimming pools). Weight bearing status -Non-weightbearing to the left lower extremity -May mobilize with weightbearing as tolerated to the right lower extremity under the direction of physical and occupational therapy. Medications -Pain medication per the discharging medical doctor -DVT prophylaxis per the discharging hospitalist Other -Knee high MIRIAN hose 23 hours per day -Consult physical and occupational therapy for mobilization. -Up to chair with assistance at least twice per day. -Follow up with your primary care physician to discuss testing for bone mineral density. Follow-up with Dr. Olivaers at the office 2 weeks from the surgery date for a post operative evaluation. Call the office at [phone] to schedule appointment. Referrals: Angela Bob, LEGGER PRESS OPERATOR [Primary Care Provider] -
[2019-03-28] MEDS: Budesonide/Formoterol 80/4.5 1 PUFF INH IH SCH (10:36)
--- NOTE | 2019-03-28 11:11 | Discharge Summary ---
- NOTES TO OUTPATIENT PROVIDER Notes to Outpatient Provider: Posthospital discharge for hip fracture, patient will be placed in an ECF she would need to have dialysis while rehabbing Date of Encounter: 03/28/19 Time of Encounter: 11:09 - Discharge Diagnosis (1) Pubic ramus fracture Priority: Primary Status: Acute Assessment and Plan: s/p Percutaneous screw fixation of left femoral neck, postop day 5. Patient had a pop yesterday or earlier this morning, radiograph of the hip was unremarkable. Discharged to ECF placement for rehabilitation after dialysis today patient wi ll need to have her management placed for dialysis while rehabbing at the ECF Qualifiers: Encounter type: initial encounter Fracture type: closed Laterality: right Qualified Code(s): S32.591A - Other specified fracture of right pubis, initial encounter for closed fracture (2) Anemia Priority: Primary Status: Acute Assessment and Plan: Suspect anemia of chronic disease we will initiate workup for other treatable causes, B12 folate was within normal limits ferritin was also within normal limits denies melena hematochezia hemoglobin stable at 9.7, 10 .4 at discharge Qualifiers: Anemia type: unspecified type Qualified Code(s): D64.9 - Anemia, unspecified (3) Fall Priority: Primary Status: Acute Assessment and Plan: PT/OT ordered. She is a dialysis patient will defer to repertoire manager on vitamin D supplementation for fall precaution Qualifiers: Encounter type: initial encounter Qualified Code(s): W19.XXXA - Unspecified fall, initial encounter (4) Postoperative respiratory failure Priority: Secondary Status: Acute Assessment and Plan: Resolved she was extubated the next day and managed at the ICU for 48 hours with noninvasive positive ventilation she is not back at baseline oxygen 3 L Of note -CT scan was cervical spine was unremarkable patient on exam appears to be awake able to move extremities and can communicates via clip board while on the vent with little in the sedation. No documented history of RA, myasthenic gravis on any other autoimmune immune conditions. We will keep on vent tonight consult pulm/crit team for SBT- NIF (5) Hyperkalemia Priority: Secondary Status: Resolved Assessment and Plan: due to ESRD, will resolve with HD, no need for Kayexalate due to high risk for bowel perforation in end-stage renal disease patient, should resolve with dialysis continue renal diet (6) ESRD (end stage renal disease) on dialysis Priority: Primary Status: Chronic Assessment and Plan: On HD Thursday per nephrology, she would need to have arrangements placed with transportation to the dialysis unit while rehabbing (7) Hyponatremia Priority: Secondary Status: Resolved Assessment and Plan: Resolved sodium is 138 at discharge should improve as her oral intake continues to improve (8) CAD (coronary artery disease) Priority: Primary Status: Chronic Assessment and Plan: patient had a LHC on 12/06/18. Impressions: There is moderate one vessel coronary artery disease. no stent placed. cardiology recommended medical management. continue aspirin 81mg/PO daily, Lipitor, losartan. Qualifiers: Coronary Disease-Associated Artery/Lesion type: unspecified vessel or lesion type [place] vs. transplanted heart: unspecified whether [place] or transplanted heart Associated angina: angina presence unspecified Qualified Code(s): I25.10 - Atherosclerotic heart disease of [place] coronary artery without angina pectoris Hospital course: Ms. Darby is a 48 year old female was hospitalized for hip fracture had surgery and upon subsequent extubation at operating table went into respiratory failure and had to be reintubated and sent to the ICU. The next day the patient was able to be successfully weaned off the ventilator and extubated, she was back to a baseline oxygen saturation of 3 L. During his hospital stay she continued her hemodialysis Thursday and Thursday and given her recent hip fracture she was given a candidate for ECF placement. While at the ECF she will need to be arranged for continued dialysis outpatient. Case was discussed with the repertoire manager he stated the patient would need transportation set up Discharge discussed with: patient, nurse, social work, case management, customer care voice consultant - Time Spent with Patient Total time spent providing and/or coordinating discharge services: 40 mins Specific discharge activities: Please adhere to the treatment plan, you are to follow up with continued dialysis while at signatures. - Discharge Medications Prescriptions: Luís Aspirin Enteric Coated [Aspirin EC] 81 mg PO DAILY tablet. Atorvastatin [Lipitor] 40 mg PO HS tablet Midodrine [ProAmatine] 5 mg PO 0800,1200,1700 #90 tablet Sevelamer [Renvela] 800 mg PO TIDWM tablet Budesonide/Formoterol 80/4.5 [Symbicort 80/4.5] 2 puff IH BIDR inhaler Continued Albuterol Sulfate [Ventolin Hfa] 2 puff IH Q6H PRN PRN Reason: Shortness Of Breath Sertraline [Zoloft] 50 mg PO HS Losartan Potassium 25 mg PO DAILY Hydrocodone/Acetaminophen [[place] 5-325 Tablet] 1 tab PO Q6H PRN 7 Days #28 tablet PRN Reason: Mild To Moderate Pain ALPRAZolam [Xanax 0.5 MG Tablet] 0.5 mg PO MOWEFR 7 Days #7 tablet Discontinued Loperamide [Imodium] 2 mg PO 8XD PRN PRN Reason: Diarrhea Home Medications: Albuterol Sulfate [Ventolin Hfa] 2 puff IH Q6H PRN 03/21/19 [History] Losartan Potassium 25 mg PO DAILY 03/21/19 [History] Sertraline [Zoloft] 50 mg PO HS 03/21/19 [History] ALPRAZolam [Xanax 0.5 MG Tablet] 0.5 mg PO MOWEFR 7 Days #7 tablet 03/28/19 [Rx] Aspirin Enteric Coated [Aspirin EC] 81 mg PO DAILY tablet. 03/28/19 [Rx] Atorvastatin [Lipitor] 40 mg PO HS tablet 03/28/19 [Rx] Budesonide/Formoterol 80/4.5 [Symbicort 80/4.5] 2 puff IH BIDR inhaler 03/28 [Rx] Hydrocodone/Acetaminophen [[place] 5-325 Tablet] 1 tab PO Q6H PRN 7 Days #28 tablet 03/28/19 [Rx] Midodrine [ProAmatine] 5 mg PO 0800,1200,1700 #90 tablet 03/28/19 [Rx] Sevelamer [Renvela] 800 mg PO TIDWM tablet 03/28/19 [Rx] Allergies/Adverse Reactions: Allergy/AdvReac Type Severity Reaction Status Date / Time bee venom protein (honey bee) Allergy Difficulty Verified 03/21/19 08:47 Breathing fentanyl Allergy Unresponsiv Verified 03/21/19 08:47 e latex Allergy Hives Verified 03/21/19 08:47 morphine Allergy Unresponsiv Verified 03/21/19 08:47 e moxifloxacin [From Avelox] Allergy Difficulty Verified 03/21/19 08:47 Breathing diphenhydramine AdvReac Hives Verified 03/23/19 14:04 [From Benadryl] Date of admission: 03/21/19 17:27 Primary care physician: Angela Bob CNP Consults: 03/20/19 17:14 Consult to Orthopedic Surgery [CONS] Stat Consulting Provider: [facility] Reason for Consult: Ramus and sacral fracture Time Notified: 17:16 Call Completed: Yes 03/21/19 02:36 Consult to Nephrology [CONS] Routine Consulting Provider: Kidney Radha/CHING/LORNE/DEBORA Reason for Consult: Patient receives hemodialysis Thursday, Thursday, Thursday. Also presents with hyperkalemia. Please follow along for continued dialysis during admission. Call Completed: No 03/21/19 03:38 Consult to Commercial Pilot [CONS] Routine Reason for SW Consult: May need assistance or rehab at discharge. 03/21/19 12:00 Consult to Dialysis [CONS] ONCE 03/23/19 07:00 Consult to Dialysis [CONS] ONCE 03/23/19 07:32 Consult to Invasive Line Access Team [CONS] Routine Reason for Consult: IV access prior to surgery Line Type: EPIV 03/23/19 22:53 Consult to Pulmonology [CONS] Routine Consulting Provider: Pulm Crit Care & Sleep Radha Reason for Consult: post op resp failure, unable to wean off vent Call Completed: No 03/25/19 18:21 Consult to Occupational Therapy [CONS] Routine Comment: Evaluate, develop and implement POC Reason for Consult: s/p left hip fracture repair, non-weightbearing to left lower extremity Does patient have active BEDREST order?: No Is patient medically & hemodynamically stable?: Yes Patient assessed for mobility or mobilized this visit?: Yes Consult to Physical Therapy [CONS] Routine Comment: Evaluate, develop and implement POC Reason for Consult: s/p left hip fracture repair, non-weightbearing to left lower extremity Does patient have active BEDREST order?: No Is patient medically & hemodynamically stable?: Yes Patient assessed for mobility or mobilized this visit?: Yes 03/26/19 09:00 Consult to Dialysis [CONS] ONCE 03/28/19 09:30 Consult to Dialysis [CONS] ONCE Discharging clinician: Manjeet Vigil Anticipated date of discharge: 03/28/19 - Constitutional Vitals: Temp Pulse Resp BP Pulse Ox 96.7 F L 84 16 137/88 93 03/28/19 07:39 03/28/19 07:39 03/28/19 07:39 03/28/19 07:39 03/28/19 07:39 Exam: GEN: NAD, A&O x 3, Pleasant and conversant, laying comfortably in the dialysis unit bed SKIN: [place] warm acyanotic not jaundice HEART: RRR, grade 3/6 systolic murmurs LUNGS: Diminished but appears CTA no wheeze or crackles, overall non labored ABDOMEN; Soft, non tender or distended, BS x 4 normactive EXT: No LE edema, Pedal pulses 1+, radial pulses 2+ PSYCH: Mood and affect is appropriate - Patient Status Disposition: Transfer Inpatient Rehab Fac Condition: Fair Functional capacity at discharge: uses cane/walker Overall status at discharge: patient is progressing back to baseline - Discharge Instructions Follow Up With: Angela Bob, PACK WORKER [Primary Care Provider] - Additional Instructions: [facility] DISCHARGE INSTRUCTIONS Dr. Olivares PROCEDURE PERFORMED Fixation of left hip. Stable pelvic ring injury, nonoperative Incision care -Daily dressing changes to the left hip with dry gauze and either paper tape or medipore tape. -Avoid soaking wound in water (no hot tubs, bathtubs, swimming pools). Weight bearing status -Non-weightbearing to the left lower extremity -May mobilize with weightbearing as tolerated to the right lower extremity under the direction of physical and occupational therapy. Medications -Pain medication per the discharging medical doctor -DVT prophylaxis per the discharging hospitalist Other -Knee high MIRIAN hose 23 hours per day -Consult physical and occupational therapy for mobilization. -Up to chair with assistance at least twice per day. -Follow up with your primary care physician to discuss testing for bone mineral density. Follow-up with Dr. Olivares at the office 2 weeks from the surgery date for a post operative evaluation. Call the office at [phone] to schedule appointment. - Diet and Activity Activity: as per physical therapy Diet: low fat, low cholesterol, low salt diet, other (Renal diet low in potassium) - VTE Documentation of Mechanical Device: Intermittent pneumatic compression device
--- NOTE | 2019-03-28 11:29 | Physician Discharge Referral ---
ExtendedCare Referral Info Provider in Charge after Transfer: Other Institutional Level of Care: Skilled - Diagnosis (1) Pubic ramus fracture Priority: Primary Status: Acute (2) Anemia Priority: Secondary Status: Acute (3) Fall Priority: Primary Status: Acute (4) Postoperative respiratory failure Priority: Secondary Status: Acute (5) Hyperkalemia Priority: Secondary Status: Resolved (6) ESRD (end stage renal disease) on dialysis Priority: Primary Status: Chronic (7) Hyponatremia Priority: Secondary Status: Resolved (8) CAD (coronary artery disease) Priority: Primary Status: Chronic Prognosis: Fair Aware of Diagnosis: Patient Aware of Prognosis: Patient - Transfer Medications Prescriptions: Hydrocodone/Acetaminophen [[place] 5-325 Tablet] 1 tab PO Q6H PRN 7 Days #28 tablet PRN Reason: Mild To Moderate Pain Midodrine [ProAmatine] 5 mg PO 0800,1200,1700 #90 tablet ALPRAZolam [Xanax 0.5 MG Tablet] 0.5 mg PO MOWEFR 7 Days #7 tablet Home Medications: Albuterol Sulfate [Ventolin Hfa] 2 puff IH Q6H PRN 03/21/19 [History] Losartan Potassium 25 mg PO DAILY 03/21/19 [History] Sertraline [Zoloft] 50 mg PO HS 03/21/19 [History] ALPRAZolam [Xanax 0.5 MG Tablet] 0.5 mg PO MOWEFR 7 Days #7 tablet 03/28/19 [Rx] Aspirin Enteric Coated [Aspirin EC] 81 mg PO DAILY tablet. 03/28/19 [Rx] Atorvastatin [Lipitor] 40 mg PO HS tablet 03/28/19 [Rx] Budesonide/Formoterol 80/4.5 [Symbicort 80/4.5] 2 puff IH BIDR inhaler 03/28/19 [Rx] Hydrocodone/Acetaminophen [[place] 5-325 Tablet] 1 tab PO Q6H PRN 7 Days #28 tablet 03/28/19 [Rx] Midodrine [ProAmatine] 5 mg PO 0800,1200,1700 #90 tablet 03/28/19 [Rx] Sevelamer [Renvela] 800 mg PO TIDWM tablet 03/28/19 [Rx] Allergies/Adverse Reactions: Allergy/AdvReac Type Severity Reaction Status Date / Time bee venom protein (honey bee) Allergy Difficulty Verified 03/21/19 08:47 Breathing fentanyl Allergy Unresponsiv Verified 03/21/19 08:47 e latex Allergy Hives Verified 03/21/19 08:47 morphine Allergy Unresponsiv Verified 03/21/19 08:47 e moxifloxacin [From Avelox] Allergy Difficulty Verified 03/21/19 08:47 Breathing diphenhydramine AdvReac Hives Verified 03/23/19 14:04 [From Benadryl] - Respiratory Orders Oxygen / L per min (3 L NC) Smoking Cessation: Smoking cessation has been advised. For more information, call the [place] Tobacco Quit Line at 9-363-WULE-NOW. - Advance Directives Code Status: Full Code - Mobility Orders Ambulate, Other (patient will need transportation for dialysis) - Rehabiliation Orders Rehab Potential: Fair Rehab Orders: Evaluation for Physical Therapy, Evaluation for Occupational Therapy - Diet Orders Renal (low potassium diet), Cardiac CERTIFICATION: I certify that the transfer of the above named patient to an Extended Care Facility is necessary for the continuing treatment of the diagnosis listed. The above information is true and accurate reflection of patient's current condition. Confidential - Redisclosure prohibited without a patient's written consent.
[2019-03-28 14:06] VITALS: BP 110/72
--- NOTE | 2019-03-28 21:25 | Orthopedics Progress Note ---
Date of Encounter: 03/28/19 Time of Encounter: 11:50 Subjective Principal diagnosis: Femoral neck fracture status post internal fixation Interval history: The patient is without complaints. Afebrile vital signs are stable. Incision is clean dry and intact. Neurovascularly intact with regard to bilateral lower extremities. Assessment :stable. Plan mobilize ,continue analgesics, medical management, okay for discharge today per hospitalist service. Objective Vital signs: Vital Signs Temp Pulse Resp BP Pulse Ox 03/28/19 13:30 97.2 F L 18 110/72 03/28/19 13:00 94/66 03/28/19 12:45 108/64 03/28/19 12:30 125/75 03/28/19 12:15 106/77 03/28/19 12:00 112/78 03/28/19 11:45 118/78 03/28/19 11:30 114/75 03/28/19 11:15 129/72 03/28/19 11:00 109/72 03/28/19 10:45 115/86 03/28/19 10:30 116/79 03/28/19 10:15 118/85 03/28/19 10:00 97.3 F L 18 127/82 03/28/19 07:39 96.7 F L 84 16 137/88 93 03/28/19 04:14 97.5 F L 88 17 116/81 90 03/27/19 23:24 98 F 78 18 111/71 94 Intake and Output 03/28/19 03/28/19 03/28/19 07:59 15:59 23:59 Intake Total 960 / 960 Output Total 1600 / 1600 Balance -640 / -640 Intake: Oral 360 / 360 Intake, Rinseback and Flushes 600 / 600 Output: Urine 0 / 0 Total Dialysis (HD) Output 1600 / 1600 Other: Meal Breakfast Percent of Meal Consumed 100% Hemodialysis Net Fluid Removed 1000 (mL) - Labs CBC & BMP: 03/28/19 04:00 03/28/19 04:00 Labs: Abnormal lab results RBC 3.70 M/mcL (3.82-4.97) L 03/28/19 04:00 Hgb 10.4 g/dL (11.5-15.4) L 03/28/19 04:00 Hct 35.2 % (35.3-44.9) L 03/27/19 04:45 MCV 101.7 fL (83.0-100.0) H 03/27/19 04:45 MCH 27.9 pg (28.0-33.3) L 03/25/19 01:53 MCHC 28.2 g/dL (31.6-35.5) L 03/28/19 04:00 RDW 16.2 % (11.5-14.5) H 03/28/19 04:00 Lymphocytes # 0.5 K/mcL (0.6-4.6) L 03/24/19 03:26 Reactive Lymphocytes Present (Not Present) A 03/25/19 01:53 Hypochromasia Present (Not Present) A 03/25/19 01:53 Anisocytosis 1+ (Not Present) A 03/25/19 01:53 ABG pO2 82 mmHg (85-104) L 03/24/19 04:31 Sodium 135 mEq/L (136-145) L 03/20/19 17:37 Potassium 5.3 mEq/L (3.5-5.1) H 03/28/19 04:00 Chloride 97 mEq/L (98-107) L 03/28/19 04:00 Carbon Dioxide 30 mEq/L (23-29) H 03/23/19 10:35 BUN 43 mg/dL (6-20) H 03/28/19 04:00 Creatinine 5.89 mg/dL (0.60-1.20) H 03/28/19 04:00 Est GFR ( Amer) 9 (> 60) L 03/28/19 04:00 Est GFR (Non-Af Amer) 8 (> 60) L 03/28/19 04:00 Glucose 110 mg/dL (70-105) H 03/25/19 01:53 POC Glucose 107 mg/dL (70-99) H 03/23/19 19:03 Calculated Osmolality 305 (280-300) H 03/21/19 05:14 Phosphorus 6.9 mg/dL (2.7-4.5) H 03/28/19 04:00 Iron 33 mcg/dL (50-170) L 03/27/19 04:45 % Saturation 13 % (15-50) L 03/27/19 04:45 Transferrin 178 mg/dL (203-362) L 03/27/19 04:45 Ferritin 248 ng/mL (10-120) H 03/27/19 04:45 - VTE Documentation of Mechanical Device: Intermittent pneumatic compression device Consult Discharge Plan - Plan Additional Instructions: [facility] DISCHARGE INSTRUCTIONS Dr. Olivares PROCEDURE PERFORMED Fixation of left hip. Stable pelvic ring injury, nonoperative Incision care -Daily dressing changes to the left hip with dry gauze and either paper tape or medipore tape. -Avoid soaking wound in water (no hot tubs, bathtubs, swimming pools). Weight bearing status -Non-weightbearing to the left lower extremity -May mobilize with weightbearing as tolerated to the right lower extremity under the direction of physical and occupational therapy. Medications -Pain medication per the discharging medical doctor -DVT prophylaxis per the discharging hospitalist Other -Knee high MIRIAN hose 23 hours per day -Consult physical and occupational therapy for mobilization. -Up to chair with assistance at least twice per day. -Follow up with your primary care physician to discuss testing for bone mineral density. Follow-up with Dr. Olivares at the office 2 weeks from the surgery date for a post operative evaluation. Call the office at [phone] to schedule appointment. Referrals: Angela Bob STAINED GLASS PAINTER [Primary Care Provider] - (web requested 03/28/2019) Prescriptions: Hydrocodone/Acetaminophen [[place] 5-325 Tablet] 1 tab PO Q6H PRN 7 Days #28 tablet PRN Reason: Mild To Moderate Pain Midodrine [ProAmatine] 5 mg PO 0800,1200,1700 #90 tablet ALPRAZolam [Xanax 0.5 MG Tablet] 0.5 mg PO MOWEFR 7 Days #7 tablet
== END 2019-03-28 15:30 | DRG 956 ==
LOC: EMEROOARM 13:23 → 3ANU 13:23 → SUATTDRO 03-21 17:27 → ICNU 03-23 18:43 → 2ANU 03-25 16:10
PROVIDERS: ADMIT Internal Medicine Nephrology; ATTEND Pharmacist

== ENCOUNTER 2019-05-20 14:05 | Inpatient (IN) ==
[2019-05-20] MEDS ORDERED: 0.9 % Sodium Chloride 500 ML ONE (14:20)
[2019-05-20] MEDS ORDERED: 0.9 % Sodium Chloride 1,000 ML IVC ONE (14:22)
[2019-05-20] MEDS ORDERED: Isovue-370 500 ML BOTTLE IVP ONE (14:34)
[2019-05-20 14:40] LABS: Basophils % 0.3 %; Eosinophils # 1.3 K/mcL (0.0-0.6); Eosinophils % 8.8 %; Hematocrit 36.6 % (35.3-44.9); Hemoglobin 10.6 g/dL (11.5-15.4); Immature Granulocytes % 0.2 % (0-4); Lymphocytes # 1.1 K/mcL (0.6-4.6); Lymphocytes % 7.5 %; Mean Corpuscular Hemoglobin 30.5 pg (28.0-33.3); Mean Corpuscular Volume 105.2 fL (83.0-100.0); Mean Platelet Volume 9.4 fL (9.4-12.4); Monocytes # 0.7 K/mcL (0.0-1.3); Monocytes % 4.4 %; Neutrophils # 11.6 K/mcL (1.6-8.9); Platelet Count 224 K/mcL (140-400); Red Blood Count 3.48 M/mcL (3.82-4.97); Red Cell Distribution Width 19.4 % (11.5-14.5); Segmented Neutrophils % 78.8 %; White Blood Count 14.8 K/mcL (4.3-11.1)
[2019-05-20 14:50] LABS: Prothrombin Time 11.4 Seconds (9.4-12.1)
[2019-05-20 14:52] LABS: Activated Partial Thrombo Time 32.6 Seconds (26.0-36.0)
[2019-05-20 14:58] LABS: Calcium 9.4 mg/dL (8.6-10.3); Potassium 3.4 mEq/L (3.5-5.1)
[2019-05-20 15:00] LABS: Troponin I 0.4 ng/mL (< 0.04)
[2019-05-20] MEDS ORDERED: Aspirin 325 MG TABLET PO ONE (15:08)
[2019-05-20] MEDS ORDERED: *HR* OxyCODONE Immed Rel 5 MG TABLET PO ONE (15:09)
[2019-05-20] MEDS ORDERED: *HR* Heparin 5,000 UNIT/ML VIAL IVP ONE (17:03)
[2019-05-20] MEDS ORDERED: *HR* Heparin 5,000 UNIT/ML VIAL IVP PRN ×2 (17:03)
[2019-05-20] MEDS ORDERED: Amiodarone Premix 360 MG/200 ML BAG IVC ONE (17:10)
[2019-05-20] MEDS ORDERED: Amiodarone Premix 360 MG/200 ML BAG IVC SCH (17:15)
[2019-05-20] MEDS ORDERED: Naloxone 0.4 MG/ML INJ IVP PRN (18:03)
[2019-05-20] MEDS ORDERED: Ondansetron 4 MG/2 ML VIAL IVP PRN (18:03)
[2019-05-20] MEDS ORDERED: Acetaminophen 325 MG TABLET PO PRN (18:03)
[2019-05-20] MEDS ORDERED: *HR* LORazepam 0.5 MG TABLET PO PRN (18:07)
[2019-05-20] MEDS: Heparin 25,000 UNIT/250 ML D5W 25,000 UNIT/250 ML IV.SOLN IVC SCH (18:09)
[2019-05-20] MEDS: Budesonide/Formoterol 80/4.5 1 PUFF INH IH SCH (21:20)
[2019-05-21] MEDS: Amiodarone Premix 360 MG/200 ML BAG IVC SCH ×2 (00:21→01:01)
[2019-05-21 01:55] LABS: Basophils % 0.3 %; Eosinophils # 1.5 K/mcL (0.0-0.6); Eosinophils % 12.5 %; Hematocrit 36.7 % (35.3-44.9); Hemoglobin 10.8 g/dL (11.5-15.4); Immature Granulocytes % 0.4 % (0-4); Lymphocytes # 1.4 K/mcL (0.6-4.6); Lymphocytes % 12.2 %; Mean Corpuscular HGB Conc 29.4 g/dL (31.6-35.5); Mean Corpuscular Hemoglobin 30.3 pg (28.0-33.3); Mean Corpuscular Volume 103.1 fL (83.0-100.0); Mean Platelet Volume 9.4 fL (9.4-12.4); Monocytes # 0.7 K/mcL (0.0-1.3); Neutrophils # 7.9 K/mcL (1.6-8.9); Platelet Count 228 K/mcL (140-400); Red Blood Count 3.56 M/mcL (3.82-4.97); Red Cell Distribution Width 19.5 % (11.5-14.5); Segmented Neutrophils % 68.6 %; White Blood Count 11.6 K/mcL (4.3-11.1)
[2019-05-21 02:15] LABS: Calcium 9.4 mg/dL (8.6-10.3); Magnesium 2.4 mg/dL (1.6-2.6); Potassium 3.1 mEq/L (3.5-5.1)
[2019-05-21] MEDS: Piperacillin/Tazobactam 3.375 GM in 0.9 % Sodium Chloride Mini Bag 100 ML IVPB SCH ×2 (06:11→20:26)
[2019-05-21] MEDS ORDERED: 0.9 % Sodium Chloride 500 ML ONE (11:29)
[2019-05-21] MEDS: Budesonide/Formoterol 80/4.5 1 PUFF INH IH SCH ×2 (20:25→21:30)
[2019-05-21 22:01] LABS: Hematocrit 32.4 % (35.3-44.9); Hemoglobin 9.2 g/dL (11.5-15.4)
[2019-05-22] MEDS: Amiodarone Premix 360 MG/200 ML BAG IVC SCH (01:40)
[2019-05-22] MEDS: Heparin 25,000 UNIT/250 ML D5W 25,000 UNIT/250 ML IV.SOLN IVC SCH (03:15)
[2019-05-22] MEDS: Piperacillin/Tazobactam 3.375 GM in 0.9 % Sodium Chloride Mini Bag 100 ML IVPB SCH ×2 (06:19→17:47)
[2019-05-22 08:08] LABS: Basophils # 0.1 K/mcL (0.0-0.2); Basophils % 0.5 %; Eosinophils # 1.3 K/mcL (0.0-0.6); Eosinophils % 14.3 %; Hematocrit 33.1 % (35.3-44.9); Hemoglobin 9.7 g/dL (11.5-15.4); Immature Granulocytes % 0.4 % (0-4); Lymphocytes # 0.9 K/mcL (0.6-4.6); Mean Corpuscular HGB Conc 29.3 g/dL (31.6-35.5); Mean Corpuscular Hemoglobin 29.9 pg (28.0-33.3); Mean Corpuscular Volume 102.2 fL (83.0-100.0); Mean Platelet Volume 10.9 fL (9.4-12.4); Monocytes # 0.6 K/mcL (0.0-1.3); Monocytes % 6.8 %; Neutrophils # 6.2 K/mcL (1.6-8.9); Platelet Count 261 K/mcL (140-400); Red Blood Count 3.24 M/mcL (3.82-4.97); Red Cell Distribution Width 19.7 % (11.5-14.5); White Blood Count 9.1 K/mcL (4.3-11.1)
[2019-05-22] MEDS: *HR* Amiodarone 200 MG TABLET PO SCH (08:16)
[2019-05-22] MEDS: Aspirin Enteric Coated 81 MG Tablet PO SCH (08:16)
[2019-05-22] MEDS: Budesonide/Formoterol 80/4.5 1 PUFF INH IH SCH ×2 (08:30→19:39)
[2019-05-22] MEDS ORDERED: *HR* HYDROcodone/Acet 5/325 mg TABLET PO PRN (08:42)
[2019-05-22] MEDS: Multivit/Ca/Min/Fe/FA 1 TAB TABLET PO SCH (10:03)
[2019-05-22 10:15] LABS: Albumin 3.4 g/dL (3.5-5.7); Albumin/Globulin Ratio 1.4 (1.1-2.2); Bilirubin,Total 0.4 mg/dL (0.3-1.0); Calcium 8.7 mg/dL (8.6-10.3); Globulin 2.4 g/dL (2.4-3.5); Magnesium 2.4 mg/dL (1.6-2.6); Potassium 4.9 mEq/L (3.5-5.1); Total Protein 5.8 g/dL (6.4-8.9)
[2019-05-22] MEDS: Ascorbic Acid 500 MG TABLET PO SCH (17:46)
[2019-05-23 02:04] LABS: Basophils # 0.1 K/mcL (0.0-0.2); Basophils % 0.5 %; Eosinophils # 1.6 K/mcL (0.0-0.6); Eosinophils % 15.7 %; Hematocrit 31.2 % (35.3-44.9); Hemoglobin 9.4 g/dL (11.5-15.4); Immature Granulocytes % 0.3 % (0-4); Lymphocytes # 1.3 K/mcL (0.6-4.6); Lymphocytes % 13.1 %; Mean Corpuscular HGB Conc 30.1 g/dL (31.6-35.5); Mean Corpuscular Hemoglobin 30.6 pg (28.0-33.3); Mean Corpuscular Volume 101.6 fL (83.0-100.0); Mean Platelet Volume 9.8 fL (9.4-12.4); Monocytes # 0.6 K/mcL (0.0-1.3); Monocytes % 6.2 %; Neutrophils # 6.5 K/mcL (1.6-8.9); Platelet Count 219 K/mcL (140-400); Red Blood Count 3.07 M/mcL (3.82-4.97); Red Cell Distribution Width 19.9 % (11.5-14.5); Segmented Neutrophils % 64.2 %; White Blood Count 10.2 K/mcL (4.3-11.1)
[2019-05-23 02:27] LABS: Magnesium 2.7 mg/dL (1.6-2.6); Phosphorous 6.5 mg/dL (2.7-4.5); Potassium 5.7 mEq/L (3.5-5.1)
[2019-05-23 02:58] LABS: Folate 14.8 ng/mL (3.0-16.0)
[2019-05-23] MEDS: Piperacillin/Tazobactam 3.375 GM in 0.9 % Sodium Chloride Mini Bag 100 ML IVPB SCH ×2 (06:05→17:49)
[2019-05-23] MEDS: Budesonide/Formoterol 80/4.5 1 PUFF INH IH SCH ×2 (07:14→22:22)
[2019-05-23] MEDS: Ascorbic Acid 500 MG TABLET PO SCH ×2 (07:58→16:37)
[2019-05-23] MEDS: *HR* Amiodarone 200 MG TABLET PO SCH (07:58)
[2019-05-23] MEDS: Multivit/Ca/Min/Fe/FA 1 TAB TABLET PO SCH (07:58)
[2019-05-23] MEDS: Aspirin Enteric Coated 81 MG Tablet PO SCH (08:00)
[2019-05-23] MEDS: ALPRAZolam 0.5 MG TABLET PO SCH (08:00)
[2019-05-23] MEDS: Heparin 25,000 UNIT/250 ML D5W 25,000 UNIT/250 ML IV.SOLN IVC SCH (08:02)
[2019-05-23] MEDS ORDERED: 0.9 % Sodium Chloride 250 ML IVC PRN (10:14)
[2019-05-23] MEDS ORDERED: 0.9 % Sodium Chloride 1,000 ML PRIME SCH (10:15)
[2019-05-23] MEDS ORDERED: Warfarin perPT PO PRN (11:17)
[2019-05-23] MEDS ORDERED: SODIUM CHLORIDE/NAHCO3/KCL/PEG 4,000 ML SOLN.RECON PO ONE (17:00)
[2019-05-23] MEDS: Pantoprazole 40 MG VIAL IVP SCH (17:49)
[2019-05-23 17:56] LABS: Hematocrit 32.1 % (35.3-44.9); Hemoglobin 9.3 g/dL (11.5-15.4)
[2019-05-23] MEDS ORDERED: *HR* Warfarin 5 MG TABLET PO ONE (18:00)
[2019-05-23 23:11] LABS: Hematocrit 33.1 % (35.3-44.9); Hemoglobin 9.9 g/dL (11.5-15.4)
[2019-05-24] MEDS: ALPRAZolam 0.25 MG TABLET PO PRN (00:37)
[2019-05-24 04:12] LABS: Mean Corpuscular Hemoglobin 30.5 pg (28.0-33.3)
[2019-05-24 04:13] LABS: Basophils % 0.6 %; Eosinophils # 0.9 K/mcL (0.0-0.6); Eosinophils % 12.8 %; Hematocrit 32.7 % (35.3-44.9); Hemoglobin 9.8 g/dL (11.5-15.4); Immature Granulocytes % 0.6 % (0-4); Lymphocytes % 14.2 %; Mean Corpuscular Volume 101.9 fL (83.0-100.0); Mean Platelet Volume 9.6 fL (9.4-12.4); Monocytes # 0.5 K/mcL (0.0-1.3); Monocytes % 6.5 %; Neutrophils # 4.7 K/mcL (1.6-8.9); Platelet Count 221 K/mcL (140-400); Red Blood Count 3.21 M/mcL (3.82-4.97); Red Cell Distribution Width 19.8 % (11.5-14.5); Segmented Neutrophils % 65.3 %; White Blood Count 7.2 K/mcL (4.3-11.1)
[2019-05-24 04:14] LABS: Hematocrit 31.3 % (35.3-44.9); Hemoglobin 9.6 g/dL (11.5-15.4)
[2019-05-24 04:16] LABS: Prothrombin Time 11.6 Seconds (9.4-12.1)
[2019-05-24 04:41] LABS: Calcium 9.3 mg/dL (8.6-10.3); Magnesium 2.8 mg/dL (1.6-2.6); Potassium 6.7 mEq/L (3.5-5.1)
[2019-05-24] MEDS ORDERED: Insulin Human Regular 10 UNIT in 0.9 % Sodium Chloride 10 ML IV ONE (04:46)
[2019-05-24] MEDS ORDERED: Calcium Gluconate 1gm/50mL 1 GM/50 ML BAG IVPB PRN (04:48)
[2019-05-24] MEDS ORDERED: *HR* Dextrose 50 % in Water (Syg) 50 ML SYRINGE IVP ONE (04:48)
[2019-05-24] MEDS ORDERED: Albuterol 2.5 MG/3 ML NEBULIZER IH ONE (04:50)
[2019-05-24] MEDS ORDERED: Calcium Gluconate 1gm/50mL 1 GM/50 ML BAG IVPB ONE (04:56)
[2019-05-24 05:33] LABS: Hypochromasia Present (Not Present); Platelet Estimate Normal (Normal)
[2019-05-24 05:34] LABS: Anisocytosis 1+ (Not Present)
[2019-05-24] MEDS: Piperacillin/Tazobactam 3.375 GM in 0.9 % Sodium Chloride Mini Bag 100 ML IVPB SCH ×2 (06:40→20:24)
[2019-05-24] MEDS: Pantoprazole 40 MG VIAL IVP SCH ×2 (06:40→20:24)
[2019-05-24] MEDS: Budesonide/Formoterol 80/4.5 1 PUFF INH IH SCH ×2 (07:56→20:30)
[2019-05-24] MEDS: Multivit/Ca/Min/Fe/FA 1 TAB TABLET PO SCH (07:58)
[2019-05-24] MEDS: *HR* Amiodarone 200 MG TABLET PO SCH (07:58)
[2019-05-24] MEDS: Ascorbic Acid 500 MG TABLET PO SCH ×2 (07:58→19:44)
[2019-05-24 11:11] LABS: Calcium 9.3 mg/dL (8.6-10.3); Potassium 5.8 mEq/L (3.5-5.1)
[2019-05-24] MEDS ORDERED: 0.9 % Sodium Chloride 250 ML IVC PRN (12:16)
[2019-05-24] MEDS ORDERED: *HR* Heparin 10,000 UNIT/10 ML VIAL IV PRN (12:16)
[2019-05-24 12:46] LABS: Calcium 9.2 mg/dL (8.6-10.3); Potassium 5.3 mEq/L (3.5-5.1)
[2019-05-24] MEDS: *HR* HYDROcodone/Acet 5/325 mg TABLET PO PRN (13:36)
[2019-05-24] MEDS ORDERED: *HR* Heparin 5,000 UNIT/ML VIAL ONE (14:18)
[2019-05-25 02:00] LABS: Hemoglobin 9.4 g/dL (11.5-15.4); Mean Corpuscular HGB Conc 30.3 g/dL (31.6-35.5); Mean Corpuscular Hemoglobin 30.3 pg (28.0-33.3); Mean Platelet Volume 9.4 fL (9.4-12.4); Platelet Count 167 K/mcL (140-400); Red Cell Distribution Width 19.7 % (11.5-14.5)
[2019-05-25 02:02] LABS: INR 1.1; Prothrombin Time 12.3 Seconds (9.4-12.1)
[2019-05-25 02:21] LABS: Calcium 9.2 mg/dL (8.6-10.3); Magnesium 2.3 mg/dL (1.6-2.6); Phosphorous 5.1 mg/dL (2.7-4.5); Potassium 3.8 mEq/L (3.5-5.1)
[2019-05-25] MEDS: Pantoprazole 40 MG VIAL IVP SCH ×2 (05:29→17:25)
[2019-05-25] MEDS: Piperacillin/Tazobactam 3.375 GM in 0.9 % Sodium Chloride Mini Bag 100 ML IVPB SCH ×2 (05:34→17:22)
[2019-05-25] MEDS: Budesonide/Formoterol 80/4.5 1 PUFF INH IH SCH ×2 (07:55→20:51)
[2019-05-25] MEDS ORDERED: *HR* Heparin 10,000 UNIT/10 ML VIAL IV PRN (09:07)
[2019-05-25] MEDS ORDERED: 0.9 % Sodium Chloride 250 ML IVC PRN (09:07)
[2019-05-25] MEDS ORDERED: 0.9 % Sodium Chloride 1,000 ML PRIME SCH (09:15)
[2019-05-25] MEDS: *HR* Amiodarone 200 MG TABLET PO SCH (09:21)
[2019-05-25] MEDS: Multivit/Ca/Min/Fe/FA 1 TAB TABLET PO SCH (09:23)
[2019-05-25] MEDS: Ascorbic Acid 500 MG TABLET PO SCH ×2 (09:24→16:16)
[2019-05-25] MEDS: ALPRAZolam 0.5 MG TABLET PO SCH (09:38)
[2019-05-25] MEDS ORDERED: *HR* Propofol 200 MG/20 ML VIAL IVP ONE (13:52)
[2019-05-25] MEDS ORDERED: Simethicone 40 MG/0.6 ML MLS IR ONE (14:40)
[2019-05-25] MEDS: 0.9 % Sodium Chloride 500 ML IVC SCH (14:42)
[2019-05-26] MEDS: Piperacillin/Tazobactam 3.375 GM in 0.9 % Sodium Chloride Mini Bag 100 ML IVPB SCH ×2 (04:56→17:20)
[2019-05-26] MEDS: Pantoprazole 40 MG VIAL IVP SCH ×2 (04:56→17:21)
[2019-05-26 06:36] LABS: Hematocrit 33.8 % (35.3-44.9); Mean Corpuscular HGB Conc 29.6 g/dL (31.6-35.5); Mean Corpuscular Hemoglobin 29.9 pg (28.0-33.3); Mean Corpuscular Volume 101.2 fL (83.0-100.0); Mean Platelet Volume 9.9 fL (9.4-12.4); Platelet Count 196 K/mcL (140-400); Red Blood Count 3.34 M/mcL (3.82-4.97); Red Cell Distribution Width 19.4 % (11.5-14.5); White Blood Count 6.8 K/mcL (4.3-11.1)
[2019-05-26 06:39] LABS: Prothrombin Time 11.6 Seconds (9.4-12.1)
[2019-05-26 06:56] LABS: Calcium 8.6 mg/dL (8.6-10.3); Potassium 3.6 mEq/L (3.5-5.1)
[2019-05-26] MEDS: 0.9 % Sodium Chloride 500 ML IVC SCH (10:17)
[2019-05-26] MEDS: *HR* Amiodarone 200 MG TABLET PO SCH (10:18)
[2019-05-26] MEDS: Ascorbic Acid 500 MG TABLET PO SCH ×2 (10:18→17:20)
[2019-05-26] MEDS: Multivit/Ca/Min/Fe/FA 1 TAB TABLET PO SCH (10:19)
[2019-05-26] MEDS ORDERED: Heparin 1,000 UNITS/500 mL 500 ML ONE (10:38)
[2019-05-26] MEDS ORDERED: 0.9 % Sodium Chloride 500 ML ONE ×2 (10:38→11:15)
[2019-05-26] MEDS: Budesonide/Formoterol 80/4.5 1 PUFF INH IH SCH ×2 (10:49→19:36)
[2019-05-26] MEDS ORDERED: *HR* Midazolam HCl 2 MG/2 ML VIAL IVP ONE (10:50)
[2019-05-26] MEDS ORDERED: 0.9 % Sodium Chloride 250 ML IVC PRN (11:14)
[2019-05-26] MEDS ORDERED: *HR* Heparin 10,000 UNIT/10 ML VIAL IV PRN (11:14)
[2019-05-26] MEDS ORDERED: 0.9 % Sodium Chloride 1,000 ML PRIME SCH (11:15)
[2019-05-26] MEDS ORDERED: 0.9 % Sodium Chloride 1,000 ML ONE (11:20)
[2019-05-26] MEDS ORDERED: *HR* Heparin 5,000 UNIT/ML VIAL ONE (12:02)
[2019-05-26] MEDS ORDERED: Isovue-300 50ML VIAL IVP ONE (12:08)
[2019-05-26] MEDS: ALPRAZolam 0.25 MG TABLET PO PRN (13:15)
[2019-05-26] MEDS: *HR* HYDROcodone/Acet 5/325 mg TABLET PO PRN (17:20)
[2019-05-27] MEDS: Pantoprazole 40 MG VIAL IVP SCH (05:21)
[2019-05-27] MEDS: Piperacillin/Tazobactam 3.375 GM in 0.9 % Sodium Chloride Mini Bag 100 ML IVPB SCH (05:23)
[2019-05-27 06:35] LABS: Hematocrit 30.5 % (35.3-44.9); Hemoglobin 8.9 g/dL (11.5-15.4); Mean Corpuscular HGB Conc 29.2 g/dL (31.6-35.5); Mean Corpuscular Hemoglobin 29.9 pg (28.0-33.3); Mean Corpuscular Volume 102.3 fL (83.0-100.0); Mean Platelet Volume 10.1 fL (9.4-12.4); Platelet Count 187 K/mcL (140-400); Red Blood Count 2.98 M/mcL (3.82-4.97); Red Cell Distribution Width 19.6 % (11.5-14.5); White Blood Count 7.4 K/mcL (4.3-11.1)
[2019-05-27 06:47] LABS: Prothrombin Time 11.5 Seconds (9.4-12.1)
[2019-05-27 06:55] LABS: Calcium 8.4 mg/dL (8.6-10.3)
[2019-05-27] MEDS: Budesonide/Formoterol 80/4.5 1 PUFF INH IH SCH ×2 (07:31→21:55)
[2019-05-27] MEDS ORDERED: *HR* Heparin 10,000 UNIT/10 ML VIAL IV PRN (08:34)
[2019-05-27] MEDS ORDERED: Albumin 25% 25gram/100mL 25 GM/100 ML IV.SOLN IVPB PRN (08:34)
[2019-05-27] MEDS ORDERED: 0.9 % Sodium Chloride 250 ML IVC PRN (08:34)
[2019-05-27] MEDS ORDERED: 0.9 % Sodium Chloride 1,000 ML PRIME SCH (08:45)
[2019-05-27] MEDS: Multivit/Ca/Min/Fe/FA 1 TAB TABLET PO SCH (08:59)
[2019-05-27] MEDS: Ascorbic Acid 500 MG TABLET PO SCH ×2 (08:59→17:35)
[2019-05-27] MEDS: *HR* Amiodarone 200 MG TABLET PO SCH (09:00)
[2019-05-27] MEDS: ALPRAZolam 0.5 MG TABLET PO SCH (09:00)
[2019-05-27] MEDS ORDERED: EPOETIN ALFA-EPBX 4,000 UNIT/ML VIAL SQ SCH (11:01)
[2019-05-28] MEDS: Ipratropium/Albuterol Neb 3 ML IH PRN ×2 (02:02→07:52)
[2019-05-28 04:17] LABS: Hematocrit 31.1 % (35.3-44.9)
[2019-05-28 04:18] LABS: Hemoglobin 9.1 g/dL (11.5-15.4); Mean Corpuscular HGB Conc 29.3 g/dL (31.6-35.5); Mean Corpuscular Hemoglobin 30.1 pg (28.0-33.3); Mean Platelet Volume 10.2 fL (9.4-12.4); Platelet Count 189 K/mcL (140-400); Red Blood Count 3.02 M/mcL (3.82-4.97); Red Cell Distribution Width 19.6 % (11.5-14.5); White Blood Count 8.1 K/mcL (4.3-11.1)
[2019-05-28 04:40] LABS: Potassium 3.6 mEq/L (3.5-5.1)
[2019-05-28] MEDS ORDERED: Pantoprazole 40 MG VIAL IVP SCH (07:00)
[2019-05-28 07:46] VITALS: BP 104/70
[2019-05-28] MEDS: Budesonide/Formoterol 80/4.5 1 PUFF INH IH SCH (07:52)
[2019-05-28] MEDS: Ascorbic Acid 500 MG TABLET PO SCH ×2 (08:45→08:50)
[2019-05-28] MEDS: *HR* Amiodarone 200 MG TABLET PO SCH (08:46)
[2019-05-28] MEDS: Multivit/Ca/Min/Fe/FA 1 TAB TABLET PO SCH (08:46)
== END 2019-05-28 11:53 | DRG 853 ==
LOC: EMEROOARM 14:05 → CDU 14:05 → SUATTDRO 18:36 → CDU 19:35 → 2NNU 05-21 19:45 → 2ANU 05-27 10:28
PROVIDERS: ADMIT Student in an Organized Health Care Education/Training Program; ATTEND Internal Medicine
PROC: ENDOEBX (2019-05-25 13:45)

== ENCOUNTER 2019-06-17 06:08 | Inpatient (IN) ==
[2019-06-17] MEDS ORDERED: Ipratropium/Albuterol Neb 3 ML IH ONE (06:30)
[2019-06-17 06:58] LABS: Basophils # 0.1 K/mcL (0.0-0.2); Basophils % 0.6 %; Eosinophils # 0.2 K/mcL (0.0-0.6); Eosinophils % 2.6 %; Hematocrit 43.4 % (35.3-44.9); Hemoglobin 12.8 g/dL (11.5-15.4); Immature Granulocytes % 1.5 % (0-4); Lymphocytes # 1.1 K/mcL (0.6-4.6); Lymphocytes % 13.4 %; Mean Corpuscular HGB Conc 29.5 g/dL (31.6-35.5); Mean Corpuscular Hemoglobin 32.2 pg (28.0-33.3); Mean Platelet Volume 10.3 fL (9.4-12.4); Monocytes # 0.8 K/mcL (0.0-1.3); Monocytes % 9.8 %; Neutrophils # 5.8 K/mcL (1.6-8.9); Nucleated Red Blood Cells 1.2 /100 WBC (0); Platelet Count 145 K/mcL (140-400); Red Blood Count 3.98 M/mcL (3.82-4.97); Red Cell Distribution Width 20.6 % (11.5-14.5); Segmented Neutrophils % 72.1 %; White Blood Count 8.1 K/mcL (4.3-11.1)
[2019-06-17 07:01] LABS: ABG Base Excess -2 mEq/L (-2 to 3); ABG HCO3 33 mEq/L (21-27); ABG Oxygen Saturation 79 % (95-98); ABG PCO2 120 mmHg (35-45); ABG PH 7.05 pH Units (7.32-7.45); ABG PO2 65 mmHg (85-104); ABG TCO2 37 mEq/L (20-26)
[2019-06-17 07:29] LABS: Calcium 9.7 mg/dL (8.6-10.3); Potassium 4.4 mEq/L (3.5-5.1); Troponin I 0.05 ng/mL (< 0.04)
[2019-06-17] MEDS ORDERED: 0.9 % Sodium Chloride 500 ML IVC PRN (07:33)
[2019-06-17] MEDS ORDERED: 0.9 % Sodium Chloride 500 ML IVC ONE (07:37)
[2019-06-17] MEDS ORDERED: Piperacillin/Tazobactam 3.375 GM in 0.9 % Sodium Chloride Mini Bag 100 ML IVPB ONE (07:42)
[2019-06-17 08:24] LABS: ABG Base Excess 1 mEq/L (-2 to 3); ABG HCO3 33 mEq/L (21-27); ABG Oxygen Saturation 83 % (95-98); ABG PCO2 95 mmHg (35-45); ABG PH 7.14 pH Units (7.32-7.45); ABG PO2 64 mmHg (85-104); ABG TCO2 35 mEq/L (20-26); Blood Gas Modality AVAPS; Blood Gas VT 400 cc
[2019-06-17] MEDS ORDERED: Ondansetron 4 MG/2 ML VIAL IVP PRN (10:25)
[2019-06-17] MEDS ORDERED: Naloxone 0.4 MG/ML INJ IVP PRN (10:25)
[2019-06-17] MEDS ORDERED: Ipratropium/Albuterol Neb 3 ML IH PRN (10:43)
[2019-06-17] MEDS ORDERED: Temazepam 15 MG CAPSULE PO PRN (12:08)
[2019-06-17] MEDS ORDERED: *HR* HYDROcodone/Acet 5/325 mg TABLET PO PRN (12:08)
[2019-06-17] MEDS ORDERED: 0.9 % Sodium Chloride 250 ML IV ONE (13:22)
[2019-06-17] MEDS: *HR* Heparin 5,000 UNIT/ML VIAL SQ SCH ×2 (14:33→22:22)
[2019-06-17] MEDS ORDERED: 0.9 % Sodium Chloride 250 ML IVC PRN (15:17)
[2019-06-17] MEDS ORDERED: 0.9 % Sodium Chloride 1,000 ML PRIME SCH (15:30)
[2019-06-17] MEDS: *HR* Amiodarone 200 MG TABLET PO SCH (17:41)
[2019-06-17] MEDS: Piperacillin/Tazobactam 3.375 GM in 0.9 % Sodium Chloride Mini Bag 100 ML IVPB SCH (17:42)
[2019-06-17] MEDS: Albumin 25% 25gram/100mL 25 GM/100 ML IV.SOLN ONE (18:55)
[2019-06-17] MEDS: Budesonide/Formoterol 80/4.5 1 PUFF INH IH SCH (22:19)
[2019-06-17] MEDS: Ascorbic Acid 500 MG TABLET PO SCH (22:45)
[2019-06-17] MEDS: Melatonin 3 MG TABLET PO SCH (22:45)
[2019-06-18 02:52] LABS: Basophils % 0.7 %; White Blood Count 4.6 K/mcL (4.3-11.1)
[2019-06-18 02:53] LABS: Eosinophils # 0.2 K/mcL (0.0-0.6); Eosinophils % 5.2 %; Hematocrit 37.4 % (35.3-44.9); Hemoglobin 10.8 g/dL (11.5-15.4); Immature Granulocytes % 0.7 % (0-4); Lymphocytes # 0.8 K/mcL (0.6-4.6); Mean Corpuscular HGB Conc 28.9 g/dL (31.6-35.5); Mean Platelet Volume 10.8 fL (9.4-12.4); Monocytes # 0.4 K/mcL (0.0-1.3); Monocytes % 7.6 %; Neutrophils # 3.1 K/mcL (1.6-8.9); Nucleated Red Blood Cells 1.5 /100 WBC (0); Platelet Count 139 K/mcL (140-400); Red Blood Count 3.37 M/mcL (3.82-4.97); Red Cell Distribution Width 20.8 % (11.5-14.5); Segmented Neutrophils % 67.8 %
[2019-06-18 03:14] LABS: Calcium 9.4 mg/dL (8.6-10.3); Potassium 3.4 mEq/L (3.5-5.1)
[2019-06-18 03:43] LABS: Anisocytosis 2+ (Not Present); Hypochromasia Present (Not Present); Platelet Estimate Slight Decrease (Normal); Polychromasia 2+ (Not Present)
[2019-06-18] MEDS: Levothyroxine 25 MCG TABLET PO SCH ×2 (06:00→06:15)
[2019-06-18] MEDS: Piperacillin/Tazobactam 3.375 GM in 0.9 % Sodium Chloride Mini Bag 100 ML IVPB SCH ×2 (06:00→16:50)
[2019-06-18] MEDS: *HR* Heparin 5,000 UNIT/ML VIAL SQ SCH ×2 (06:00→15:33)
[2019-06-18] MEDS: Budesonide/Formoterol 80/4.5 1 PUFF INH IH SCH (07:28)
[2019-06-18] MEDS: Ascorbic Acid 500 MG TABLET PO SCH ×2 (08:45→22:46)
[2019-06-18] MEDS ORDERED: 0.9 % Sodium Chloride 250 ML IVC PRN (09:43)
[2019-06-18] MEDS ORDERED: Albumin 25% 25gram/100mL 25 GM/100 ML IV.SOLN IVPB ONE (09:51)
[2019-06-18] MEDS ORDERED: 0.9 % Sodium Chloride 250 ML IVC ONE (10:39)
[2019-06-18] MEDS: MethylPREDNISolone 40 MG/ML VIAL IVP SCH ×2 (13:15→16:51)
[2019-06-18 14:26] LABS: ABG Base Excess 2 mEq/L (-2 to 3); ABG HCO3 32 mEq/L (21-27); ABG Oxygen Saturation 92 % (95-98); ABG PCO2 75 mmHg (35-45); ABG PH 7.23 pH Units (7.32-7.45); ABG PO2 77 mmHg (85-104); ABG TCO2 34 mEq/L (20-26); Blood Gas VT 400 cc
[2019-06-18] MEDS: Ipratropium/Albuterol Neb 3 ML IH SCH ×3 (15:50→20:14)
[2019-06-18] MEDS: Budesonide/Formoterol 160/4.5 1 PUFF INH IH SCH ×2 (15:50→20:15)
[2019-06-18 15:51] LABS: INR 1.1
[2019-06-18] MEDS: *HR* Amiodarone 200 MG TABLET PO SCH (16:50)
[2019-06-18 18:31] LABS: ABG Base Excess 0 mEq/L (-2 to 3); ABG HCO3 30 mEq/L (21-27); ABG Oxygen Saturation 88 % (95-98); ABG PCO2 76 mmHg (35-45); ABG PO2 69 mmHg (85-104); ABG TCO2 32 mEq/L (20-26)
[2019-06-18] MEDS: Melatonin 3 MG TABLET PO SCH (22:46)
[2019-06-19] MEDS: MethylPREDNISolone 40 MG/ML VIAL IVP SCH ×4 (00:03→23:22)
[2019-06-19] MEDS: *HR* Heparin 5,000 UNIT/ML VIAL SQ SCH ×4 (00:04→21:10)
[2019-06-19] MEDS: Ipratropium/Albuterol Neb 3 ML IH SCH ×7 (00:08→23:04)
[2019-06-19 03:41] LABS: ABG Base Excess 0 mEq/L (-2 to 3); ABG HCO3 31 mEq/L (21-27); ABG Oxygen Saturation 84 % (95-98); ABG PCO2 82 mmHg (35-45); ABG PH 7.19 pH Units (7.32-7.45); ABG PO2 62 mmHg (85-104); ABG TCO2 34 mEq/L (20-26); Blood Gas Modality AVAPS; Blood Gas VT 450 cc
[2019-06-19 05:38] LABS: Basophils % 0.3 %; Nucleated Red Blood Cells 1.2 /100 WBC (0)
[2019-06-19 05:40] LABS: Hematocrit 38.1 % (35.3-44.9); Hemoglobin 10.7 g/dL (11.5-15.4); Immature Granulocytes % 1.2 % (0-4); Lymphocytes # 0.3 K/mcL (0.6-4.6); Lymphocytes % 4.8 %; Mean Corpuscular HGB Conc 28.1 g/dL (31.6-35.5); Mean Corpuscular Volume 114.1 fL (83.0-100.0); Mean Platelet Volume 10.1 fL (9.4-12.4); Monocytes # 0.1 K/mcL (0.0-1.3); Monocytes % 1.2 %; Neutrophils # 5.9 K/mcL (1.6-8.9); Platelet Count 169 K/mcL (140-400); Red Blood Count 3.34 M/mcL (3.82-4.97); Red Cell Distribution Width 20.6 % (11.5-14.5); Segmented Neutrophils % 92.5 %; White Blood Count 6.4 K/mcL (4.3-11.1)
[2019-06-19 05:57] LABS: Anisocytosis 1+ (Not Present); Hypochromasia Present (Not Present); Macrocytosis Present (Not Present); Platelet Estimate Normal (Normal)
[2019-06-19 06:05] LABS: Calcium 7.5 mg/dL (8.6-10.3); Magnesium 2.1 mg/dL (1.6-2.6); Phosphorous 4.5 mg/dL (2.7-4.5); Potassium 3.4 mEq/L (3.5-5.1)
[2019-06-19] MEDS: Piperacillin/Tazobactam 3.375 GM in 0.9 % Sodium Chloride Mini Bag 100 ML IVPB SCH ×2 (06:37→17:19)
[2019-06-19] MEDS: Levothyroxine 25 MCG TABLET PO SCH (06:40)
[2019-06-19] MEDS: Budesonide/Formoterol 160/4.5 1 PUFF INH IH SCH ×2 (07:53→19:39)
[2019-06-19] MEDS: Ascorbic Acid 500 MG TABLET PO SCH ×2 (07:59→21:10)
[2019-06-19] MEDS: Potassium Chloride Elixir 20 MEQ/15 ML UDC PO SCH ×2 (09:09→12:20)
[2019-06-19] MEDS: *HR* Amiodarone 200 MG TABLET PO SCH (17:12)
[2019-06-19] MEDS: Albumin 25% 25gram/100mL 25 GM/100 ML IV.SOLN ONE (19:52)
[2019-06-19] MEDS: Norepinephrine 4 MG in 0.9 % Sodium Chloride 250 ML IVC SCH (19:52)
[2019-06-19] MEDS: Melatonin 3 MG TABLET PO SCH (21:10)
[2019-06-20] MEDS: Ipratropium/Albuterol Neb 3 ML IH SCH ×6 (03:17→23:27)
[2019-06-20 04:38] LABS: Basophils % 0.2 %; Hematocrit 38.3 % (35.3-44.9); Hemoglobin 11.3 g/dL (11.5-15.4); Immature Granulocytes % 0.9 % (0-4); Lymphocytes # 0.4 K/mcL (0.6-4.6); Lymphocytes % 8.1 %; Mean Corpuscular HGB Conc 29.5 g/dL (31.6-35.5); Mean Corpuscular Hemoglobin 32.4 pg (28.0-33.3); Mean Corpuscular Volume 109.7 fL (83.0-100.0); Mean Platelet Volume 9.7 fL (9.4-12.4); Monocytes # 0.1 K/mcL (0.0-1.3); Monocytes % 2.4 %; Neutrophils # 4.1 K/mcL (1.6-8.9); Nucleated Red Blood Cells 1.5 /100 WBC (0); Platelet Count 182 K/mcL (140-400); Red Blood Count 3.49 M/mcL (3.82-4.97); Red Cell Distribution Width 21.1 % (11.5-14.5); Segmented Neutrophils % 88.4 %; White Blood Count 4.6 K/mcL (4.3-11.1)
[2019-06-20 04:56] LABS: Calcium 9.7 mg/dL (8.6-10.3); Magnesium 2.9 mg/dL (1.6-2.6); Potassium 4.5 mEq/L (3.5-5.1)
[2019-06-20] MEDS: Piperacillin/Tazobactam 3.375 GM in 0.9 % Sodium Chloride Mini Bag 100 ML IVPB SCH ×2 (05:14→18:21)
[2019-06-20] MEDS: *HR* Heparin 5,000 UNIT/ML VIAL SQ SCH ×3 (05:15→19:50)
[2019-06-20] MEDS: Levothyroxine 25 MCG TABLET PO SCH (05:15)
[2019-06-20] MEDS: Budesonide/Formoterol 160/4.5 1 PUFF INH IH SCH ×2 (07:35→19:43)
[2019-06-20 07:58] LABS: ABG Base Excess -2 mEq/L (-2 to 3); ABG HCO3 29 mEq/L (21-27); ABG Oxygen Saturation 92 % (95-98); ABG PCO2 86 mmHg (35-45); ABG PH 7.14 pH Units (7.32-7.45); ABG PO2 87 mmHg (85-104); ABG TCO2 32 mEq/L (20-26); Blood Gas Modality avaps; Blood Gas VT 450 cc
[2019-06-20] MEDS: Ascorbic Acid 500 MG TABLET PO SCH ×2 (08:37→19:50)
[2019-06-20] MEDS: MethylPREDNISolone 40 MG/ML VIAL IVP SCH ×3 (09:07→23:15)
[2019-06-20] MEDS: Norepinephrine 4 MG in 0.9 % Sodium Chloride 250 ML IVC SCH (09:13)
[2019-06-20 09:23] LABS: ABG Base Excess -3 mEq/L (-2 to 3); ABG HCO3 29 mEq/L (21-27); ABG Oxygen Saturation 93 % (95-98); ABG PCO2 93 mmHg (35-45); ABG PH 7.11 pH Units (7.32-7.45); ABG PO2 94 mmHg (85-104); ABG TCO2 32 mEq/L (20-26); Blood Gas Modality AVAPS; Blood Gas VT 450 cc
[2019-06-20] MEDS ORDERED: *HR* Alteplase (Cathflo) 2 MG VIAL IVP PRN (09:27)
[2019-06-20] MEDS ORDERED: 0.9 % Sodium Chloride 1,000 ML PRIME ONE ×2 (09:27)
[2019-06-20] MEDS: *HR* Heparin 5,000 UNIT/ML VIAL CRRT PRN (09:30)
[2019-06-20] MEDS ORDERED: *HR* Heparin 5,000 UNIT/ML VIAL ONE (10:45)
[2019-06-20 11:03] LABS: Thyroid Stimulating Hormone 4.616 mcIU/mL (0.340-5.600)
[2019-06-20 12:14] LABS: Adenovirus Not Detected (Not Detect); Bordetella Pertussis Not Detected (Not Detect); Chlamydophila pneumoniae Not Detected (Not Detect); Coronavirus 229E Not Detected (Not Detect); Coronavirus HKU1 Not Detected (Not Detect); Coronavirus NL63 Not Detected (Not Detect); Coronavirus OC43 Not Detected (Not Detect); Human Metapneumovirus Not Detected (Not Detect); Human Rhinovirus/Enterovirus Not Detected (Not Detect); Influenza A Subtype 2009 H1 Not Detected (Not Detect); Influenza A Untypeable Not Detected (Not Detect); Influenza B Not Detected (Not Detect); Mycoplasma pneumoniae Not Detected (Not Detect); Parainfluenza Virus 1 Not Detected (Not Detect); Parainfluenza Virus 2 Not Detected (Not Detect); Parainfluenza Virus 3 Not Detected (Not Detect); Parainfluenza Virus 4 Not Detected (Not Detect); Respiratory Syncytial Virus Not Detected (Not Detect)
[2019-06-20] MEDS: PrismaSATE BGK 4/2.5 5,000 ML CRRT SCH ×6 (12:20→21:02)
[2019-06-20] MEDS: 0.9 % Sodium Chloride 1,000 ML PRIME SCH ×2 (12:21→12:27)
[2019-06-20 13:55] LABS: ABG Base Excess -5 mEq/L (-2 to 3); ABG HCO3 25 mEq/L (21-27); ABG Oxygen Saturation 93 % (95-98); ABG PCO2 68 mmHg (35-45); ABG PH 7.17 pH Units (7.32-7.45); ABG PO2 84 mmHg (85-104); ABG TCO2 27 mEq/L (20-26); Blood Gas Modality AVAPS; Blood Gas VT 450 cc
[2019-06-20] MEDS: *HR* Amiodarone 200 MG TABLET PO SCH (17:23)
[2019-06-20] MEDS: *HR* LORazepam 2 MG/ML VIAL IVP PRN (19:49)
[2019-06-20] MEDS: Melatonin 3 MG TABLET PO SCH (19:50)
[2019-06-21] MEDS: PrismaSATE BGK 4/2.5 5,000 ML CRRT SCH ×12 (01:20→21:52)
[2019-06-21] MEDS: Piperacillin/Tazobactam 3.375 GM in 0.9 % Sodium Chloride Mini Bag 100 ML IVPB SCH ×3 (01:21→18:13)
[2019-06-21] MEDS: Ipratropium/Albuterol Neb 3 ML IH SCH ×6 (03:06→23:59)
[2019-06-21 04:13] LABS: Basophils % 0.3 %; Hematocrit 36.1 % (35.3-44.9); Hemoglobin 10.2 g/dL (11.5-15.4); Lymphocytes # 0.3 K/mcL (0.6-4.6); Lymphocytes % 6.6 %; Mean Corpuscular HGB Conc 28.3 g/dL (31.6-35.5); Mean Corpuscular Hemoglobin 32.4 pg (28.0-33.3); Mean Corpuscular Volume 114.6 fL (83.0-100.0); Mean Platelet Volume 9.6 fL (9.4-12.4); Monocytes # 0.1 K/mcL (0.0-1.3); Monocytes % 3.5 %; Neutrophils # 3.5 K/mcL (1.6-8.9); Nucleated Red Blood Cells 2.5 /100 WBC (0); Platelet Count 136 K/mcL (140-400); Red Blood Count 3.15 M/mcL (3.82-4.97); Segmented Neutrophils % 88.6 %
[2019-06-21 04:19] LABS: ABG Base Excess -2 mEq/L (-2 to 3); ABG HCO3 28 mEq/L (21-27); ABG Oxygen Saturation 96 % (95-98); ABG PCO2 73 mmHg (35-45); ABG PH 7.19 pH Units (7.32-7.45); ABG PO2 100 mmHg (85-104); ABG TCO2 30 mEq/L (20-26); Blood Gas Modality AVAPS; Blood Gas VT 500 cc
[2019-06-21 04:37] LABS: Calcium 9.1 mg/dL (8.6-10.3); Magnesium 2.6 mg/dL (1.6-2.6); Phosphorous 3.1 mg/dL (2.7-4.5)
[2019-06-21 04:42] LABS: Albumin 4.4 g/dL (3.5-5.7); Calcium 9.1 mg/dL (8.6-10.3); Phosphorous 3.1 mg/dL (2.7-4.5); Potassium 3.9 mEq/L (3.5-5.1)
[2019-06-21 05:03] LABS: Folate 15.8 ng/mL (3.0-16.0)
[2019-06-21] MEDS: *HR* Heparin 5,000 UNIT/ML VIAL SQ SCH ×3 (05:03→21:54)
[2019-06-21] MEDS: Levothyroxine 25 MCG TABLET PO SCH (05:03)
[2019-06-21 05:06] LABS: Hypochromasia Present (Not Present); Macrocytosis Present (Not Present); Polychromasia 1+ (Not Present)
[2019-06-21] MEDS: Budesonide/Formoterol 160/4.5 1 PUFF INH IH SCH ×2 (07:57→20:09)
[2019-06-21] MEDS: Norepinephrine 4 MG in 0.9 % Sodium Chloride 250 ML IVC SCH (09:09)
[2019-06-21] MEDS: MethylPREDNISolone 40 MG/ML VIAL IVP SCH ×3 (09:12→23:45)
[2019-06-21] MEDS: Ascorbic Acid 500 MG TABLET PO SCH ×2 (09:17→19:46)
[2019-06-21] MEDS: Cyanocobalamin (B-12) 1,000 MCG/ML VIAL IM SCH (14:08)
[2019-06-21] MEDS: *HR* LORazepam 2 MG/ML VIAL IVP PRN (15:24)
[2019-06-21] MEDS: *HR* Amiodarone 200 MG TABLET PO SCH (15:55)
[2019-06-21] MEDS: Melatonin 3 MG TABLET PO SCH (19:46)
[2019-06-22] MEDS: Piperacillin/Tazobactam 3.375 GM in 0.9 % Sodium Chloride Mini Bag 100 ML IVPB SCH ×3 (01:27→18:08)
[2019-06-22] MEDS: PrismaSATE BGK 4/2.5 5,000 ML CRRT SCH ×10 (01:39→21:41)
[2019-06-22] MEDS: Ipratropium/Albuterol Neb 3 ML IH SCH ×6 (03:16→23:08)
[2019-06-22 04:16] LABS: Hematocrit 38.3 % (35.3-44.9); Hemoglobin 11.2 g/dL (11.5-15.4); Lymphocytes # 0.3 K/mcL (0.6-4.6); Lymphocytes % 4.9 %; Mean Corpuscular HGB Conc 29.2 g/dL (31.6-35.5); Mean Corpuscular Hemoglobin 32.5 pg (28.0-33.3); Mean Platelet Volume 9.8 fL (9.4-12.4); Monocytes # 0.3 K/mcL (0.0-1.3); Neutrophils # 4.6 K/mcL (1.6-8.9); Nucleated Red Blood Cells 4.3 /100 WBC (0); Platelet Count 135 K/mcL (140-400); Red Blood Count 3.45 M/mcL (3.82-4.97); Red Cell Distribution Width 21.3 % (11.5-14.5); Segmented Neutrophils % 89.1 %; White Blood Count 5.2 K/mcL (4.3-11.1)
[2019-06-22 04:30] LABS: ABG Base Excess 2 mEq/L (-2 to 3); ABG HCO3 31 mEq/L (21-27); ABG Oxygen Saturation 96 % (95-98); ABG PCO2 64 mmHg (35-45); ABG PH 7.28 pH Units (7.32-7.45); ABG PO2 98 mmHg (85-104); ABG TCO2 32 mEq/L (20-26); Blood Gas Modality BiLevel; Blood Gas VT 450 cc
[2019-06-22 04:30] LABS: Albumin 4.6 g/dL (3.5-5.7); BUN/Creatinine Ratio 11 (6-26); BUN/Creatinine Ratio 12 (6-26); Blood Urea Nitrogen 7 mg/dL (6-20); Blood Urea Nitrogen 8 mg/dL (6-20); Calcium 9.3 mg/dL (8.6-10.3); Calcium 9.4 mg/dL (8.6-10.3); Carbon Dioxide 27 mEq/L (23-29); Carbon Dioxide 28 mEq/L (23-29); Chloride 102 mEq/L (98-107); Chloride 103 mEq/L (98-107); Glucose 199 mg/dL (70-105); Glucose 212 mg/dL (70-105); Magnesium 2.6 mg/dL (1.6-2.6); Osmolality,Calculated 290 (280-300); Osmolality,Calculated 291 (280-300); Phosphorous 1.2 mg/dL (2.7-4.5); Phosphorous 1.4 mg/dL (2.7-4.5); Potassium 3.6 mEq/L (3.5-5.1); Sodium 138 mEq/L (136-145); eGFR For African Americans > 60 (> 60); eGFR For Non-African Americans > 60 (> 60)
[2019-06-22 04:37] LABS: Anisocytosis 2+ (Not Present)
[2019-06-22 04:38] LABS: Platelet Estimate Decreased (Normal)
[2019-06-22 04:41] LABS: Hypochromasia Present (Not Present); Macrocytosis Present (Not Present); Polychromasia 1+ (Not Present)
[2019-06-22] MEDS: Levothyroxine 25 MCG TABLET PO SCH (05:27)
[2019-06-22] MEDS: *HR* Heparin 5,000 UNIT/ML VIAL SQ SCH ×3 (05:28→20:55)
[2019-06-22] MEDS: Ascorbic Acid 500 MG TABLET PO SCH ×2 (07:43→20:29)
[2019-06-22] MEDS: Budesonide/Formoterol 160/4.5 1 PUFF INH IH SCH ×2 (07:44→19:38)
[2019-06-22] MEDS: MethylPREDNISolone 40 MG/ML VIAL IVP SCH ×3 (07:53→23:44)
[2019-06-22] MEDS: Cyanocobalamin (B-12) 1,000 MCG/ML VIAL IM SCH (07:53)
[2019-06-22] MEDS: Norepinephrine 4 MG in 0.9 % Sodium Chloride 250 ML IVC SCH ×3 (07:54→21:42)
[2019-06-22] MEDS ORDERED: Pantoprazole 40 MG VIAL IVP SCH (09:00)
[2019-06-22] MEDS ORDERED: Lidocaine -MPF 2% 2 ML VIAL ONE ×2 (13:18→13:44)
[2019-06-22] MEDS ORDERED: Dexamethasone 4 MG/ML VIAL ONE (13:18)
[2019-06-22] MEDS ORDERED: Ondansetron 4 MG/2 ML VIAL ONE ×2 (13:18→15:38)
[2019-06-22] MEDS ORDERED: *HR* FentaNYL (PF) 100 MCG/2 ML VIAL ONE (13:18)
[2019-06-22] MEDS ORDERED: *HR* Propofol 200 MG/20 ML VIAL IVP ONE ×2 (13:18→13:45)
[2019-06-22] MEDS ORDERED: *HR* Succinylcholine 200 MG/10 ML VIAL IVP ONE (13:44)
[2019-06-22] MEDS ORDERED: *HR* Midazolam HCl 2 MG/2 ML VIAL ONE (13:45)
[2019-06-22] MEDS: *HR* Heparin 5,000 UNIT/ML VIAL CRRT PRN (13:50)
[2019-06-22] MEDS ORDERED: Ethanol\\Acetic Acid\\Na Ace\\Ben 1,000 ML IRRIG.SOLN IR ONE ×2 (13:55→15:05)
[2019-06-22] MEDS ORDERED: *HR* Vasopressin 20 UNIT/ML VIAL ONE (14:53)
[2019-06-22] MEDS ORDERED: *HR* HYDROMORPHONE 2 MG/ML VIAL ONE (15:47)
[2019-06-22] MEDS ORDERED: 0.9 % Sodium Chloride 250 ML IVC ONE (16:59)
[2019-06-22] MEDS: *HR* Amiodarone 200 MG TABLET PO SCH (17:19)
[2019-06-22] MEDS ORDERED: 0.9 % Sodium Chloride 1,000 ML PRIME SCH (19:02)
[2019-06-22] MEDS ORDERED: Sennosides 8.6 MG TABLET PO PRN (19:02)
[2019-06-22] MEDS ORDERED: Ondansetron 4 MG/2 ML VIAL IVP PRN ×2 (19:02)
[2019-06-22] MEDS ORDERED: *HR* Heparin 5,000 UNIT/ML VIAL CRRT PRN (19:02)
[2019-06-22] MEDS ORDERED: Naloxone 0.4 MG/ML INJ IVP PRN ×2 (19:02)
[2019-06-22] MEDS ORDERED: Temazepam 15 MG CAPSULE PO PRN ×2 (19:02)
[2019-06-22] MEDS ORDERED: *HR* Alteplase (Cathflo) 2 MG VIAL IVP PRN (19:02)
[2019-06-22] MEDS ORDERED: MOM Conc 10 ML UD.LIQ PO PRN (19:02)
[2019-06-22] MEDS ORDERED: *HR* Promethazine 25 MG/ML VIAL IVP PRN (19:02)
[2019-06-22] MEDS ORDERED: Ascorbic Acid 500 MG TABLET PO SCH (19:02)
[2019-06-22] MEDS ORDERED: Ringers Solution, Lactated 1,000 ML IVC SCH (19:02)
[2019-06-22] MEDS ORDERED: *HR* LORazepam 2 MG/ML VIAL IVP PRN (19:02)
[2019-06-22] MEDS: *HR* HYDROcodone/Acet 5/325 mg TABLET PO PRN (19:59)
[2019-06-22] MEDS: Melatonin 3 MG TABLET PO SCH (20:55)
[2019-06-22 23:50] LABS: Hematocrit 35.2 % (35.3-44.9); Hemoglobin 10.3 g/dL (11.5-15.4)
[2019-06-23] MEDS: PrismaSATE BGK 4/2.5 5,000 ML CRRT SCH ×6 (01:49→11:11)
[2019-06-23] MEDS: Piperacillin/Tazobactam 3.375 GM in 0.9 % Sodium Chloride Mini Bag 100 ML IVPB SCH ×3 (01:54→17:47)
[2019-06-23] MEDS: Ipratropium/Albuterol Neb 3 ML IH SCH ×5 (03:15→19:55)
[2019-06-23 04:39] LABS: Basophils % 0.2 %; Hematocrit 34.2 % (35.3-44.9); Hemoglobin 9.5 g/dL (11.5-15.4); Immature Granulocytes % 1.1 % (0-4); Lymphocytes # 0.4 K/mcL (0.6-4.6); Lymphocytes % 3.9 %; Mean Corpuscular HGB Conc 27.8 g/dL (31.6-35.5); Mean Corpuscular Hemoglobin 32.1 pg (28.0-33.3); Mean Corpuscular Volume 115.5 fL (83.0-100.0); Mean Platelet Volume 10.4 fL (9.4-12.4); Monocytes # 0.4 K/mcL (0.0-1.3); Nucleated Red Blood Cells 4.4 /100 WBC (0); Platelet Count 164 K/mcL (140-400); Red Blood Count 2.96 M/mcL (3.82-4.97); Red Cell Distribution Width 21.5 % (11.5-14.5); Segmented Neutrophils % 90.8 %; White Blood Count 10.6 K/mcL (4.3-11.1)
[2019-06-23 04:43] LABS: Neutrophils # 9.6 K/mcL (1.6-8.9)
[2019-06-23 04:46] LABS: Albumin 4.2 g/dL (3.5-5.7); BUN/Creatinine Ratio 8 (6-26); Blood Urea Nitrogen 5 mg/dL (6-20); Calcium 8.9 mg/dL (8.6-10.3); Carbon Dioxide 27 mEq/L (23-29); Chloride 103 mEq/L (98-107); Glucose 203 mg/dL (70-105); Magnesium 2.4 mg/dL (1.6-2.6); Osmolality,Calculated 291 (280-300); Phosphorous 1.7 mg/dL (2.7-4.5); Potassium 3.9 mEq/L (3.5-5.1); Sodium 139 mEq/L (136-145); eGFR For African Americans > 60 (> 60); eGFR For Non-African Americans > 60 (> 60)
[2019-06-23 05:12] LABS: Anisocytosis 1+ (Not Present); Hypochromasia Present (Not Present); Macrocytosis Present (Not Present); Polychromasia 1+ (Not Present)
[2019-06-23 05:13] LABS: Platelet Estimate Normal (Normal)
[2019-06-23] MEDS: Pantoprazole 40 MG VIAL IVP SCH (05:35)
[2019-06-23] MEDS: *HR* Heparin 5,000 UNIT/ML VIAL SQ SCH ×3 (05:35→22:01)
[2019-06-23] MEDS: Levothyroxine 25 MCG TABLET PO SCH ×2 (05:35→05:43)
[2019-06-23] MEDS: Norepinephrine 4 MG in 0.9 % Sodium Chloride 250 ML IVC SCH ×2 (05:41→23:26)
[2019-06-23] MEDS: Budesonide/Formoterol 160/4.5 1 PUFF INH IH SCH ×2 (07:36→19:55)
[2019-06-23] MEDS: MethylPREDNISolone 40 MG/ML VIAL IVP SCH ×3 (08:34→23:26)
[2019-06-23] MEDS ORDERED: Cyanocobalamin (B-12) 1,000 MCG/ML VIAL IM SCH (09:00)
[2019-06-23] MEDS: Ascorbic Acid 500 MG TABLET PO SCH ×2 (09:07→21:06)
[2019-06-23] MEDS: *HR* HYDROcodone/Acet 5/325 mg TABLET PO PRN ×2 (09:07→17:47)
[2019-06-23] MEDS: Multivit/Ca/Min/Fe/FA 1 TAB TABLET PO SCH (09:07)
[2019-06-23] MEDS: *HR* Amiodarone 200 MG TABLET PO SCH (17:39)
[2019-06-23] MEDS: Melatonin 3 MG TABLET PO SCH (20:56)
[2019-06-24] MEDS: Ipratropium/Albuterol Neb 3 ML IH SCH ×6 (00:15→20:36)
[2019-06-24] MEDS: PrismaSATE BGK 4/2.5 5,000 ML CRRT SCH ×5 (00:54→07:50)
[2019-06-24] MEDS: Piperacillin/Tazobactam 3.375 GM in 0.9 % Sodium Chloride Mini Bag 100 ML IVPB SCH ×3 (03:06→18:20)
[2019-06-24 04:22] LABS: Eosinophils % 0.1 %; Segmented Neutrophils % 89.5 %
[2019-06-24 04:23] LABS: Basophils % 0.1 %; Hematocrit 32.3 % (35.3-44.9); Immature Granulocytes % 1.8 % (0-4); Lymphocytes # 0.6 K/mcL (0.6-4.6); Lymphocytes % 4.6 %; Mean Corpuscular HGB Conc 27.9 g/dL (31.6-35.5); Mean Corpuscular Hemoglobin 32.3 pg (28.0-33.3); Mean Corpuscular Volume 115.8 fL (83.0-100.0); Mean Platelet Volume 9.7 fL (9.4-12.4); Monocytes # 0.5 K/mcL (0.0-1.3); Monocytes % 3.9 %; Nucleated Red Blood Cells 6.4 /100 WBC (0); Platelet Count 154 K/mcL (140-400); Red Blood Count 2.79 M/mcL (3.82-4.97); Red Cell Distribution Width 21.5 % (11.5-14.5); White Blood Count 13.6 K/mcL (4.3-11.1)
[2019-06-24 04:24] LABS: Neutrophils # 12.2 K/mcL (1.6-8.9)
[2019-06-24 04:42] LABS: Hypochromasia Present (Not Present); Macrocytosis Present (Not Present); Platelet Estimate Normal (Normal)
[2019-06-24 04:43] LABS: Anisocytosis 2+ (Not Present); Polychromasia 1+ (Not Present); Stomatocytes 1+ (Not Present)
[2019-06-24 04:46] LABS: Albumin 4.2 g/dL (3.5-5.7); BUN/Creatinine Ratio 8 (6-26); Blood Urea Nitrogen 7 mg/dL (6-20); Carbon Dioxide 26 mEq/L (23-29); Chloride 106 mEq/L (98-107); Glucose 184 mg/dL (70-105); Osmolality,Calculated 291 (280-300); Phosphorous 1.8 mg/dL (2.7-4.5); Potassium 4.1 mEq/L (3.5-5.1); Sodium 139 mEq/L (136-145); eGFR For African Americans > 60 (> 60); eGFR For Non-African Americans > 60 (> 60)
[2019-06-24 04:47] LABS: BUN/Creatinine Ratio 8 (6-26); Blood Urea Nitrogen 7 mg/dL (6-20); Calcium 9.1 mg/dL (8.6-10.3); Carbon Dioxide 26 mEq/L (23-29); Chloride 105 mEq/L (98-107); Glucose 184 mg/dL (70-105); Magnesium 2.4 mg/dL (1.6-2.6); Osmolality,Calculated 289 (280-300); Phosphorous 1.8 mg/dL (2.7-4.5); Potassium 4.2 mEq/L (3.5-5.1); Sodium 138 mEq/L (136-145); eGFR For African Americans > 60 (> 60); eGFR For Non-African Americans > 60 (> 60)
[2019-06-24] MEDS: Levothyroxine 25 MCG TABLET PO SCH (06:05)
[2019-06-24] MEDS: *HR* Heparin 5,000 UNIT/ML VIAL SQ SCH ×3 (06:05→21:41)
[2019-06-24] MEDS: Pantoprazole 40 MG VIAL IVP SCH (06:07)
[2019-06-24] MEDS: Norepinephrine 4 MG in 0.9 % Sodium Chloride 250 ML IVC SCH ×3 (07:10→21:56)
[2019-06-24] MEDS: Budesonide/Formoterol 160/4.5 1 PUFF INH IH SCH ×2 (07:42→20:36)
[2019-06-24] MEDS: MethylPREDNISolone 40 MG/ML VIAL IVP SCH ×3 (07:54→23:46)
[2019-06-24] MEDS: *HR* HYDROcodone/Acet 5/325 mg TABLET PO PRN ×2 (07:56→14:14)
[2019-06-24] MEDS: Ascorbic Acid 500 MG TABLET PO SCH ×2 (07:56→21:37)
[2019-06-24] MEDS: Multivit/Ca/Min/Fe/FA 1 TAB TABLET PO SCH (07:56)
[2019-06-24] MEDS ORDERED: Sodium Phosphate 30 MMOL in 0.9 % Sodium Chloride 100 ML IVPB ONE (10:39)
[2019-06-24] MEDS: *HR* Amiodarone 200 MG TABLET PO SCH (18:22)
[2019-06-24] MEDS: Melatonin 3 MG TABLET PO SCH (21:36)
[2019-06-25] MEDS: Ipratropium/Albuterol Neb 3 ML IH SCH ×6 (00:09→20:17)
[2019-06-25] MEDS: Piperacillin/Tazobactam 3.375 GM in 0.9 % Sodium Chloride Mini Bag 100 ML IVPB SCH ×3 (02:02→17:20)
[2019-06-25 03:33] LABS: Immature Granulocytes % 2.1 % (0-4); Red Cell Distribution Width 21.9 % (11.5-14.5)
[2019-06-25 03:34] LABS: Basophils % 0.1 %; Hematocrit 28.2 % (35.3-44.9); Hemoglobin 8.1 g/dL (11.5-15.4); Lymphocytes # 0.7 K/mcL (0.6-4.6); Lymphocytes % 4.9 %; Mean Corpuscular HGB Conc 28.7 g/dL (31.6-35.5); Mean Corpuscular Hemoglobin 32.7 pg (28.0-33.3); Mean Corpuscular Volume 113.7 fL (83.0-100.0); Mean Platelet Volume 10.1 fL (9.4-12.4); Monocytes # 0.5 K/mcL (0.0-1.3); Monocytes % 3.1 %; Nucleated Red Blood Cells 3.4 /100 WBC (0); Platelet Count 159 K/mcL (140-400); Red Blood Count 2.48 M/mcL (3.82-4.97); Segmented Neutrophils % 89.8 %; White Blood Count 14.8 K/mcL (4.3-11.1)
[2019-06-25 03:38] LABS: Neutrophils # 13.3 K/mcL (1.6-8.9)
[2019-06-25 03:53] LABS: Albumin 3.8 g/dL (3.5-5.7); Albumin/Globulin Ratio 1.8 (1.1-2.2); Bilirubin,Total 0.5 mg/dL (0.3-1.0); Calcium 8.8 mg/dL (8.6-10.3); Globulin 2.1 g/dL (2.4-3.5); Magnesium 2.4 mg/dL (1.6-2.6); Potassium 4.3 mEq/L (3.5-5.1); Total Protein 5.9 g/dL (6.4-8.9)
[2019-06-25 03:54] LABS: Albumin 3.8 g/dL (3.5-5.7); Calcium 8.7 mg/dL (8.6-10.3); Phosphorous 4.9 mg/dL (2.7-4.5); Potassium 4.2 mEq/L (3.5-5.1)
[2019-06-25 04:55] LABS: Hypochromasia Present (Not Present); Macrocytosis Present (Not Present); Platelet Estimate Normal (Normal)
[2019-06-25] MEDS: Levothyroxine 25 MCG TABLET PO SCH (05:51)
[2019-06-25] MEDS: Pantoprazole 40 MG VIAL IVP SCH (05:51)
[2019-06-25] MEDS: *HR* Heparin 5,000 UNIT/ML VIAL SQ SCH ×3 (05:52→21:13)
[2019-06-25] MEDS: Norepinephrine 4 MG in 0.9 % Sodium Chloride 250 ML IVC SCH ×3 (06:47→20:56)
[2019-06-25] MEDS ORDERED: 0.9 % Sodium Chloride 1,000 ML PRIME SCH (07:15)
[2019-06-25] MEDS ORDERED: 0.9 % Sodium Chloride 250 ML IVC PRN (07:15)
[2019-06-25] MEDS ORDERED: Albumin 25% 25gram/100mL 25 GM/100 ML IV.SOLN IVPB PRN (07:15)
[2019-06-25] MEDS: Ascorbic Acid 500 MG TABLET PO SCH ×2 (08:00→19:39)
[2019-06-25] MEDS: Multivit/Ca/Min/Fe/FA 1 TAB TABLET PO SCH (08:01)
[2019-06-25] MEDS: MethylPREDNISolone 40 MG/ML VIAL IVP SCH ×3 (08:01→23:35)
[2019-06-25] MEDS: *HR* HYDROcodone/Acet 5/325 mg TABLET PO PRN ×3 (08:06→21:12)
[2019-06-25] MEDS: Budesonide/Formoterol 160/4.5 1 PUFF INH IH SCH ×2 (11:35→20:18)
[2019-06-25] MEDS: *HR* Amiodarone 200 MG TABLET PO SCH (17:20)
[2019-06-25] MEDS: Melatonin 3 MG TABLET PO SCH (19:39)
[2019-06-26] MEDS: Ipratropium/Albuterol Neb 3 ML IH SCH ×7 (00:03→23:53)
[2019-06-26] MEDS: Piperacillin/Tazobactam 3.375 GM in 0.9 % Sodium Chloride Mini Bag 100 ML IVPB SCH ×3 (03:21→17:43)
[2019-06-26 04:04] LABS: Albumin 3.7 g/dL (3.5-5.7); Calcium 8.8 mg/dL (8.6-10.3); Phosphorous 4.5 mg/dL (2.7-4.5); Potassium 3.9 mEq/L (3.5-5.1)
[2019-06-26] MEDS: *HR* Heparin 5,000 UNIT/ML VIAL SQ SCH ×3 (06:32→21:52)
[2019-06-26] MEDS: Pantoprazole 40 MG VIAL IVP SCH (06:32)
[2019-06-26] MEDS: Levothyroxine 25 MCG TABLET PO SCH (06:32)
[2019-06-26] MEDS: Budesonide/Formoterol 160/4.5 1 PUFF INH IH SCH ×2 (08:09→20:21)
[2019-06-26] MEDS: *HR* HYDROcodone/Acet 5/325 mg TABLET PO PRN ×3 (08:29→19:30)
[2019-06-26] MEDS: MethylPREDNISolone 40 MG/ML VIAL IVP SCH (08:29)
[2019-06-26] MEDS: Multivit/Ca/Min/Fe/FA 1 TAB TABLET PO SCH (08:30)
[2019-06-26] MEDS: Ascorbic Acid 500 MG TABLET PO SCH ×2 (08:30→19:30)
[2019-06-26] MEDS: Norepinephrine 4 MG in 0.9 % Sodium Chloride 250 ML IVC SCH ×2 (08:31→22:50)
[2019-06-26] MEDS ORDERED: Aminoglycoside Consult 1 EACH MC ONE (09:12)
[2019-06-26] MEDS: *HR* Amiodarone 200 MG TABLET PO SCH (17:45)
[2019-06-26] MEDS: Melatonin 3 MG TABLET PO SCH (19:30)
[2019-06-27] MEDS: Piperacillin/Tazobactam 3.375 GM in 0.9 % Sodium Chloride Mini Bag 100 ML IVPB SCH ×3 (03:30→23:34)
[2019-06-27 04:24] LABS: Basophils % 0.1 %; Mean Platelet Volume 10.7 fL (9.4-12.4)
[2019-06-27 04:25] LABS: Eosinophils # 0.1 K/mcL (0.0-0.6); Eosinophils % 0.6 %; Hematocrit 20.3 % (35.3-44.9); Immature Granulocytes % 2.8 % (0-4); Lymphocytes % 16.4 %; Mean Corpuscular HGB Conc 28.1 g/dL (31.6-35.5); Mean Corpuscular Hemoglobin 33.1 pg (28.0-33.3); Monocytes # 0.8 K/mcL (0.0-1.3); Monocytes % 6.6 %; Neutrophils # 9.1 K/mcL (1.6-8.9); Nucleated Red Blood Cells 5.4 /100 WBC (0); Platelet Count 135 K/mcL (140-400); Red Blood Count 1.72 M/mcL (3.82-4.97); Segmented Neutrophils % 73.5 %; White Blood Count 12.4 K/mcL (4.3-11.1)
[2019-06-27] MEDS: Ipratropium/Albuterol Neb 3 ML IH SCH ×6 (04:27→23:48)
[2019-06-27 04:36] LABS: Hemoglobin 5.7 g/dL (11.5-15.4)
[2019-06-27 04:40] LABS: Albumin 3.7 g/dL (3.5-5.7); Calcium 9.1 mg/dL (8.6-10.3); Phosphorous 6.3 mg/dL (2.7-4.5)
[2019-06-27] MEDS ORDERED: 0.9 % Sodium Chloride 250 ML IVC SCH (04:45)
[2019-06-27] MEDS ORDERED: Pantoprazole 40 MG VIAL IVP ONE (04:55)
[2019-06-27 05:43] LABS: Anisocytosis 2+ (Not Present); Hypochromasia Present (Not Present); Macrocytosis Present (Not Present); Platelet Estimate Slight Decrease (Normal); Polychromasia 1+ (Not Present)
[2019-06-27 05:44] LABS: Basophilic Stippling 1+ (Not Present)
[2019-06-27] MEDS: Pantoprazole 40 MG VIAL IVP SCH (06:19)
[2019-06-27] MEDS: Levothyroxine 25 MCG TABLET PO SCH (06:19)
[2019-06-27] MEDS: *HR* Heparin 5,000 UNIT/ML VIAL SQ SCH ×3 (06:19→22:53)
[2019-06-27 06:35] LABS: Prothrombin Time 11.5 Seconds (9.4-12.1)
[2019-06-27 06:38] LABS: Activated Partial Thrombo Time 36.8 Seconds (26.0-36.0)
[2019-06-27] MEDS ORDERED: 0.9 % Sodium Chloride 250 ML IVC PRN (07:39)
[2019-06-27] MEDS: Budesonide/Formoterol 160/4.5 1 PUFF INH IH SCH ×2 (08:12→20:10)
[2019-06-27] MEDS ORDERED: 0.9 % Sodium Chloride 1,000 ML ONE ×2 (08:41→13:32)
[2019-06-27] MEDS ORDERED: MethylPREDNISolone 40 MG/ML VIAL IVP SCH (09:00)
[2019-06-27] MEDS: *HR* HYDROcodone/Acet 5/325 mg TABLET PO PRN ×3 (09:10→19:51)
[2019-06-27] MEDS: Multivit/Ca/Min/Fe/FA 1 TAB TABLET PO SCH (13:31)
[2019-06-27] MEDS: Ascorbic Acid 500 MG TABLET PO SCH ×2 (13:36→19:56)
[2019-06-27 15:57] LABS: Hematocrit 35.9 % (35.3-44.9); Hemoglobin 11.3 g/dL (11.5-15.4); Mean Corpuscular HGB Conc 31.5 g/dL (31.6-35.5); Mean Corpuscular Hemoglobin 30.5 pg (28.0-33.3); Mean Platelet Volume 10.1 fL (9.4-12.4); Platelet Count 118 K/mcL (140-400); Red Cell Distribution Width 26.8 % (11.5-14.5); White Blood Count 14.4 K/mcL (4.3-11.1)
[2019-06-27 17:09] LABS: Retculocyte # 0.29 M/mcL (0.05-0.10); Reticulocyte % 7.6 % (1.6-2.8)
[2019-06-27] MEDS: *HR* Amiodarone 200 MG TABLET PO SCH (17:09)
[2019-06-27] MEDS: Melatonin 3 MG TABLET PO SCH (19:51)
[2019-06-27] MEDS ORDERED: Piperacillin/Tazobactam 3.375 GM in 0.9 % Sodium Chloride Mini Bag 100 ML IVPB SCH (20:00)
[2019-06-28] MEDS: Ipratropium/Albuterol Neb 3 ML IH SCH ×6 (03:47→23:55)
[2019-06-28 04:18] LABS: Hematocrit 32.2 % (35.3-44.9); Hemoglobin 10.3 g/dL (11.5-15.4); Mean Corpuscular Hemoglobin 30.6 pg (28.0-33.3); Mean Corpuscular Volume 95.5 fL (83.0-100.0); Mean Platelet Volume 10.3 fL (9.4-12.4); Red Blood Count 3.37 M/mcL (3.82-4.97); Red Cell Distribution Width 28.2 % (11.5-14.5); White Blood Count 8.6 K/mcL (4.3-11.1)
[2019-06-28] MEDS: *HR* HYDROcodone/Acet 5/325 mg TABLET PO PRN ×3 (04:19→19:53)
[2019-06-28 04:20] LABS: Platelet Count 90 K/mcL (140-400)
[2019-06-28 04:22] LABS: Potassium 3.7 mEq/L (3.5-5.1)
[2019-06-28] MEDS: *HR* Heparin 5,000 UNIT/ML VIAL SQ SCH ×3 (06:16→22:14)
[2019-06-28] MEDS: Pantoprazole 40 MG VIAL IVP SCH (06:16)
[2019-06-28] MEDS: Levothyroxine 25 MCG TABLET PO SCH (06:16)
[2019-06-28] MEDS: Budesonide/Formoterol 160/4.5 1 PUFF INH IH SCH ×2 (07:47→19:58)
[2019-06-28] MEDS: MethylPREDNISolone 40 MG/ML VIAL IVP SCH (08:24)
[2019-06-28] MEDS: Multivit/Ca/Min/Fe/FA 1 TAB TABLET PO SCH (08:25)
[2019-06-28] MEDS: Ascorbic Acid 500 MG TABLET PO SCH ×2 (08:25→19:58)
[2019-06-28] MEDS: Piperacillin/Tazobactam 3.375 GM in 0.9 % Sodium Chloride Mini Bag 100 ML IVPB SCH (11:54)
[2019-06-28] MEDS: *HR* Amiodarone 200 MG TABLET PO SCH (17:27)
[2019-06-28] MEDS: Melatonin 3 MG TABLET PO SCH (19:53)
[2019-06-29] MEDS: Ipratropium/Albuterol Neb 3 ML IH SCH ×5 (03:29→20:57)
[2019-06-29 03:50] LABS: Basophils % 0.1 %; Eosinophils # 0.1 K/mcL (0.0-0.6); Eosinophils % 0.9 %; Hematocrit 31.7 % (35.3-44.9); Lymphocytes # 1.5 K/mcL (0.6-4.6); Lymphocytes % 18.3 %; Mean Corpuscular HGB Conc 31.5 g/dL (31.6-35.5); Mean Corpuscular Hemoglobin 30.9 pg (28.0-33.3); Mean Corpuscular Volume 97.8 fL (83.0-100.0); Mean Platelet Volume 11.1 fL (9.4-12.4); Monocytes # 0.6 K/mcL (0.0-1.3); Monocytes % 7.1 %; Neutrophils # 5.7 K/mcL (1.6-8.9); Nucleated Red Blood Cells 4.2 /100 WBC (0); Platelet Count 96 K/mcL (140-400); Red Blood Count 3.24 M/mcL (3.82-4.97); Red Cell Distribution Width 28.4 % (11.5-14.5); Segmented Neutrophils % 71.6 %
[2019-06-29 03:59] LABS: Calcium 9.2 mg/dL (8.6-10.3); Potassium 3.8 mEq/L (3.5-5.1)
[2019-06-29 04:25] LABS: Polychromasia 1+ (Not Present)
[2019-06-29 04:26] LABS: Anisocytosis 2+ (Not Present); Platelet Estimate Slight Decrease (Normal); Poikilocytosis 1+ (Not Present)
[2019-06-29] MEDS: *HR* HYDROcodone/Acet 5/325 mg TABLET PO PRN ×2 (04:40→15:43)
[2019-06-29] MEDS: Levothyroxine 25 MCG TABLET PO SCH (06:14)
[2019-06-29] MEDS: *HR* Heparin 5,000 UNIT/ML VIAL SQ SCH ×3 (06:23→22:11)
[2019-06-29] MEDS: Pantoprazole 40 MG VIAL IVP SCH (06:23)
[2019-06-29] MEDS ORDERED: 0.9 % Sodium Chloride 250 ML IVC PRN ×2 (07:25→20:24)
[2019-06-29] MEDS ORDERED: 0.9 % Sodium Chloride 1,000 ML PRIME SCH ×2 (07:30→20:24)
[2019-06-29] MEDS: Budesonide/Formoterol 160/4.5 1 PUFF INH IH SCH (07:45)
[2019-06-29] MEDS: Multivit/Ca/Min/Fe/FA 1 TAB TABLET PO SCH (09:05)
[2019-06-29] MEDS: MethylPREDNISolone 40 MG/ML VIAL IVP SCH (09:05)
[2019-06-29] MEDS: Ascorbic Acid 500 MG TABLET PO SCH ×2 (09:08→22:15)
[2019-06-29] MEDS ORDERED: *HR* OxyCODONE Immed Rel 5 MG TABLET PO ONE (09:24)
[2019-06-29] MEDS ORDERED: Acetaminophen 325 MG TABLET PO PRN (09:37)
[2019-06-29] MEDS: Piperacillin/Tazobactam 3.375 GM in 0.9 % Sodium Chloride Mini Bag 100 ML IVPB SCH ×2 (14:11)
[2019-06-29] MEDS: *HR* Amiodarone 200 MG TABLET PO SCH (17:52)
[2019-06-29] MEDS ORDERED: Naloxone 0.4 MG/ML INJ IVP PRN (20:24)
[2019-06-29] MEDS ORDERED: Sennosides 8.6 MG TABLET PO PRN (20:24)
[2019-06-29] MEDS ORDERED: *HR* Alteplase (Cathflo) 2 MG VIAL IVP PRN (20:24)
[2019-06-29] MEDS ORDERED: *HR* HYDROcodone/Acet 5/325 mg TABLET PO PRN (21:59)
[2019-06-29] MEDS ORDERED: Ondansetron 4 MG/2 ML VIAL IVP PRN (22:01)
[2019-06-29] MEDS ORDERED: MOM Conc 10 ML UD.LIQ PO PRN (22:01)
[2019-06-29] MEDS ORDERED: *HR* Promethazine 25 MG/ML VIAL IVP PRN (22:02)
[2019-06-29] MEDS ORDERED: Temazepam 15 MG CAPSULE PO PRN (22:04)
[2019-06-29] MEDS: Melatonin 3 MG TABLET PO SCH (22:10)
[2019-06-30] MEDS: Budesonide/Formoterol 160/4.5 1 PUFF INH IH SCH ×3 (00:14→20:14)
[2019-06-30] MEDS: Ipratropium/Albuterol Neb 3 ML IH SCH ×6 (00:14→20:15)
[2019-06-30] MEDS: Levothyroxine 25 MCG TABLET PO SCH ×2 (06:06→15:13)
[2019-06-30] MEDS: Pantoprazole 40 MG VIAL IVP SCH (06:09)
[2019-06-30] MEDS: *HR* Heparin 5,000 UNIT/ML VIAL SQ SCH ×3 (06:09→21:40)
[2019-06-30 06:44] LABS: Basophils % 0.2 %; Eosinophils # 0.1 K/mcL (0.0-0.6); Eosinophils % 1.3 %; Hematocrit 32.1 % (35.3-44.9); Hemoglobin 9.8 g/dL (11.5-15.4); Immature Granulocytes % 1.3 % (0-4); Lymphocytes # 1.4 K/mcL (0.6-4.6); Lymphocytes % 13.4 %; Mean Corpuscular HGB Conc 30.5 g/dL (31.6-35.5); Mean Corpuscular Hemoglobin 31.4 pg (28.0-33.3); Mean Corpuscular Volume 102.9 fL (83.0-100.0); Mean Platelet Volume 10.9 fL (9.4-12.4); Monocytes # 0.8 K/mcL (0.0-1.3); Monocytes % 7.6 %; Nucleated Red Blood Cells 1.7 /100 WBC (0); Platelet Count 114 K/mcL (140-400); Red Blood Count 3.12 M/mcL (3.82-4.97); Red Cell Distribution Width 29.2 % (11.5-14.5); Segmented Neutrophils % 76.2 %; White Blood Count 10.3 K/mcL (4.3-11.1)
[2019-06-30 07:02] LABS: Calcium 8.9 mg/dL (8.6-10.3); Potassium 3.4 mEq/L (3.5-5.1)
[2019-06-30 08:30] LABS: Neutrophils # 7.9 K/mcL (1.6-8.9)
[2019-06-30 08:34] LABS: Basophilic Stippling 1+ (Not Present); Platelet Estimate Normal (Normal); Polychromasia 1+ (Not Present)
[2019-06-30 08:35] LABS: Anisocytosis 3+ (Not Present); Poikilocytosis 1+ (Not Present)
[2019-06-30 08:36] LABS: Hypochromasia Present (Not Present)
[2019-06-30] MEDS ORDERED: MethylPREDNISolone 40 MG/ML VIAL IVP SCH (09:00)
[2019-06-30] MEDS ORDERED: Heparin 1,000 UNITS/500 mL 500 ML ONE (12:41)
[2019-06-30] MEDS ORDERED: 0.9 % Sodium Chloride 500 ML ONE (12:51)
[2019-06-30] MEDS ORDERED: CeFAZolin Premix DUPLEX 2,000 MG/50 ML BAG IVPB ONE (13:00)
[2019-06-30] MEDS ORDERED: *HR* Midazolam HCl 2 MG/2 ML VIAL ONE (13:05)
[2019-06-30] MEDS ORDERED: Isovue-300 50ML VIAL IVP ONE (13:14)
[2019-06-30] MEDS ORDERED: *HR* Heparin 5,000 UNIT/ML VIAL ONE (13:54)
[2019-06-30] MEDS: Ascorbic Acid 500 MG TABLET PO SCH ×2 (14:46→21:33)
[2019-06-30] MEDS: Multivit/Ca/Min/Fe/FA 1 TAB TABLET PO SCH (14:47)
[2019-06-30] MEDS ORDERED: Ipratropium/Albuterol Neb 3 ML ONE (15:00)
[2019-06-30] MEDS: Acetaminophen 325 MG TABLET PO PRN (15:13)
[2019-06-30] MEDS: *HR* Amiodarone 200 MG TABLET PO SCH (17:21)
[2019-06-30] MEDS: Melatonin 3 MG TABLET PO SCH (21:32)
[2019-06-30] MEDS: *HR* HYDROcodone/Acet 5/325 mg TABLET PO PRN (21:41)
[2019-07-01] MEDS: Ipratropium/Albuterol Neb 3 ML IH SCH ×6 (00:25→20:17)
[2019-07-01 04:51] LABS: Basophils % 0.1 %; Eosinophils # 0.1 K/mcL (0.0-0.6); Eosinophils % 0.7 %; Immature Granulocytes % 0.8 % (0-4); Lymphocytes # 0.9 K/mcL (0.6-4.6); Mean Corpuscular Volume 103.4 fL (83.0-100.0); Mean Platelet Volume 10.8 fL (9.4-12.4); Monocytes # 0.6 K/mcL (0.0-1.3); Monocytes % 8.3 %; Neutrophils # 5.8 K/mcL (1.6-8.9); Nucleated Red Blood Cells 1.2 /100 WBC (0); Platelet Count 102 K/mcL (140-400); Red Cell Distribution Width 28.7 % (11.5-14.5); Segmented Neutrophils % 78.1 %; White Blood Count 7.4 K/mcL (4.3-11.1)
[2019-07-01 05:12] LABS: Calcium 8.9 mg/dL (8.6-10.3); Potassium 3.4 mEq/L (3.5-5.1)
[2019-07-01 05:35] LABS: Anisocytosis 2+ (Not Present); Basophilic Stippling 1+ (Not Present); Polychromasia 1+ (Not Present)
[2019-07-01 05:36] LABS: Platelet Estimate Decreased (Normal)
[2019-07-01] MEDS: Levothyroxine 25 MCG TABLET PO SCH (06:11)
[2019-07-01] MEDS: Pantoprazole 40 MG VIAL IVP SCH (06:11)
[2019-07-01] MEDS: *HR* Heparin 5,000 UNIT/ML VIAL SQ SCH ×3 (06:12→21:41)
[2019-07-01] MEDS ORDERED: 0.9 % Sodium Chloride 250 ML IVC PRN (06:42)
[2019-07-01] MEDS ORDERED: 0.9 % Sodium Chloride 1,000 ML ONE (07:16)
[2019-07-01] MEDS: Budesonide/Formoterol 160/4.5 1 PUFF INH IH SCH ×2 (07:43→20:16)
[2019-07-01] MEDS ORDERED: Acetaminophen IV 1,000 MG/100 ML INFUS..BTL ONE (10:34)
[2019-07-01] MEDS: Multivit/Ca/Min/Fe/FA 1 TAB TABLET PO SCH (12:15)
[2019-07-01] MEDS: predniSONE 20 MG TABLET PO SCH (12:24)
[2019-07-01] MEDS: Ascorbic Acid 500 MG TABLET PO SCH ×2 (12:25→21:40)
[2019-07-01] MEDS: *HR* HYDROcodone/Acet 5/325 mg TABLET PO PRN (12:41)
[2019-07-01] MEDS: *HR* Amiodarone 200 MG TABLET PO SCH (17:26)
[2019-07-01] MEDS: Melatonin 3 MG TABLET PO SCH (21:40)
[2019-07-02] MEDS: Ipratropium/Albuterol Neb 3 ML IH SCH ×6 (00:02→20:09)
[2019-07-02] MEDS: Pantoprazole 40 MG VIAL IVP SCH (06:14)
[2019-07-02] MEDS: *HR* Heparin 5,000 UNIT/ML VIAL SQ SCH ×3 (06:14→22:25)
[2019-07-02] MEDS: Levothyroxine 25 MCG TABLET PO SCH (06:15)
[2019-07-02] MEDS: Budesonide/Formoterol 160/4.5 1 PUFF INH IH SCH ×2 (07:53→20:09)
[2019-07-02] MEDS: Ascorbic Acid 500 MG TABLET PO SCH ×2 (08:08→22:25)
[2019-07-02] MEDS: Multivit/Ca/Min/Fe/FA 1 TAB TABLET PO SCH (08:08)
[2019-07-02] MEDS: predniSONE 20 MG TABLET PO SCH (08:08)
[2019-07-02] MEDS: *HR* LORazepam 2 MG/ML VIAL IVP PRN (08:22)
[2019-07-02] MEDS: *HR* HYDROcodone/Acet 5/325 mg TABLET PO PRN ×2 (08:22→18:33)
[2019-07-02] MEDS ORDERED: Potassium Chloride Elixir 20 MEQ/15 ML UDC PO ONE (08:35)
[2019-07-02] MEDS: *HR* Amiodarone 200 MG TABLET PO SCH (18:28)
[2019-07-02] MEDS: Melatonin 3 MG TABLET PO SCH (22:25)
[2019-07-03] MEDS: *HR* HYDROcodone/Acet 5/325 mg TABLET PO PRN ×4 (00:36→20:23)
[2019-07-03] MEDS: *HR* LORazepam 2 MG/ML VIAL IVP PRN (00:36)
[2019-07-03] MEDS: Ipratropium/Albuterol Neb 3 ML IH SCH ×6 (01:01→20:05)
[2019-07-03 05:11] LABS: ABG Base Excess 0 mEq/L (-2 to 3); ABG HCO3 28 mEq/L (21-27); ABG Oxygen Saturation 82 % (95-98); ABG PCO2 62 mmHg (35-45); ABG PH 7.26 pH Units (7.32-7.45); ABG PO2 55 mmHg (85-104); ABG TCO2 30 mEq/L (20-26)
[2019-07-03] MEDS: Pantoprazole 40 MG VIAL IVP SCH (06:31)
[2019-07-03] MEDS: Levothyroxine 25 MCG TABLET PO SCH (06:31)
[2019-07-03] MEDS: *HR* Heparin 5,000 UNIT/ML VIAL SQ SCH ×3 (06:38→20:19)
[2019-07-03 06:52] LABS: Basophils % 0.2 %; Immature Granulocytes % 0.7 % (0-4); Mean Corpuscular HGB Conc 28.4 g/dL (31.6-35.5); Mean Platelet Volume 10.8 fL (9.4-12.4); Red Cell Distribution Width 27.1 % (11.5-14.5)
[2019-07-03 06:53] LABS: Eosinophils # 0.1 K/mcL (0.0-0.6); Eosinophils % 0.4 %; Hematocrit 34.2 % (35.3-44.9); Hemoglobin 9.7 g/dL (11.5-15.4); Lymphocytes # 1.2 K/mcL (0.6-4.6); Lymphocytes % 9.1 %; Mean Corpuscular Hemoglobin 31.7 pg (28.0-33.3); Mean Corpuscular Volume 111.8 fL (83.0-100.0); Monocytes # 0.9 K/mcL (0.0-1.3); Monocytes % 6.7 %; Neutrophils # 10.7 K/mcL (1.6-8.9); Nucleated Red Blood Cells 0.4 /100 WBC (0); Platelet Count 189 K/mcL (140-400); Red Blood Count 3.06 M/mcL (3.82-4.97); Segmented Neutrophils % 82.9 %; White Blood Count 12.9 K/mcL (4.3-11.1)
[2019-07-03 07:09] LABS: Calcium 9.2 mg/dL (8.6-10.3); Potassium 5.3 mEq/L (3.5-5.1)
[2019-07-03 07:48] LABS: Platelet Estimate Normal (Normal); Polychromasia 1+ (Not Present)
[2019-07-03 07:50] LABS: Anisocytosis 2+ (Not Present); Basophilic Stippling 1+ (Not Present)
[2019-07-03] MEDS: Budesonide/Formoterol 160/4.5 1 PUFF INH IH SCH ×2 (07:55→20:05)
[2019-07-03] MEDS: predniSONE 20 MG TABLET PO SCH (08:43)
[2019-07-03] MEDS: Multivit/Ca/Min/Fe/FA 1 TAB TABLET PO SCH (08:52)
[2019-07-03] MEDS: Ascorbic Acid 500 MG TABLET PO SCH ×2 (08:52→20:19)
[2019-07-03] MEDS: Acetaminophen 325 MG TABLET PO PRN (13:18)
[2019-07-03] MEDS: Azithromycin 250 MG TABLET PO SCH (13:18)
[2019-07-03] MEDS: *HR* Amiodarone 200 MG TABLET PO SCH (17:35)
[2019-07-03] MEDS: Melatonin 3 MG TABLET PO SCH (20:21)
[2019-07-04] MEDS: Ipratropium/Albuterol Neb 3 ML IH SCH ×7 (00:09→23:19)
[2019-07-04 04:03] LABS: Segmented Neutrophils % 84.6 %
[2019-07-04 04:04] LABS: Basophils % 0.2 %; Eosinophils % 0.4 %; Hematocrit 32.4 % (35.3-44.9); Hemoglobin 9.2 g/dL (11.5-15.4); Immature Granulocytes % 0.7 % (0-4); Lymphocytes # 0.7 K/mcL (0.6-4.6); Lymphocytes % 7.8 %; Mean Corpuscular HGB Conc 28.4 g/dL (31.6-35.5); Mean Corpuscular Hemoglobin 31.3 pg (28.0-33.3); Mean Corpuscular Volume 110.2 fL (83.0-100.0); Mean Platelet Volume 10.8 fL (9.4-12.4); Monocytes # 0.6 K/mcL (0.0-1.3); Monocytes % 6.3 %; Neutrophils # 7.7 K/mcL (1.6-8.9); Nucleated Red Blood Cells 0.4 /100 WBC (0); Platelet Count 173 K/mcL (140-400); Red Blood Count 2.94 M/mcL (3.82-4.97); Red Cell Distribution Width 26.2 % (11.5-14.5); White Blood Count 9.1 K/mcL (4.3-11.1)
[2019-07-04 04:19] LABS: Potassium 5.5 mEq/L (3.5-5.1)
[2019-07-04] MEDS: *HR* Heparin 5,000 UNIT/ML VIAL SQ SCH ×3 (04:39→21:52)
[2019-07-04 05:38] LABS: Anisocytosis 3+ (Not Present); Hypochromasia Present (Not Present); Polychromasia 1+ (Not Present)
[2019-07-04 05:39] LABS: Basophilic Stippling 1+ (Not Present); Platelet Estimate Normal (Normal)
[2019-07-04] MEDS: Levothyroxine 25 MCG TABLET PO SCH (06:01)
[2019-07-04] MEDS: Pantoprazole 40 MG VIAL IVP SCH (06:01)
[2019-07-04] MEDS ORDERED: 0.9 % Sodium Chloride 1,000 ML ONE (07:20)
[2019-07-04] MEDS ORDERED: *HR* Dextrose 50 % in Water (Syg) 50 ML SYRINGE IVP STA (07:52)
[2019-07-04] MEDS ORDERED: Insulin Human Regular 10 UNIT in 0.9 % Sodium Chloride 10 ML IV STA (07:52)
[2019-07-04] MEDS ORDERED: Sodium Bicarbonate 50 MEQ/50 ML VIAL IVP ONE (07:53)
[2019-07-04] MEDS: Budesonide/Formoterol 160/4.5 1 PUFF INH IH SCH ×2 (08:00→20:01)
[2019-07-04] MEDS ORDERED: *HR* Heparin 10,000 UNIT/10 ML VIAL IV PRN ×2 (08:05)
[2019-07-04] MEDS ORDERED: 0.9 % Sodium Chloride 250 ML IVC PRN (08:05)
[2019-07-04] MEDS ORDERED: Albumin 25% 25gram/100mL 25 GM/100 ML IV.SOLN IVPB PRN (08:05)
[2019-07-04] MEDS ORDERED: 0.9 % Sodium Chloride 1,000 ML PRIME SCH (08:15)
[2019-07-04] MEDS: Azithromycin 250 MG TABLET PO SCH (08:27)
[2019-07-04] MEDS: predniSONE 20 MG TABLET PO SCH (08:27)
[2019-07-04] MEDS: Ascorbic Acid 500 MG TABLET PO SCH ×2 (08:31→21:52)
[2019-07-04] MEDS: Multivit/Ca/Min/Fe/FA 1 TAB TABLET PO SCH (08:31)
[2019-07-04] MEDS ORDERED: Albumin 25% 25gram/100mL 25 GM/100 ML IV.SOLN ONE (11:07)
[2019-07-04] MEDS ORDERED: Albumin 25% 25gram/100mL 25 GM/100 ML IV.SOLN IVPB ONE (11:34)
[2019-07-04] MEDS: *HR* HYDROcodone/Acet 5/325 mg TABLET PO PRN (13:07)
[2019-07-04] MEDS: *HR* Amiodarone 200 MG TABLET PO SCH (16:49)
[2019-07-04] MEDS: Melatonin 3 MG TABLET PO SCH (21:34)
[2019-07-05 03:47] LABS: Hematocrit 31.8 % (35.3-44.9); Hemoglobin 9.3 g/dL (11.5-15.4); Mean Corpuscular HGB Conc 29.2 g/dL (31.6-35.5); Mean Corpuscular Hemoglobin 31.4 pg (28.0-33.3); Mean Corpuscular Volume 107.4 fL (83.0-100.0); Mean Platelet Volume 10.3 fL (9.4-12.4); Platelet Count 169 K/mcL (140-400); Red Blood Count 2.96 M/mcL (3.82-4.97); Red Cell Distribution Width 25.2 % (11.5-14.5)
[2019-07-05] MEDS: Ipratropium/Albuterol Neb 3 ML IH SCH ×4 (04:10→16:23)
[2019-07-05 04:25] LABS: Calcium 9.6 mg/dL (8.6-10.3); Potassium 4.1 mEq/L (3.5-5.1)
[2019-07-05] MEDS: Pantoprazole 40 MG VIAL IVP SCH (06:01)
[2019-07-05] MEDS: Levothyroxine 25 MCG TABLET PO SCH (06:01)
[2019-07-05] MEDS: *HR* Heparin 5,000 UNIT/ML VIAL SQ SCH ×2 (06:17→12:23)
[2019-07-05] MEDS: predniSONE 20 MG TABLET PO SCH (09:01)
[2019-07-05] MEDS: *HR* HYDROcodone/Acet 5/325 mg TABLET PO PRN ×2 (09:01→18:21)
[2019-07-05] MEDS: Azithromycin 250 MG TABLET PO SCH (09:01)
[2019-07-05] MEDS: Multivit/Ca/Min/Fe/FA 1 TAB TABLET PO SCH (09:01)
[2019-07-05] MEDS: Ascorbic Acid 500 MG TABLET PO SCH (09:01)
[2019-07-05] MEDS: Budesonide/Formoterol 160/4.5 1 PUFF INH IH SCH (11:58)
[2019-07-05 15:48] VITALS: BP 114/84
[2019-07-05] MEDS: *HR* Amiodarone 200 MG TABLET PO SCH (18:21)
== END 2019-07-05 19:00 | DRG 853 ==
LOC: EMEROOARM 06:08 → 2NNU 11:56 → SUATTDRO 11:56 → 2NNU 12:41 → ICNU 06-19 10:08 → 2ANU 06-29 17:07 → 2NENU 06-29 21:03
PROVIDERS: ADMIT Family Medicine; ATTEND Student in an Organized Health Care Education/Training Program
PROC: IRPERMA (2019-06-30 12:00)

== ENCOUNTER 2019-07-12 16:38 | Observation (INO) ==
[2019-07-12] MEDS ORDERED: Isovue-370 500 ML BOTTLE IVP ONE (16:54)
[2019-07-12 17:19] LABS: Hematocrit 36.7 % (35.3-44.9); Nucleated Red Blood Cells 0.7 /100 WBC (0); Red Cell Distribution Width 22.5 % (11.5-14.5)
[2019-07-12 17:21] LABS: Basophils % 0.4 %; Eosinophils % 0.4 %; Hemoglobin 10.2 g/dL (11.5-15.4); Immature Granulocytes % 0.7 % (0-4); Lymphocytes # 0.3 K/mcL (0.6-4.6); Lymphocytes % 6.5 %; Mean Corpuscular HGB Conc 27.8 g/dL (31.6-35.5); Mean Corpuscular Hemoglobin 30.9 pg (28.0-33.3); Mean Corpuscular Volume 111.2 fL (83.0-100.0); Mean Platelet Volume 10.1 fL (9.4-12.4); Monocytes # 0.2 K/mcL (0.0-1.3); Monocytes % 4.1 %; Platelet Count 226 K/mcL (140-400); Segmented Neutrophils % 87.9 %; White Blood Count 4.6 K/mcL (4.3-11.1)
[2019-07-12 17:23] LABS: Anisocytosis 1+ (Not Present); Hypochromasia Present (Not Present); Macrocytosis Present (Not Present); Platelet Estimate Normal (Normal)
[2019-07-12 17:38] LABS: Calcium 9.2 mg/dL (8.6-10.3); Potassium 5.1 mEq/L (3.5-5.1)
[2019-07-12 17:42] LABS: Troponin I 0.09 ng/mL (< 0.04)
[2019-07-12] MEDS ORDERED: *HR* OxyCODONE/APAP 5/325 TABLET PO ONE (17:56)
[2019-07-12] MEDS ORDERED: Furosemide 40 MG in 0.9 % Sodium Chloride 50 ML IV STA (21:48)
[2019-07-12] MEDS ORDERED: Furosemide 40 MG/4 ML VIAL IVP ONE (22:00)
[2019-07-12 23:04] LABS: ABG Base Excess 1 mEq/L (-2 to 3); ABG HCO3 31 mEq/L (21-27); ABG Oxygen Saturation 88 % (95-98); ABG PCO2 75 mmHg (35-45); ABG PH 7.22 pH Units (7.32-7.45); ABG PO2 67 mmHg (85-104); ABG TCO2 33 mEq/L (20-26)
[2019-07-13] MEDS ORDERED: *HR* HYDROcodone/Acet 5/325 mg TABLET PO PRN (00:50)
[2019-07-13] MEDS ORDERED: Temazepam 15 MG CAPSULE PO PRN (00:50)
[2019-07-13] MEDS: Ipratropium/Albuterol Neb 3 ML IH SCH ×4 (03:38→15:23)
[2019-07-13] MEDS: *HR* Heparin 5,000 UNIT/ML VIAL SQ SCH ×2 (05:29→13:09)
[2019-07-13] MEDS ORDERED: Levothyroxine 25 MCG TABLET PO SCH (06:30)
[2019-07-13 07:15] LABS: VBG HCO3 28 mEq/L (21-27); VBG PCO2 64 mmHg (41-51); VBG PH 7.25 pH Units (7.32-7.42); VBG PO2 165 mmHg (25-50)
[2019-07-13 07:28] LABS: Magnesium 2.8 mg/dL (1.6-2.6); Phosphorous 5.7 mg/dL (2.7-4.5); Potassium 4.4 mEq/L (3.5-5.1)
[2019-07-13] MEDS ORDERED: 0.9 % Sodium Chloride 250 ML IVC PRN (07:36)
[2019-07-13] MEDS ORDERED: 0.9 % Sodium Chloride 1,000 ML PRIME SCH (07:45)
[2019-07-13] MEDS ORDERED: Ascorbic Acid 500 MG TABLET PO SCH (09:00)
[2019-07-13] MEDS ORDERED: Albumin 25% 25gram/100mL 25 GM/100 ML IV.SOLN IVPB PRN (09:53)
[2019-07-13] MEDS ORDERED: *HR* Heparin 10,000 UNIT/10 ML VIAL IV PRN (09:53)
[2019-07-13] MEDS ORDERED: Albumin 25% 25gram/100mL 25 GM/100 ML IV.SOLN ONE (09:59)
[2019-07-13] MEDS ORDERED: Budesonide/Formoterol 80/4.5 1 PUFF INH IH SCH (10:00)
[2019-07-13 11:36] LABS: Hepatitis B Surface Antibody 75.81 mIU/mL
[2019-07-13 11:48] LABS: Hepatitis B Surface Antigen Nonreactive (Nonreactive)
[2019-07-13 15:03] VITALS: BP 96/61
[2019-07-13] MEDS ORDERED: *HR* Amiodarone 200 MG TABLET PO SCH (18:00)
[2019-07-13] MEDS ORDERED: Melatonin 3 MG TABLET PO SCH (21:00)
== END 2019-07-13 15:20 ==
LOC: EMEROOARM 16:38 → 2NNU 16:38 → SUATTDRO 23:21 → 2NNU 23:42
PROVIDERS: ADMIT Internal Medicine; ATTEND Internal Medicine

== ENCOUNTER 2019-07-21 20:16 | Inpatient (IN) ==
[2019-07-21] MEDS ORDERED: 0.9 % Sodium Chloride 250 ML ONE (20:38)
[2019-07-21] MEDS ORDERED: 0.9 % Sodium Chloride 250 ML IVC ONE (20:48)
[2019-07-21 21:11] LABS: Basophils % 0.4 %; Eosinophils # 0.2 K/mcL (0.0-0.6); Eosinophils % 3.5 %; Hematocrit 39.2 % (35.3-44.9); Hemoglobin 11.7 g/dL (11.5-15.4); Immature Granulocytes % 0.4 % (0-4); Lymphocytes # 0.6 K/mcL (0.6-4.6); Lymphocytes % 11.3 %; Mean Corpuscular HGB Conc 29.8 g/dL (31.6-35.5); Mean Corpuscular Hemoglobin 29.5 pg (28.0-33.3); Mean Platelet Volume 10.2 fL (9.4-12.4); Monocytes # 0.5 K/mcL (0.0-1.3); Neutrophils # 4.3 K/mcL (1.6-8.9); Platelet Count 257 K/mcL (140-400); Red Blood Count 3.96 M/mcL (3.82-4.97); Segmented Neutrophils % 76.4 %; White Blood Count 5.7 K/mcL (4.3-11.1)
[2019-07-21 21:16] LABS: Prothrombin Time 11.5 Seconds (9.4-12.1)
[2019-07-21 21:19] LABS: Activated Partial Thrombo Time 29.9 Seconds (26.0-36.0)
[2019-07-21 21:28] LABS: Albumin 3.3 g/dL (3.5-5.7); Albumin/Globulin Ratio 1.3 (1.1-2.2); Bilirubin,Direct 0.1 mg/dL (0.0-0.2); Bilirubin,Indirect 0.3 mg/dL (0.0-1.0); Bilirubin,Total 0.4 mg/dL (0.3-1.0); Calcium 9.2 mg/dL (8.6-10.3); Globulin 2.5 g/dL (2.4-3.5); Magnesium 2.1 mg/dL (1.6-2.6); Phosphorous 3.3 mg/dL (2.7-4.5); Potassium 3.1 mEq/L (3.5-5.1); Total Protein 5.8 g/dL (6.4-8.9)
[2019-07-21 21:32] LABS: Troponin I 0.05 ng/mL (< 0.04)
[2019-07-21 21:54] LABS: ABG Base Excess 8 mEq/L (-2 to 3); ABG HCO3 36 mEq/L (21-27); ABG Oxygen Saturation 98 % (95-98); ABG PCO2 67 mmHg (35-45); ABG PH 7.34 pH Units (7.32-7.45); ABG PO2 108 mmHg (85-104); ABG TCO2 38 mEq/L (20-26); Blood Gas FiO2 4.5 (1-15=lpm or21-100=%)
[2019-07-22] MEDS ORDERED: Naloxone 0.4 MG/ML INJ IVP PRN (04:47)
[2019-07-22 05:35] LABS: Hemoglobin 11.7 g/dL (11.5-15.4); Mean Corpuscular HGB Conc 29.3 g/dL (31.6-35.5); Mean Corpuscular Hemoglobin 28.8 pg (28.0-33.3); Mean Corpuscular Volume 98.5 fL (83.0-100.0); Platelet Count 249 K/mcL (140-400); Red Blood Count 4.06 M/mcL (3.82-4.97); Red Cell Distribution Width 21.2 % (11.5-14.5); White Blood Count 5.9 K/mcL (4.3-11.1)
[2019-07-22 05:54] LABS: Albumin 3.3 g/dL (3.5-5.7); Albumin/Globulin Ratio 1.4 (1.1-2.2); Bilirubin,Total 0.4 mg/dL (0.3-1.0); Calcium 9.3 mg/dL (8.6-10.3); Globulin 2.4 g/dL (2.4-3.5); Magnesium 2.1 mg/dL (1.6-2.6); Phosphorous 3.7 mg/dL (2.7-4.5); Potassium 3.3 mEq/L (3.5-5.1); Total Protein 5.7 g/dL (6.4-8.9); Troponin I 0.05 ng/mL (< 0.04)
[2019-07-22] MEDS ORDERED: *HR* Heparin 10,000 UNIT/10 ML VIAL IV PRN ×2 (08:51)
[2019-07-22] MEDS ORDERED: 0.9 % Sodium Chloride 250 ML IVC PRN (08:51)
[2019-07-22] MEDS ORDERED: Albumin 25% 25gram/100mL 25 GM/100 ML IV.SOLN IVPB PRN (08:51)
[2019-07-22] MEDS ORDERED: 0.9 % Sodium Chloride 1,000 ML PRIME SCH (09:00)
[2019-07-22] MEDS: Budesonide/Formoterol 160/4.5 1 PUFF INH IH SCH ×2 (10:18→20:25)
[2019-07-22] MEDS: Ipratropium/Albuterol Neb 3 ML IH PRN ×2 (10:19→18:44)
[2019-07-22] MEDS ORDERED: *HR* HYDROcodone/Acet 5/325 mg TABLET PO PRN (15:52)
[2019-07-22] MEDS ORDERED: Temazepam 15 MG CAPSULE PO PRN (15:52)
[2019-07-22] MEDS ORDERED: ALPRAZolam 0.25 MG TABLET PO PRN (15:52)
[2019-07-22] MEDS: Ascorbic Acid 500 MG TABLET PO SCH (17:54)
[2019-07-22] MEDS: *HR* Heparin 5,000 UNIT/ML VIAL SQ SCH (17:56)
[2019-07-22] MEDS: Melatonin 3 MG TABLET PO SCH (21:01)
[2019-07-23] MEDS: Levothyroxine 25 MCG TABLET PO SCH (05:42)
[2019-07-23] MEDS: *HR* Heparin 5,000 UNIT/ML VIAL SQ SCH ×2 (05:42→16:43)
[2019-07-23] MEDS: Budesonide/Formoterol 160/4.5 1 PUFF INH IH SCH ×2 (07:36→20:03)
[2019-07-23] MEDS: predniSONE 10 MG TABLET PO SCH (09:46)
[2019-07-23] MEDS: Ascorbic Acid 500 MG TABLET PO SCH ×2 (09:46→16:40)
[2019-07-23 10:47] LABS: Calcium 9.1 mg/dL (8.6-10.3); Potassium 4.8 mEq/L (3.5-5.1)
[2019-07-23] MEDS: Ipratropium/Albuterol Neb 3 ML IH PRN (13:18)
[2019-07-23] MEDS ORDERED: *HR* Amiodarone 200 MG TABLET PO SCH (18:00)
[2019-07-23] MEDS: Melatonin 3 MG TABLET PO SCH (22:13)
[2019-07-24 03:04] LABS: Eosinophils % 0.2 %; Immature Granulocytes % 0.5 % (0-4)
[2019-07-24 03:05] LABS: Basophils % 0.3 %; Hematocrit 43.9 % (35.3-44.9); Hemoglobin 12.7 g/dL (11.5-15.4); Lymphocytes # 0.8 K/mcL (0.6-4.6); Lymphocytes % 13.1 %; Mean Corpuscular HGB Conc 28.9 g/dL (31.6-35.5); Mean Corpuscular Hemoglobin 28.8 pg (28.0-33.3); Mean Corpuscular Volume 99.5 fL (83.0-100.0); Mean Platelet Volume 10.1 fL (9.4-12.4); Monocytes # 0.5 K/mcL (0.0-1.3); Monocytes % 8.5 %; Neutrophils # 4.7 K/mcL (1.6-8.9); Platelet Count 329 K/mcL (140-400); Red Blood Count 4.41 M/mcL (3.82-4.97); Red Cell Distribution Width 21.2 % (11.5-14.5); Segmented Neutrophils % 77.4 %; White Blood Count 6.1 K/mcL (4.3-11.1)
[2019-07-24 03:13] LABS: Calcium 9.5 mg/dL (8.6-10.3); Magnesium 2.4 mg/dL (1.6-2.6); Potassium 5.3 mEq/L (3.5-5.1)
[2019-07-24 04:20] LABS: Anisocytosis 1+ (Not Present)
[2019-07-24 04:21] LABS: Platelet Estimate Normal (Normal); Polychromasia 1+ (Not Present)
[2019-07-24] MEDS: *HR* Heparin 5,000 UNIT/ML VIAL SQ SCH (06:36)
[2019-07-24] MEDS: Levothyroxine 25 MCG TABLET PO SCH (06:36)
[2019-07-24] MEDS: predniSONE 10 MG TABLET PO SCH (08:29)
[2019-07-24] MEDS: Ascorbic Acid 500 MG TABLET PO SCH (08:32)
[2019-07-24] MEDS: Ipratropium/Albuterol Neb 3 ML IH PRN (08:39)
[2019-07-24] MEDS: Budesonide/Formoterol 160/4.5 1 PUFF INH IH SCH (08:40)
[2019-07-24] MEDS ORDERED: 0.9 % Sodium Chloride 250 ML IVC PRN (10:27)
[2019-07-24] MEDS ORDERED: *HR* Heparin 10,000 UNIT/10 ML VIAL IV PRN (12:40)
[2019-07-24 14:11] VITALS: BP 105/72
== END 2019-07-24 14:51 | DRG 280 ==
LOC: EMEROOARM 20:16 → 2NENU 20:16 → SUATTDRO 23:37 → 2NENU 07-22 01:21
PROVIDERS: ADMIT Internal Medicine; ATTEND Internal Medicine

== ENCOUNTER 2019-07-29 00:45 | Observation (INO) ==
[2019-07-29 01:20] LABS: Basophils % 0.3 %; Eosinophils # 0.1 K/mcL (0.0-0.6); Eosinophils % 0.6 %; Hematocrit 38.9 % (35.3-44.9); Hemoglobin 11.6 g/dL (11.5-15.4); Immature Granulocytes % 0.6 % (0-4); Lymphocytes # 0.8 K/mcL (0.6-4.6); Lymphocytes % 5.4 %; Mean Corpuscular HGB Conc 29.8 g/dL (31.6-35.5); Mean Corpuscular Volume 97.3 fL (83.0-100.0); Monocytes # 0.8 K/mcL (0.0-1.3); Monocytes % 5.3 %; Neutrophils # 13.1 K/mcL (1.6-8.9); Platelet Count 355 K/mcL (140-400); Red Cell Distribution Width 21.8 % (11.5-14.5); Segmented Neutrophils % 87.8 %
[2019-07-29 01:21] LABS: White Blood Count 14.9 K/mcL (4.3-11.1)
[2019-07-29 01:42] LABS: INR 1.1; Prothrombin Time 12.4 Seconds (9.4-12.1)
[2019-07-29 01:44] LABS: Albumin 3.8 g/dL (3.5-5.7); Albumin/Globulin Ratio 1.5 (1.1-2.2); Bilirubin,Total 0.4 mg/dL (0.3-1.0); Calcium 9.4 mg/dL (8.6-10.3); Globulin 2.6 g/dL (2.4-3.5); Potassium 6.2 mEq/L (3.5-5.1); Total Protein 6.4 g/dL (6.4-8.9)
[2019-07-29 01:56] LABS: Troponin I 0.06 ng/mL (< 0.04)
[2019-07-29] MEDS ORDERED: Albuterol 2.5 MG/3 ML NEBULIZER IH ONE (03:02)
[2019-07-29] MEDS ORDERED: Nitroglycerin 0.4 MG TAB.SUBL SL PRN (03:07)
[2019-07-29] MEDS ORDERED: Sodium Bicarbonate 50 MEQ/50 ML VIAL IVP ONE (03:40)
[2019-07-29] MEDS ORDERED: Naloxone 0.4 MG/ML INJ IVP PRN (04:28)
[2019-07-29] MEDS ORDERED: Ondansetron 4 MG/2 ML VIAL IVP PRN (04:28)
[2019-07-29] MEDS ORDERED: ALPRAZolam 0.5 MG TABLET PO PRN (04:34)
[2019-07-29] MEDS ORDERED: *HR* HYDROcodone/Acet 5/325 mg TABLET PO PRN (04:34)
[2019-07-29 05:48] LABS: Phosphorous 5.8 mg/dL (2.7-4.5)
[2019-07-29] MEDS ORDERED: Ipratropium/Albuterol Neb 3 ML ONE (07:32)
[2019-07-29] MEDS: Ipratropium/Albuterol Neb 3 ML IH SCH ×3 (07:33→22:49)
[2019-07-29] MEDS: Budesonide/Formoterol 80/4.5 1 PUFF INH IH SCH ×2 (07:34→22:49)
[2019-07-29] MEDS ORDERED: 0.9 % Sodium Chloride 250 ML IVC PRN (08:26)
[2019-07-29] MEDS ORDERED: *HR* Heparin 10,000 UNIT/10 ML VIAL IV PRN (08:26)
[2019-07-29] MEDS ORDERED: Albumin 25% 25gram/100mL 25 GM/100 ML IV.SOLN IVPB PRN (08:28)
[2019-07-29] MEDS ORDERED: 0.9 % Sodium Chloride 1,000 ML PRIME SCH (08:30)
[2019-07-29] MEDS: *HR* Amiodarone 200 MG TABLET PO SCH (14:31)
[2019-07-29] MEDS: SODIUM ZIRCONIUM CYCLOSILICATE 5 GM POWD.PACK PO SCH (14:31)
[2019-07-29] MEDS ORDERED: *HR* Amiodarone 200 MG TABLET PO SCH (18:00)
[2019-07-30 06:09] LABS: Basophils % 0.3 %; Eosinophils # 0.3 K/mcL (0.0-0.6); Eosinophils % 2.4 %; Hematocrit 40.5 % (35.3-44.9); Hemoglobin 11.8 g/dL (11.5-15.4); Immature Granulocytes % 0.8 % (0-4); Lymphocytes # 1.1 K/mcL (0.6-4.6); Lymphocytes % 10.2 %; Mean Corpuscular HGB Conc 29.1 g/dL (31.6-35.5); Mean Corpuscular Hemoglobin 28.4 pg (28.0-33.3); Mean Corpuscular Volume 97.6 fL (83.0-100.0); Monocytes # 0.6 K/mcL (0.0-1.3); Monocytes % 6.1 %; Neutrophils # 8.4 K/mcL (1.6-8.9); Platelet Count 340 K/mcL (140-400); Red Blood Count 4.15 M/mcL (3.82-4.97); Red Cell Distribution Width 21.3 % (11.5-14.5); Segmented Neutrophils % 80.2 %; White Blood Count 10.4 K/mcL (4.3-11.1)
[2019-07-30 06:17] LABS: Calcium 9.2 mg/dL (8.6-10.3); Magnesium 2.4 mg/dL (1.6-2.6); Potassium 4.3 mEq/L (3.5-5.1)
[2019-07-30] MEDS ORDERED: 0.9 % Sodium Chloride 250 ML IVC PRN (07:15)
[2019-07-30] MEDS: *HR* Amiodarone 200 MG TABLET PO SCH (08:51)
[2019-07-30] MEDS: SODIUM ZIRCONIUM CYCLOSILICATE 5 GM POWD.PACK PO SCH (08:52)
[2019-07-30] MEDS: Ipratropium/Albuterol Neb 3 ML IH SCH (10:51)
[2019-07-30] MEDS: Budesonide/Formoterol 80/4.5 1 PUFF INH IH SCH (10:51)
[2019-07-30 12:02] VITALS: BP 98/65
== END 2019-07-30 14:35 ==
LOC: EMEROOARM 00:45 → CDU 00:45 → SUATTDRO 03:58 → CDU 05:16 → 2ANU 17:55
PROVIDERS: ADMIT Internal Medicine; ATTEND Internal Medicine